=== PATIENT | female | born 1945 | race Caucasian/White ===

== ENCOUNTER 2017-03-16 09:16 | Inpatient (IN) | payer MEDICARE, BC ==
[2017-03-10 14:48] VITALS: BMI 31.1
[~2017-03-16 09:16] MED LIST: DEXAMETHASONE SOD PHOSPHATE 10 MG/ML 1 ML VIAL IV ONE; HEPARIN SODIUM,PORCINE 5,000 UNIT/ML 1 ML VIAL SQ ONE; MIDAZOLAM 2 MG/2 ML VIAL IV PRN; ONDANSETRON 4 MG/2 ML VIAL IVP ONE; ceFAZolin 2 GM in SODIUM CHLORIDE 0.9% 100 ML IVPB ONE; metroNIDAZOLE-NS PMX 500 MG in SALINE 1 100ML.BAG IVPB ONE
--- NOTE | 2017-03-16 11:05 | HP ---
CHIEF COMPLAINT: Right colon cancer. HISTORY OF PRESENT ILLNESS: This patient is a 71 year old female who underwent a colonoscopy by Dr. Tafoya on 02/08 which revealed a large ulcerated mass in the cecum. Biopsy from this mass revealed adenocarcinoma. The patient had a CAT scan performed, showing an abnormality within the liver. This led to an MRI and a PET scan which revealed what appeared to represent a hemangioma. No other metastatic disease was identified. The patient did have a 2 cm polyp in the descending colon which revealed tubulovillous adenoma. The patient has a significant vascular disease history. At the time of her recent cardiac catheterization they were unable to obtain access, apparently. PAST MEDICAL HISTORY: Hypertension, peripheral vascular disease, coronary artery disease, hyperlipidemia, anemia. PAST SURGICAL HISTORY: Colonoscopy, cardiac bypass, bladder. MEDICATIONS: See list. ALLERGIES: None. PHYSICAL EXAM: HEENT: Normocephalic, sclerae non icteric. CHEST: No deformities. ABDOMEN: Soft, nontender, nondistended. No palpable masses. EXTREMITIES: Without edema. IMPRESSION: 1. 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 PLAN: Will proceed with laparoscopic, possible open right colectomy today. The risks of the procedure are noted to include but not limited to bleeding, infection, hernia, abscess, anastomotic dehiscence, duodenal or ureteral injury , conversion to an open procedure, exacerbation of cardiac or peripheral vascular disease and . The patient understands and wishes to proceed. VIVEK
[2017-03-16] MEDS: LACTATED RINGERS 1,000 ML IV SCH (13:22)
[2017-03-16] MEDS: ALVIMOPAN 12 MG CAPSULE PO ONE ×2 (13:22→13:55)
[2017-03-16 13:24] LABS: Glucose,Whole Blood 138 mg/dL (75-99)
[2017-03-16] MEDS ORDERED: PROPOFOL 10 MG/ML 20 ML VIAL IV ONE (14:03)
[2017-03-16] MEDS ORDERED: NALOXONE 0.4 MG/ML 1 ML VIAL ONE (14:03)
[2017-03-16] MEDS ORDERED: fentaNYL (PF) 50 MCG/ML 2 ML AMP ONE (14:03)
[2017-03-16] MEDS ORDERED: SUCCINYLCHOLINE CHLORIDE 100 MG/5 ML SYR IV ONE (14:03)
[2017-03-16] MEDS ORDERED: VECURONIUM 10 MG VIAL IV ONE (14:03)
[2017-03-16] MEDS ORDERED: LIDOCAINE 1% INJ 10MG/ML (20 ML MDV) ONE (14:03)
[2017-03-16] MEDS ORDERED: NEOSTIGMINE 1 MG/ML 10 ML VIAL ONE (14:03)
[2017-03-16] MEDS ORDERED: ACETAMINOPHEN IV (For NPO) 1,000 MG/100 ML VIAL ONE (14:03)
[2017-03-16] MEDS ORDERED: GLYCOPYRROLATE 0.2 MG/ML 2 ML VIAL ONE (14:03)
[2017-03-16] MEDS ORDERED: BUPIVACAINE (PF) 0.25% 30 ML VIAL SQ ONE (14:57)
[2017-03-16] MEDS ORDERED: LACTATED RINGERS 1,000 ML IV ONE ×2 (15:44→16:33)
[2017-03-16] MEDS ORDERED: METOCLOPRAMIDE 5 MG/ML 2 ML VIAL IVP PRN (17:02)
[2017-03-16] MEDS ORDERED: ONDANSETRON 4 MG/2 ML VIAL IVP PRN (17:02)
--- NOTE | 2017-03-16 17:02 | P.OP ---
Date of Procedure: 03/16/17 Preoperative Diagnosis: Postoperative Diagnosis: Procedure(s) Performed: PREOPERATIVE DIAGNOSIS: Right colon adenocarcinoma POSTOPERATIVE DIAGNOSIS: Same PROCEDURE: Laparoscopic right colectomy SURGEON: Roberto EBL: 50ML ANESTHESIA: General COMPLICATIONS: None OPERATIVE PROCEDURE: The patient was placed in the operating table in the supine position. She was placed under general anesthesia that time. A Stanley catheter was placed. The patient was placed on the huggy vac. The arms were tucked. The abdomen was prepped and draped in the usual sterile fashion. A vertical supraumbilical incision was made using the scalpel. The fascia was retracted anteriorly with Mountain forceps. The Veress needle was advanced into the peritoneal cavity and pneumoperitoneum was achieved up to 15 monitor mercury. A 12 mm trocar was then placed. 3 additional 5 mm trochars were placed under direct visualization one on the right upper quadrant, one in the suprapubic location, and one in the left lower quadrant. The greater omentum was retracted cephalad. The cecum and ascending colon were inspected. The cecum examination revealed a mass that measured approximately 3-4 cm in size. There was no evidence of any peritoneal implants. The liver appeared normal. The adjacent colon was retracted anteriorly. In this manner the right colic vasculature was tented nicely. Superficial cautery was used on the mesentery. The right colic vasculature was then bluntly dissected. I then divided the right colic artery using a 45 mm white Endo JUDAH. Further blunt dissection took place in the retrocolic space. The right ureter was identified. The lateral attachments to the colon and the distal small bowel were lysed using a combination of blunt dissection cautery and the LigaSure device. The hepatic flexure was mobilized in a similar fashion. The gastrocolic ligament was divided using the ligature. Further dissection of the mesentery was divided using the LigaSure device. At this time I felt that we had good mobilization of the entire right colon and terminal ileum. Care was taken to avoid the use of electrocautery near the duodenum. The supra umbilical incision was then lengthened. The incision made lengthened inferiorly to include a small defect at the umbilicus. I did make this incision slightly larger than normal for our laparoscopic approach and the medium sized Victor Hugo wound protector was utilized. The bowel that had been fully mobilized was brought out through this incision site. The mid transverse colon was divided using a linear 75 stapler. The terminal ileum was then divided in a similar fashion. The specimen was sent to pathology for close examination. A [id number] anastomosis then took place. The antimesenteric portion of the staple line was excised. Through this defect the 75 linear stapler was placed and a cevg-ar-[id number] anastomosis took place along the tenia on the transverse colon and the antimesenteric border of the small intestine. A 3-0 GI silk crotch stitch was placed. The anastomosis was completed by firing a TA stapler. The TA staple line was imbricated using 3-0 GI silk sutures as well. No bleeding was seen. The bowel was reduced back into the peritoneal cavity. The fascia was then closed using a running double- stranded #1 PDS suture. The sub-cutaneous tissues reapproximated using interrupted 3-0 Vicryl sutures and the skin using a running 4-0 Monocryl stitch. Steri-Strips and sterile dressings then applied. At the end of the procedure the sponge needle and instrument counts were correct. DISPOSITION: Stable to recovery room Implants: Indications for Procedure: Operative Findings: Description of Procedure:
[2017-03-16] MEDS: HYDROmorphone 1 MG/ML 1 ML SYRINGE IVP PRN ×4 (17:30→22:35)
[2017-03-16] MEDS ORDERED: FAMOTIDINE 20 MG TAB PO PRN (18:19)
[2017-03-16] MEDS ORDERED: LEVALBUTEROL NEB 1.25 MG/3 ML AMP INHALATION ONE (18:30)
[2017-03-16] MEDS ORDERED: LABETALOL 5 MG/ML VIAL MDV IVP ONE ×3 (18:35→19:45)
[2017-03-16 18:54] LABS: Anisocytosis Slight; Basophils % (A) 0 %; CH 27.6; Eosinophils # (A) 0.1 k/uL (0-0.7); Eosinophils % (A) 1 %; HCT 32.8 % (34.0-46.0); HGB 10.7 gm/dL (11.4-16.0); Hypochromasia Marked; Luc # (Auto) 0.05; Luc % (Auto) 1; Lymphocytes # (A) 0.3 k/uL (1.0-4.8); Lymphocytes % (A) 4 %; MCH 30.1 pg (25.0-35.0); MCHC 32.6 g/dL (31.0-37.0); MCV 92.3 fL (80.0-100.0); Mean Platelet Volume 8.5; Monocytes # (A) 0.1 k/uL (0-1.0); Monocytes % (A) 1 %; Neutrophils # (A) 7.1 k/uL (1.3-7.7); Neutrophils % (A) 92 %; Poikilocytosis Slight; RBC 3.55 m/uL (3.80-5.40); RDW 17.7 % (11.5-15.5); WBC 7.7 k/uL (3.8-10.6); WBC (Perox) 7.77
[2017-03-16] MEDS ORDERED: ALBUTEROL NEBULIZED 2.5 MG/3 ML INHALATION ONE (19:15)
[2017-03-16] MEDS ORDERED: IPRATROPIUM 0.5 MG/2.5 ML NEBU INHALATION ONE (19:15)
[2017-03-16 19:20] LABS: Anion Gap 12 mmol/L; Blood Urea Nitrogen 12 mg/dL (7-17); Calcium 8.5 mg/dL (8.4-10.2); Carbon Dioxide 21 mmol/L (22-30); Chloride 107 mmol/L (98-107); Glucose 188 mg/dL (74-99); Non-African American GFR(MDRD) 54 (>60 ml/min/1.73 sqM); Potassium 4.3 mmol/L (3.5-5.1); Sodium 140 mmol/L (137-145)
[2017-03-16] MEDS: BUDESONIDE 0.5 MG/2 ML NEBU INHALATION SCH (19:39)
[2017-03-16] MEDS ORDERED: IPRATROPIUM-ALBUTEROL 3 ML NEB INHALATION PRN (19:59)
[2017-03-16 21:00] LABS: Glucose,Whole Blood 222 mg/dL (75-99)
[2017-03-16] MEDS ORDERED: ZOLPIDEM 10 MG TAB PO SCH (21:00)
[2017-03-16] MEDS: D5-0.45% NACL WITH KCL 20MEQ/L 1,000 ML IV SCH (22:26)
[2017-03-16] MEDS: FAMOTIDINE 20 MG/2 ML VIAL IV SCH (22:27)
[2017-03-16] MEDS: INSULIN LISPRO (humaLOG) 300 UNIT/3 ML VIAL SQ SCH (22:27)
[2017-03-16] MEDS: METOPROLOL SUCCINATE (ER) 50 MG TAB.ER.24H PO SCH (22:27)
[2017-03-17] MEDS ORDERED: IPRATROPIUM-ALBUTEROL 3 ML NEB INHALATION SCH
[2017-03-17] MEDS: HYDROmorphone 1 MG/ML 1 ML SYRINGE IVP PRN ×4 (03:36→17:38)
[2017-03-17 04:32] LABS: Anisocytosis Slight; Basophils % (A) 0 %; CHCM 30.7; Eosinophils % (A) 0 %; HCT 32.2 % (34.0-46.0); HDW 3.53; HGB 9.9 gm/dL (11.4-16.0); Hypochromasia Marked; Luc # (Auto) 0.07; Luc % (Auto) 1; Lymphocytes # (A) 0.3 k/uL (1.0-4.8); Lymphocytes % (A) 3 %; MCH 28.1 pg (25.0-35.0); MCHC 30.6 g/dL (31.0-37.0); MCV 91.7 fL (80.0-100.0); Mean Platelet Volume 8.1; Monocytes # (A) 0.3 k/uL (0-1.0); Monocytes % (A) 3 %; Neutrophils # (A) 9.2 k/uL (1.3-7.7); Neutrophils % (A) 94 %; Poikilocytosis Slight; RBC 3.51 m/uL (3.80-5.40); RDW 17.9 % (11.5-15.5); WBC 9.9 k/uL (3.8-10.6); WBC (Perox) 10.03
[2017-03-17 04:44] LABS: ALT 27 U/L (9-52); AST 19 U/L (14-36); Alkaline Phosphatase 60 U/L (38-126); Anion Gap 10 mmol/L; Blood Urea Nitrogen 12 mg/dL (7-17); Calcium 8.8 mg/dL (8.4-10.2); Carbon Dioxide 24 mmol/L (22-30); Chloride 107 mmol/L (98-107); Glucose 172 mg/dL (74-99); Magnesium 1.8 mg/dL (1.6-2.3); Non-African American GFR(MDRD) 54 (>60 ml/min/1.73 sqM); Potassium 4.9 mmol/L (3.5-5.1); Sodium 141 mmol/L (137-145); Total Bilirubin 0.3 mg/dL (0.2-1.3); Total Protein 5.7 g/dL (6.3-8.2)
[2017-03-17 06:22] LABS: Glucose,Whole Blood 161 mg/dL (75-99)
[2017-03-17] MEDS: HEPARIN SODIUM,PORCINE 5,000 UNIT/ML 1 ML VIAL SQ SCH ×4 (06:57→23:04)
[2017-03-17] MEDS: LACTATED RINGERS 1,000 ML IV SCH (06:57)
[2017-03-17] MEDS: D5-0.45% NACL WITH KCL 20MEQ/L 1,000 ML IV SCH ×3 (07:15→17:38)
[2017-03-17] MEDS: INSULIN LISPRO (humaLOG) 300 UNIT/3 ML VIAL SQ SCH ×4 (07:16→21:33)
[2017-03-17] MEDS: IPRATROPIUM-ALBUTEROL 3 ML NEB INHALATION SCH ×4 (08:19→21:28)
[2017-03-17] MEDS: BUDESONIDE 0.5 MG/2 ML NEBU INHALATION SCH ×2 (08:19→21:28)
[2017-03-17] MEDS: amLODIPine 2.5 MG TAB PO SCH (08:42)
[2017-03-17] MEDS: ALVIMOPAN 12 MG CAPSULE PO SCH ×2 (08:42→21:26)
[2017-03-17] MEDS: ISOSORBIDE MONONITRATE ER 30 MG TAB.ER.24H PO SCH (08:42)
[2017-03-17] MEDS: LOSARTAN 50 MG TAB PO SCH (08:42)
[2017-03-17] MEDS: METOPROLOL SUCCINATE (ER) 50 MG TAB.ER.24H PO SCH ×2 (08:42→21:26)
[2017-03-17] MEDS: FAMOTIDINE 20 MG/2 ML VIAL IV SCH ×2 (08:42→21:27)
[2017-03-17] MEDS: ATORVASTATIN 20 MG TAB PO SCH (08:42)
--- NOTE | 2017-03-17 09:23 | P.PN ---
Subjective Principal diagnosis: Cecal cancer Patient seems to be doing fairly well today. Complaining of mild discomfort rated a 5 out of 10. No flatus. No nausea. Would like to be more active. White blood cell count and hemoglobin of 9.9. Objective - Vital Signs Vital signs: Vital Signs Temp 98.9 F 03/17/17 04:00 Pulse 80 03/17/17 08:37 Resp 18 03/17/17 04:00 BP 153/66 03/17/17 04:00 Pulse Ox 92 L 03/17/17 04:00 Intake & Output 03/16/17 03/17/17 03/17/17 18:59 06:59 18:59 Intake Total 2400 600 Output Total 90 2700 Balance 2310 -2100 Weight 73 kg Intake: IV 2400 600 Output: Urine 65 2700 Estimated Blood Loss 25 Other: Voiding Method Indwelling Catheter # Voids 3 - Exam Abdomen: Soft, mild distention, incisions with clean and dry dressings, mild tenderness - Labs CBC & Chem 7: 03/17/17 04:13 03/17/17 04:13 Labs: Abnormal Lab Results - Last 24 Hours (Table) 03/16/17 03/16/17 03/16/17 Range/Units 13:15 18:27 18:27 RBC 3.55 L (3.80-5.40) m/uL Hgb 10.7 L (11.4-16.0) gm/dL Hct 32.8 L (34.0-46.0) % MCHC (31.0-37.0) g/dL RDW 17.7 H (11.5-15.5) % Neutrophils # (1.3-7.7) k/uL Lymphocytes # 0.3 L (1.0-4.8) k/uL Carbon Dioxide 21 L (22-30) mmol/L Glucose 188 H (74-99) mg/dL POC Glucose (mg/dL) 138 H (75-99) mg/dL Total Protein (6.3-8.2) g/dL Albumin (3.5-5.0) g/dL 03/16/17 03/17/17 03/17/17 Range/Units 20:52 04:13 04:13 RBC 3.51 L (3.80-5.40) m/uL Hgb 9.9 L (11.4-16.0) gm/dL Hct 32.2 L (34.0-46.0) % MCHC 30.6 L (31.0-37.0) g/dL RDW 17.9 H (11.5-15.5) % Neutrophils # 9.2 H (1.3-7.7) k/uL Lymphocytes # 0.3 L (1.0-4.8) k/uL Carbon Dioxide (22-30) mmol/L Glucose 172 H (74-99) mg/dL POC Glucose (mg/dL) 222 H (75-99) mg/dL Total Protein 5.7 L (6.3-8.2) g/dL Albumin 3.4 L (3.5-5.0) g/dL 03/17/17 Range/Units 06:20 RBC (3.80-5.40) m/uL Hgb (11.4-16.0) gm/dL Hct (34.0-46.0) % MCHC (31.0-37.0) g/dL RDW (11.5-15.5) % Neutrophils # (1.3-7.7) k/uL Lymphocytes # (1.0-4.8) k/uL Carbon Dioxide (22-30) mmol/L Glucose (74-99) mg/dL POC Glucose (mg/dL) 161 H (75-99) mg/dL Total Protein (6.3-8.2) g/dL Albumin (3.5-5.0) g/dL Assessment and Plan (1) Adenocarcinoma of cecum Narrative/Plan: Continue gradually advancing diet. Remove Stanley catheter. He had Toradol for pain control. Increase activity levels. Status: Acute
[2017-03-17 11:42] LABS: Glucose,Whole Blood 145 mg/dL (75-99)
[2017-03-17] MEDS: KETOROLAC 30 MG/ML 1 ML VIAL IVP SCH ×3 (12:33→23:04)
--- NOTE | 2017-03-17 13:48 | P.CONS ---
History of Present Illness - Reason for Consult Consult date: 03/16/17 Medical management Requesting physician: Darvin Mejia - Chief Complaint Post Lap-Assisted Right Hemicolectomy. - History of Present Illness This is a 71-year-old female one of Dr. Sammy Hardin with a previous medical history significant for coronary artery disease status post coronary artery bypass graft for three-vessel back in 2005 with severe peripheral arterial occlusive disease with aortoiliac the disease, hypertension and hypertensive cardio vascular disease with left ventricular hypertrophy, remote tobacco use and dependence with COPD, diabetes mellitus type 2 with diabetic polyneuropathy, anxiety disorder, GERD, insomnia, history of bladder cancer, patient was found to have a colon cancer in the cecal area on a screening colonoscopy, after she had the change in bowel habit so her primary care physician sent her to Dr. seymour she ended up is scheduled to go for laparoscopic assisted right hemicolectomy for adenocarcinoma of the right cecum. I was called to come to the recovery room to evaluate the patient because of hypotension and patient not able to wake up very well, she is requiring back-to- back nebulized treatment she was given DuoNeb as well as Pulmicort and she was given 10 mg of labetalol IV patient done well however because of her situation she was admitted to the selective care overnight as to be transferred to surgical floor after 24 hours from the evaluation. Review of Systems Constitutional: Denies chronic headaches, Denies lethargy, Denies malaise, Denies weakness, Denies weight gain, Denies weight loss Eyes: bilateral blurred vision (Due to macular degeneration.), denies bulging eye, denies decreased vision, denies diplopia Ears: deny: decreased hearing Ears, nose, mouth and throat: Reports sore throat, Denies dysphagia, Denies neck lump, Denies vertigo Cardiovascular: Reports decreased exercise tolerance, Reports dyspnea on exertion, Reports high blood pressure, Reports shortness of breath, Denies chest pain, Denies phlebitis, Denies rapid heart beat, Denies syncope Respiratory: Reports cough, Reports cough with sputum, Reports dyspnea, Denies congestion, Denies sleep apnea, Denies snoring, Denies wheezing Gastrointestinal: Reports abdominal pain, Reports nausea, Denies BRBPR, Denies change in bowel habits, Denies coffee ground emesis, Denies dyspepsia, Denies hematemesis, Denies hematochezia, Denies melena, Denies vomiting Genitourinary: Denies dysuria, Denies hematuria Menstruation: Reports postmenopausal Musculoskeletal: Denies myalgias Musculoskeletal: absent: ankle pain, ankle stiffness, ankle swelling, elbow pain , elbow stiffness, elbow swelling, foot pain, foot stiffness, foot swelling, hand pain, hand stiffness, hand swelling, hip pain, hip stiffness, hip swelling , knee pain, knee stiffness, knee swelling, shoulder pain, shoulder stiffness, shoulder swelling, wrist pain, wrist stiffness, wrist swelling Integumentary: Denies pruritus, Denies rash Neurological: Denies numbness, Denies weakness Psychiatric: Reports anxiety, Reports sleep disturbances, Denies depression Endocrine: Denies fatigue, Denies weight change Past Medical History Past Medical History: Cancer, Chest Pain / Angina, COPD, Diabetes Mellitus, GERD /Reflux, Hyperlipidemia, Hypertension, Osteoarthritis (OA), Skin Disorder, Vascular Disorder Additional Past Medical History / Comment(s): colon cancer, hx migraine, irregular heartbeat, varicose veins, hx blood clot in rt arm after CABG surgery , psoriasis, diet control diabetic, anemia, hx bladder cancer x 3, PAD and disease of the ileo-aortic system, carotid artery stenosis right more than the left, hypertension and hypertensive cardio vascular disease, CAD post CABG, hyperlipidemia, anxiety, diabetes been step 2, GERD. History of Any Multi-Drug Resistant Organisms: None Reported Past Surgical History: Bladder Surgery, Coronary Bypass/CABG, Heart Catheterization Additional Past Surgical History / Comment(s): double CAGB 2006, bladder surgery x 3, aileen cataracts, Past Anesthesia/Blood Transfusion Reactions: Previous Problems w/ Anesthesia Additional Past Anesthesia/Blood Transfusion Reaction / Comm: had blood transfusion 1 [facility] ago at [facility]- no problem with, "screaming and yelling from anesthesia after CAGB surgery" Smoking Status: Former smoker (Patient used to smoke about pack every day she smoked for for many years should she was 13-year-old and she quit in 2005.) - Past Family History Mother Family Medical History: Cancer, Coronary Artery Disease (CAD) (Mother at age of 74 from diabetes and CAD) Father Family Medical History: Unable to Obtain (Patient do much about her father.) Brother(s) Family Medical History: Cancer (Patient had 2 brothers one of them from AML.) Sister(s) Family Medical History: No Reported History (Patient had one sister.) Son(s) Family Medical History: Cancer (Patient had 2 sons one of them from AML.) Medications and Allergies Home Medications Medication Instructions Recorded Confirmed Type ALPRAZolam [Xanax] 1 mg PO TID PRN 03/10/17 03/16/17 History Aspirin [Adult Low Dose Aspirin EC] 81 mg PO DAILY 03/10/17 03/16/17 History Cholecalciferol [Vitamin D3] 1,000 unit PO DAILY 03/10/17 03/16/17 History Isosorbide Mononitrate [Isosorbide 30 mg PO DAILY 03/10/17 03/16/17 History Mononitrate ER] Losartan Potassium [Cozaar] 100 mg PO DAILY 03/10/17 03/16/17 History Metoprolol Succinate [Toprol XL] 50 mg PO Q12HR 03/10/17 03/16/17 History Ranitidine HCl [Zantac] 75 mg PO DAILY PRN 03/10/17 03/16/17 History Simvastatin [Zocor] 40 mg PO DAILY 03/10/17 03/16/17 History Zolpidem Tartrate [Ambien] 10 mg PO HS 03/10/17 03/16/17 History amLODIPine BESYLATE [Norvasc] 2.5 mg PO DAILY 03/10/17 03/16/17 History quiNIDine SULFATE 300 mg PO HS 03/10/17 03/16/17 History Allergies Allergy/AdvReac Type Severity Reaction Status Date / Time No Known Allergies Allergy Verified 03/16/17 17:32 Physical Exam Vitals: Vital Signs Temp Pulse Resp BP Pulse Ox 03/16/17 17:30 83 22 155/70 97 03/16/17 17:14 98.0 F 86 16 168/72 97 03/16/17 13:03 98.0 F 66 16 135/76 96 Intake and Output 03/16/17 03/16/17 03/16/17 06:59 14:59 22:59 Intake Total 1200 1200 Output Total 90 Balance 1200 1110 Intake: IV 1200 1200 Output: Urine 65 Estimated Blood Loss 25 - Constitutional General appearance: average body habitus, mild distress - EENT Eyes: anicteric sclerae, EOMI, PERRLA, no ptosis, no scleral icterus, normal appearance ENT: hearing grossly normal, NA/AT, normal oropharynx, no thrush Ears: bilateral: normal - Neck Neck: no lymphadenopathy, normal ROM, no rigidity, no stridor, no thyromegaly Carotids: bilateral: upstroke delayed Thyroid: bilateral: normal size - Respiratory Respiratory: bilateral: diminished, wheezing, prolonged expiration, negative: dullness, rales, rhonchi - Cardiovascular Rhythm: regular Heart sounds: normal: S1, S2 Abnormal Heart Sounds: systolic murmur, no S3 Gallop, no S4 Gallop, no click - Gastrointestinal General gastrointestinal: decreased bowel sounds, normal bowel sounds, soft, tenderness (Decision appear to be covered minimal drainage, no bruising around the incision.) - Integumentary Integumentary: normal, normal turgor - Neurologic Neurologic: CNII-XII intact - Musculoskeletal Musculoskeletal: generalized weakness, strength equal bilaterally - Psychiatric Psychiatric: A&O x's 3, appropriate affect, intact judgment & insight Results CBC & Chem 7: 03/17/17 04:13 03/17/17 04:13 Labs: Abnormal Lab Results - Last 24 Hours (Table) 03/16/17 Range/Units 13:15 POC Glucose (mg/dL) 138 H (75-99) mg/dL Assessment and Plan Plan: Assessment and plan: 1. Post operative day #0 status post laparoscopic assisted right hemicolectomy secondary to adenocarcinoma of the cecum. Continue incentive spirometer, continue patient on IV fluid resuscitation for the next 24 hours, continue current pain management as outlined by general surgery, continue deep venous thrombosis prophylaxis with heparin as well as SCD and bilateral knee-high CANELO hose. 2. CAD post CABG. Continue patient on Imdur 30 mg orally once every day, Toprol-XL 50 mg orally twice every day, simvastatin 40 mg orally at bedtime. 3. Hypertension and hypertensive cardiovascular disease. Continue losartan 100 mg orally once every day, Toprol-XL 50 mg orally twice every day, Norvasc 2.5 mg orally once every day. 4. Diabetes mellitus type 2. Continue patient on consistent carb diet, sliding scale insulin. 5. Hyperlipidemia. Continue patient on simvastatin 40 mg at bedtime. 6. Moderate COPD. Continue DuoNeb 3 mL nebulization 4 times every day, continue Pulmicort 0.5 mg nebulization twice every day, continue oxygen support. 7. History of tobacco use and dependence. Patient quit in 2005. 8. GERD. Continue patient on PPI. 9. Severe PAD. Continue patient on simvastatin for second or prevention. 10. History of carotid artery disease. Follow-up with cardiology as an outpatient. 11. Anxiety disorder. Hold Xanax for 24 hours then restart her dose at 0.5 mg orally every 8 hours as needed. 12. Insomnia. Continue patient on Ambien 10 mg at bedtime. 13. Patient is full code. 14. Thank you Dr. Mejia for allowing me to participate in the care of your patient we will follow the patient along with you.
--- NOTE | 2017-03-17 14:04 | P.PN ---
Subjective This is a 71-year-old female one of Dr. Sammy Hardin with a previous medical history significant for coronary artery disease status post coronary artery bypass graft for three-vessel back in 2005 with severe peripheral arterial occlusive disease with aortoiliac the disease, hypertension and hypertensive cardio vascular disease with left ventricular hypertrophy, remote tobacco use and dependence with COPD, diabetes mellitus type 2 with diabetic polyneuropathy, anxiety disorder, GERD, insomnia, history of bladder cancer, patient was found to have a colon cancer in the cecal area on a screening colonoscopy, after she had the change in bowel habit so her primary care physician sent her to Dr. seymour she ended up is scheduled to go for laparoscopic assisted right hemicolectomy for adenocarcinoma of the right cecum. I was called to come to the recovery room to evaluate the patient because of hypotension and patient not able to wake up very well, she is requiring back-to- back nebulized treatment she was given DuoNeb as well as Pulmicort and she was given 10 mg of labetalol IV patient done well however because of her situation she was admitted to the selective care overnight as to be transferred to surgical floor after 24 hours from the evaluation. 03/17: Dr. Mejia has started the patient on a clear liquid diet with advancement as a full. Patient has been hemodynamically stable and blood pressure is improved. Patient will be transferred to the [facility] floor today. Patient is feeling generally better from yesterday. She has been afebrile. Pulse ox is 94 % on room air. Hemoglobin is 9.9. Blood blood glucose running 145-222. She is on insulin scale. Objective - Vital Signs Vital signs: Vital Signs Temp 97.5 F L 03/17/17 08:00 Pulse 80 03/17/17 08:37 Resp 20 03/17/17 08:00 BP 129/61 03/17/17 08:00 Pulse Ox 96 03/17/17 08:00 Intake & Output 03/16/17 03/17/17 03/17/17 18:59 06:59 18:59 Intake Total 2400 600 240 Output Total 90 2700 950 Balance 2309 2099 -285 Weight 73 kg Intake: IV 2400 600 Oral 240 Output: Urine 65 2700 950 Estimated Blood Loss 25 Other: Voiding Method Indwelling Catheter Indwelling Catheter # Voids 3 - Exam General appearance: average body habitus, mild distress - EENT Eyes: anicteric sclerae, EOMI, PERRLA, no ptosis, no scleral icterus, normal appearance ENT: hearing grossly normal, NA/AT, normal oropharynx, no thrush Ears: bilateral: normal - Neck Neck: no lymphadenopathy, normal ROM, no rigidity, no stridor, no thyromegaly Carotids: bilateral: upstroke delayed Thyroid: bilateral: normal size - Respiratory Respiratory: bilateral: diminished, wheezing, prolonged expiration, negative: dullness, rales, rhonchi - Cardiovascular Rhythm: regular Heart sounds: normal: S1, S2 Abnormal Heart Sounds: systolic murmur, no S3 Gallop, no S4 Gallop, no click - Gastrointestinal General gastrointestinal: decreased bowel sounds, normal bowel sounds, soft, tenderness (incision appear to be covered minimal drainage, no bruising around the incision.) - Integumentary Integumentary: normal, normal turgor - Neurologic Neurologic: CNII-XII intact - Musculoskeletal Musculoskeletal: generalized weakness, strength equal bilaterally - Psychiatric Psychiatric: A&O x's 3, appropriate affect, intact judgment & insight - Labs CBC & Chem 7: 03/17/17 04:13 03/17/17 04:13 Labs: Abnormal Lab Results - Last 24 Hours (Table) 03/16/17 03/16/17 03/16/17 Range/Units 13:15 18:27 18:27 RBC 3.55 L (3.80-5.40) m/uL Hgb 10.7 L (11.4-16.0) gm/dL Hct 32.8 L (34.0-46.0) % MCHC (31.0-37.0) g/dL RDW 17.7 H (11.5-15.5) % Neutrophils # (1.3-7.7) k/uL Lymphocytes # 0.3 L (1.0-4.8) k/uL Carbon Dioxide 21 L (22-30) mmol/L Glucose 188 H (74-99) mg/dL POC Glucose (mg/dL) 138 H (75-99) mg/dL Total Protein (6.3-8.2) g/dL Albumin (3.5-5.0) g/dL 03/16/17 03/17/17 03/17/17 Range/Units 20:52 04:13 04:13 RBC 3.51 L (3.80-5.40) m/uL Hgb 9.9 L (11.4-16.0) gm/dL Hct 32.2 L (34.0-46.0) % MCHC 30.6 L (31.0-37.0) g/dL RDW 17.9 H (11.5-15.5) % Neutrophils # 9.2 H (1.3-7.7) k/uL Lymphocytes # 0.3 L (1.0-4.8) k/uL Carbon Dioxide (22-30) mmol/L Glucose 172 H (74-99) mg/dL POC Glucose (mg/dL) 222 H (75-99) mg/dL Total Protein 5.7 L (6.3-8.2) g/dL Albumin 3.4 L (3.5-5.0) g/dL 03/17/17 Range/Units 06:20 RBC (3.80-5.40) m/uL Hgb (11.4-16.0) gm/dL Hct (34.0-46.0) % MCHC (31.0-37.0) g/dL RDW (11.5-15.5) % Neutrophils # (1.3-7.7) k/uL Lymphocytes # (1.0-4.8) k/uL Carbon Dioxide (22-30) mmol/L Glucose (74-99) mg/dL POC Glucose (mg/dL) 161 H (75-99) mg/dL Total Protein (6.3-8.2) g/dL Albumin (3.5-5.0) g/dL Assessment and Plan Plan: 1. Post operative day #0 status post laparoscopic assisted right hemicolectomy secondary to adenocarcinoma of the cecum. Continue incentive spirometer, continue patient on IV fluid resuscitation for the next 24 hours, continue current pain management as outlined by general surgery, continue deep venous thrombosis prophylaxis with heparin as well as SCD and bilateral knee-high CANELO hose. 2. CAD post CABG. Continue patient on Imdur 30 mg orally once every day, Toprol-XL 50 mg orally twice every day, simvastatin 40 mg orally at bedtime. 3. Hypertension and hypertensive cardiovascular disease. Continue losartan 100 mg orally once every day, Toprol-XL 50 mg orally twice every day, Norvasc 2.5 mg orally once every day. 4. Diabetes mellitus type 2. Continue patient on consistent carb diet, sliding scale insulin. 5. Hyperlipidemia. Continue patient on simvastatin 40 mg at bedtime. 6. Moderate COPD. Continue DuoNeb 3 mL nebulization 4 times every day, continue Pulmicort 0.5 mg nebulization twice every day, continue oxygen support. 7. History of tobacco use and dependence. Patient quit in 2005. 8. GERD. Continue patient on PPI. 9. Severe PAD. Continue patient on simvastatin for second or prevention. 10. History of carotid artery disease. Follow-up with cardiology as an outpatient. 11. Anxiety disorder. Hold Xanax for 24 hours then restart her dose at 0.5 mg orally every 8 hours as needed. 12. Insomnia. Continue patient on Ambien 10 mg at bedtime. 13. Pulmonary prophylaxis. Continue incentive spirometry hourly while awake. 14. DVT prophylaxis. Continue heparin subcu. 15. Gastric intestinal prophylaxis. Continue Pepcid. Discharge plan: Return home Impression and plan of care have been directed as dictated by the signing physician. Krsytal Morelos nurse practitioner acting as scribe for signing physician.
[2017-03-17 17:07] LABS: Glucose,Whole Blood 109 mg/dL (75-99)
[2017-03-17 20:51] LABS: Glucose,Whole Blood 110 mg/dL (75-99)
[2017-03-18] MEDS: D5-0.45% NACL WITH KCL 20MEQ/L 1,000 ML IV SCH ×4 (01:14→23:09)
[2017-03-18] MEDS: LACTATED RINGERS 1,000 ML IV SCH ×2 (04:42→23:09)
[2017-03-18] MEDS: BUDESONIDE 0.5 MG/2 ML NEBU INHALATION SCH ×2 (07:12→18:56)
[2017-03-18] MEDS: IPRATROPIUM-ALBUTEROL 3 ML NEB INHALATION SCH ×4 (07:12→18:56)
[2017-03-18 07:31] LABS: Anisocytosis Slight; Basophils % (A) 0 %; CH 27.4; CHCM 29.4; Eosinophils % (A) 0 %; HCT 30.3 % (34.0-46.0); HDW 3.56; HGB 9.5 gm/dL (11.4-16.0); Hypochromasia Marked; Luc # (Auto) 0.19; Luc % (Auto) 2; Lymphocytes # (A) 0.8 k/uL (1.0-4.8); Lymphocytes % (A) 10 %; MCH 29.4 pg (25.0-35.0); MCHC 31.3 g/dL (31.0-37.0); MCV 93.7 fL (80.0-100.0); Mean Platelet Volume 7.8; Monocytes # (A) 0.4 k/uL (0-1.0); Monocytes % (A) 4 %; Neutrophils # (A) 6.9 k/uL (1.3-7.7); Neutrophils % (A) 83 %; Poikilocytosis Slight; RBC 3.23 m/uL (3.80-5.40); RDW 17.9 % (11.5-15.5); WBC 8.3 k/uL (3.8-10.6); WBC (Perox) 8.36
[2017-03-18 07:58] LABS: Anion Gap 9 mmol/L; Blood Urea Nitrogen 14 mg/dL (7-17); Calcium 8.8 mg/dL (8.4-10.2); Carbon Dioxide 24 mmol/L (22-30); Chloride 108 mmol/L (98-107); Glucose 99 mg/dL (74-99); Non-African American GFR(MDRD) 50 (>60 ml/min/1.73 sqM); Potassium 4.4 mmol/L (3.5-5.1); Sodium 141 mmol/L (137-145)
[2017-03-18 08:01] LABS: Glucose,Whole Blood 104 mg/dL (75-99)
[2017-03-18] MEDS: INSULIN LISPRO (humaLOG) 300 UNIT/3 ML VIAL SQ SCH ×4 (08:24→20:38)
[2017-03-18] MEDS: ALVIMOPAN 12 MG CAPSULE PO SCH ×2 (08:25→20:40)
[2017-03-18] MEDS: HEPARIN SODIUM,PORCINE 5,000 UNIT/ML 1 ML VIAL SQ SCH ×3 (08:25→23:09)
[2017-03-18] MEDS: FAMOTIDINE 20 MG/2 ML VIAL IV SCH (08:26)
[2017-03-18] MEDS: ISOSORBIDE MONONITRATE ER 30 MG TAB.ER.24H PO SCH (08:26)
[2017-03-18] MEDS: ATORVASTATIN 20 MG TAB PO SCH (08:26)
[2017-03-18] MEDS: METOPROLOL SUCCINATE (ER) 50 MG TAB.ER.24H PO SCH ×2 (08:26→20:40)
[2017-03-18] MEDS: amLODIPine 2.5 MG TAB PO SCH (08:26)
[2017-03-18] MEDS: KETOROLAC 30 MG/ML 1 ML VIAL IVP SCH ×5 (08:26→23:09)
[2017-03-18] MEDS: LOSARTAN 50 MG TAB PO SCH (08:26)
[2017-03-18 11:34] LABS: Glucose,Whole Blood 115 mg/dL (75-99)
[2017-03-18] MEDS ORDERED: NON-FORMULARY DRUG (Alprazolam [Xanax] 1 MG) PO PRN (12:51)
[2017-03-18] MEDS ORDERED: ALPRAZolam 0.5 MG TAB PO PRN (12:53)
[2017-03-18] MEDS ORDERED: ZOLPIDEM 10 MG TAB PO PRN (13:36)
--- NOTE | 2017-03-18 13:51 | XR ---
EXAMINATION TYPE: XR chest 2V DATE OF EXAM: 03/18/2017 COMPARISON: None HISTORY: 71-year-old female ACF placement TECHNIQUE: Frontal and lateral views FINDINGS: Low lung volumes with crowded vascular markings and strandy bibasilar densities. Heart is mildly enla rged. Median sternotomy wires and post-CABG clips. Mild diffuse interstitial prominence likely chroni c. No consolidation or pleural effusion. IMPRESSION: Hypoventilatory changes and strandy areas of atelectasis or scarring in the lower lungs. Interstitial prominence likely chronic. Correlate to exclude mild CHF.
--- NOTE | 2017-03-18 15:45 | P.PN ---
Subjective This is a 71-year-old female one of Dr. Sammy Hardin with a previous medical history significant for coronary artery disease status post coronary artery bypass graft for three-vessel back in 2005 with severe peripheral arterial occlusive disease with aortoiliac the disease, hypertension and hypertensive cardio vascular disease with left ventricular hypertrophy, remote tobacco use and dependence with COPD, diabetes mellitus type 2 with diabetic polyneuropathy, anxiety disorder, GERD, insomnia, history of bladder cancer, patient was found to have a colon cancer in the cecal area on a screening colonoscopy, after she had the change in bowel habit so her primary care physician sent her to Dr. seymour she ended up is scheduled to go for laparoscopic assisted right hemicolectomy for adenocarcinoma of the right cecum. I was called to come to the recovery room to evaluate the patient because of hypotension and patient not able to wake up very well, she is requiring back-to- back nebulized treatment she was given DuoNeb as well as Pulmicort and she was given 10 mg of labetalol IV patient done well however because of her situation she was admitted to the selective care overnight as to be transferred to surgical floor after 24 hours from the evaluation. 03/17: Dr. Mejia has started the patient on a clear liquid diet with advancement as a full. Patient has been hemodynamically stable and blood pressure is improved. Patient will be transferred to the [facility] floor today. Patient is feeling generally better from yesterday. She has been afebrile. Pulse ox is 94 % on room air. Hemoglobin is 9.9. Blood blood glucose running 145-222. She is on insulin scale. 03/18: Blood pressure readings remain improved. Pulse ox is 97% on room air. Hemoglobin is 9.5. Complete blood glucose running between 104 and 145. Patient states that her abdomen is a little bit sore. Patient is requesting Xanax and Ambien for sleep tonight. Objective - Vital Signs Vital signs: Vital Signs Temp 97.8 F 03/18/17 07:00 Pulse 70 03/18/17 08:00 Resp 16 03/18/17 08:00 BP 129/58 03/18/17 07:00 Pulse Ox 97 03/18/17 07:00 Intake & Output 03/17/17 03/18/17 03/18/17 18:59 06:59 18:59 Intake Total 1190 1425 Output Total 950 950 Balance 240 1425 -950 Weight 73 kg 73 kg Intake: Intake, IV Titration 750 1100 Amount D5-0.45% NaCl with KCl 750 1100 20Meq/l 1,000 ml @ 125 mls/hr IV .Q8H [facility] Rx#: [id number] Oral 440 325 Output: Urine 950 950 Other: Voiding Method Toilet Toilet Toilet # Voids 3 1 1 - Exam General appearance: average body habitus, mild distress - EENT Eyes: anicteric sclerae, EOMI, PERRLA, no ptosis, no scleral icterus, normal appearance ENT: hearing grossly normal, NA/AT, normal oropharynx, no thrush Ears: bilateral: normal - Neck Neck: no lymphadenopathy, normal ROM, no rigidity, no stridor, no thyromegaly Carotids: bilateral: upstroke delayed Thyroid: bilateral: normal size - Respiratory Respiratory: bilateral: diminished, wheezing, prolonged expiration, negative: dullness, rales, rhonchi - Cardiovascular Rhythm: regular Heart sounds: normal: S1, S2 Abnormal Heart Sounds: systolic murmur, no S3 Gallop, no S4 Gallop, no click - Gastrointestinal General gastrointestinal: normal bowel sounds, soft, tenderness (incision appear to be covered minimal drainage, no bruising around the incision.) - Integumentary Integumentary: normal, normal turgor - Neurologic Neurologic: CNII-XII intact - Musculoskeletal Musculoskeletal: generalized weakness, strength equal bilaterally - Psychiatric Psychiatric: A&O x's 3, appropriate affect, intact judgment & insight - Labs CBC & Chem 7: 03/18/17 06:54 03/18/17 06:54 Labs: Abnormal Lab Results - Last 24 Hours (Table) 03/17/17 03/17/17 03/17/17 Range/Units 11:39 17:05 20:21 RBC (3.80-5.40) m/uL Hgb (11.4-16.0) gm/dL Hct (34.0-46.0) % RDW (11.5-15.5) % Lymphocytes # (1.0-4.8) k/uL Chloride (98-107) mmol/L Creatinine (0.52-1.04) mg/dL POC Glucose (mg/dL) 145 H 109 H 110 H (75-99) mg/dL 03/18/17 03/18/17 03/18/17 Range/Units 06:54 06:54 07:59 RBC 3.23 L (3.80-5.40) m/uL Hgb 9.5 L (11.4-16.0) gm/dL Hct 30.3 L (34.0-46.0) % RDW 17.9 H (11.5-15.5) % Lymphocytes # 0.8 L (1.0-4.8) k/uL Chloride 108 H (98-107) mmol/L Creatinine 1.08 H (0.52-1.04) mg/dL POC Glucose (mg/dL) 104 H (75-99) mg/dL Assessment and Plan Plan: 1. Post operative day #0 status post laparoscopic assisted right hemicolectomy secondary to adenocarcinoma of the cecum. Continue incentive spirometer, continue current pain management as outlined by general surgery, continue deep venous thrombosis prophylaxis with heparin as well as SCD and bilateral knee- high CANELO hose. 2. CAD post CABG. Continue patient on Imdur 30 mg orally once every day, Toprol-XL 50 mg orally twice every day, simvastatin 40 mg orally at bedtime. 3. Hypertension and hypertensive cardiovascular disease. Continue losartan 100 mg orally once every day, Toprol-XL 50 mg orally twice every day, Norvasc 2.5 mg orally once every day. 4. Diabetes mellitus type 2. Continue patient on consistent carb diet, sliding scale insulin. 5. Hyperlipidemia. Continue patient on simvastatin 40 mg at bedtime. 6. Moderate COPD. Continue DuoNeb 3 mL nebulization 4 times every day, continue Pulmicort 0.5 mg nebulization twice every day, continue oxygen support. 7. History of tobacco use and dependence. Patient quit in 2005. 8. GERD. Continue patient on PPI. 9. Severe PAD. Continue patient on simvastatin for second or prevention. 10. History of carotid artery disease. Follow-up with cardiology as an outpatient. 11. Anxiety disorder. Hold Xanax for 24 hours then restart her dose at 0.5 mg orally every 8 hours as needed. 12. Insomnia. Continue patient on Ambien 10 mg at bedtime. 13. Pulmonary prophylaxis. Continue incentive spirometry hourly while awake. 14. DVT prophylaxis. Continue heparin subcu. 15. Gastric intestinal prophylaxis. Continue Pepcid. Discharge plan: Return home Impression and plan of care have been directed as dictated by the signing physician. Krystal Morelos nurse practitioner acting as scribe for signing physician.
[2017-03-18 16:12] LABS: Glucose,Whole Blood 96 mg/dL (75-99)
[2017-03-18] MEDS: HYDROcodone/APAP 5-325MG 1 EACH TAB PO PRN (16:33)
[2017-03-18] MEDS: FAMOTIDINE 20 MG TAB PO SCH (17:05)
[2017-03-18 20:09] LABS: Glucose,Whole Blood 113 mg/dL (75-99)
--- NOTE | 2017-03-18 20:26 | P.PN ---
Subjective Principal diagnosis: Cecal cancer Patient says her pain is improved. Pain seems to be fairly well controlled with oral meds. She did have a loose bowel movement earlier today. She is tolerating a full liquid diet. She is afebrile. Objective - Vital Signs Vital signs: Vital Signs Temp 98.2 F 03/18/17 15:00 Pulse 78 03/18/17 19:09 Resp 16 03/18/17 15:53 BP 165/74 03/18/17 15:00 Pulse Ox 93 L 03/18/17 15:00 Intake & Output 03/18/17 03/18/17 03/19/17 06:59 18:59 06:59 Intake Total 1425 Output Total 1900 Balance 1425 -1900 Weight 73 kg Intake: Intake, IV Titration 1100 Amount D5-0.45% NaCl with KCl 1100 20Meq/l 1,000 ml @ 125 mls/hr IV .Q8H [facility] Rx#: [id number] Oral 325 Output: Urine 1900 Other: Voiding Method Toilet Toilet # Voids 1 4 - Exam Abdomen: Soft, nondistended, mild tenderness, dressings clean - Labs CBC & Chem 7: 03/18/17 06:54 03/18/17 06:54 Labs: Abnormal Lab Results - Last 24 Hours (Table) 03/17/17 03/18/17 03/18/17 Range/Units 20:21 06:54 06:54 RBC 3.23 L (3.80-5.40) m/uL Hgb 9.5 L (11.4-16.0) gm/dL Hct 30.3 L (34.0-46.0) % RDW 17.9 H (11.5-15.5) % Lymphocytes # 0.8 L (1.0-4.8) k/uL Chloride 108 H (98-107) mmol/L Creatinine 1.08 H (0.52-1.04) mg/dL POC Glucose (mg/dL) 110 H (75-99) mg/dL 03/18/17 03/18/17 03/18/17 Range/Units 07:59 11:32 20:07 RBC (3.80-5.40) m/uL Hgb (11.4-16.0) gm/dL Hct (34.0-46.0) % RDW (11.5-15.5) % Lymphocytes # (1.0-4.8) k/uL Chloride (98-107) mmol/L Creatinine (0.52-1.04) mg/dL POC Glucose (mg/dL) 104 H 115 H 113 H (75-99) mg/dL Assessment and Plan (1) Adenocarcinoma of cecum Narrative/Plan: Will advance diet to soft. Increase ambulation. Repeat labs tomorrow. Status: Acute
[2017-03-18] MEDS ORDERED: FAMOTIDINE 20 MG TAB PO SCH (21:00)
[2017-03-18] MEDS: QUINIDINE SULFATE 300 MG PO SCH ×2 (21:17→21:22)
[2017-03-19] MEDS: KETOROLAC 30 MG/ML 1 ML VIAL IVP SCH (05:57)
[2017-03-19] MEDS: BUDESONIDE 0.5 MG/2 ML NEBU INHALATION SCH (07:23)
[2017-03-19] MEDS: IPRATROPIUM-ALBUTEROL 3 ML NEB INHALATION SCH ×3 (07:23→15:02)
[2017-03-19 07:25] VITALS: RESP 14
[2017-03-19 07:57] LABS: Anisocytosis Slight; Basophils % (A) 1 %; CH 28.4; CHCM 30.7; Eosinophils # (A) 0.2 k/uL (0-0.7); Eosinophils % (A) 3 %; HCT 32.9 % (34.0-46.0); HDW 3.59; HGB 10.3 gm/dL (11.4-16.0); Hypochromasia Marked; Luc # (Auto) 0.14; Luc % (Auto) 2; Lymphocytes # (A) 0.9 k/uL (1.0-4.8); Lymphocytes % (A) 15 %; MCH 29.2 pg (25.0-35.0); MCHC 31.4 g/dL (31.0-37.0); MCV 92.9 fL (80.0-100.0); Mean Platelet Volume 8.3; Monocytes # (A) 0.3 k/uL (0-1.0); Monocytes % (A) 5 %; Neutrophils # (A) 4.3 k/uL (1.3-7.7); Neutrophils % (A) 74 %; Poikilocytosis Slight; RBC 3.54 m/uL (3.80-5.40); RDW 17.7 % (11.5-15.5); WBC 5.8 k/uL (3.8-10.6); WBC (Perox) 6.02
[2017-03-19 08:05] LABS: Glucose,Whole Blood 86 mg/dL (75-99)
[2017-03-19 08:08] LABS: Calcium 9.3 mg/dL (8.4-10.2); Potassium 4.5 mmol/L (3.5-5.1)
[2017-03-19 08:21] VITALS: BP 157/70; TEMP 98.2
[2017-03-19] MEDS: HYDROcodone/APAP 5-325MG 1 EACH TAB PO PRN (08:33)
[2017-03-19] MEDS: INSULIN LISPRO (humaLOG) 300 UNIT/3 ML VIAL SQ SCH ×2 (08:35→12:29)
[2017-03-19] MEDS: ATORVASTATIN 20 MG TAB PO SCH (08:36)
[2017-03-19] MEDS: amLODIPine 2.5 MG TAB PO SCH (08:36)
[2017-03-19] MEDS: HEPARIN SODIUM,PORCINE 5,000 UNIT/ML 1 ML VIAL SQ SCH (08:36)
[2017-03-19] MEDS: ALVIMOPAN 12 MG CAPSULE PO SCH (08:36)
[2017-03-19] MEDS: FAMOTIDINE 20 MG TAB PO SCH (08:36)
[2017-03-19] MEDS: ISOSORBIDE MONONITRATE ER 30 MG TAB.ER.24H PO SCH (08:37)
[2017-03-19] MEDS: LOSARTAN 50 MG TAB PO SCH (08:37)
[2017-03-19] MEDS: METOPROLOL SUCCINATE (ER) 50 MG TAB.ER.24H PO SCH (08:37)
--- NOTE | 2017-03-19 11:13 | P.PN ---
Subjective This is a 71-year-old female one of Dr. Sammy Hardin with a previous medical history significant for coronary artery disease status post coronary artery bypass graft for three-vessel back in 2005 with severe peripheral arterial occlusive disease with aortoiliac the disease, hypertension and hypertensive cardio vascular disease with left ventricular hypertrophy, remote tobacco use and dependence with COPD, diabetes mellitus type 2 with diabetic polyneuropathy, anxiety disorder, GERD, insomnia, history of bladder cancer, patient was found to have a colon cancer in the cecal area on a screening colonoscopy, after she had the change in bowel habit so her primary care physician sent her to Dr. seymour she ended up is scheduled to go for laparoscopic assisted right hemicolectomy for adenocarcinoma of the right cecum. I was called to come to the recovery room to evaluate the patient because of hypotension and patient not able to wake up very well, she is requiring back-to- back nebulized treatment she was given DuoNeb as well as Pulmicort and she was given 10 mg of labetalol IV patient done well however because of her situation she was admitted to the selective care overnight as to be transferred to surgical floor after 24 hours from the evaluation. 03/17: Dr. Mejia has started the patient on a clear liquid diet with advancement as a full. Patient has been hemodynamically stable and blood pressure is improved. [facility] Patient is feeling generally better from yesterday. She has been afebrile. Pulse ox is 94 % on room air. Hemoglobin is 9.9. Blood blood glucose running 145-222. She is on insulin scale. 03/18: Blood pressure readings remain improved. Pulse ox is 97% on room air. Hemoglobin is 9.5. Complete blood glucose running between 104 and 145. Patient states that her abdomen is a little bit sore. Patient is requesting Xanax and Ambien for sleep tonight. 03/19: Patient's diet has been advanced to soft. Patient is tolerating with no nausea or vomiting. Abdominal pain is controlled with oral medication and improved. She has had a BM She is anxious to go home. anticipate discharge home today in stable condition. Objective - Vital Signs Vital signs: Vital Signs Temp 98.2 F 03/19/17 07:00 Pulse 86 03/19/17 07:37 Resp 14 03/19/17 07:37 BP 157/70 03/19/17 07:00 Pulse Ox 98 03/19/17 07:23 Intake & Output 03/18/17 03/19/17 03/19/17 18:59 06:59 18:59 Intake Total 1420 Output Total 1900 Balance -1900 1420 Weight 73 kg Intake: Oral 1420 Output: Urine 1900 Other: Voiding Method Toilet Toilet # Voids 4 2 - Exam General appearance: average body habitus, mild distress - EENT Eyes: anicteric sclerae, EOMI, PERRLA, no ptosis, no scleral icterus, normal appearance ENT: hearing grossly normal, NA/AT, normal oropharynx, no thrush Ears: bilateral: normal - Neck Neck: no lymphadenopathy, normal ROM, no rigidity, no stridor, no thyromegaly Carotids: bilateral: upstroke delayed Thyroid: bilateral: normal size - Respiratory Respiratory: bilateral: diminished, wheezing, prolonged expiration, negative: dullness, rales, rhonchi - Cardiovascular Rhythm: regular Heart sounds: normal: S1, S2 Abnormal Heart Sounds: systolic murmur, no S3 Gallop, no S4 Gallop, no click - Gastrointestinal General gastrointestinal: normal bowel sounds, soft, tenderness (incision appear to be covered minimal drainage, no bruising around the incision.) - Integumentary Integumentary: normal, normal turgor - Neurologic Neurologic: CNII-XII intact - Musculoskeletal Musculoskeletal: generalized weakness, strength equal bilaterally - Psychiatric Psychiatric: A&O x's 3, appropriate affect, intact judgment & insight - Labs CBC & Chem 7: 03/19/17 07:15 03/19/17 07:15 Labs: Abnormal Lab Results - Last 24 Hours (Table) 03/18/17 03/18/17 03/19/17 Range/Units 11:32 20:07 07:15 RBC 3.54 L (3.80-5.40) m/uL Hgb 10.3 L (11.4-16.0) gm/dL Hct 32.9 L (34.0-46.0) % RDW 17.7 H (11.5-15.5) % Lymphocytes # 0.9 L (1.0-4.8) k/uL Creatinine (0.52-1.04) mg/dL POC Glucose (mg/dL) 115 H 113 H (75-99) mg/dL 03/19/17 Range/Units 07:15 RBC (3.80-5.40) m/uL Hgb (11.4-16.0) gm/dL Hct (34.0-46.0) % RDW (11.5-15.5) % Lymphocytes # (1.0-4.8) k/uL Creatinine 1.12 H (0.52-1.04) mg/dL POC Glucose (mg/dL) (75-99) mg/dL Assessment and Plan Plan: 1. Status post laparoscopic assisted right hemicolectomy secondary to adenocarcinoma of the cecum. Continue incentive spirometer, continue current pain management as outlined by general surgery, continue deep venous thrombosis prophylaxis with heparin as well as SCD and bilateral knee-high CANELO hose. 2. CAD post CABG. Continue patient on Imdur 30 mg orally once every day, Toprol-XL 50 mg orally twice every day, simvastatin 40 mg orally at bedtime. 3. Hypertension and hypertensive cardiovascular disease. Continue losartan 100 mg orally once every day, Toprol-XL 50 mg orally twice every day, Norvasc 2.5 mg orally once every day. 4. Diabetes mellitus type 2. Continue patient on consistent carb diet, sliding scale insulin. 5. Hyperlipidemia. Continue patient on simvastatin 40 mg at bedtime. 6. Moderate COPD. Continue DuoNeb 3 mL nebulization 4 times every day, continue Pulmicort 0.5 mg nebulization twice every day, continue oxygen support. 7. History of tobacco use and dependence. Patient quit in 2005. 8. GERD. Continue patient on PPI. 9. Severe PAD. Continue patient on simvastatin for second or prevention. 10. History of carotid artery disease. Follow-up with cardiology as an outpatient. 11. Anxiety disorder. Resume Xanax as needed. 12. Insomnia. Continue patient on Ambien 10 mg at bedtime. 13. Pulmonary prophylaxis. Continue incentive spirometry hourly while awake. 14. DVT prophylaxis. Continue heparin subcu. 15. Gastric intestinal prophylaxis. Continue Pepcid. Discharge plan: Return home Impression and plan of care have been directed as dictated by the signing physician. Krystal Morelos nurse practitioner acting as scribe for signing physician.
[2017-03-19 11:45] VITALS: PULSE 68
[2017-03-19 12:00] LABS: Glucose,Whole Blood 99 mg/dL (75-99)
[2017-03-19] MEDS: D5-0.45% NACL WITH KCL 20MEQ/L 1,000 ML IV SCH (12:09)
--- NOTE | 2017-03-19 16:04 | P.DS ---
Providers Date of admission: 03/16/17 12:24 Expected date of discharge: 03/19/17 Attending physician: Darvin Mejia Consults: 03/16/17 17:02 Consult Physician Routine Consulting Provider: Emmanuel Dukes Consult Reason/Comments: Medical management Do you want consulting provider notified?: Yes Primary care physician: Wilfred Christianson - Discharge Diagnosis(es) (1) Adenocarcinoma of cecum Patient admitted and underwent elective laparoscopic right colectomy. Patient is doing well at this time. She is recovering quite nicely from her recent surgery. She is tolerating a diet. She is having daily bowel movements. She is anxious to go home. Her incision is healing up properly. She will be discharged on a low fiber diet. Patient follow-up with me in the office in 1-2 weeks. Current Visit: Yes Status: Acute Plan - Discharge Summary New Discharge Prescriptions: No Action Ranitidine HCl [Zantac] 75 mg PO DAILY PRN PRN Reason: Heartburn Cholecalciferol [Vitamin D3] 1,000 unit PO DAILY quiNIDine SULFATE 300 mg PO HS Zolpidem Tartrate [Ambien] 10 mg PO HS ALPRAZolam [Xanax] 1 mg PO TID PRN PRN Reason: Anxiety amLODIPine BESYLATE [Norvasc] 2.5 mg PO DAILY Isosorbide Mononitrate [Isosorbide Mononitrate ER] 30 mg PO DAILY Simvastatin [Zocor] 40 mg PO DAILY Losartan Potassium [Cozaar] 100 mg PO DAILY Aspirin [Adult Low Dose Aspirin EC] 81 mg PO DAILY Metoprolol Succinate [Toprol XL] 50 mg PO Q12HR Discharge Medication List ALPRAZolam [Xanax] 1 mg PO TID PRN 03/10/17 [History] Aspirin [Adult Low Dose Aspirin EC] 81 mg PO DAILY 03/10/17 [History] Cholecalciferol [Vitamin D3] 1,000 unit PO DAILY 03/10/17 [History] Isosorbide Mononitrate [Isosorbide Mononitrate ER] 30 mg PO DAILY 03/10/17 [ History] Losartan Potassium [Cozaar] 100 mg PO DAILY 03/10/17 [History] Metoprolol Succinate [Toprol XL] 50 mg PO Q12HR 03/10/17 [History] Ranitidine HCl [Zantac] 75 mg PO DAILY PRN 03/10/17 [History] Simvastatin [Zocor] 40 mg PO DAILY 03/10/17 [History] Zolpidem Tartrate [Ambien] 10 mg PO HS 03/10/17 [History] amLODIPine BESYLATE [Norvasc] 2.5 mg PO DAILY 03/10/17 [History] quiNIDine SULFATE 300 mg PO HS 03/10/17 [History]
== END 2017-03-19 16:45 | disposition home or self-care (01) | DRG 331 ==
LOC: 2ORWHC 12:24 → 3SUR 16:33 → 6SEL 19:45 → 5MS5E 03-17 13:00
PROVIDERS: ADMIT Surgery; ATTEND Surgery
PROC: 0DTF4ZZ Resection of Right Large Intestine, Percutaneous Endoscopic Approach (ICD-10-PCS; principal; 2017-03-16 14:00)
DX: C18.0 Malignant neoplasm of cecum (principal); E11.42 Type 2 diabetes mellitus with diabetic polyneuropathy; I95.9 Hypotension, unspecified; E11.51 Type 2 diabetes mellitus with diabetic peripheral angiopathy without gangrene; I65.23 Occlusion and stenosis of bilateral carotid arteries; I11.9 Hypertensive heart disease without heart failure; J44.9 Chronic obstructive pulmonary disease, unspecified; D64.9 Anemia, unspecified; D12.4 Benign neoplasm of descending colon; D18.03 Hemangioma of intra-abdominal structures; E78.5 Hyperlipidemia, unspecified; F41.9 Anxiety disorder, unspecified; G47.00 Insomnia, unspecified; I25.10 Atherosclerotic heart disease of native coronary artery without angina pectoris; K21.9 Gastro-esophageal reflux disease without esophagitis; G43.909 Migraine, unspecified, not intractable, without status migrainosus; I83.90 Asymptomatic varicose veins of unspecified lower extremity; L40.9 Psoriasis, unspecified; M19.90 Unspecified osteoarthritis, unspecified site; Z79.82 Long term (current) use of aspirin; Z79.899 Other long term (current) drug therapy; Z87.891 Personal history of nicotine dependence; Z95.1 Presence of aortocoronary bypass graft; Z85.51 Personal history of malignant neoplasm of bladder; Z82.49 Family history of ischemic heart disease and other diseases of the circulatory system; Z80.6 Family history of leukemia
CPT/HCPCS: 71020; 80048; 80053; 83036; 83735; 84132; 85025; 86850; 86900; 86901; 88309; 94002; 94640; 94760

== ENCOUNTER 2017-05-05 10:22 | Day surgery (SDC) | payer MEDICARE, BC ==
[2017-05-03 13:32] VITALS: BMI 28.3
[~2017-05-05 10:22] MED LIST changes: -DEXAMETHASONE SOD PHOSPHATE 10 MG/ML 1 ML VIAL IV ONE; -HEPARIN SODIUM,PORCINE 5,000 UNIT/ML 1 ML VIAL SQ ONE; +LACTATED RINGERS 1,000 ML IV SCH; +LIDOCAINE 1% 20 ML VIAL (10MG/ML) FOR IV START INTRADERMA PRN; -MIDAZOLAM 2 MG/2 ML VIAL IV PRN; +Pre Op ABX Message 1 EACH MISC MISCELLANE ONE; -ceFAZolin 2 GM in SODIUM CHLORIDE 0.9% 100 ML IVPB ONE; -metroNIDAZOLE-NS PMX 500 MG in SALINE 1 100ML.BAG IVPB ONE
[2017-05-05 10:51] VITALS: RESP 16; TEMP 97.5
[2017-05-05 11:05] LABS: Glucose,Whole Blood 94 mg/dL (75-99)
--- NOTE | 2017-05-05 11:36 | P.GSHP ---
History of Present Illness H&P Date: 05/05/17 Chief Complaint: Right colon cancer Patient well-known to our service from recent right colectomy. The patient had lymph node positive disease. She is recovering well after her recent colectomy. She is here today for Port-A-Cath placement. She's not had one previously. Past Medical History Past Medical History: Coronary Artery Disease (CAD), Cancer, Chest Pain / Angina , COPD, Diabetes Mellitus, GERD/Reflux, Hyperlipidemia, Hypertension, Osteoarthritis (OA), Skin Disorder, Vascular Disorder Additional Past Medical History / Comment(s): colon cancer, hx migraine, irregular heartbeat, varicose veins, hx blood clot in rt arm after CABG surgery , psoriasis, diet control diabetic, anemia, hx bladder cancer x 3, PAD and disease of the ileo-aortic system, carotid artery stenosis History of Any Multi-Drug Resistant Organisms: None Reported Past Surgical History: Bladder Surgery, Bowel Resection, Coronary Bypass/CABG, Heart Catheterization Additional Past Surgical History / Comment(s): rt colectomy ,double CAGB 2005, bladder surgery x 3, aileen cataracts Past Anesthesia/Blood Transfusion Reactions: Previous Problems w/ Anesthesia Additional Past Anesthesia/Blood Transfusion Reaction / Comment(s): had blood transfusion at [facility]- no problem with, "screaming and yelling from anesthesia after CAGB surgery" Smoking Status: Former smoker - Past Family History Mother Family Medical History: Cancer, Coronary Artery Disease (CAD) Additional Family Medical History / Comment(s): cervical CA Father History Unknown: Yes Family Medical History: Unable to Obtain (Patient do much about her father.) Brother(s) Family Medical History: Cancer Additional Family Medical History / Comment(s): leukemia Sister(s) Family Medical History: No Reported History Son(s) Family Medical History: Cancer Additional Family Medical History / Comment(s): leukemia Medications and Allergies Home Medications Medication Instructions Recorded Confirmed Type ALPRAZolam [Xanax] 1 mg PO TID PRN 03/10/17 05/05/17 History Aspirin [Adult Low Dose Aspirin EC] 81 mg PO DAILY 03/10/17 05/03/17 History Cholecalciferol [Vitamin D3] 1,000 unit PO DAILY 03/10/17 05/05/17 History Isosorbide Mononitrate [Isosorbide 30 mg PO 1800 03/10/17 05/05/17 History Mononitrate ER] Losartan Potassium [Cozaar] 100 mg PO 1800 03/10/17 05/05/17 History Metoprolol Succinate [Toprol XL] 50 mg PO Q12HR 03/10/17 05/03/17 History Ranitidine HCl [Zantac] 75 mg PO DAILY PRN 03/10/17 05/05/17 History Simvastatin [Zocor] 40 mg PO HS 03/10/17 05/05/17 History Zolpidem Tartrate [Ambien] 10 mg PO HS 03/10/17 05/05/17 History amLODIPine BESYLATE [Norvasc] 2.5 mg PO 1800 03/10/17 05/05/17 History quiNIDine SULFATE 300 mg PO HS 03/10/17 05/05/17 History Allergies Allergy/AdvReac Type Severity Reaction Status Date / Time No Known Allergies Allergy Verified 05/03/17 13:02 Surgical - Exam Vital Signs Temp Pulse Resp BP Pulse Ox 97.5 F L 58 L 16 146/77 97 05/05/17 10:50 05/05/17 10:50 05/05/17 10:50 05/05/17 10:50 05/05/17 10:50 Physical exam: General: Well-developed, well-nourished HEENT: Normocephalic, sclerae nonicteric Abdomen: Nontender, nondistended Extremities: No edema Neuro: Alert and oriented Assessment and Plan (1) Adenocarcinoma of cecum Narrative/Plan: Will proceed with Port-A-Cath placement at this time. Risks of bleeding, infection, pneumothorax, catheter malfunction were discussed. She understands and wishes to proceed. Status: Acute
[2017-05-05] MEDS ORDERED: PROPOFOL 10 MG/ML 20 ML VIAL IV ONE (11:56)
[2017-05-05] MEDS ORDERED: LIDOCAINE 1% INJ 10MG/ML (20 ML MDV) ONE (11:56)
[2017-05-05] MEDS ORDERED: fentaNYL (PF) 50 MCG/ML 2 ML AMP ONE (11:56)
[2017-05-05] MEDS ORDERED: LIDOCAINE 1% INJ 10MG/ML (20 ML MDV) SQ ONE ×2 (11:56)
[2017-05-05] MEDS ORDERED: MIDAZOLAM 2 MG/2 ML VIAL ONE (11:56)
[2017-05-05] MEDS ORDERED: KETAMINE 10 MG/ML 20 ML VIAL ONE (11:56)
[2017-05-05] MEDS ORDERED: SODIUM CHLORIDE 0.9% 50 ML with ceFAZolin 2,000 MG IV ONE ×2 (12:08)
[2017-05-05] MEDS ORDERED: NALOXONE 0.4 MG/ML 1 ML VIAL IV PRN (12:33)
[2017-05-05] MEDS ORDERED: HYDROcodone/APAP 5-325MG 1 EACH TAB PO PRN (12:33)
--- NOTE | 2017-05-05 12:34 | P.PCN ---
Date of Procedure: 05/05/17 Preoperative Diagnosis: Postoperative Diagnosis: Procedure(s) Performed: PREOPERATIVE DIAGNOSIS: Colon cancer POSTOPERATIVE DIAGNOSIS: Same PROCEDURE: Port-A-Cath placement SURGEON: Roberto EBL: Minimal ANESTHESIA: Sedation COMPLICATIONS: None OPERATIVE PROCEDURE: Patient was brought and placed on the operative table in the supine position. The patient was sedated per anesthesia that time. The chest and neck were prepped and draped in usual sterile fashion. The ultrasound probe was used to identify the location of the right internal jugular vein. The skin was localized with lidocaine. The Seldinger needle was advanced into the IJ under ultrasound guidance. The wire was advanced through the needle under fluoroscopic guidance into the superior vena cava. A port pocket was created in the right infraclavicular location. The catheter was tunneled from the wire entrance site to the port pocket. The port was then connected to the catheter. The dilator introducer was threaded over the guidewire. The guidewire and dilator were then removed. The catheter was advanced through the introducer and introducer was then removed. The tip was seen to be in the right atrial junction. Port was flushed with both saline and a Hep-Lock solution. There was good flow both in and out of the port. The port was sutured in underlying tissues using 3-0 silk sutures. The subcutaneous tissues were reapproximated using 3-0 Vicryl sutures and the skin at both locations using 4-0 Monocryl sutures. Steri-Strips and sterile dressings then applied. DISPOSITION: Stable to recovery room Implants: Indications for Procedure: Operative Findings: Description of Procedure:
--- NOTE | 2017-05-05 12:46 | FL ---
Fluoroscopy History: Line placement 10 seconds of fluoroscopic time utilized. One paper image submitted.
--- NOTE | 2017-05-05 13:00 | XR ---
EXAMINATION TYPE: XR chest 1V confirm line [facility] DATE OF EXAM: 05/05/2017 HISTORY: Shortness of breath. COMPARISON: None. TECHNIQUE: Single view of the chest is submitted. FINDINGS: Demonstrated are scattered senescent parenchymal change. MediPort catheter is noted to be in place w ith its distal tip overlying the SVC. No evidence for pneumothorax. There is no evidence for focal infiltrate. The heart is stable. Hilar and mediastinal structures are within normal limits. Degenerative changes are seen of the dorsal spine. IMPRESSION: 1. Chronic changes without evidence for acute pulmonary disease.
[2017-05-05 13:57] VITALS: BP 156/72; PULSE 58
== END 2017-05-05 14:42 | disposition home or self-care (01) ==
LOC: OR 10:22
PROVIDERS: ATTEND Surgery
DX: C18.0 Malignant neoplasm of cecum (principal); Z90.49 Acquired absence of other specified parts of digestive tract; I25.10 Atherosclerotic heart disease of native coronary artery without angina pectoris; I10 Essential (primary) hypertension; Z87.891 Personal history of nicotine dependence; J44.9 Chronic obstructive pulmonary disease, unspecified; E11.9 Type 2 diabetes mellitus without complications; I73.9 Peripheral vascular disease, unspecified; Z95.1 Presence of aortocoronary bypass graft; I65.29 Occlusion and stenosis of unspecified carotid artery; E78.5 Hyperlipidemia, unspecified; Z79.82 Long term (current) use of aspirin; Z79.899 Other long term (current) drug therapy
CPT/HCPCS: 36561; 76937; 77001; C1788; J2250; J2001; J3010; J1642; J0690; J2704

== ENCOUNTER 2017-05-13 09:13 | Inpatient (IN) | payer MEDICARE, BC ==
[2017-05-13] MEDS ORDERED: methylPREDNISolone SOD SUCCI 125 MG/2 ML VIAL IV STA (09:29)
[2017-05-13] MEDS ORDERED: ALBUTEROL NEBULIZED 2.5 MG/3 ML INHALATION STA (09:29)
[2017-05-13] MEDS ORDERED: IPRATROPIUM 0.5 MG/2.5 ML NEBU INHALATION STA (09:29)
[2017-05-13] MEDS ORDERED: FAMOTIDINE 20 MG/2 ML VIAL IV STA (09:30)
[2017-05-13] MEDS ORDERED: diphenhydrAMINE 50 MG/ML 1 ML VIAL IVP STA (09:31)
[2017-05-13 10:05] LABS: Anisocytosis Slight; Basophils % (A) 0 %; CH 27.9; CHCM 30.9; Eosinophils # (A) 0.1 k/uL (0-0.7); Eosinophils % (A) 1 %; HCT 36.3 % (34.0-46.0); HDW 3.15; HGB 11.4 gm/dL (11.4-16.0); Hypochromasia Moderate; Luc # (Auto) 0.08; Luc % (Auto) 1; Lymphocytes # (A) 0.3 k/uL (1.0-4.8); Lymphocytes % (A) 4 %; MCH 28.4 pg (25.0-35.0); MCHC 31.3 g/dL (31.0-37.0); MCV 90.5 fL (80.0-100.0); Mean Platelet Volume 8.2; Monocytes # (A) 0.2 k/uL (0-1.0); Monocytes % (A) 2 %; Neutrophils # (A) 7.8 k/uL (1.3-7.7); Neutrophils % (A) 92 %; RBC 4.01 m/uL (3.80-5.40); RDW 18.3 % (11.5-15.5); WBC 8.4 k/uL (3.8-10.6)
[2017-05-13 10:18] LABS: Calcium 9.3 mg/dL (8.4-10.2); Potassium 4.7 mmol/L (3.5-5.1); Total Bilirubin 0.4 mg/dL (0.2-1.3); Total Protein 5.8 g/dL (6.3-8.2)
[2017-05-13 10:33] LABS: INR 1.1 (<1.2); Prothrombin Time 10.9 sec (9.0-12.0)
[2017-05-13 10:39] LABS: Partial Thromboplastin Time 18.8 sec (22.0-30.0)
--- NOTE | 2017-05-13 10:52 | XR ---
EXAMINATION TYPE: XR chest 2V DATE OF EXAM: 05/13/2017 COMPARISON: 05/05/2017 HISTORY: Colon cancer and shortness of breath. TECHNIQUE: Frontal and lateral views of the chest are obtained. FINDINGS: New right lower lobe patchy opacity with air bronchograms is demonstrated. The remainder t he lungs are clear. No pleural effusion or pneumothorax. Right-sided Mediport is unchanged with a sin gle Heubner needle in place. Midline sternotomy wires and mediastinal clips are again seen. Heart siz e is stable. Degenerative changes of the thoracic spine are again noted. IMPRESSION: New right lower lobe pneumonia.
[2017-05-13] MEDS ORDERED: SODIUM CHLORIDE 0.9% 500 ML IV ONE (10:56)
[2017-05-13] MEDS ORDERED: RX INFO: IV CONTRAST WAS GIVEN 1 EACH MISC MISCELLANE PRN (10:56)
[2017-05-13] MEDS ORDERED: ACETAMINOPHEN TAB 325 MG TAB PO STA (11:06)
[2017-05-13] MEDS ORDERED: IV VANCOMYCIN PER PHARMACY 1 EACH MISC MISCELLANE PRN (11:19)
[2017-05-13] MEDS ORDERED: CEFEPIME 2 GM in SODIUM CHLORIDE 0.9% 50 ML IVPB STA (11:20)
[2017-05-13] MEDS ORDERED: VANCOMYCIN 1,500 MG in SODIUM CHLORIDE 0.9% 250 ML IVPB ONE (12:00)
--- NOTE | 2017-05-13 13:47 | ED ---
General Adult HPI - General Chief complaint: Shortness of Breath Stated complaint: Diff Breathing Time Seen by Provider: 05/13/17 09:17 Source: patient, family, EMS, RN notes reviewed, old records reviewed Mode of arrival: EMS Limitations: no limitations - History of Present Illness Initial comments: 71-year-old female presents with chief complaint of worsening shortness of breath over the past 24 hours patient has department diagnosis of colon cancer and started chemotherapy yesterday. She also reports nausea and 3 episodes of vomiting. Patient was noted to have a fever of 102.5. Denies any chest pain. States she does have a cough which is nonproductive. No history of asthma or COPD. Past medical history diabetes, hypertension, and CAD. Patient receives 1 chemotherapeutic agents at the infusion center yesterday that is on a continuous infusion at this time. - Related Data Home Medications Medication Instructions Recorded Confirmed ALPRAZolam [Xanax] 1 mg PO TID PRN 03/10/17 05/13/17 Cholecalciferol [Vitamin D3] 1,000 unit PO DAILY 03/10/17 05/13/17 Isosorbide Mononitrate [Isosorbide 30 mg PO HS 03/10/17 05/13/17 Mononitrate ER] Losartan Potassium [Cozaar] 100 mg PO HS 03/10/17 05/13/17 Metoprolol Succinate [Toprol XL] 50 mg PO Q12HR 03/10/17 05/13/17 Ranitidine HCl [Zantac] 75 mg PO DAILY PRN 03/10/17 05/13/17 Simvastatin [Zocor] 40 mg PO HS 03/10/17 05/13/17 Zolpidem Tartrate [Ambien] 10 mg PO HS 03/10/17 05/13/17 amLODIPine BESYLATE [Norvasc] 2.5 mg PO HS 03/10/17 05/13/17 quiNIDine SULFATE 300 mg PO HS 03/10/17 05/13/17 Albuterol Inhaler [Ventolin Hfa 1 - 2 puff INHALATION RT-QID PRN 05/13/17 Inhaler] Chlorpheniramine/Dextromethorp 1 tab PO DAILY PRN 05/13/17 05/13/17 [Coricidin Hbp Cough & Cold Tab] Metoprolol Tartrate [Lopressor] 50 mg PO DAILY 05/13/17 05/13/17 Niacin 1,000 mg PO DAILY 05/13/17 05/13/17 Psyllium Husk [Metamucil] 0.4 gm PO DAILY PRN 05/13/17 05/13/17 Turmeric Root Extract [Turmeric] 1,000 mg PO DAILY 05/13/17 05/13/17 Allergies Allergy/AdvReac Type Severity Reaction Status Date / Time No Known Allergies Allergy Verified 05/13/17 10:40 Review of Systems ROS Statement: Those systems with pertinent positive or pertinent negative responses have been documented in the HPI. ROS Other: All systems not noted in ROS Statement are negative. Past Medical History Past Medical History: Coronary Artery Disease (CAD), Cancer, Chest Pain / Angina , COPD, Diabetes Mellitus, GERD/Reflux, Hyperlipidemia, Hypertension, Osteoarthritis (OA), Skin Disorder, Vascular Disorder Additional Past Medical History / Comment(s): colon cancer, hx migraine, irregular heartbeat, varicose veins, hx blood clot in rt arm after CABG surgery , psoriasis, diet control diabetic, anemia, hx bladder cancer x 3, PAD and disease of the ileo-aortic system, carotid artery stenosis History of Any Multi-Drug Resistant Organisms: None Reported Past Surgical History: Bladder Surgery, Bowel Resection, Coronary Bypass/CABG, Heart Catheterization Additional Past Surgical History / Comment(s): rt colectomy ,double CAGB 2005, bladder surgery x 3, aileen cataracts Past Anesthesia/Blood Transfusion Reactions: Previous Problems w/ Anesthesia Additional Past Anesthesia/Blood Transfusion Reaction / Comment(s): had blood transfusion at [facility]- no problem with, "screaming and yelling from anesthesia after CAGB surgery" Past Psychological History: Anxiety Smoking Status: Former smoker - Past Family History Mother Family Medical History: Cancer, Coronary Artery Disease (CAD) Additional Family Medical History / Comment(s): cervical CA Father History Unknown: Yes Family Medical History: Unable to Obtain (Patient do much about her father.) Brother(s) Family Medical History: Cancer Additional Family Medical History / Comment(s): leukemia Sister(s) Family Medical History: No Reported History Son(s) Family Medical History: Cancer Additional Family Medical History / Comment(s): leukemia General Exam Limitations: no limitations General appearance: alert, in distress Head exam: Present: atraumatic, normocephalic Eye exam: Present: normal appearance, PERRL, EOMI ENT exam: Present: normal exam Neck exam: Present: normal inspection. Absent: tenderness, meningismus Respiratory exam: Present: respiratory distress, wheezes Cardiovascular Exam: Present: regular rate, normal rhythm GI/Abdominal exam: Present: soft. Absent: distended, tenderness Rectal exam: Present: normal inspection, heme (-) stool Extremities exam: Present: normal inspection, normal capillary refill. Absent: pedal edema, calf tenderness Back exam: Present: normal inspection, full ROM Neurological exam: Present: alert, oriented X3, CN II-XII intact. Absent: motor sensory deficit Psychiatric exam: Present: normal affect, normal mood Skin exam: Present: warm, dry. Absent: cyanosis, diaphoretic Course Vital Signs 05/13/17 05/13/17 05/13/17 09:17 09:49 10:10 Temperature 100.9 F H Pulse Rate 83 79 87 Respiratory 28 H 24 Rate Blood Pressure 139/63 149/63 O2 Sat by Pulse 89 L 97 Oximetry 05/13/17 05/13/17 05/13/17 10:13 11:00 14:00 Temperature Pulse Rate 80 84 76 Respiratory 17 18 Rate Blood Pressure 135/62 113/69 O2 Sat by Pulse 96 97 Oximetry - Reevaluation(s) Reevaluation #1: 05/13/17 14:11 Patient is still somewhat dyspneic although significantly improved from presentation. She is updated on laboratory and x-ray findings EKG Findings - EKG Comments: EKG Findings:: EKG shows normal sinus rhythm, ventricular rate 80, FL interval 172, QRS duration 74, QTC 426, no signs of ischemia or infarction Medical Decision Making - Medical Decision Making 71-year-old female presenting with dyspnea, and fever after the results and we started on chemotherapy. Patient did have nausea, has wheezing on bilateral lung longoria, was felt initially to be related to ALLERGIC reaction. Case was discussed with the patient's oncologist who states this reaction would likely be to the agent she received yesterday afternoon and not the 5-FU which is currently running through her infusion pump. She is given Pepcid, Benadryl, and steroids in the emergency department as well as albuterol. On reevaluation she is feeling somewhat better. X-ray of the chest does reveal right lower lobe pneumonia, and given her history of fever and cough she will be treated with antibiotics to cover hospital acquired pneumonia. D-dimer is elevated at 7.07, in the setting of a mildly elevated creatinine 1.44, patient does receive a VQ scan will emergency department which is negative for mismatch suggestive of embolism. She'll be continued on IV antibiotics. Admitted for treatment of right lower lobe pneumonia. Diagnosis: Right lower lobe pneumonia, cancer on chemotherapy, acute kidney injury, ALLERGIC reaction. - Lab Data Result diagrams: 05/13/17 09:54 05/13/17 09:54 Lab Results 05/13/17 05/13/17 05/13/17 Range/Units 09:54 09:54 09:54 WBC 8.4 (3.8-10.6) k/uL RBC 4.01 (3.80-5.40) m/uL Hgb 11.4 (11.4-16.0) gm/dL Hct 36.3 (34.0-46.0) % MCV 90.5 (80.0-100.0) fL MCH 28.4 (25.0-35.0) pg MCHC 31.3 (31.0-37.0) g/dL RDW 18.3 H (11.5-15.5) % Plt Count 189 (150-450) k/uL Neutrophils % 92 % Lymphocytes % 4 % Monocytes % 2 % Eosinophils % 1 % Basophils % 0 % Neutrophils # 7.8 H (1.3-7.7) k/uL Lymphocytes # 0.3 L (1.0-4.8) k/uL Monocytes # 0.2 (0-1.0) k/uL Eosinophils # 0.1 (0-0.7) k/uL Basophils # 0.0 (0-0.2) k/uL Hypochromasia Moderate Anisocytosis Slight PT 10.9 (9.0-12.0) sec INR 1.1 (<1.2) APTT 18.8 L (22.0-30.0) sec D-Dimer 7.07 H (<0.60) mg/L FEU Sodium 142 (137-145) mmol/L Potassium 4.7 (3.5-5.1) mmol/L Chloride 107 (98-107) mmol/L Carbon Dioxide 24 (22-30) mmol/L Anion Gap 11 mmol/L BUN 18 H (7-17) mg/dL Creatinine 1.44 H (0.52-1.04) mg/dL Est GFR (MDRD) Af Amer 43 (>60 ml/min/1.73 sqM) Est GFR (MDRD) Non-Af 36 (>60 ml/min/1.73 sqM) Glucose 144 H (74-99) mg/dL Calcium 9.3 (8.4-10.2) mg/dL Total Bilirubin 0.4 (0.2-1.3) mg/dL AST 16 (14-36) U/L ALT 27 (9-52) U/L Alkaline Phosphatase 62 (38-126) U/L Troponin I (0.000-0.034) ng/mL NT-Pro-B Natriuret Pep pg/mL Total Protein 5.8 L (6.3-8.2) g/dL Albumin 3.4 L (3.5-5.0) g/dL Stool Occult Blood (Negative) 05/13/17 05/13/17 05/13/17 Range/Units 09:54 09:54 12:18 WBC (3.8-10.6) k/uL RBC (3.80-5.40) m/uL Hgb (11.4-16.0) gm/dL Hct (34.0-46.0) % MCV (80.0-100.0) fL MCH (25.0-35.0) pg MCHC (31.0-37.0) g/dL RDW (11.5-15.5) % Plt Count (150-450) k/uL Neutrophils % % Lymphocytes % % Monocytes % % Eosinophils % % Basophils % % Neutrophils # (1.3-7.7) k/uL Lymphocytes # (1.0-4.8) k/uL Monocytes # (0-1.0) k/uL Eosinophils # (0-0.7) k/uL Basophils # (0-0.2) k/uL Hypochromasia Anisocytosis PT (9.0-12.0) sec INR (<1.2) APTT (22.0-30.0) sec D-Dimer (<0.60) mg/L FEU Sodium (137-145) mmol/L Potassium (3.5-5.1) mmol/L Chloride (98-107) mmol/L Carbon Dioxide (22-30) mmol/L Anion Gap mmol/L BUN (7-17) mg/dL Creatinine (0.52-1.04) mg/dL Est GFR (MDRD) Af Amer (>60 ml/min/1.73 sqM) Est GFR (MDRD) Non-Af (>60 ml/min/1.73 sqM) Glucose (74-99) mg/dL Calcium (8.4-10.2) mg/dL Total Bilirubin (0.2-1.3) mg/dL AST (14-36) U/L ALT (9-52) U/L Alkaline Phosphatase (38-126) U/L Troponin I <0.012 (0.000-0.034) ng/mL NT-Pro-B Natriuret Pep 1790 pg/mL Total Protein (6.3-8.2) g/dL Albumin (3.5-5.0) g/dL Stool Occult Blood Negative (Negative) Disposition Clinical Impression: Healthcare-associated pneumonia Disposition: ADMITTED IP TO THIS [facility] Condition: Stable Referrals: Wilfred Christianson MD [Primary Care Provider] - 1-2 days Decision to Admit Reason: Admit from EC Decision Date: 05/13/17 Decision Time: 12:15
--- NOTE | 2017-05-13 13:58 | NM ---
EXAMINATION TYPE: NM pul vent and perfuse DATE OF EXAM: 05/13/2017 COMPARISON: Chest radiograph of 05/13/2017 HISTORY: Shortness of breath TECHNIQUE: Utilizing inhalation of 68.6 mCi Tc 99m DTPA aerosol and intravenous injection of 4.72 mC i of Tc 99m MAA, ventilation and perfusion images are acquired post injection in multiple projections . FINDINGS: There is no evidence of mismatched defects. Corresponding to the new airspace disease there is a foca l triple matched perfusion ventilation defect within the right middle lobe and a large segment and sm all segment within the right lower lobe. Left lung remains unaffected. Bronchial clumping of radiotra cer can be seen and inflammatory airway disease such as bronchitis, but could relate to inflammatory change from the radiographic pneumonia. IMPRESSION: 1. No mismatched defects to suggest pulmonary embolus. 2. Triple matched defect involving the right middle and right lower lobes corresponding to the radiog raphic pneumonia. Additional bronchial plugging of radiotracer can be seen in inflammatory airway dis ease.
[2017-05-13] MEDS ORDERED: ACETAMINOPHEN TAB 325 MG TAB PO PRN (14:05)
[2017-05-13] MEDS ORDERED: ONDANSETRON 4 MG/2 ML VIAL IVP PRN (14:05)
[2017-05-13] MEDS ORDERED: NALOXONE 0.4 MG/ML 1 ML VIAL IV PRN (14:05)
[2017-05-13] MEDS ORDERED: MORPHINE SULFATE 4 MG/ML SYRINGE IV PRN (14:05)
--- NOTE | 2017-05-13 14:42 | P.CONS ---
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 She has also had a Port-A- Cath placed by Dr. Mejia and started chemotherapy yesterday area and following that the patient developed shortness of breath with nausea and vomiting and a fever of 102.5 at home. Cough was nonproductive. Patient's states he tried to call oncology office but only reached a recording and then called 911 and EMS came to their home and picked up the patient brought her into [facility] emergency center for evaluation. Her temperature max 100.9 here with tachypnea at 28 and pulse ox was down to 89%. There was concern that patient was having an ALLERGIC reaction to the chemotherapy started yesterday afternoon which is currently on infusion pump. Patient received Pepcid, Benadryl and steroids and was feeling somewhat better. Chest x-ray showed a right lower lobe pneumonia and she was started on antibiotics in the form of cefepime and vancomycin. Her d-dimer was elevated at 7 and VQ scan was negative for pulmonary embolism. Review of Systems All systems: negative Constitutional: Reports chills, Reports fatigue, Reports fever Eyes: denies blurred vision, denies pain Ears, nose, mouth and throat: Denies headache, Denies sore throat Cardiovascular: Reports shortness of breath, Denies chest pain Respiratory: Reports dyspnea, Reports wheezing, Denies cough Gastrointestinal: Reports nausea, Reports vomiting, Denies abdominal pain, Denies diarrhea Genitourinary: Denies dysuria, Denies hematuria Musculoskeletal: Denies myalgias Integumentary: Denies pruritus, Denies rash Neurological: Denies numbness, Denies weakness Psychiatric: Denies anxiety, Denies depression Endocrine: Denies fatigue, Denies weight change Past Medical History Past Medical History: Coronary Artery Disease (CAD), Cancer, Chest Pain / Angina , COPD, Diabetes Mellitus, GERD/Reflux, Hyperlipidemia, Hypertension, Osteoarthritis (OA), Skin Disorder, Vascular Disorder Additional Past Medical History / Comment(s): colon cancer, hx migraine, irregular heartbeat, varicose veins, hx blood clot in rt arm after CABG surgery , psoriasis, diet control diabetic, anemia, hx bladder cancer x 3, PAD and disease of the ileo-aortic system, carotid artery stenosis History of Any Multi-Drug Resistant Organisms: None Reported Past Surgical History: Bladder Surgery, Bowel Resection, Coronary Bypass/CABG, Heart Catheterization Additional Past Surgical History / Comment(s): rt colectomy -2016,double CAGB 2005, bladder surgery x 3, aileen cataracts Past Anesthesia/Blood Transfusion Reactions: Previous Problems w/ Anesthesia Additional Past Anesthesia/Blood Transfusion Reaction / Comm: had blood transfusion at [facility]- no problem with, "screaming and yelling from anesthesia after CAGB surgery" Past Psychological History: Anxiety Smoking Status: Former smoker - Past Family History Mother Family Medical History: Cancer, Coronary Artery Disease (CAD) Additional Family Medical History / Comment(s): cervical CA Father History Unknown: Yes Family Medical History: Unable to Obtain (Patient do much about her father.) Brother(s) Family Medical History: Cancer Additional Family Medical History / Comment(s): leukemia Sister(s) Family Medical History: No Reported History Son(s) Family Medical History: Cancer Additional Family Medical History / Comment(s): leukemia Medications and Allergies Home Medications Medication Instructions Recorded Confirmed Type ALPRAZolam [Xanax] 1 mg PO TID PRN 03/10/17 05/13/17 History Cholecalciferol [Vitamin D3] 1,000 unit PO DAILY 03/10/17 05/13/17 History Isosorbide Mononitrate [Isosorbide 30 mg PO HS 03/10/17 05/13/17 History Mononitrate ER] Losartan Potassium [Cozaar] 100 mg PO HS 03/10/17 05/13/17 History Metoprolol Succinate [Toprol XL] 50 mg PO Q12HR 03/10/17 05/13/17 History Ranitidine HCl [Zantac] 75 mg PO DAILY PRN 03/10/17 05/13/17 History Simvastatin [Zocor] 40 mg PO HS 03/10/17 05/13/17 History Zolpidem Tartrate [Ambien] 10 mg PO HS 03/10/17 05/13/17 History amLODIPine BESYLATE [Norvasc] 2.5 mg PO HS 03/10/17 05/13/17 History quiNIDine SULFATE 300 mg PO HS 03/10/17 05/13/17 History Albuterol Inhaler [Ventolin Hfa 1 - 2 puff INHALATION RT-QID PRN 05/13/17 History Inhaler] Chlorpheniramine/Dextromethorp 1 tab PO DAILY PRN 05/13/17 05/13/17 History [Coricidin Hbp Cough & Cold Tab] Metoprolol Tartrate [Lopressor] 50 mg PO DAILY 05/13/17 05/13/17 History Niacin 1,000 mg PO DAILY 05/13/17 05/13/17 History Psyllium Husk [Metamucil] 0.4 gm PO DAILY PRN 05/13/17 05/13/17 History Turmeric Root Extract [Turmeric] 1,000 mg PO DAILY 05/13/17 05/13/17 History Allergies Allergy/AdvReac Type Severity Reaction Status Date / Time No Known Allergies Allergy Verified 05/13/17 10:40 Physical Exam Vitals: Vital Signs Temp Pulse Resp BP Pulse Ox 05/13/17 14:00 76 18 113/69 97 05/13/17 11:00 84 17 135/62 96 05/13/17 10:13 80 05/13/17 10:10 87 24 149/63 97 05/13/17 09:49 79 05/13/17 09:17 100.9 F H 83 28 H 139/63 89 L Intake and Output 05/12/17 05/13/17 05/13/17 22:59 06:59 14:59 Other: Weight 73.482 kg Patient Weight 05/14/17 06:59 Weight 73.[address] Keene Results Results: Laboratory Results WBC 8.4 k/uL (3.8-10.6) 05/13/17 09:54 RBC 4.01 m/uL (3.80-5.40) 05/13/17 09:54 Hgb 11.4 gm/dL (11.4-16.0) 05/13/17 09:54 Hct 36.3 % (34.0-46.0) 05/13/17 09:54 MCV 90.5 fL (80.0-100.0) 05/13/17 09:54 MCH 28.4 pg (25.0-35.0) 05/13/17 09:54 MCHC 31.3 g/dL (31.0-37.0) 05/13/17 09:54 RDW 18.3 % (11.5-15.5) H 05/13/17 09:54 Plt Count 189 k/uL (150-450) 05/13/17 09:54 Neutrophils % 92 % 05/13/17 09:54 Lymphocytes % 4 % 05/13/17 09:54 Monocytes % 2 % 05/13/17 09:54 Eosinophils % 1 % 05/13/17 09:54 Basophils % 0 % 05/13/17 09:54 Neutrophils # 7.8 k/uL (1.3-7.7) H 05/13/17 09:54 Lymphocytes # 0.3 k/uL (1.0-4.8) L 05/13/17 09:54 Monocytes # 0.2 k/uL (0-1.0) 05/13/17 09:54 Eosinophils # 0.1 k/uL (0-0.7) 05/13/17 09:54 Basophils # 0.0 k/uL (0-0.2) 05/13/17 09:54 Hypochromasia Moderate 05/13/17 09:54 Anisocytosis Slight 05/13/17 09:54 PT 10.9 sec (9.0-12.0) 05/13/17 09:54 INR 1.1 (<1.2) 05/13/17 09:54 APTT 18.8 sec (22.0-30.0) L 05/13/17 09:54 D-Dimer 7.07 mg/L FEU (<0.60) H 05/13/17 09:54 Sodium 142 mmol/L (137-145) 05/13/17 09:54 Potassium 4.7 mmol/L (3.5-5.1) 05/13/17 09:54 Chloride 107 mmol/L (98-107) 05/13/17 09:54 Carbon Dioxide 24 mmol/L (22-30) 05/13/17 09:54 Anion Gap 11 mmol/L 05/13/17 09:54 BUN 18 mg/dL (7-17) H 05/13/17 09:54 Creatinine 1.44 mg/dL (0.52-1.04) H 05/13/17 09:54 Est GFR (MDRD) Af Amer 43 (>60 ml/min/1.73 sqM) 05/13/17 09:54 Est GFR (MDRD) Non-Af 36 (>60 ml/min/1.73 sqM) 05/13/17 09:54 Glucose 144 mg/dL (74-99) H 05/13/17 09:54 Calcium 9.3 mg/dL (8.4-10.2) 05/13/17 09:54 Total Bilirubin 0.4 mg/dL (0.2-1.3) 05/13/17 09:54 AST 16 U/L (14-36) 05/13/17 09:54 ALT 27 U/L (9-52) 05/13/17 09:54 Alkaline Phosphatase 62 U/L (38-126) 05/13/17 09:54 Troponin I <0.012 ng/mL (0.000-0.034) 05/13/17 09:54 NT-Pro-B Natriuret Pep 1790 pg/mL 05/13/17 09:54 Total Protein 5.8 g/dL (6.3-8.2) L 05/13/17 09:54 Albumin 3.4 g/dL (3.5-5.0) L 05/13/17 09:54 Stool Occult Blood Negative (Negative) 05/13/17 12:18 CBC & Chem 7: 05/14/17 06:26 05/14/17 06:26 Labs: Abnormal Lab Results - Last 24 Hours (Table) 05/13/17 05/13/17 05/13/17 Range/Units 09:54 09:54 09:54 RDW 18.3 H (11.5-15.5) % Neutrophils # 7.8 H (1.3-7.7) k/uL Lymphocytes # 0.3 L (1.0-4.8) k/uL APTT 18.8 L (22.0-30.0) sec D-Dimer 7.07 H (<0.60) mg/L FEU BUN 18 H (7-17) mg/dL Creatinine 1.44 H (0.52-1.04) mg/dL Glucose 144 H (74-99) mg/dL Total Protein 5.8 L (6.3-8.2) g/dL Albumin 3.4 L (3.5-5.0) g/dL Assessment and Plan Plan: This is a 71-year-old female who presented to the hospital with symptoms of shortness of breath, fever, nausea and vomiting with noted infiltrate right lower lobe with concern that symptoms are due to ALLERGIC reaction to her chemotherapy started yesterday. Patient has been started on IV antibiotics in form of cefepime and vancomycin and Levaquin and Zosyn for gram- negative pneumonia coverage. No concern for infection of the port.. Blood cultures status received. Continue supportive care. Further recommendations as patient progresses. The above dictated assessment and findings were discussed with Dr. Keene. The impression and plan of care have been directed as dictated. Krystal Morelos nurse practitioner acting as scribe for Dr. Keene.
[2017-05-13] MEDS: CEFEPIME 2 GM in SODIUM CHLORIDE 0.9% 50 ML IVPB SCH ×2 (18:35→23:18)
--- NOTE | 2017-05-13 18:43 | P.HPIM ---
History of Present Illness H&P Date: 05/13/17 Chief Complaint: Severe dyspnea and shortness of breath, fever and chills, new diagnosis col 71-year-old female [address] Wilfred Christianson's patient who was in the hospital in March 09 4 assisted right sided hemicolectomy done through laparoscopy for adenocarcinoma patient was referred to oncology had a port placed with Dr. Martinez and was started chemotherapy yesterday was giving the first dose in the office and have pump infusion continuously. Patient woke up this morning with significant shortness of breath and fever become severely dyspneic and lightheaded and symptomatic with worsening shortness of breath cough wheezes and tightness her called 911 and brought to the emergency department at [facility] by EMS where was seen and evaluated her d- dimer was elevated with elevated BUN/creatinine patient ended up going for VQ scan came back negative for PE surprisingly her chest x-ray showed right-sided pneumonia no elevation on white blood cell. Oncology were called and the claim beside her pneumonia and current symptom she might have a reaction to the first dose of chemotherapy which according to them is not very uncommon. Patient was started on cefepime and vancomycin and admitted to the hospital oncology consult was requested and infectious disease consult was requested as well. Review of Systems Constitutional: Reports anorexia, Reports chills, Reports chronic pain, Reports daytime sleepiness, Reports fatigue, Reports lethargy, Reports night sweats, Reports poor appetite, Reports weakness, Reports weight loss, Denies as per HPI , Denies chronic headaches, Denies fever, Denies malaise, Denies sweats, Denies weight gain Eyes: bilateral as per HPI Ears: bilateral: decreased hearing Ears, nose, mouth and throat: Reports ant. neck pain, Reports nasal congestion, Reports nasal discharge, Reports sinus pain, Reports sinus pressure, Denies as per HPI, Denies bleeding gums, Denies dental pain, Denies dysphagia, Denies epistaxis, Denies headache, Denies hoarseness, Denies mouth pain, Denies neck fullness/pressure, Denies neck lump, Denies nose pain, Denies odynophagia, Denies post-nasal drip, Denies swelling in mouth, Denies swelling in throat, Denies sore throat, Denies vertigo, Denies voice changes Breasts: bilateral: as per HPI Cardiovascular: Reports chest pain, Reports dyspnea on exertion, Reports high blood pressure, Reports irregular heart beat, Reports leg edema, Reports lightheadedness, Reports orthopnea, Reports palpitations, Reports paroxysmal nocturnal dyspnea, Reports rapid heart beat, Reports shortness of breath, Denies as per HPI, Denies claudication, Denies decreased exercise tolerance, Denies edema, Denies phlebitis, Denies syncope Respiratory: Reports congestion, Reports cough with sputum, Reports respiratory infections, Denies as per HPI, Denies cough, Denies dyspnea, Denies excessive sputum, Denies hemoptysis, Denies home oxygen, Denies pain, Denies pain on inspiration, Denies pleurisy, Denies sleep apnea, Denies snoring, Denies wheezing Gastrointestinal: Reports abdominal pain, Reports bloating, Reports BRBPR, Reports constipation, Reports diarrhea, Reports dyspepsia, Reports early satiety , Reports indigestion, Reports lactose intolerance, Reports loss of appetite, Reports melena, Reports nausea, Denies as per HPI, Denies belching, Denies change in bowel habits, Denies coffee ground emesis, Denies excessive gas, Denies heartburn, Denies hematemesis, Denies hematochezia, Denies jaundice, Denies vomiting Genitourinary: Reports dysuria, Reports hematuria, Reports urgency, Reports urinary frequency, Denies as per HPI, Denies abnormal vaginal bleeding, Denies decreased libido, Denies difficulty conceiving, Denies difficulty voiding, Denies dysmenorrhea, Denies dyspareunia, Denies flank pain, Denies genital sores , Denies hot flashes, Denies incomplete emptying, Denies kidney stones, Denies menorrhagia, Denies mixed incontinence, Denies nocturia, Denies pelvic pain, Denies post void dribbling, Denies , Denies prolapse symptoms, Denies stress incontinence, Denies urge incontinence, Denies vaginal discharge, Denies vaginal dryness, Denies vaginal itching, Denies vaginal odor Musculoskeletal: Reports gait dysfunction, Reports loss of height, Reports low back pain, Reports myalgias, Reports neck pain, Denies as per HPI, Denies arm numbness/tingling, Denies atrophy, Denies fractures, Denies frequent falls, Denies hot joints, Denies leg numbness/tingling, Denies limitation of motion, Denies morning stiffness, Denies muscle cramps, Denies muscle weakness, Denies neck stiffness, Denies prior amputations, Denies redness of joints, Denies shooting arm pain, Denies shooting leg pain Integumentary: Denies as per HPI, Denies acne, Denies boils, Denies brittle nails, Denies change in hair/nails, Denies color changes, Denies darkening of skin, Denies depigmentation, Denies dryness, Denies foot/leg ulcers, Denies growths, Denies hirsutism, Denies lesions, Denies onychomycosis, Denies pruritus , Denies rash, Denies sores, Denies striae, Denies unusual bruising, Denies wounds Neurological: Reports numbness, Reports paresthesias, Reports tingling, Denies as per HPI, Denies aphasia, Denies ataxia, Denies balance difficulties, Denies burning pain, Denies change in mentation, Denies change in smell/taste, Denies change in speech, Denies confusion, Denies convulsions, Denies double vision, Denies gait dysfunction, Denies head injury, Denies headaches, Denies hearing difficulties, Denies lack of coordination, Denies loss of vision, Denies memory loss, Denies migraines, Denies motor disturbance, Denies paralysis, Denies seizures, Denies sensory deficit, Denies spasticity, Denies syncope, Denies tic , Denies transient paralysis, Denies tremors, Denies vertigo, Denies weakness, Denies visual changes Psychiatric: Reports anhedonia, Reports anxiety, Reports sadness/tearfulness, Denies as per HPI, Denies anxiety attacks, Denies change in appetite, Denies change in libido, Denies change in sleep habits, Denies confusion, Denies depression, Denies difficulty concentrating, Denies disorientation, Denies hallucinations, Denies hopelessness, Denies hypersomnia, Denies insomnia, Denies irritability, Denies memory loss, Denies mood swings, Denies paranoia, Denies sleep disturbances, Denies suicidal ideation Endocrine: Reports cold intolerance, Reports excessive thirst, Reports fatigue, Denies as per HPI, Denies deepening of the voice, Denies excessive sweating, Denies flushing, Denies heat intolerance, Denies high blood sugars, Denies increase in ring/shoe/hat size, Denies low blood sugars, Denies nocturia, Denies palpitations, Denies polydipsia, Denies polyphagia, Denies polyuria, Denies proptosis, Denies recent glucocorticoid use, Denies thyroid mass, Denies weight change Hematologic/Lymphatic: Reports easy bruising Allergic/Immunologic: Reports allergic rhinitis Past Medical History Past Medical History: Coronary Artery Disease (CAD), Cancer, Chest Pain / Angina , COPD, Diabetes Mellitus, Deep Vein Thrombosis (DVT), GERD/Reflux, Hyperlipidemia, Hypertension, Osteoarthritis (OA), Skin Disorder, Vascular Disorder Additional Past Medical History / Comment(s): Colon cancer with surgery and started chemo yesterday/infusion pump, migraine one time, irregular heartbeat, DVT in rt arm after CABG surgery, psoriasis, diet control diabetic, anemia, hx bladder cancer x 3m with surgery and chemo instilled with last surgery, PAD, aorta-iliac disease, bilateral feet numbness, carotid artery stenosis History of Any Multi-Drug Resistant Organisms: None Reported Past Surgical History: Bladder Surgery, Bowel Resection, Coronary Bypass/CABG, Heart Catheterization Additional Past Surgical History / Comment(s): Power port, colonoscopy, rt colectomy , CAGB 2005 2 vessel, bladder surgery x 3 with chemo instilled last surgery, aileen cataracts Past Anesthesia/Blood Transfusion Reactions: Previous Problems w/ Anesthesia Additional Past Anesthesia/Blood Transfusion Reaction / Comment(s): had blood transfusion at [facility]- no problem with, "screaming and yelling from anesthesia after CAGB surgery" Past Psychological History: No Psychological Hx Reported Additional Psychological History / Comment(s): Pt states she has a friend who stays with her much of the time. She is independent. Smoking Status: Former smoker Past Alcohol Use History: Occasional Additional Past Alcohol Use History / Comment(s): quit smoking 2005, smoked for 30 yrs, 1 PPD Past Drug Use History: None Reported - Past Family History Mother Family Medical History: Cancer, Coronary Artery Disease (CAD) Additional Family Medical History / Comment(s): cervical CA Father History Unknown: Yes Family Medical History: Unable to Obtain Brother(s) Family Medical History: Cancer Additional Family Medical History / Comment(s): leukemia Sister(s) Family Medical History: No Reported History Son(s) Family Medical History: Cancer Additional Family Medical History / Comment(s): leukemia Medications and Allergies Home Medications Medication Instructions Recorded Confirmed Type ALPRAZolam [Xanax] 1 mg PO TID PRN 03/10/17 05/13/17 History Cholecalciferol [Vitamin D3] 1,000 unit PO DAILY 03/10/17 05/13/17 History Isosorbide Mononitrate [Isosorbide 30 mg PO HS 03/10/17 05/13/17 History Mononitrate ER] Losartan Potassium [Cozaar] 100 mg PO HS 03/10/17 05/13/17 History Metoprolol Succinate [Toprol XL] 50 mg PO Q12HR 03/10/17 05/13/17 History Ranitidine HCl [Zantac] 75 mg PO DAILY PRN 03/10/17 05/13/17 History Simvastatin [Zocor] 40 mg PO HS 03/10/17 05/13/17 History Zolpidem Tartrate [Ambien] 10 mg PO HS 03/10/17 05/13/17 History amLODIPine BESYLATE [Norvasc] 2.5 mg PO HS 03/10/17 05/13/17 History quiNIDine SULFATE 300 mg PO HS 03/10/17 05/13/17 History Albuterol Inhaler [Ventolin Hfa 1 - 2 puff INHALATION RT-QID PRN 05/13/17 History Inhaler] Chlorpheniramine/Dextromethorp 1 tab PO DAILY PRN 05/13/17 05/13/17 History [Coricidin Hbp Cough & Cold Tab] Metoprolol Tartrate [Lopressor] 50 mg PO DAILY 05/13/17 05/13/17 History Niacin 1,000 mg PO DAILY 05/13/17 05/13/17 History Psyllium Husk [Metamucil] 0.4 gm PO DAILY PRN 05/13/17 05/13/17 History Turmeric Root Extract [Turmeric] 1,000 mg PO DAILY 05/13/17 05/13/17 History Allergies Allergy/AdvReac Type Severity Reaction Status Date / Time No Known Allergies Allergy Verified 05/13/17 10:40 Physical Exam Vitals: Vital Signs Temp Pulse Pulse Resp BP BP Pulse Ox 05/13/17 18:07 20 93 L 05/13/17 15:30 97.0 F L 73 20 141/69 97 05/13/17 15:09 98.8 F 71 20 126/60 98 05/13/17 14:00 76 18 113/69 97 05/13/17 11:00 84 17 135/62 96 05/13/17 10:13 80 05/13/17 10:10 87 24 149/63 97 05/13/17 09:49 79 05/13/17 09:17 100.9 F H 83 28 H 139/63 89 L Intake and Output 05/13/17 05/13/17 05/13/17 06:59 14:59 22:59 Other: Voiding Method Toilet # Voids 1 # Bowel Movements 1 Weight 73.482 kg Patient Weight 05/14/17 06:59 Weight 73.482 kg - Constitutional General appearance: no average body habitus, cooperative, no disheveled, mild distress, no morbidly obese, no obese, no severe distress, no thin - EENT Eyes: no abnormal pupil, no anicteric sclerae, no disc margins sharp, no edentulous, no EOMI, no PERRLA, no fundus normal, no photophobia, no dentition normal, no poor dentition, no ptosis, no scleral icterus, normal appearance ENT: no hard of hearing, no hearing grossly normal, no NA/AT, normal oropharynx , no other, no pharyngeal erythema, no thrush, no tonsillar exudates, no tonsillar swelling Ears: bilateral: normal - Neck Neck: normal ROM Carotids: bilateral: upstroke normal Thyroid: bilateral: normal size - Respiratory Respiratory: right: rales, rhonchi, wheezing, prolonged expiration, bilateral: diminished, dullness - Cardiovascular Rhythm: regular Heart sounds: normal: S1, S2 Abnormal Heart Sounds: systolic murmur, S3 Gallop - Gastrointestinal General gastrointestinal: no absent bowel sounds, decreased bowel sounds, no distended, no hepatomegaly, no hyperactive bowel sounds, normal bowel sounds, no organomegaly, no rigid, no scaphoid, soft, no splenomegaly, no tenderness, no umbilical hernia, no ventral hernia - Integumentary Integumentary: no calor, no cellulitis, no cyanotic, no decreased turgor, no flushed, no jaundiced, normal, no normal turgor, pale, rash, no ulcer - Neurologic Neurologic: CNII-XII intact - Musculoskeletal Musculoskeletal: gait normal, generalized weakness, strength equal bilaterally, no right sided weakness, no left sided weakness - Psychiatric Psychiatric: A&O x's 3, appropriate affect Results CBC & Chem 7: 05/13/17 09:54 05/13/17 09:54 Labs: Abnormal Lab Results - Last 24 Hours (Table) 05/13/17 05/13/17 05/13/17 Range/Units 09:54 09:54 09:54 RDW 18.3 H (11.5-15.5) % Neutrophils # 7.8 H (1.3-7.7) k/uL Lymphocytes # 0.3 L (1.0-4.8) k/uL APTT 18.8 L (22.0-30.0) sec D-Dimer 7.07 H (<0.60) mg/L FEU BUN 18 H (7-17) mg/dL Creatinine 1.44 H (0.52-1.04) mg/dL Glucose 144 H (74-99) mg/dL Total Protein 5.8 L (6.3-8.2) g/dL Albumin 3.4 L (3.5-5.0) g/dL Thrombosis Risk Factor Assmnt - DVT/VTE Prophylaxis DVT/VTE Prophylaxis: Pharmacologic Prophylaxis ordered, Mechanical Prophylaxis ordered - Choose All That Apply Any of the Below Risk Factors Present?: Yes Each Factor Represents 1 point: Obesity (BMI >25), Serious lung disease incl. pneumonia (< 1month) Other Risk Factors: Yes Each Risk Factor Represents 2 Points: Age 61-74 years, Malignancy Other congenital or acquired thrombophilia - If yes, enter type in comment: No Thrombosis Risk Factor Assessment Total Risk Factor Score: 6 Thrombosis Risk Factor Assessment Level: High Risk Assessment and Plan Plan: 1 acute respiratory failure with severe dyspnea and shortness of breath: Combination of reaction to chemotherapy and right sided pneumonia along with reactive airway. PE was excluded at this point. 2 right sided pneumonia: Patient was on cefepime and vancomycin culture was done sputum for Gram stain and culture be done as well continue current treatment and management for now. 3 possible reaction to chemotherapy: Patient is on Solu-Medrol and Benadryl will be seen oncology. 4 reactive airway: Especially with the current pneumonia patient be on Solu- Medrol continue patient on DuoNeb. 5: Cancer: Post right sided hemicolectomy was started on chemotherapy continue treatment management. 6 CAD: Has been on isosorbide losartan and metoprolol continue medication. 7 hypertension: Continue Cozaar 100 mg daily along with metoprolol XL 50 mg a day. 8 hyperlipidemia: Has been on Zocor 40 mg a day. 9 type 2 diabetes: Not on any medication currently continue Accu-Chek with sliding scales coverage. 10 GI prophylaxis: Patient be on Pepcid or Zantac. 11 acute kidney injury: With significantly elevated BUN/creatinine compared to her last one especially with the dehydration and possible reaction to medication continue hydration repeat lab in the next 24 hours. 12 mild elevated d-dimer: No sign of blood clot (can be combination of the cancer early surgery and chemotherapy. 13 DVT prophylaxis: Patient will be on heparin 5000 units subcutaneous in his twice a day. CODE STATUS: Full code. Next Expectation from's admission: Patient be the hospital for more than 2 nights.
--- NOTE | 2017-05-13 20:41 | P.CON ---
Consult Note - . Consult date: 05/13/17 Assessment/Plan:: This is a 71-year-old female with significant history for colon cancer found on screening colonoscopy status post laparoscopic-assisted right hemicolectomy for adenocarcinoma the right cecum. She has also had a Port-A- Cath placed by Dr. Mejia and started chemotherapy yesterday area and following that the patient developed shortness of breath with nausea and vomiting and a fever of 102.5 at home. Cough was nonproductive. Patient's states he tried to call oncology office but only reached a recording and then called 911 and EMS came to their home and picked up the patient brought her into [facility] emergency center for evaluation. Her temperature max 100.9 here with tachypnea at 28 and pulse ox was down to 89%. There was concern that patient was having an ALLERGIC reaction to the chemotherapy started yesterday afternoon which is currently on infusion pump. Patient received Pepcid, Benadryl and steroids and was feeling somewhat better. Chest x-ray showed a right lower lobe pneumonia and she was started on antibiotics in the form of cefepime and vancomycin. Her d-dimer was elevated at 7 and VQ scan was negative for pulmonary embolism. Please see the consult note is dictated by nurse practitioner Mrs. Krystal Morelos. This pleasant 71-year-old woman does have some difficulties with some mild confusion that seems to clear once she is more engaged in the conversation. As noted she has had an infusion pump with 5-fluorouracil for her colon cancer. She relates that she is worried she has a friend that had lung cancer who of pneumonia within the last year. She is reassured that since she does not have lung cancer that her pneumonia should be much more treatable, and that she really is starting to show some improvement from the time she presented to the emergency center. The patient is at risk for gram-negative pneumonia and constantly antimicrobial therapy is altered to piperacillin tazobactam and Levaquin until we have further culture data. Her port site is not infected and does not need further vancomycin therapy. It is noted the VQ scan was negative for pulmonary embolism but x-ray does show evidence of the new right lower lobe infiltrate. She does have a history of underlying heart disease and COPD, with current treatments as ordered showing some improvement. I agree with evaluation , assessment and plan as dictated by nurse practitioner Mrs. Krystal Morelos.
[2017-05-13] MEDS ORDERED: PSYLLIUM HUSK 100% 6 GM PACKET PO PRN (22:15)
[2017-05-13] MEDS ORDERED: [UNRECOGNIZED DRUG - OTHER] PO PRN (22:15)
[2017-05-13] MEDS ORDERED: ALBUTEROL NEBULIZED 2.5 MG/3 ML INHALATION PRN (22:15)
[2017-05-13] MEDS ORDERED: QUINIDINE SULFATE 300 MG PO SCH (22:15)
[2017-05-13] MEDS: ZOLPIDEM 10 MG TAB PO SCH (23:17)
[2017-05-13] MEDS: LOSARTAN 50 MG TAB PO SCH (23:17)
[2017-05-13] MEDS: ATORVASTATIN 20 MG TAB PO SCH (23:17)
[2017-05-13] MEDS: METOPROLOL TARTRATE 50 MG TAB PO SCH (23:17)
[2017-05-13] MEDS: amLODIPine 2.5 MG TAB PO SCH (23:17)
[2017-05-13] MEDS: ISOSORBIDE MONONITRATE ER 30 MG TAB.ER.24H PO SCH (23:17)
[2017-05-14 07:24] LABS: Calcium 8.4 mg/dL (8.4-10.2); Potassium 4.8 mmol/L (3.5-5.1); Total Bilirubin 0.3 mg/dL (0.2-1.3); Total Protein 5.1 g/dL (6.3-8.2)
[2017-05-14 07:31] LABS: Anisocytosis Slight; Basophils % (A) 0 %; CH 27.6; CHCM 29.5; Eosinophils % (A) 0 %; HCT 32.9 % (34.0-46.0); HDW 2.86; Hypochromasia Marked; Luc # (Auto) 0.06; Luc % (Auto) 1; Lymphocytes # (A) 0.3 k/uL (1.0-4.8); Lymphocytes % (A) 4 %; MCH 28.4 pg (25.0-35.0); MCHC 30.3 g/dL (31.0-37.0); MCV 93.9 fL (80.0-100.0); Macrocytosis Slight; Monocytes # (A) 0.1 k/uL (0-1.0); Monocytes % (A) 2 %; Neutrophils % (A) 93 %; RBC 3.51 m/uL (3.80-5.40); RDW 17.9 % (11.5-15.5); WBC 8.5 k/uL (3.8-10.6); WBC (Perox) 9.06
[2017-05-14] MEDS: CEFEPIME 2 GM in SODIUM CHLORIDE 0.9% 50 ML IVPB SCH (08:06)
[2017-05-14] MEDS: METOPROLOL TARTRATE 50 MG TAB PO SCH ×2 (08:07→21:02)
[2017-05-14] MEDS: CHOLECALCIFEROL 1,000 UNIT TAB PO SCH (08:08)
[2017-05-14] MEDS: SODIUM CHLORIDE 0.9% 1,000 ML IV SCH ×2 (08:10→15:48)
[2017-05-14] MEDS ORDERED: LEVOFLOXACIN 750 MG TAB PO SCH (09:00)
[2017-05-14] MEDS: PIPERACILLIN-TAZOBACTAM 3.375 GM in DEXTROSE/WATER 1 50ML.BAG IVPB SCH ×2 (09:36→15:48)
--- NOTE | 2017-05-14 13:44 | P.PN ---
Subjective 71-year-old female [address] Wilfred Christinason's patient who was in the hospital in March 09 4 assisted right sided hemicolectomy done through laparoscopy for adenocarcinoma patient was referred to oncology had a port placed with Dr. Mejia and was started chemotherapy yesterday was giving the first dose in the office and have pump infusion continuously. Patient woke up this morning with significant shortness of breath and fever become severely dyspneic and lightheaded and symptomatic with worsening shortness of breath cough wheezes and tightness her called 911 and brought to the emergency department at [facility] by EMS where was seen and evaluated her d- dimer was elevated with elevated BUN/creatinine patient ended up going for VQ scan came back negative for PE surprisingly her chest x-ray showed right-sided pneumonia no elevation on white blood cell. Oncology were called and the claim beside her pneumonia and current symptom she might have a reaction to the first dose of chemotherapy which according to them is not very uncommon. Patient was started on cefepime and vancomycin and admitted to the hospital oncology consult was requested and infectious disease consult was requested as well. 05/14: Dr. Keene has evaluated the patient and changed antibiotics to Zosyn and Levaquin for gram-negative pneumonia coverage. Patient has been afebrile. White count remains normal. BUN 30 and creatinine 1.36. He is currently having chemotherapy infused through [id number]. Oncology consult is pending. Patient denies having any shakes or chills and no productive cough. Objective - Vital Signs Vital signs: Vital Signs Temp 97.4 F L 05/14/17 06:41 Pulse 92 05/14/17 06:41 Resp 18 05/14/17 06:41 BP 137/76 05/14/17 06:41 Pulse Ox 92 L 05/14/17 06:41 Intake & Output 05/13/17 05/14/17 05/14/17 18:59 06:59 18:59 Intake Total 360 160 180 Balance 360 160 180 Weight 73.482 kg Intake: IV 160 Sodium Chloride 0.9% 1, 160 000 ml @ 20 mls/hr IV . Q24H [facility] Rx#:[id number] Oral 360 180 Other: Voiding Method Toilet Toilet # Voids 1 1 1 # Bowel Movements 1 - Exam General appearance: no average body habitus, cooperative, no disheveled, mild distress, no morbidly obese, no obese, no severe distress, no thin - EENT Eyes: no abnormal pupil, no anicteric sclerae, no disc margins sharp, no edentulous, no EOMI, no PERRLA, no fundus normal, no photophobia, no dentition normal, no poor dentition, no ptosis, no scleral icterus, normal appearance ENT: no hard of hearing, no hearing grossly normal, no NA/AT, normal oropharynx , no other, no pharyngeal erythema, no thrush, no tonsillar exudates, no tonsillar swelling Ears: bilateral: normal - Neck Neck: normal ROM Carotids: bilateral: upstroke normal Thyroid: bilateral: normal size - Respiratory Respiratory: right: rales, rhonchi, wheezing, prolonged expiration, bilateral: diminished, dullness - Cardiovascular Rhythm: regular Heart sounds: normal: S1, S2 Abnormal Heart Sounds: systolic murmur, S3 Gallop - Gastrointestinal General gastrointestinal: no absent bowel sounds, decreased bowel sounds, no distended, no hepatomegaly, no hyperactive bowel sounds, normal bowel sounds, no organomegaly, no rigid, no scaphoid, soft, no splenomegaly, no tenderness, no umbilical hernia, no ventral hernia - Integumentary Integumentary: no calor, no cellulitis, no cyanotic, no decreased turgor, no flushed, no jaundiced, normal, no normal turgor, pale, rash, no ulcer - Neurologic Neurologic: CNII-XII intact - Musculoskeletal Musculoskeletal: gait normal, generalized weakness, strength equal bilaterally, no right sided weakness, no left sided weakness - Psychiatric Psychiatric: A&O x's 3, appropriate affect - Labs CBC & Chem 7: 05/14/17 06:26 05/14/17 06:26 Labs: Abnormal Lab Results - Last 24 Hours (Table) 05/13/17 05/13/17 05/13/17 Range/Units 09:54 09:54 09:54 RBC (3.80-5.40) m/uL Hgb (11.4-16.0) gm/dL Hct (34.0-46.0) % MCHC (31.0-37.0) g/dL RDW 18.3 H (11.5-15.5) % Plt Count (150-450) k/uL Neutrophils # 7.8 H (1.3-7.7) k/uL Lymphocytes # 0.3 L (1.0-4.8) k/uL APTT 18.8 L (22.0-30.0) sec D-Dimer 7.07 H (<0.60) mg/L FEU Chloride (98-107) mmol/L BUN 18 H (7-17) mg/dL Creatinine 1.44 H (0.52-1.04) mg/dL Glucose 144 H (74-99) mg/dL Total Protein 5.8 L (6.3-8.2) g/dL Albumin 3.4 L (3.5-5.0) g/dL 05/14/17 05/14/17 Range/Units 06:26 06:26 RBC 3.51 L (3.80-5.40) m/uL Hgb 10.0 L (11.4-16.0) gm/dL Hct 32.9 L (34.0-46.0) % MCHC 30.3 L (31.0-37.0) g/dL RDW 17.9 H (11.5-15.5) % Plt Count 143 L (150-450) k/uL Neutrophils # 8.0 H (1.3-7.7) k/uL Lymphocytes # 0.3 L (1.0-4.8) k/uL APTT (22.0-30.0) sec D-Dimer (<0.60) mg/L FEU Chloride 108 H (98-107) mmol/L BUN 30 H (7-17) mg/dL Creatinine 1.36 H (0.52-1.04) mg/dL Glucose 124 H (74-99) mg/dL Total Protein 5.1 L (6.3-8.2) g/dL Albumin 2.8 L (3.5-5.0) g/dL Assessment and Plan Plan: 1 acute hypoxic respiratory failure with severe dyspnea and shortness of breath : Combination of reaction to chemotherapy and right sided pneumonia along with reactive airway. PE was excluded at this point. 2 right sided pneumonia, gram-negative pneumonia. Consult with Dr. Keene appreciated. Antibiotics have been altered to Zosyn and Levaquin. 3 possible reaction to chemotherapy: Patient is on Solu-Medrol and Benadryl will be seen oncology. 4 reactive airway: Especially with the current pneumonia patient be on Solu- Medrol continue patient on DuoNeb. 5: Adenocarcinoma of the cecum: Post right sided hemicolectomy was started on chemotherapy continue treatment management. Oncology consult 6 CAD: Has been on isosorbide losartan and metoprolol continue medication. 7 hypertension: Continue Cozaar 100 mg daily along with metoprolol XL 50 mg a day. 8 hyperlipidemia: Has been on Zocor 40 mg a day. 9 type 2 diabetes: Not on any medication currently continue Accu-Chek with sliding scales coverage. 10 GI prophylaxis: Patient be on Pepcid or Zantac. 11 acute kidney injury: With significantly elevated BUN/creatinine compared to her last one especially with the dehydration and possible reaction to medication continue hydration repeat lab in the next 24 hours. 12 mild elevated d-dimer: No sign of blood clot (can be combination of the cancer early surgery and chemotherapy. 13 DVT prophylaxis: Patient will be on heparin 5000 units subcutaneous in his twice a day. CODE STATUS: Full code. Discharge plan: Return home Impression and plan of care have been directed as dictated by the signing physician. Krystal Morelos nurse practitioner acting as scribe for signing physician.
--- NOTE | 2017-05-14 17:51 | P.PN ---
Subjective Principal diagnosis: sepsis This is a 71-year-old female with significant history for colon cancer found on screening colonoscopy status post laparoscopic-assisted right hemicolectomy for adenocarcinoma the right cecum. She has also had a Port-A- Cath placed by Dr. Mejia and started chemotherapy yesterday area and following that the patient developed shortness of breath with nausea and vomiting and a fever of 102.5 at home. Cough was nonproductive. Patient's states he tried to call oncology office but only reached a recording and then called 911 and EMS came to their home and picked up the patient brought her into [facility] emergency [place] for evaluation. Her temperature max 100.9 here with tachypnea at 28 and pulse ox was down to 89%. There was concern that patient was having an ALLERGIC reaction to the chemotherapy started yesterday afternoon which is currently on infusion pump. Patient received Pepcid, Benadryl and steroids and was feeling somewhat better. Chest x-ray showed a right lower lobe pneumonia and she was started on antibiotics in the form of cefepime and vancomycin. Her d-dimer was elevated at 7 and VQ scan was negative for pulmonary embolism. Feeling better today. Fever has improved. Less short of breath. Objective - Vital Signs Vital signs: Vital Signs Temp 98.1 F 05/14/17 15:47 Pulse 67 05/14/17 15:47 Resp 17 05/14/17 15:47 BP 149/76 05/14/17 15:47 Pulse Ox 93 L 05/14/17 15:47 Intake & Output 05/13/17 05/14/17 05/14/17 18:59 06:59 18:59 Intake Total 360 160 700 Balance 360 160 700 Weight 73.482 kg Intake: IV 160 Sodium Chloride 0.9% 1, 160 000 ml @ 20 mls/hr IV . Q24H [facility] Rx#:[id number] Oral 360 700 Other: Voiding Method Toilet Toilet Toilet # Voids 1 1 3 # Bowel Movements 1 - Exam Mild pallor HEENT: Anicteric conjunctiva are pink and moist nasal mucosa grossly intact without significant lesions, there is no thrush. Does have lipstick on today Neck: The neck is supple without significant lymphadenopathy or thyromegaly. Lungs: Good bilateral air entry the right base continues to have evidence of some crackles and egophony without dullness Heart: Regular rate and rhythm with an audible S1-S2, no S3 no S4. There is no significant murmur click or rub, PMI was nondisplaced. Abdomen: Positive bowel sounds soft and nontender without palpable masses or organomegaly. There was no guarding or rebound. Extremities: The upper extremities have excellent pulses they are symmetric, no significant petechiae or telangiectasia. No splinter hemorrhages were noted. The lower extremities are free from significant edema. The peripheral pulses were 2+ and symmetric. Neuro: Awake alert oriented to person place and time. There are no acute new gross focal sensory motor deficits. Does have a significant vagueness to her affect however - Labs CBC & Chem 7: 05/14/17 06:26 05/14/17 06:26 Labs: Abnormal Lab Results - Last 24 Hours (Table) 05/14/17 05/14/17 Range/Units 06:26 06:26 RBC 3.51 L (3.80-5.40) m/uL Hgb 10.0 L (11.4-16.0) gm/dL Hct 32.9 L (34.0-46.0) % MCHC 30.3 L (31.0-37.0) g/dL RDW 17.9 H (11.5-15.5) % Plt Count 143 L (150-450) k/uL Neutrophils # 8.0 H (1.3-7.7) k/uL Lymphocytes # 0.3 L (1.0-4.8) k/uL Chloride 108 H (98-107) mmol/L BUN 30 H (7-17) mg/dL Creatinine 1.36 H (0.52-1.04) mg/dL Glucose 124 H (74-99) mg/dL Total Protein 5.1 L (6.3-8.2) g/dL Albumin 2.8 L (3.5-5.0) g/dL Microbiology - Last 24 Hours (Table) 05/13/17 09:54 Blood Culture - Preliminary Blood No Growth after 24 hours Laboratory Results WBC 8.5 k/uL (3.8-10.6) 05/14/17 06:26 RBC 3.51 m/uL (3.80-5.40) L 05/14/17 06:26 Hgb 10.0 gm/dL (11.4-16.0) L 05/14/17 06:26 Hct 32.9 % (34.0-46.0) L 05/14/17 06:26 MCV 93.9 fL (80.0-100.0) 05/14/17 06:26 MCH 28.4 pg (25.0-35.0) 05/14/17 06: MCHC 30.3 g/dL (31.0-37.0) L 05/14/17 06:26 RDW 17.9 % (11.5-15.5) H 05/14/17 06:26 Plt Count 143 k/uL (150-450) L 05/14/17 06:26 Neutrophils % 93 % 05/14/17 06:26 Lymphocytes % 4 % 05/14/17 06:26 Monocytes % 2 % 05/14/17 06:26 Eosinophils % 0 % 05/14/17 06:26 Basophils % 0 % 05/14/17 06:26 Neutrophils # 8.0 k/uL (1.3-7.7) H 05/14/17 06:26 Lymphocytes # 0.3 k/uL (1.0-4.8) L 05/14/17 06:26 Monocytes # 0.1 k/uL (0-1.0) 05/14/17 06:26 Eosinophils # 0.0 k/uL (0-0.7) 05/14/17 06:26 Basophils # 0.0 k/uL (0-0.2) 05/14/17 06:26 Hypochromasia Marked 05/14/17 06:26 Anisocytosis Slight 05/14/17 06:26 Macrocytosis Slight 05/14/17 06:26 PT 10.9 sec (9.0-12.0) 05/13/17 09:54 INR 1.1 (<1.2) 05/13/17 09:54 APTT 18.8 sec (22.0-30.0) L 05/13/17 09:54 D-Dimer 7.07 mg/L FEU (<0.60) H 05/13/17 09:54 Sodium 142 mmol/L (137-145) 05/14/17 06:26 Potassium 4.8 mmol/L (3.5-5.1) 05/14/17 06:26 Chloride 108 mmol/L (98-107) H 05/14/17 06:26 Carbon Dioxide 26 mmol/L (22-30) 05/14/17 06:26 Anion Gap 8 mmol/L 05/14/17 06:26 BUN 30 mg/dL (7-17) H 05/14/17 06:26 Creatinine 1.36 mg/dL (0.52-1.04) H 05/14/17 06:26 Est GFR (MDRD) Af Amer 46 (>60 ml/min/1.73 sqM) 05/14/17 06:26 Est GFR (MDRD) Non-Af 38 (>60 ml/min/1.73 sqM) 05/14/17 06:26 Glucose 124 mg/dL (74-99) H 05/14/17 06:26 Calcium 8.4 mg/dL (8.4-10.2) 05/14/17 06:26 Total Bilirubin 0.3 mg/dL (0.2-1.3) 05/14/17 06:26 AST 15 U/L (14-36) 05/14/17 06:26 ALT 24 U/L (9-52) 05/14/17 06:26 Alkaline Phosphatase 44 U/L (38-126) 05/14/17 06:26 Troponin I <0.012 ng/mL (0.000-0.034) 05/13/17 09:54 NT-Pro-B Natriuret Pep 1790 pg/mL 05/13/17 09:54 Total Protein 5.1 g/dL (6.3-8.2) L 05/14/17 06:26 Albumin 2.8 g/dL (3.5-5.0) L 05/14/17 06:26 Stool Occult Blood Negative (Negative) 05/13/17 12:18 Microbiology 05/13/17 09:54 Blood Blood Culture - Preliminary No Growth after 24 hours Assessment and Plan (1) Pneumonia, aspiration Narrative/Plan: This pleasant 71-year-old woman does have some difficulties with some mild confusion that seems to clear once she is more engaged in the conversation. As noted she has had an infusion pump with 5-fluorouracil for her colon cancer. She relates that she is worried she has a friend that had lung cancer who of pneumonia within the last year. She is reassured that since she does not have lung cancer that her pneumonia should be much more treatable, and that she really is starting to show some improvement from the time she presented to the emergency center. The patient is at risk for gram-negative pneumonia and constantly antimicrobial therapy is altered to piperacillin tazobactam and Levaquin until we have further culture data. Her port site is not infected and does not need further vancomycin therapy. It is noted the VQ scan was negative for pulmonary embolism but x-ray does show evidence of the new right lower lobe infiltrate. Condition did have an episode of nausea and emesis before coming to Hospital shortly after arrival. Also concerned to an aspiration event. Antibiotic therapy is currently with Zosyn and Levaquin and this will continue the renal failure is improving. Her chemotherapy is completed. Is being followed closely by oncology. Her fever is improving. As she continues to improve may be a candidate for conversion to Augmentin to complete her course of antibiotic therapy. Status: Acute
--- NOTE | 2017-05-14 18:46 | P.CONS ---
History of Present Illness - Reason for Consult Consult date: 05/14/17 Right lung pneumonitis, SIRS, colon cancer chemo - History of Present Illness The patient is a 71-year-old lady, known to our service. She has been seen by Dr. Rodriguez in the office. She had initially presented in 02/03 due to progressive shortness of breath, with labs showing iron deficiency anemia. He had a colonoscopy by Dr. Tafoya, revealing a tumor in the cecum, with biopsy positive for adenocarcinoma. Initial CT scans raise the possibility of a lesion in the liver. The patient was seen by at this time, and had a PET scan done, which was negative for metastasis. She was therefore cleared for surgery, and proceeded to a right hemicolectomy in late 03/06. She was found to have a T3 N1 colon cancer. Based on the stage, adjuvant chemotherapy was recommended. The patient's recovery of performance status after her surgery was somewhat slow, and she was initially reluctant for chemotherapy. After intensive discussion with Dr. Rodriguez, she did agree to the same, and started treatment with her first cycle of FOLFOX on 05/12/2017. The patient states that she developed acute onset of shortness of breath in the early a.m. of 05/13/17. She noted some chest tightness but not significant cough . She also became quite anxious, and subsequently became nauseous, and had a few episodes of overt vomiting. EMS were called, and the patient was brought into the emergency room. She had a VQ scan, that was negative for pulmonary embolus. Chest x-ray showed right lower lobe infiltrate, that was suggestive of pneumonia. The patient was therefore admitted, started on antibiotics, breathing treatments and steroids. Consult was placed as there was some concern that the pneumonitis was chemotherapy related, as well as due to her ongoing chemo. Review of Systems Constitutional: Reports weakness Eyes: denies blurred vision, denies pain Ears: deny: decreased hearing, ear discharge, earache, tinnitus Ears, nose, mouth and throat: Denies headache, Denies sore throat Cardiovascular: Reports dyspnea on exertion, Reports palpitations, Reports shortness of breath Respiratory: Reports as per HPI, Reports dyspnea Gastrointestinal: Reports as per HPI Genitourinary: Denies dysuria, Denies hematuria Menstruation: Reports postmenopausal Musculoskeletal: Reports muscle weakness Integumentary: Denies pruritus, Denies rash Neurological: Reports weakness, Denies numbness Psychiatric: Reports anxiety Endocrine: Denies fatigue, Denies weight change Hematologic/Lymphatic: Reports as per HPI Past Medical History Past Medical History: Coronary Artery Disease (CAD), Cancer, Chest Pain / Angina , COPD, Diabetes Mellitus, GERD/Reflux, Hyperlipidemia, Hypertension, Osteoarthritis (OA), Skin Disorder, Vascular Disorder Additional Past Medical History / Comment(s): colon cancer, hx migraine, irregular heartbeat, varicose veins, hx blood clot in rt arm after CABG surgery , psoriasis, diet control diabetic, anemia, hx bladder cancer x 3, PAD and disease of the ileo-aortic system, carotid artery stenosis History of Any Multi-Drug Resistant Organisms: None Reported Past Surgical History: Bladder Surgery, Bowel Resection, Coronary Bypass/CABG, Heart Catheterization Additional Past Surgical History / Comment(s): rt colectomy ,double CAGB 2005, bladder surgery x 3, aileen cataracts Past Anesthesia/Blood Transfusion Reactions: Previous Problems w/ Anesthesia Additional Past Anesthesia/Blood Transfusion Reaction / Comm: had blood transfusion at [facility]- no problem with, "screaming and yelling from anesthesia after CAGB surgery" Past Psychological History: Anxiety Smoking Status: Former smoker - Past Family History Mother Family Medical History: Cancer, Coronary Artery Disease (CAD) Additional Family Medical History / Comment(s): cervical CA Father History Unknown: Yes Family Medical History: Unable to Obtain (Patient do much about her father.) Brother(s) Family Medical History: Cancer Additional Family Medical History / Comment(s): leukemia Sister(s) Family Medical History: No Reported History Son(s) Family Medical History: Cancer Additional Family Medical History / Comment(s): leukemia Medications and Allergies Home Medications Medication Instructions Recorded Confirmed Type ALPRAZolam [Xanax] 1 mg PO TID PRN 03/10/17 05/13/17 History Cholecalciferol [Vitamin D3] 1,000 unit PO DAILY 03/10/17 05/13/17 History Isosorbide Mononitrate [Isosorbide 30 mg PO HS 03/10/17 05/13/17 History Mononitrate ER] Losartan Potassium [Cozaar] 100 mg PO HS 03/10/17 05/13/17 History Metoprolol Succinate [Toprol XL] 50 mg PO Q12HR 03/10/17 05/13/17 History Ranitidine HCl [Zantac] 75 mg PO DAILY PRN 03/10/17 05/13/17 History Simvastatin [Zocor] 40 mg PO HS 03/10/17 05/13/17 History Zolpidem Tartrate [Ambien] 10 mg PO HS 03/10/17 05/13/17 History amLODIPine BESYLATE [Norvasc] 2.5 mg PO HS 03/10/17 05/13/17 History quiNIDine SULFATE 300 mg PO HS 03/10/17 05/13/17 History Albuterol Inhaler [Ventolin Hfa 1 - 2 puff INHALATION RT-QID PRN 05/13/17 History Inhaler] Chlorpheniramine/Dextromethorp 1 tab PO DAILY PRN 05/13/17 05/13/17 History [Coricidin Hbp Cough & Cold Tab] Metoprolol Tartrate [Lopressor] 50 mg PO DAILY 05/13/17 05/13/17 History Niacin 1,000 mg PO DAILY 05/13/17 05/13/17 History Psyllium Husk [Metamucil] 0.4 gm PO DAILY PRN 05/13/17 05/13/17 History Turmeric Root Extract [Turmeric] 1,000 mg PO DAILY 05/13/17 05/13/17 History Allergies Allergy/AdvReac Type Severity Reaction Status Date / Time No Known Allergies Allergy Verified 05/13/17 10:40 Physical Exam Vitals: Vital Signs Temp Pulse Pulse Resp BP Pulse Ox 05/14/17 15:47 98.1 F 67 17 149/76 93 L 05/14/17 06:41 97.4 F L 92 18 137/76 92 L 05/14/17 00:00 72 18 05/13/17 22:45 97.4 F L 72 18 139/78 92 L Intake and Output 05/14/17 05/14/17 05/14/17 06:59 14:59 22:59 Intake Total 180 520 Balance 180 520 Intake: Oral 180 520 Other: Voiding Method Toilet Toilet Toilet # Voids 1 1 3 - Constitutional General appearance: no acute distress - EENT Eyes: EOMI, PERRLA ENT: hearing grossly normal, normal oropharynx - Neck Neck: no lymphadenopathy Thyroid: bilateral: normal size - Respiratory Respiratory: right: rales - Cardiovascular Rhythm: regular Heart sounds: normal: S1, S2 - Gastrointestinal General gastrointestinal: normal bowel sounds, soft - Integumentary Integumentary: normal - Neurologic Neurologic: CNII-XII intact - Musculoskeletal Musculoskeletal: strength equal bilaterally - Psychiatric Psychiatric: A&O x's 3, appropriate affect Results CBC & Chem 7: 05/14/17 06:26 05/14/17 06:26 Labs: Abnormal Lab Results - Last 24 Hours (Table) 05/14/17 05/14/17 Range/Units 06:26 06:26 RBC 3.51 L (3.80-5.40) m/uL Hgb 10.0 L (11.4-16.0) gm/dL Hct 32.9 L (34.0-46.0) % MCHC 30.3 L (31.0-37.0) g/dL RDW 17.9 H (11.5-15.5) % Plt Count 143 L (150-450) k/uL Neutrophils # 8.0 H (1.3-7.7) k/uL Lymphocytes # 0.3 L (1.0-4.8) k/uL Chloride 108 H (98-107) mmol/L BUN 30 H (7-17) mg/dL Creatinine 1.36 H (0.52-1.04) mg/dL Glucose 124 H (74-99) mg/dL Total Protein 5.1 L (6.3-8.2) g/dL Albumin 2.8 L (3.5-5.0) g/dL Microbiology - Last 24 Hours (Table) 05/13/17 09:54 Blood Culture - Preliminary Blood No Growth after 24 hours Comments: Report of VQ scan reviewed Chest x-ray: report reviewed Assessment and Plan (1) Pneumonia Narrative/Plan: The patient was admitted for new onset acute respiratory failure, that was found to be related to a new right lower lobe infiltrate. She is improved with ongoing treatment. The concern in this case, is for pneumonitis due to chemotherapy, versus infection. The patient is currently receiving FOLFOX, which is generally not associated with any direct lung toxicity. Therefore an infectious cause is much more likely. The patient is currently on antibiotics, as well as bronchodilator. She definitely feels improved. On careful questioning of the patient, it appears that her shortness of breath started first, with nausea and vomiting occurring later. Therefore aspiration pneumonia appears to be much less likely. Continue current treatment. Patient can be discharged on oral antibiotics, whenever felt to be appropriate for the same by the admitting service Status: Acute (2) Adenocarcinoma of cecum Narrative/Plan: The patient is currently on her first cycle of adjuvant chemotherapy. Pump was disconnected today. As noted above, chemotherapy induced pneumonitis appears to be less likely. Therefore at this time, the plan would be to continue her on the treatment as scheduled. Follow counts while in hospital, to check for any significant chemotherapy-related drops. Status: Acute
[2017-05-14 20:37] LABS: Glucose,Whole Blood 117 mg/dL (75-99)
[2017-05-14] MEDS: ATORVASTATIN 20 MG TAB PO SCH (21:02)
[2017-05-14] MEDS: ISOSORBIDE MONONITRATE ER 30 MG TAB.ER.24H PO SCH (21:02)
[2017-05-14] MEDS: ZOLPIDEM 10 MG TAB PO SCH (21:02)
[2017-05-14] MEDS: LOSARTAN 50 MG TAB PO SCH (21:02)
[2017-05-14] MEDS: HEPARIN SODIUM,PORCINE 5,000 UNIT/ML 1 ML VIAL SQ SCH (21:02)
[2017-05-14] MEDS: amLODIPine 2.5 MG TAB PO SCH (21:02)
[2017-05-14] MEDS: FAMOTIDINE 20 MG TAB PO PRN (21:27)
[2017-05-15] MEDS: PIPERACILLIN-TAZOBACTAM 3.375 GM in DEXTROSE/WATER 1 50ML.BAG IVPB SCH ×4 (00:05→23:28)
[2017-05-15 07:12] LABS: Calcium 8.8 mg/dL (8.4-10.2); Potassium 4.6 mmol/L (3.5-5.1)
[2017-05-15 07:23] LABS: Glucose,Whole Blood 105 mg/dL (75-99)
[2017-05-15] MEDS: HEPARIN SODIUM,PORCINE 5,000 UNIT/ML 1 ML VIAL SQ SCH ×2 (08:37→21:10)
[2017-05-15] MEDS: METOPROLOL TARTRATE 50 MG TAB PO SCH ×2 (08:37→21:10)
[2017-05-15] MEDS: CHOLECALCIFEROL 1,000 UNIT TAB PO SCH (08:38)
[2017-05-15] MEDS ORDERED: VANCOMYCIN 1,250 MG in SODIUM CHLORIDE 0.9% 250 ML IVPB SCH (12:00)
[2017-05-15 12:06] LABS: Glucose,Whole Blood 118 mg/dL (75-99)
--- NOTE | 2017-05-15 12:49 | P.PN ---
Subjective Principal diagnosis: Acute hypoxic respiratory failure, right-sided pneumonia, reactive airway, reaction to chemotherapy, adenocarcinoma of the cecum, CAD, and acute kidney failure. 71-year-old female [address] Wilfred Christianson's patient who was in the hospital in March 09 4 assisted right sided hemicolectomy done through laparoscopy for adenocarcinoma patient was referred to oncology had a port placed with Dr. Mejia and was started chemotherapy yesterday was giving the first dose in the office and have pump infusion continuously. Patient woke up this morning with significant shortness of breath and fever become severely dyspneic and lightheaded and symptomatic with worsening shortness of breath cough wheezes and tightness her called 911 and brought to the emergency department at [facility] by EMS where was seen and evaluated her d- dimer was elevated with elevated BUN/creatinine patient ended up going for VQ scan came back negative for PE surprisingly her chest x-ray showed right-sided pneumonia no elevation on white blood cell. Oncology were called and the claim beside her pneumonia and current symptom she might have a reaction to the first dose of chemotherapy which according to them is not very uncommon. Patient was started on cefepime and vancomycin and admitted to the hospital oncology consult was requested and infectious disease consult was requested as well. 05/14: Dr. Keene has evaluated the patient and changed antibiotics to Zosyn and Levaquin for gram-negative pneumonia coverage. Patient has been afebrile. White count remains normal. BUN 30 and creatinine 1.36. He is currently having chemotherapy infused through [id number]. Oncology consult is pending. Patient denies having any shakes or chills and no productive cough. 05/15/2017: Patient was seen Dr. Banks yesterday who with a current management her lap and responded to treatment has been much better. Patient is not hypoxic does not require any oxygen anymore. Her culture failed to show any abnormality currently. We'll continue patient on both IV and oral antibiotic at least until tomorrow if she is doing well might switch her to oral Levaquin only prepare for home when she is ready. Objective - Vital Signs Vital signs: Vital Signs Temp 98.4 F 05/15/17 07:00 Pulse 70 05/15/17 07:00 Resp 18 05/15/17 07:00 BP 130/60 05/15/17 07:00 Pulse Ox 90 L 05/15/17 07:00 Intake & Output 05/14/17 05/15/17 05/15/17 18:59 06:59 18:59 Intake Total 700 720 Balance 700 720 Intake: IV 80 Sodium Chloride 0.9% 1, 80 000 ml @ 20 mls/hr IV . Q24H [facility] Rx#:[id number] Intake, IV Titration 50 Amount Piperacillin-Tazobactam 3 50 .375 gm In Dextrose/Water 1 50ml.bag @ 12.5 mls/hr IVPB Q8HR [facility] Rx#: [id number] Oral 700 590 Other: Voiding Method Toilet Toilet # Voids 3 1 - Constitutional General appearance: Present: cooperative, no acute distress. Absent: average body habitus, disheveled, mild distress, morbidly obese, obese, severe distress , thin - EENT Eyes: Present: normal appearance. Absent: abnormal pupil, anicteric sclerae, disc margins sharp, edentulous, EOMI, PERRLA, fundus normal, photophobia, dentition normal, poor dentition, ptosis, scleral icterus ENT: Present: hard of hearing, normal oropharynx. Absent: hearing grossly normal, NA/AT, other, pharyngeal erythema, thrush, tonsillar exudates, tonsillar swelling Ears: bilateral: normal - Neck Neck: Present: normal ROM. Absent: lymphadenopathy, other, rigidity, stridor, thyromegaly Carotids: bilateral: upstroke normal Thyroid: bilateral: normal size, enlarged - Respiratory Respiratory: right: rales, rhonchi, bilateral: diminished, dullness - Cardiovascular Rhythm: regular Heart sounds: normal: S1, S2 Abnormal Heart Sounds: Present: systolic murmur - Gastrointestinal General gastrointestinal: Present: decreased bowel sounds, normal bowel sounds, soft. Absent: absent bowel sounds, distended, hepatomegaly, hyperactive bowel sounds, organomegaly, rigid, scaphoid, splenomegaly, tenderness, umbilical hernia, ventral hernia - Integumentary Integumentary: Present: normal, pale, rash. Absent: calor, cellulitis, cyanotic , decreased turgor, flushed, jaundiced, normal turgor, ulcer - Neurologic Neurologic: Present: CNII-XII intact - Musculoskeletal Musculoskeletal: Present: gait normal, generalized weakness, strength equal bilaterally. Absent: right sided weakness, left sided weakness - Psychiatric Psychiatric: Present: A&O x's 3, appropriate affect - Labs CBC & Chem 7: 05/14/17 06:26 05/15/17 06:20 Labs: Abnormal Lab Results - Last 24 Hours (Table) 05/14/17 05/15/17 05/15/17 Range/Units 20:35 06:20 07:21 Chloride 108 H (98-107) mmol/L BUN 37 H (7-17) mg/dL Creatinine 1.40 H (0.52-1.04) mg/dL Glucose 106 H (74-99) mg/dL POC Glucose (mg/dL) 117 H 105 H (75-99) mg/dL 05/15/17 Range/Units 12:03 Chloride (98-107) mmol/L BUN (7-17) mg/dL Creatinine (0.52-1.04) mg/dL Glucose (74-99) mg/dL POC Glucose (mg/dL) 118 H (75-99) mg/dL Microbiology - Last 24 Hours (Table) 05/13/17 09:54 Blood Culture - Preliminary Blood No Growth after 24 hours Assessment and Plan Plan: 1 acute respiratory failure with severe dyspnea and shortness of breath: Combination of reaction to chemotherapy and right sided pneumonia along with reactive airway. Patient is responding very well to current treatment management. 2 right sided pneumonia: Patient was switched to Zosyn and Levaquin doing very well with it, culture was done sputum for Gram stain and culture still negative currently. 3 possible reaction to chemotherapy: Patient is on Solu-Medrol and Benadryl will be seen oncology. With switch to oral prednisone. 4 reactive airway: Especially with the current pneumonia we'll continue prednisone and updraft treatment. 5: Cancer: Post right sided hemicolectomy was started on chemotherapy continue treatment management. 6 CAD: Has been on isosorbide losartan and metoprolol continue medication. 7 hypertension: Continue Cozaar 100 mg daily along with metoprolol XL 50 mg a day. 8 hyperlipidemia: Has been on Zocor 40 mg a day. 9 type 2 diabetes: Not on any medication currently continue Accu-Chek with sliding scales coverage. 10 GI prophylaxis: Patient be on Pepcid or Zantac. 11 acute kidney injury: BUN/creatinine are much better continue hydration and continue to watch her level daily. Discharge expectation: Possibly discharge in 48 hours.
[2017-05-15] MEDS: SODIUM CHLORIDE 0.9% 1,000 ML IV SCH (15:11)
[2017-05-15 17:42] LABS: Glucose,Whole Blood 113 mg/dL (75-99)
[2017-05-15 20:22] LABS: Glucose,Whole Blood 130 mg/dL (75-99)
[2017-05-15] MEDS: ATORVASTATIN 20 MG TAB PO SCH (21:10)
[2017-05-15] MEDS: amLODIPine 2.5 MG TAB PO SCH (21:10)
[2017-05-15] MEDS: LOSARTAN 50 MG TAB PO SCH (21:10)
[2017-05-15] MEDS: ISOSORBIDE MONONITRATE ER 30 MG TAB.ER.24H PO SCH (21:10)
[2017-05-15] MEDS: ZOLPIDEM 10 MG TAB PO SCH (21:20)
[2017-05-16] MEDS: ALPRAZolam 0.5 MG TAB PO PRN ×2 (01:29→18:42)
--- NOTE | 2017-05-16 07:19 | XR ---
EXAMINATION TYPE: XR chest 2V DATE OF EXAM: 05/16/2017 COMPARISON: 05/13/2017 TECHNIQUE: PA and lateral views submitted. HISTORY: Shortness of breath FINDINGS: Improving right lower lobe infiltrate. Underlying COPD, postoperative change in mental stable. No pne umothorax. Interstitial improved. Tiny bilateral effusions suspected. Biapical pleural thickening. Ar thropathy shoulders. Atherosclerotic change aorta. IMPRESSION: Improving basilar infiltrate.
[2017-05-16 07:24] LABS: Glucose,Whole Blood 118 mg/dL (75-99)
[2017-05-16 07:33] LABS: Anisocytosis Slight; Basophils % (A) 0 %; CH 28.5; CHCM 30.5; Eosinophils # (A) 0.2 k/uL (0-0.7); Eosinophils % (A) 2 %; HCT 38.7 % (34.0-46.0); HDW 2.84; HGB 11.5 gm/dL (11.4-16.0); Hypochromasia Moderate; Luc # (Auto) 0.02; Luc % (Auto) 0; Lymphocytes % (A) 12 %; MCHC 29.8 g/dL (31.0-37.0); MCV 93.8 fL (80.0-100.0); Macrocytosis Slight; Mean Platelet Volume 8.8; Monocytes # (A) 0.1 k/uL (0-1.0); Monocytes % (A) 1 %; Neutrophils # (A) 7.2 k/uL (1.3-7.7); Neutrophils % (A) 85 %; RBC 4.12 m/uL (3.80-5.40); RDW 18.7 % (11.5-15.5); WBC 8.4 k/uL (3.8-10.6); WBC (Perox) 9.16
[2017-05-16 07:49] LABS: Total Bilirubin 0.8 mg/dL (0.2-1.3); Total Protein 6.1 g/dL (6.3-8.2)
[2017-05-16] MEDS: METOPROLOL TARTRATE 50 MG TAB PO SCH ×2 (08:10→21:22)
[2017-05-16] MEDS: CHOLECALCIFEROL 1,000 UNIT TAB PO SCH (08:10)
[2017-05-16] MEDS: HEPARIN SODIUM,PORCINE 5,000 UNIT/ML 1 ML VIAL SQ SCH ×2 (08:11→21:22)
[2017-05-16] MEDS: PIPERACILLIN-TAZOBACTAM 3.375 GM in DEXTROSE/WATER 1 50ML.BAG IVPB SCH ×2 (08:11→15:43)
[2017-05-16] MEDS ORDERED: LEVOFLOXACIN 750 MG TAB PO SCH (09:00)
[2017-05-16] MEDS ORDERED: cloNIDine HCL 0.1 MG TAB PO PRN (09:46)
--- NOTE | 2017-05-16 09:55 | P.PN ---
Subjective Principal diagnosis: Acute hypoxic respiratory failure, right-sided pneumonia, reactive airway, reaction to chemotherapy, adenocarcinoma of the cecum, CAD, and acute kidney failure. 71-year-old female [address] Wilfred Christianson's patient who was in the hospital in March 09 4 assisted right sided hemicolectomy done through laparoscopy for adenocarcinoma patient was referred to oncology had a port placed with Dr. Mejia and was started chemotherapy yesterday was giving the first dose in the office and have pump infusion continuously. Patient woke up this morning with significant shortness of breath and fever become severely dyspneic and lightheaded and symptomatic with worsening shortness of breath cough wheezes and tightness her called 911 and brought to the emergency department at [facility] by EMS where was seen and evaluated her d- dimer was elevated with elevated BUN/creatinine patient ended up going for VQ scan came back negative for PE surprisingly her chest x-ray showed right-sided pneumonia no elevation on white blood cell. Oncology were called and the claim beside her pneumonia and current symptom she might have a reaction to the first dose of chemotherapy which according to them is not very uncommon. Patient was started on cefepime and vancomycin and admitted to the hospital oncology consult was requested and infectious disease consult was requested as well. 05/14: Dr. Keene has evaluated the patient and changed antibiotics to Zosyn and Levaquin for gram-negative pneumonia coverage. Patient has been afebrile. White count remains normal. BUN 30 and creatinine 1.36. He is currently having chemotherapy infused through [id number]. Oncology consult is pending. Patient denies having any shakes or chills and no productive cough. 05/15/2017: Patient was seen Dr. Banks yesterday who with a current management her lap and responded to treatment has been much better. Patient is not hypoxic does not require any oxygen anymore. Her culture failed to show any abnormality currently. We'll continue patient on both IV and oral antibiotic at least until tomorrow if she is doing well might switch her to oral Levaquin only prepare for home when she is ready. 05/16/2017: Patient is feeling much better repeat chest x-ray showed improvement in the basilar area for long, her hypoxia fever or chills and lab next much better. Blood pressure is mildly elevated. Patient is stable hopefully by tomorrow with switch her meds to oral will be able to go home tomorrow with oral medication. Objective - Vital Signs Vital signs: Vital Signs Temp 97.8 F 05/16/17 07:00 Pulse 77 05/16/17 07:00 Resp 18 05/16/17 07:00 BP 145/67 05/16/17 07:00 Pulse Ox 91 L 05/16/17 07:00 Intake & Output 05/15/17 05/16/17 05/16/17 18:59 06:59 18:59 Intake Total 210 750 Balance 210 750 Intake: IV 160 60 Sodium Chloride 0.9% 1, 160 60 000 ml @ 20 mls/hr IV . Q24H [facility] Rx#:[id number] Intake, IV Titration 50 100 Amount Piperacillin-Tazobactam 3 50 100 .375 gm In Dextrose/Water 1 50ml.bag @ 12.5 mls/hr IVPB Q8HR [facility] Rx#: [id number] Oral 590 Other: Voiding Method Toilet Toilet # Voids 1 2 - Constitutional General appearance: Present: cooperative, disheveled, no acute distress. Absent : average body habitus, mild distress, morbidly obese, obese, severe distress, thin - EENT Eyes: Present: normal appearance. Absent: abnormal pupil, anicteric sclerae, disc margins sharp, edentulous, EOMI, PERRLA, fundus normal, photophobia, dentition normal, poor dentition, ptosis, scleral icterus ENT: Present: normal oropharynx. Absent: hard of hearing, hearing grossly normal, NA/AT, other, pharyngeal erythema, thrush, tonsillar exudates, tonsillar swelling - Neck Neck: Present: normal ROM. Absent: lymphadenopathy, other, rigidity, stridor, thyromegaly Carotids: bilateral: upstroke normal Thyroid: bilateral: normal size - Respiratory Respiratory: bilateral: diminished, dullness, rales, rhonchi, wheezing - Cardiovascular Rhythm: regular Heart sounds: normal: S1, S2 Abnormal Heart Sounds: Present: S3 Gallop - Gastrointestinal General gastrointestinal: Present: decreased bowel sounds, soft. Absent: absent bowel sounds, distended, hepatomegaly, hyperactive bowel sounds, normal bowel sounds, organomegaly, rigid, scaphoid, splenomegaly, tenderness, umbilical hernia, ventral hernia - Integumentary Integumentary: Present: normal. Absent: calor, cellulitis, cyanotic, decreased turgor, flushed, jaundiced, normal turgor, pale, rash, ulcer - Neurologic Neurologic: Present: CNII-XII intact - Musculoskeletal Musculoskeletal: Present: gait normal, generalized weakness, strength equal bilaterally. Absent: right sided weakness, left sided weakness - Psychiatric Psychiatric: Present: A&O x's 3, appropriate affect - Labs CBC & Chem 7: 05/16/17 06:27 05/16/17 06:27 Labs: Abnormal Lab Results - Last 24 Hours (Table) 05/15/17 05/15/17 05/15/17 Range/Units 12:03 17:33 20:20 MCHC (31.0-37.0) g/dL RDW (11.5-15.5) % Carbon Dioxide (22-30) mmol/L BUN (7-17) mg/dL Creatinine (0.52-1.04) mg/dL Glucose (74-99) mg/dL POC Glucose (mg/dL) 118 H 113 H 130 H (75-99) mg/dL Total Protein (6.3-8.2) g/dL 05/16/17 05/16/17 05/16/17 Range/Units 06:27 06:27 07:23 MCHC 29.8 L (31.0-37.0) g/dL RDW 18.7 H (11.5-15.5) % Carbon Dioxide 21 L (22-30) mmol/L BUN 26 H (7-17) mg/dL Creatinine 1.35 H (0.52-1.04) mg/dL Glucose 103 H (74-99) mg/dL POC Glucose (mg/dL) 118 H (75-99) mg/dL Total Protein 6.1 L (6.3-8.2) g/dL Microbiology - Last 24 Hours (Table) 05/13/17 09:54 Blood Culture - Preliminary Blood No Growth after 48 hours Assessment and Plan Plan: 1 acute respiratory failure with severe dyspnea and shortness of breath: Much better so far patient hemodynamically stable oxygen level has improved. 2 right sided pneumonia: Patient is still on Zosyn and Levaquin will be switched to Levaquin orally only to go home on it for 7 more days. 3 possible reaction to chemotherapy: Solu-Medrol doing much better so far. 4 reactive airway: Continue updraft treatment patient is doing well. 5: Cancer: Post resection has been on chemotherapy will continue chemotherapy still seen Dr. Banks. 6 CAD: Has been on isosorbide losartan and metoprolol continue medication. 7 hypertension: Continue Cozaar 100 mg daily along with metoprolol XL 50 mg a day. 8 hyperlipidemia: Has been on Zocor 40 mg a day. 9 type 2 diabetes: Not on any medication currently continue Accu-Chek with sliding scales coverage. 10 GI prophylaxis: Patient be on Pepcid or Zantac. 11 acute kidney injury: BUN/creatinine are much better continue hydration and continue to watch her level daily. Discharge expectation: Possible discharge home tomorrow..
[2017-05-16 11:26] LABS: Glucose,Whole Blood 108 mg/dL (75-99)
[2017-05-16] MEDS: SODIUM CHLORIDE 0.9% 1,000 ML IV SCH (14:11)
[2017-05-16] MEDS ORDERED: CALCIUM CARBONATE 500 MG CHEWABLE PO PRN (14:23)
[2017-05-16] MEDS: amLODIPine 5 MG TAB PO SCH (15:43)
[2017-05-16 17:00] LABS: Glucose,Whole Blood 101 mg/dL (75-99)
[2017-05-16 20:34] LABS: Glucose,Whole Blood 132 mg/dL (75-99)
[2017-05-16] MEDS: ZOLPIDEM 10 MG TAB PO SCH (21:22)
[2017-05-16] MEDS: ATORVASTATIN 20 MG TAB PO SCH (21:22)
[2017-05-16] MEDS: LOSARTAN 50 MG TAB PO SCH (21:22)
[2017-05-16] MEDS: amLODIPine 2.5 MG TAB PO SCH (21:23)
[2017-05-16] MEDS: ISOSORBIDE MONONITRATE ER 30 MG TAB.ER.24H PO SCH (21:23)
[2017-05-16 22:47] VITALS: RESP 16
[2017-05-17] MEDS: FAMOTIDINE 20 MG TAB PO PRN (00:07)
[2017-05-17] MEDS: PIPERACILLIN-TAZOBACTAM 3.375 GM in DEXTROSE/WATER 1 50ML.BAG IVPB SCH ×2 (00:07→08:37)
[2017-05-17 07:20] LABS: Glucose,Whole Blood 103 mg/dL (75-99)
[2017-05-17 08:01] VITALS: BP 135/78; PULSE 70; TEMP 98
[2017-05-17 08:24] LABS: Anisocytosis Slight; Basophils % (A) 0 %; CH 28.5; CHCM 30.5; Eosinophils # (A) 0.2 k/uL (0-0.7); Eosinophils % (A) 5 %; HCT 33.8 % (34.0-46.0); HDW 2.83; Hypochromasia Moderate; Luc # (Auto) 0.02; Luc % (Auto) 1; Lymphocytes # (A) 0.4 k/uL (1.0-4.8); Lymphocytes % (A) 14 %; MCH 27.6 pg (25.0-35.0); MCHC 29.5 g/dL (31.0-37.0); MCV 93.8 fL (80.0-100.0); Macrocytosis Slight; Mean Platelet Volume 9.4; Monocytes % (A) 1 %; Neutrophils # (A) 2.3 k/uL (1.3-7.7); Neutrophils % (A) 79 %; RDW 18.4 % (11.5-15.5); WBC (Perox) 3.07
[2017-05-17 08:37] LABS: HGB 9.9 gm/dL (11.4-16.0)
[2017-05-17] MEDS: ALPRAZolam 0.5 MG TAB PO PRN (08:38)
[2017-05-17] MEDS: amLODIPine 5 MG TAB PO SCH (08:40)
[2017-05-17] MEDS: METOPROLOL TARTRATE 50 MG TAB PO SCH (08:40)
[2017-05-17] MEDS: CHOLECALCIFEROL 1,000 UNIT TAB PO SCH (08:40)
[2017-05-17] MEDS: HEPARIN SODIUM,PORCINE 5,000 UNIT/ML 1 ML VIAL SQ SCH (08:40)
[2017-05-17 09:37] LABS: Calcium 8.4 mg/dL (8.4-10.2); Potassium 4.1 mmol/L (3.5-5.1); Total Bilirubin 0.7 mg/dL (0.2-1.3); Total Protein 5.1 g/dL (6.3-8.2)
[2017-05-17 11:07] LABS: Glucose,Whole Blood 119 mg/dL (75-99)
--- NOTE | 2017-05-18 13:31 | P.DS ---
Providers Date of admission: 05/13/17 14:05 Expected date of discharge: 05/17/17 Attending physician: Aroldo Duncan Consults: 05/13/17 14:06 Consult Physician Urgent Consulting Provider: Thong Rodriguez Consult Reason/Comments: Patient on chemotherapy Do you want consulting provider notified?: Yes 05/14/17 08:09 Consult Physician Routine Consulting Provider: Aroldo Keene Consult Reason/Comments: sepsis Do you want consulting provider notified?: Yes Primary care physician: Wilfred Christianson [facility] Course: 71-year-old female [address] Wilfred Christianson's patient who was in the hospital in March 09 4 assisted right sided hemicolectomy done through laparoscopy for adenocarcinoma patient was referred to oncology had a port placed with Dr. Mejia and was started chemotherapy yesterday was giving the first dose in the office and have pump infusion continuously. Patient woke up this morning with significant shortness of breath and fever become severely dyspneic and lightheaded and symptomatic with worsening shortness of breath cough wheezes and tightness her called 911 and brought to the emergency department at [facility] by EMS where was seen and evaluated her d- dimer was elevated with elevated BUN/creatinine patient ended up going for VQ scan came back negative for PE surprisingly her chest x-ray showed right-sided pneumonia no elevation on white blood cell. Oncology were called and the claim beside her pneumonia and current symptom she might have a reaction to the first dose of chemotherapy which according to them is not very uncommon. Patient was started on cefepime and vancomycin and admitted to the hospital oncology consult was requested and infectious disease consult was requested as well. 05/14: Dr. Keene has evaluated the patient and changed antibiotics to Zosyn and Levaquin for gram-negative pneumonia coverage. Patient has been afebrile. White count remains normal. BUN 30 and creatinine 1.36. He is currently having chemotherapy infused through [id number]. Oncology consult is pending. Patient denies having any shakes or chills and no productive cough. 05/15/2017: Patient was seen Dr. Banks yesterday who with a current management her lap and responded to treatment has been much better. Patient is not hypoxic does not require any oxygen anymore. Her culture failed to show any abnormality currently. We'll continue patient on both IV and oral antibiotic at least until tomorrow if she is doing well might switch her to oral Levaquin only prepare for home when she is ready. 05/16/2017: Patient is feeling much better repeat chest x-ray showed improvement in the basilar area for long, her hypoxia fever or chills and lab next much better. Blood pressure is mildly elevated. Patient is stable hopefully by tomorrow with switch her meds to oral will be able to go home tomorrow with oral medication. 05/17: Patient has been afebrile. White count is at 3, BUN 21 and creatinine 1.2. Patient's breathing status is stable and she will be discharged home today in stable condition. Discharge diagnoses: 1 acute hypoxic respiratory failure 2 right sided pneumonia, gram-negative pneumonia 3 possible reaction to chemotherapy 4 reactive airway 5 adenocarcinoma of the cecum status post hemicolectomy and started on chemotherapy 6 CAD 7 hypertension 8 hyperlipidemia 9 type 2 diabetes 10 acute kidney injury Discharge plan: Home Impression and plan of care have been directed as dictated by the signing physician. Krystal Morelos nurse practitioner acting as scribe for signing physician. Cc: Dr. Wilfred Christianson Patient Condition at Discharge: Good Plan - Discharge Summary New Discharge Prescriptions: New amLODIPine [Norvasc] 5 mg PO DAILY #30 tab Levofloxacin [Levaquin] 750 mg PO Q48H #6 tab Continue Ranitidine HCl [Zantac] 75 mg PO DAILY PRN PRN Reason: Heartburn Cholecalciferol [Vitamin D3] 1,000 unit PO DAILY quiNIDine SULFATE 300 mg PO HS Zolpidem Tartrate [Ambien] 10 mg PO HS ALPRAZolam [Xanax] 1 mg PO TID PRN PRN Reason: Anxiety amLODIPine BESYLATE [Norvasc] 2.5 mg PO HS Isosorbide Mononitrate [Isosorbide Mononitrate ER] 30 mg PO HS Simvastatin [Zocor] 40 mg PO HS Losartan Potassium [Cozaar] 100 mg PO HS Metoprolol Succinate [Toprol XL] 50 mg PO Q12HR Albuterol Inhaler [Ventolin Hfa Inhaler] 1 - 2 puff INHALATION RT-QID PRN PRN Reason: Shortness Of Breath Turmeric Root Extract [Turmeric] 1,000 mg PO DAILY Niacin 1,000 mg PO DAILY Psyllium Husk [Metamucil] 0.4 gm PO DAILY PRN PRN Reason: Constipation Chlorpheniramine/Dextromethorp [Coricidin Hbp Cough & Cold Tab] 1 tab PO DAILY PRN PRN Reason: COUGH AND COLD Discontinued Metoprolol Tartrate [Lopressor] 50 mg PO DAILY Discharge Medication List ALPRAZolam [Xanax] 1 mg PO TID PRN 03/10/17 [History] Cholecalciferol [Vitamin D3] 1,000 unit PO DAILY 03/10/17 [History] Isosorbide Mononitrate [Isosorbide Mononitrate ER] 30 mg PO HS 03/10/17 [History ] Losartan Potassium [Cozaar] 100 mg PO HS 03/10/17 [History] Metoprolol Succinate [Toprol XL] 50 mg PO Q12HR 03/10/17 [History] Ranitidine HCl [Zantac] 75 mg PO DAILY PRN 03/10/17 [History] Simvastatin [Zocor] 40 mg PO HS 03/10/17 [History] Zolpidem Tartrate [Ambien] 10 mg PO HS 03/10/17 [History] amLODIPine BESYLATE [Norvasc] 2.5 mg PO HS 03/10/17 [History] quiNIDine SULFATE 300 mg PO HS 03/10/17 [History] Albuterol Inhaler [Ventolin Hfa Inhaler] 1 - 2 puff INHALATION RT-QID PRN [History] Chlorpheniramine/Dextromethorp [Coricidin Hbp Cough & Cold Tab] 1 tab PO DAILY PRN 05/13/17 [History] Niacin 1,000 mg PO DAILY 05/13/17 [History] Psyllium Husk [Metamucil] 0.4 gm PO DAILY PRN 05/13/17 [History] Turmeric Root Extract [Turmeric] 1,000 mg PO DAILY 05/13/17 [History] Levofloxacin [Levaquin] 750 mg PO Q48H #6 tab 05/17/17 [Rx] amLODIPine [Norvasc] 5 mg PO DAILY #30 tab 05/17/17 [Rx] Follow up Appointment(s)/Referral(s): Thong Rodriguez MD [STAFF PHYSICIAN] - 05/19/17 2:15 pm Wilfred Christianson MD [Primary Care Provider] - 05/27/17 11:00 am Patient Instructions/Handouts: Amlodipine (By mouth), Levofloxacin (By mouth), Pneumonia (DC) Discharge Disposition: HOME SELF-CARE
== END 2017-05-17 14:30 | disposition home or self-care (01) | DRG 190 ==
LOC: EC 09:13 → 6SEL 14:05 → 5ONC 05-14 18:32
PROVIDERS: ADMIT Internal Medicine Geriatric Medicine; ATTEND Internal Medicine Geriatric Medicine
DX: J44.0 Chronic obstructive pulmonary disease with (acute) lower respiratory infection (principal); J96.01 Acute respiratory failure with hypoxia; J15.6 Pneumonia due to other Gram-negative bacteria; N17.9 Acute kidney failure, unspecified; C18.0 Malignant neoplasm of cecum; E86.0 Dehydration; E11.9 Type 2 diabetes mellitus without complications; I65.29 Occlusion and stenosis of unspecified carotid artery; I10 Essential (primary) hypertension; T45.1X5A Adverse effect of antineoplastic and immunosuppressive drugs, initial encounter; E78.5 Hyperlipidemia, unspecified; I25.10 Atherosclerotic heart disease of native coronary artery without angina pectoris; D50.9 Iron deficiency anemia, unspecified; K21.9 Gastro-esophageal reflux disease without esophagitis; F41.9 Anxiety disorder, unspecified; I83.90 Asymptomatic varicose veins of unspecified lower extremity; L40.9 Psoriasis, unspecified; M19.91 Primary osteoarthritis, unspecified site; G43.909 Migraine, unspecified, not intractable, without status migrainosus; Z79.899 Other long term (current) drug therapy; Z95.1 Presence of aortocoronary bypass graft; Z90.49 Acquired absence of other specified parts of digestive tract; Z87.891 Personal history of nicotine dependence; Z86.718 Personal history of other venous thrombosis and embolism; Z85.51 Personal history of malignant neoplasm of bladder; Z98.42 Cataract extraction status, left eye; Z98.41 Cataract extraction status, right eye
CPT/HCPCS: 36415; 71020; 78582; 80048; 80053; 82272; 83880; 84484; 85025; 85379; 85610; 85730; 87040; 93005; 94640; 96365; 96367; 96375; 99285

== ENCOUNTER 2019-06-21 07:16 | Inpatient (IN) | payer MEDICARE, BC ==
[~2019-06-21 07:16] MED LIST changes: +ALPRAZolam 0.25 MG TAB PO PRN; +ALPRAZolam 0.5 MG TAB PO PRN; +ASPIRIN 325 MG TAB PO STA; +ATORVASTATIN 80 MG TAB PO STA; -LACTATED RINGERS 1,000 ML IV SCH; -LIDOCAINE 1% 20 ML VIAL (10MG/ML) FOR IV START INTRADERMA PRN; +NITROGLYCERIN SL TABS 0.4 MG TAB SUBLINGUAL PRN; -ONDANSETRON 4 MG/2 ML VIAL IVP ONE; -Pre Op ABX Message 1 EACH MISC MISCELLANE ONE
[2019-06-21] MEDS ORDERED: SODIUM CHLORIDE 0.9% 1,000 ML IV ONE (08:08)
[2019-06-21] MEDS ORDERED: VERAPAMIL 2.5 MG/ML 2 ML AMP ONE (11:22)
[2019-06-21] MEDS ORDERED: HEPARIN SODIUM 1,000 UN/ML (10ML VL) ONE (11:22)
[2019-06-21] MEDS ORDERED: LIDOCAINE 1% INJ 10MG/ML (20 ML MDV) ONE (11:22)
[2019-06-21] MEDS ORDERED: MIDAZOLAM PF (FBP) 2 MG/2 ML VIAL IVP ONE (11:51)
[2019-06-21] MEDS ORDERED: LIDOCAINE 1% INJ 10MG/ML (20 ML MDV) SQ ONE (11:54)
[2019-06-21] MEDS ORDERED: VERAPAMIL SYRINGE (5 MG/10 ML) INTRAARTER ONE (11:56)
[2019-06-21] MEDS ORDERED: HEPARIN SODIUM 1,000 UN/ML (10ML VL) IV ONE (12:00)
[2019-06-21] MEDS ORDERED: NITROGLYCERIN SL TABS 0.4 MG TAB SUBLINGUAL ONE ×5 (12:06→13:14)
[2019-06-21] MEDS ORDERED: BIVALIRUDIN 250 MG in SODIUM CHLORIDE 0.9% 50 ML IV ONE ×2 (12:20→13:17)
[2019-06-21] MEDS ORDERED: BIVALIRUDIN BOLUS 250 MG/50 ML IV ONE (12:20)
[2019-06-21] MEDS ORDERED: IOPAMIDOL-370 100ML BTL INJ ONE ×4 (12:22→14:09)
[2019-06-21] MEDS ORDERED: HYDROmorphone 1 MG/ML 1 ML SYRINGE ONE (12:26)
[2019-06-21] MEDS ORDERED: HYDROmorphone 1 MG/ML 1 ML SYRINGE IVP ONE (12:28)
[2019-06-21] MEDS ORDERED: TICAGRELOR 90 MG TAB ONE (13:05)
[2019-06-21] MEDS ORDERED: TICAGRELOR 90 MG TAB PO ONE (13:07)
[2019-06-21] MEDS: NITROGLYCERIN 1000MCG/10ML SYRINGE INTRACORON ONE ×3 (13:26→14:05)
[2019-06-21] MEDS ORDERED: FUROSEMIDE 10 MG/ML 4 ML VIAL ONE (13:38)
[2019-06-21] MEDS: FUROSEMIDE 10 MG/ML 4 ML VIAL IV ONE ×2 (13:40→13:54)
[2019-06-21] MEDS ORDERED: MORPHINE SULFATE 4 MG/ML SYRINGE ONE (13:41)
[2019-06-21] MEDS ORDERED: MORPHINE SULFATE 4 MG/ML SYRINGE IV ONE (13:45)
[2019-06-21] MEDS ORDERED: amLODIPine 5 MG TAB ONE (14:11)
[2019-06-21] MEDS ORDERED: amLODIPine 5 MG TAB PO ONE (14:12)
[2019-06-21] MEDS ORDERED: hydrALAZINE HCL 20 MG/ML 1 ML VIAL ONE (14:13)
[2019-06-21] MEDS ORDERED: hydrALAZINE HCL 20 MG/ML 1 ML VIAL IV ONE (14:13)
[2019-06-21] MEDS ORDERED: NITROGLYCERIN SL TABS 0.4 MG TAB SUBLINGUAL PRN (14:24)
[2019-06-21] MEDS ORDERED: MAG HYDROX/AL HYDROX/SIMETH 30 ML CUP PO PRN (14:24)
[2019-06-21] MEDS ORDERED: ATROPINE SULFATE 0.1 MG/ML 10ML SYRINGE IV PRN (14:24)
[2019-06-21] MEDS ORDERED: ZOLPIDEM 5 MG TAB PO PRN (14:24)
[2019-06-21] MEDS ORDERED: RX INFO: IV CONTRAST WAS GIVEN 1 EACH MISC MISCELLANE PRN (14:24)
[2019-06-21 14:58] LABS: Glucose,Whole Blood 184 mg/dL (75-99)
[2019-06-21] MEDS ORDERED: ONDANSETRON 4 MG/2 ML VIAL IVP PRN (16:37)
[2019-06-21 16:41] LABS: Glucose,Whole Blood 184 mg/dL (75-99)
[2019-06-21] MEDS ORDERED: NALOXONE 0.4 MG/ML 1 ML VIAL IV PRN (17:33)
--- NOTE | 2019-06-21 17:35 | P.HPIM ---
History of Present Illness H&P Date: 06/21/19 Chief Complaint: Medical management 73-year-old female with PMH of CAD post CABG in 2005 2 vessel, COPD, diabetes mellitus controlled with diet, DVT in the right arm, history of colon cancer with hemicolectomy post chemotherapy presented for elective cardiac catheterization and possible percutaneous coronary angioplasty. Patient had underwent left heart catheterization with percutaneous coronary angioplasty under Dr. Perez on 06/21/2019. There was some complications with the procedure including coronary dissection which was stented. [facility] physicians has been consulted for medical management of this patient. Patient was seen and examined in the ICU around 5 PM. Patient reports a frontal headache that started after her procedure during which she was given nitroglycerin. Patient reports chronic lower extremity edema that is gravity dependent and usually gets better with lower extremity elevation. Patient did report an episode of vomiting right after the catheterization. She has attempted to you to the sandwich since and felt nauseous but did not vomit. She did report some chest pain during the procedure but none currently. She denies any fever or chills, shortness of breath or palpitations. No changes in urination or bowel habits. No changes in appetite or weight. Patient denies any dizziness, numbness/weakness/tingling of the extremities. Her current vital signs are relatively stable except for O2 saturation in the low 90s on 2 L nasal cannula. Review of Systems Pertinent positives and negatives as discussed in HPI, a complete review of systems was performed and all other systems are negative. Past Medical History Past Medical History: Coronary Artery Disease (CAD), Cancer, Chest Pain / Angina, COPD, Diabetes Mellitus, Deep Vein Thrombosis (DVT), GERD/Reflux, Hyperlipidemia, Hypertension, Osteoarthritis (OA), Skin Disorder, Vascular Disorder Additional Past Medical History / Comment(s): colon cancer, hx migraine, irregular heartbeat, varicose veins, hx blood clot in rt arm after CABG surgery, psoriasis, diet control diabetic, anemia, hx bladder cancer x 3, PAD and disease of the ileo-aortic system, carotid artery stenosis History of Any Multi-Drug Resistant Organisms: None Reported Past Surgical History: Bladder Surgery, Bowel Resection, Coronary Bypass/CABG, Heart Catheterization Additional Past Surgical History / Comment(s): rt colectomy -2016,double CAGB 2005, bladder surgery x 3, aileen cataracts ,COLONOSCOPY Past Anesthesia/Blood Transfusion Reactions: Previous Problems w/ Anesthesia Additional Past Anesthesia/Blood Transfusion Reaction / Comment(s): had blood transfusion at [facility]- no problem with, "screaming and yelling from anesthesia after CAGB surgery" Past Psychological History: Anxiety Additional Psychological History / Comment(s): Pt states she has a friend who stays with her much of the time. She is independent. Smoking Status: Former smoker Past Alcohol Use History: Occasional Additional Past Alcohol Use History / Comment(s): quit smoking 2005, smoked for 30 yrs, 1 PPD Past Drug Use History: None Reported - Past Family History Mother Family Medical History: Cancer, Coronary Artery Disease (CAD) Additional Family Medical History / Comment(s): cervical CA Father History Unknown: Yes Family Medical History: Unable to Obtain Brother(s) Family Medical History: Cancer Additional Family Medical History / Comment(s): leukemia Sister(s) Family Medical History: No Reported History Son(s) Family Medical History: Cancer Additional Family Medical History / Comment(s): leukemia Medications and Allergies Home Medications Medication Instructions Recorded Confirmed Type ALPRAZolam [Xanax] 1 mg PO BID 03/10/17 06/21/19 History Isosorbide Mononitrate [Isosorbide 30 mg PO HS 03/10/17 06/21/19 History Mononitrate ER] Metoprolol Succinate [Toprol XL] 50 mg PO HS 03/10/17 06/21/19 History Simvastatin [Zocor] 40 mg PO HS 03/10/17 06/21/19 History Zolpidem Tartrate [Ambien] 10 mg PO HS 03/10/17 06/21/19 History quiNIDine SULFATE 300 mg PO HS 03/10/17 06/21/19 History amLODIPine [Norvasc] 5 mg PO DAILY #30 tab 05/17/17 06/21/19 Rx Aspirin [Adult Low Dose Aspirin EC] 81 mg PO DAILY 06/19/19 06/21/19 History Lisinopril [Zestril] 20 mg PO DAILY 06/19/19 06/21/19 History Metoprolol Succinate [Toprol XL] 25 mg PO QAM 06/19/19 06/21/19 History Allergies Allergy/AdvReac Type Severity Reaction Status Date / Time No Known Allergies Allergy Verified 06/21/19 07:34 Physical Exam Vitals: Vital Signs Temp Pulse Pulse Resp BP BP BP 06/21/19 16:30 65 10 L 107/54 06/21/19 16:15 65 21 110/67 06/21/19 16:00 97.5 F L 66 16 06/21/19 15:45 67 16 06/21/19 15:30 68 14 06/21/19 15:15 70 14 06/21/19 15:00 72 16 110/67 06/21/19 14:54 97.8 F 75 16 06/21/19 08:06 97.8 F 64 16 156/81 147/75 Pulse Ox 06/21/19 16:30 94 L 06/21/19 16:15 94 L 06/21/19 16:00 92 L 06/21/19 15:45 93 L 06/21/19 15:30 94 L 06/21/19 15:15 92 L 06/21/19 15:00 89 L 06/21/19 14:54 06/21/19 08:06 93 L Intake and Output 06/21/19 06/21/19 06/21/19 06:59 14:59 22:59 Intake Total 1035 Output Total 400 Balance 635 Intake: IV 1035 Output: Urine 400 Other: Weight 78.6 kg General: [non toxic], [no distress], [appears at stated age] Derm: [warm], [dry] Head: [atraumatic], [normocephalic], [symmetric] Eyes: [EOMI], [no lid lag], [anicteric sclera] Mouth: [no lip lesion], [mucus membranes moist] Cardiovascular: [S1S2 reg], [no murmur], [positive DP pulse bilateral], [sternal surgical scar] Lungs: [Decreased breath sounds bilateral], [no rhonchi, no rales] , [no accessory muscle use] Abdominal: [soft], [ nontender to palpation], [no guarding], [no appreciable organomegaly] Ext: [no gross muscle atrophy], [minimal bilateral lower extremity edema], [no contractures] Neuro: [ CN II-XI grossly intact], [no focal neuro deficits] Psych: [Alert], [oriented], [appropriate affect] Results Labs: Abnormal Lab Results - Last 24 Hours (Table) 06/21/19 06/21/19 Range/Units 14:56 16:39 POC Glucose (mg/dL) 184 H 184 H (75-99) mg/dL Assessment and Plan Assessment: Assessment and Plan Diabetes mellitus with hyperglycemia Hypertension History of colon and bladder cancer post hemicolectomy and chemotherapy CAD with history of two-vessel CABG post cardiac catheterization and stent placement complicated with coronary dissection [id number] glucose 184. Diet controlled at home. Plans: Insulin sliding scale. Regular Accu-Cheks. Hypoglycemic precautions. BP 107/54. Plans: Continue amlodipine 5 mg by mouth. Continue Imdur 30 mg by mouth at bedtime and lisinopril 20 mg by mouth daily. Continue metoprolol as below. Monitor vitals, adjust medications as necessary. Plans: Patient needs adequate follow-up with her oncologist Dr. Rodriguez. Plans: Management as per cardiology. Continue aspirin 81 mg by mouth daily, Lipitor 80 mg by mouth at bedtime and Ticagrelor 90 mg by mouth twice a day. Nitro sublingual as needed for chest pain. Resume metoprolol 50 mg by mouth daily. Telemetry monitoring. Follow echocardiogram. DVT prophylaxis: [SCD boots] Discussed with: [Patient and son] Anticipated discharge: [2 days] Anticipated discharge place: [Home] A total of [45] minutes was spent on the care of this complex patient more than 50% of the time was spent in counseling and care coordination. Patient elects to be full code at this time. Patient names her son Ricki decision-maker in the case that she can't make decisions for herself. Thank you for this consult. Please call [facility] with additional questions or concerns.
[2019-06-21] MEDS: SODIUM CHLORIDE 0.9% 1,000 ML IV SCH ×3 (19:02→21:37)
[2019-06-21] MEDS: amLODIPine 5 MG TAB PO SCH (19:02)
[2019-06-21] MEDS: SODIUM CHLORIDE 0.9% 1,000 ML in EMPTY BAG 1 BAG IV ONE ×2 (19:03→19:11)
[2019-06-21 20:47] LABS: Glucose,Whole Blood 130 mg/dL (75-99)
[2019-06-21] MEDS ORDERED: TICAGRELOR 90 MG TAB PO SCH (21:00)
[2019-06-21] MEDS: INSULIN ASPART (NovoLOG) 100 UNIT/ML VIAL SQ SCH (21:37)
[2019-06-21] MEDS: ATORVASTATIN 80 MG TAB PO SCH (21:37)
[2019-06-21] MEDS: ISOSORBIDE MONONITRATE ER 30 MG TAB.ER.24H PO SCH (21:37)
[2019-06-21] MEDS: ZOLPIDEM 10 MG TAB PO SCH (21:37)
[2019-06-21] MEDS: ALPRAZolam 1 MG TAB PO SCH (21:37)
[2019-06-22 05:25] LABS: Basophils % (A) 0 %; Eosinophils # (A) 0.1 k/uL (0-0.7); Eosinophils % (A) 1 %; HCT 40.8 % (34.0-46.0); HGB 13.6 gm/dL (11.4-16.0); Lymphocytes # (A) 0.9 k/uL (1.0-4.8); Lymphocytes % (A) 10 %; MCH 32.2 pg (25.0-35.0); MCHC 33.5 g/dL (31.0-37.0); MCV 96.1 fL (80.0-100.0); Mean Platelet Volume 6.8; Monocytes # (A) 0.5 k/uL (0-1.0); Monocytes % (A) 5 %; Neutrophils % (A) 82 %; Platelet Count 164 k/uL (150-450); RBC 4.24 m/uL (3.80-5.40); RDW 15.1 % (11.5-15.5); WBC 9.8 k/uL (3.8-10.6)
[2019-06-22 05:47] LABS: Calcium 8.9 mg/dL (8.4-10.2)
[2019-06-22 06:38] LABS: Glucose,Whole Blood 120 mg/dL (75-99)
[2019-06-22] MEDS: INSULIN ASPART (NovoLOG) 100 UNIT/ML VIAL SQ SCH ×4 (06:55→21:38)
[2019-06-22] MEDS: SODIUM CHLORIDE 0.9% 1,000 ML IV SCH (06:56)
[2019-06-22] MEDS ORDERED: METOPROLOL SUCCINATE (ER) 50 MG TAB.ER.24H PO SCH (09:00)
--- NOTE | 2019-06-22 09:05 | PN ---
PROGRESS NOTE Mrs Keene is a lady who underwent PTCA yesterday of right coronary artery, complicated but a spiral dissection requiring multiple stents from the PLV all the way to the ostium of the RCA. She is doing well this morning, resting comfortably. EKG is good. Her labs are good. She has no chest pain, shortness of breath, or palpitations. Left radial cath site is clean and dry. Vitals are stable, S1-S2 heard normally, short systolic murmur noted. Lungs reveal bilateral decent air entry. Abdomen and lower extremity exam otherwise is unchanged. Plan is to continue current medications, move her to telemetry. Will discontinue Stanley. I will changed her from metoprolol succinate to metoprolol tartrate 50 mg in the morning, 25 mg in the evening. MMODL / IJN: [id number] /
[2019-06-22] MEDS: ASPIRIN 81 MG PO SCH (09:19)
[2019-06-22] MEDS: amLODIPine 5 MG TAB PO SCH (09:19)
[2019-06-22] MEDS: LISINOPRIL 20 MG TAB PO SCH (09:19)
[2019-06-22] MEDS: ALPRAZolam 1 MG TAB PO SCH ×2 (09:20→21:42)
[2019-06-22] MEDS: METOPROLOL TARTRATE 50 MG TAB PO SCH (09:20)
[2019-06-22] MEDS: TICAGRELOR 90 MG TAB PO SCH ×2 (09:21→21:42)
[2019-06-22 10:16] VITALS: BMI 30.5
[2019-06-22 12:04] LABS: Glucose,Whole Blood 119 mg/dL (75-99)
--- NOTE | 2019-06-22 13:42 | P.PN ---
Subjective Progress Note Date: 06/22/19 Principal diagnosis: Medical management Patient was seen and examined. No acute events overnight. Patient with no complaints today. She denies any chest pain, shortness breath or palpitations. No nausea or vomiting. No fever or chills. Objective - Vital Signs Vital signs: Vital Signs Temp 98.7 F 06/22/19 13:00 Pulse 69 06/22/19 13:00 Resp 20 06/22/19 09:00 BP 123/57 06/22/19 13:00 Pulse Ox 93 L 06/22/19 13:00 Intake & Output 06/21/19 06/22/19 06/22/19 18:59 06:59 18:59 Intake Total 1555 1500 550 Output Total 2285 990 145 Balance -730 510 405 Weight 78.6 kg 78.3 kg 78.3 kg Intake: IV 1335 900 150 Sodium Chloride 0.9% 1, 300 900 150 000 ml @ 75 mls/hr IV . [id number] [facility] Rx#:[id number] Oral 220 600 400 Output: Urine 2285 990 145 Other: Voiding Method Indwelling Catheter Indwelling Catheter # Voids 3 - Exam General: [non toxic], [no distress], [appears at stated age] Derm: [warm], [dry] Head: [atraumatic], [normocephalic], [symmetric] Eyes: [EOMI], [no lid lag], [anicteric sclera] Mouth: [no lip lesion], [mucus membranes moist] Cardiovascular: [S1S2 reg], [no murmur], [positive DP pulse bilateral], [sternal surgical scar] Lungs: [Decreased breath sounds bilateral], [no rhonchi, no rales] , [no accessory muscle use] Abdominal: [soft], [ nontender to palpation], [no guarding], [no appreciable organomegaly] Ext: [no gross muscle atrophy], [minimal bilateral lower extremity edema], [no contractures] Neuro: [ [no focal neuro deficits] Psych: [Alert], [oriented], [appropriate affect] - Labs CBC & Chem 7: 06/22/19 04:54 06/22/19 04:54 Labs: Abnormal Lab Results - Last 24 Hours (Table) 06/21/19 06/21/19 06/21/19 Range/Units 14:56 16:39 20:45 Neutrophils # (1.3-7.7) k/uL Lymphocytes # (1.0-4.8) k/uL BUN (7-17) mg/dL Creatinine (0.52-1.04) mg/dL Glucose (74-99) mg/dL POC Glucose (mg/dL) 184 H 184 H 130 H (75-99) mg/dL 06/22/19 06/22/19 06/22/19 Range/Units 04:54 04:54 06:37 Neutrophils # 8.0 H (1.3-7.7) k/uL Lymphocytes # 0.9 L (1.0-4.8) k/uL BUN 18 H (7-17) mg/dL Creatinine 1.22 H (0.52-1.04) mg/dL Glucose 130 H (74-99) mg/dL POC Glucose (mg/dL) 120 H (75-99) mg/dL 06/22/19 Range/Units 12:02 Neutrophils # (1.3-7.7) k/uL Lymphocytes # (1.0-4.8) k/uL BUN (7-17) mg/dL Creatinine (0.52-1.04) mg/dL Glucose (74-99) mg/dL POC Glucose (mg/dL) 119 H (75-99) mg/dL Assessment and Plan Assessment: Assessment and Plan Hypoxia Diabetes mellitus with hyperglycemia Hypertension History of colon and bladder cancer post hemicolectomy and chemotherapy CAD with history of two-vessel CABG post cardiac catheterization and stent placement complicated with coronary dissection Saturating low 90s on 2 L nasal cannula. Plans: Incentive spirometry. Encourage ambulation. Attempt to wean oxygen. Follow chest x-ray. [id number] glucose 119. Diet controlled at home. Plans: Insulin sliding scale. Regular Accu-Cheks. Hypoglycemic precautions. BP 123/57. Plans: Continue amlodipine 5 mg by mouth. Continue Imdur 30 mg by mouth at bedtime and lisinopril 20 mg by mouth daily. Continue metoprolol as below. Monitor vitals, adjust medications as necessary. Plans: Patient needs adequate follow-up with her oncologist Dr. Rodriguez. Plans: Management as per cardiology. Continue aspirin 81 mg by mouth daily, Lipitor 80 mg by mouth at bedtime and Ticagrelor 90 mg by mouth twice a day. Nitro sublingual as needed for chest pain. Resume metoprolol 50 mg by mouth aleksander ly. Telemetry monitoring. Follow echocardiogram. Patient elects to be full code at this time. Patient names her son Ricki decision-maker in the case that she can't make decisions for herself. Thank you for this consult. Please call [facility] with additional questions or concerns.
[2019-06-22 17:23] LABS: Glucose,Whole Blood 124 mg/dL (75-99)
--- NOTE | 2019-06-22 19:40 | CC ---
CARDIAC CATHETERIZATION REPORT DATE OF SERVICE: 06/21/2019. PROCEDURE PERFORMED: 1. Coronary angiography and selective injection of the PERRY graft. 2. PTCA and stenting of a heavily calcified dominant right coronary artery with several drug-eluting stents. A complex and prolonged procedure with complications. ANESTHESIA: Moderate conscious sedation time was 146 minutes. Patient was administered Versed Dilaudid, and oxygen saturation, hemodynamics and EKG were monitored closely. CLINICAL INFORMATION: Mrs. Charo Keene is a 73-year-old lady with a significant past medical history that includes CAD with previous bypass surgery in 2005. At that time, she had a PERRY to LAD and vein graft to the diagonal. The RCA did not have critical disease and circumflex was not grafted. She also has severe peripheral arterial disease and has had previous vascular surgery as well. The only available conduit was left radial for me to perform coronary angiography. I discussed with the patient, that, in view of her significant symptoms of angina, I am recommending coronary angiography. The patient and and son understood all details and wished to proceed with the procedure. Her creatinine was slightly elevated. She was orally and intravenously hydrated as well. She has significant comorbid conditions. PROCEDURE NOTE: Under local anesthesia and strict aseptic precautions, a 6-Slovak introducer was placed in the left radial artery. Using a Chauncey catheter, I performed selective angiography of the PERRY graft. I used the same catheter to perform selective coronary angiography of the right coronary artery. I then tried to cannulate the vein graft to the diagonal, but I could not find the vein graft and I presume it was closed. I then switched over to an AR2 catheter. Even with this, I could not find the vein graft to the diagonal. I then took a JL3.5 catheter and performed selective coronary angiography of the left system. Following this, I noted that the RCA had a significant lesion and performed PCI in the same setting. LV pressures were not checked and LV-gram was not performed. CORONARY ANGIOGRAPHY FINDINGS: RIGHT CORONARY ARTERY: This vessel is heavily calcified from the ostium to the distal portion including the branches. Very proximally, there is an eccentric 90% stenosis, but in the midportion there is also an eccentric 50-60 percent narrowing. The caliber improves and it bifurcates into PDA and PLV, both of which are diffusely diseased. LEFT MAIN CORONARY ARTERY: This is a short, patent, calcified vessel that bifurcates into LAD and circumflex. There is about a 30% narrowing in the left main noted. LEFT ANTERIOR DESCENDING CORONARY ARTERY: This vessel is totally occluded in the midportion after septal and diagonal branch and heavily calcified. No significant antegrade flow is noted. LEFT POSTERIOR CIRCUMFLEX CORONARY ARTERY: This vessel gives off a high first obtuse marginal that has a 40% narrowing, small caliber, runs laterally and then the second obtuse marginal which apparently has a subtotal lesion and this could not be grafted when patient had surgery. There are some ipsilateral collaterals coming from the first obtuse marginal to the second obtuse marginal. Then the circumflex runs in the AV groove, gives off a left atrial circumflex branch. There is diffuse disease. The circumflex therefore has a subtotal 2nd obtuse marginal that could not be grafted. LEFT INTERNAL MAMMARY ARTERY GRAFT TO LAD: This graft is widely patent and has no significant disease, runs all the way and opacifies the entire LAD and also the diagonal branch to some extent. No significant disease in the PERRY, but diffuse disease in the LAD, but no significant blockages. FINAL IMPRESSION: This patient has a heavily calcified RCA with a 90% proximal lesion. PERRY to LAD is patent with mild diffuse disease in the LAD, but PERRY is widely patent with good flow. The diagonal graft was not visualized, presumably closed. Diagonal is opacified by the PERRY injection. The circ of the LAD is totally occluded in the midportion. Left main has a 30% narrowing. Circumflex, has a second obtuse marginal that is subtotally occluded, could not be grafted in 2005. There is mild to moderate diffuse disease in circumflex system. RECOMMENDATION: I recommended PCI of RCA and proceeded to perform this in the same setting. PCI PROCEDURE NOTE: I used a standard right Haley catheter to cannulate the right coronary artery. As soon as I cannulated and made the first injection, there was a dissection that started from the ostium of the RCA all the way into the distal RCA up to the bifurcation. I advanced the wire very quickly and I was able to get into the true lumen. I kept the wire distally and as I advanced the wire into the PLV branch, I noted that there was an extension of the dissection into the PLV branch with sluggish flow. Patient had chest pain, but did not develop any hypotension. I hydrated the patient very quickly and I went with a 2.5 caliber 23 mm Xience stent and deployed this in the proximal portion of the RCA at the site of the original lesion. I did not stent the ostium because I wanted to a make sure the distal areas were stented. The ostial dissection would be addressed later. I then went ahead after some deliberation and deployed a 2.0 caliber 12 mm [place] stent in the PLV branch across the PDA jailing the PDA. Proximal to it, I placed a 2.75 caliber, 8 mm long Xience stent. Then I had 3 Jimy stents. The most distal was 22 mm long. The mid stent was 8 mm long. The proximal stent was 18 mm long and all of these were 2.0 caliber. After deployment of these stents there was entire full metal jacket. I then addressed the ostium with a 3.0 caliber, 12 mm long Xience stent. Once I stented the ostium, there was excellent flow throughout. The patient was asymptomatic, chest pain-free and EKG normalized. However, it appears that this was a technically very difficult and challenging procedure with an eventual good result and the patient was hemodynamically stable, free of chest pain, EKG normalized and she was sent to the ICU in a stable condition. The details of the procedure, the complications in terms of the dissection of the ostium to the distal RCA which was a spiral nasty dissection and how we address the dissection by way of deploying the stents were explained in detail to the patient, and also the son. The patient was again re-evaluated by me after she went to the ICU. She remained hemodynamically stable. I expect she will be discharged in 48 hours. MMODL / IJN: [id number] /
[2019-06-22] MEDS ORDERED: METOPROLOL TARTRATE 25 MG TAB PO SCH (21:00)
[2019-06-22 21:12] LABS: Glucose,Whole Blood 115 mg/dL (75-99)
[2019-06-22] MEDS: ISOSORBIDE MONONITRATE ER 30 MG TAB.ER.24H PO SCH (21:43)
[2019-06-22] MEDS: ATORVASTATIN 80 MG TAB PO SCH (21:43)
[2019-06-22] MEDS ORDERED: ZOLPIDEM 5 MG TAB PO SCH (21:47)
[2019-06-22] MEDS: ZOLPIDEM 10 MG TAB PO SCH (22:02)
--- NOTE | 2019-06-23 04:42 | XR ---
EXAMINATION TYPE: XR chest 1V DATE OF EXAM: 06/22/2019 COMPARISON: 05/16/2017 HISTORY: 73-year-old female with hypoxia TECHNIQUE: Single frontal view of the chest is obtained. FINDINGS: Median sternotomy wires. Heart borderline enlarged. Hazy peripheral and basilar densities. This appea rs to been part related to overlying soft tissue and large patient body habitus. Unable to exclude tr joey effusions. IMPRESSION: Borderline heart size. Limited assessment due to large patient body habitus. Unable to exclude trace effusions. The densities may relate to underpenetration from large body habitus.
[2019-06-23 05:51] LABS: Basophils % (A) 1 %; Eosinophils # (A) 0.1 k/uL (0-0.7); Eosinophils % (A) 1 %; HCT 40.5 % (34.0-46.0); Hypochromasia Slight; Lymphocytes # (A) 1.1 k/uL (1.0-4.8); Lymphocytes % (A) 13 %; MCH 32.3 pg (25.0-35.0); MCHC 32.2 g/dL (31.0-37.0); MCV 100.4 fL (80.0-100.0); Macrocytosis Slight; Monocytes # (A) 0.3 k/uL (0-1.0); Monocytes % (A) 3 %; Neutrophils # (A) 6.5 k/uL (1.3-7.7); Neutrophils % (A) 80 %; Platelet Count 152 k/uL (150-450); RBC 4.04 m/uL (3.80-5.40); RDW 15.1 % (11.5-15.5); WBC 8.2 k/uL (3.8-10.6)
[2019-06-23 06:10] LABS: Calcium 9.1 mg/dL (8.4-10.2); Potassium 4.4 mmol/L (3.5-5.1)
[2019-06-23 06:56] LABS: Glucose,Whole Blood 120 mg/dL (75-99)
[2019-06-23] MEDS: INSULIN ASPART (NovoLOG) 100 UNIT/ML VIAL SQ SCH (06:58)
--- NOTE | 2019-06-23 08:23 | PN ---
PROGRESS NOTE Mrs. Keene is in sinus rhythm, resting comfortably. Left radial cath site is clean and dry. She is asymptomatic. Room air oxygen saturation is acceptable. We will increase activity and discharge her today on Brilinta, aspirin, atorvastatin and beta blockers. Vitals are stable. S1, S2 heard normally, short systolic murmur noted. Lungs are clear. Abdomen and lower extremity exam is unchanged. MMODL / IJN: [id number] /
[2019-06-23] MEDS: TICAGRELOR 90 MG TAB PO SCH (08:30)
[2019-06-23] MEDS: ALPRAZolam 1 MG TAB PO SCH (08:30)
[2019-06-23] MEDS: ASPIRIN 81 MG PO SCH (08:30)
[2019-06-23] MEDS: METOPROLOL TARTRATE 50 MG TAB PO SCH (08:30)
[2019-06-23] MEDS: LISINOPRIL 20 MG TAB PO SCH (08:30)
[2019-06-23] MEDS: amLODIPine 5 MG TAB PO SCH (08:31)
[2019-06-23 08:50] VITALS: BP 119/59; RESP 16; TEMP 98.3
[2019-06-23] MEDS ORDERED: ACETAMINOPHEN TAB 500 MG TAB PO STA (10:49)
--- NOTE | 2019-06-23 11:41 | P.PN ---
Subjective Progress Note Date: 06/23/19 Principal diagnosis: Medical management Patient was seen and examined. No acute events overnight. Patient with no complaints today. She denies any chest pain, shortness breath or palpitations. No nausea or vomiting. No fever or chills. Currently off nasal cannula maintaining saturation greater than 90%. Objective - Vital Signs Vital signs: Vital Signs Temp 98.3 F 06/23/19 08:00 Pulse 71 06/23/19 08:00 Resp 16 06/23/19 08:00 BP 119/59 06/23/19 08:00 Pulse Ox 97 06/23/19 08:00 Intake & Output 06/22/19 06/23/19 06/23/19 18:59 06:59 18:59 Intake Total 550 Output Total 145 Balance 405 Weight 78.3 kg 79.2 kg Intake: IV 150 Sodium Chloride 0.9% 1, 150 000 ml @ 75 mls/hr IV . [id number] [facility] Rx#:[id number] Oral 400 Output: Urine 145 Other: Voiding Method Indwelling Catheter # Voids 1 0 0 # Bowel Movements 2 - Exam General: [non toxic], [no distress], [appears at stated age] Derm: [warm], [dry] Head: [atraumatic], [normocephalic], [symmetric] Eyes: [EOMI], [no lid lag], [anicteric sclera] Mouth: [no lip lesion], [mucus membranes moist] Cardiovascular: [S1S2 reg], [no murmur], [positive DP pulse bilateral], [sternal surgical scar] Lungs: [Clear to auscultation bilateral], [no rhonchi, no rales] , [no accessory muscle use] Abdominal: [soft], [ nontender to palpation], [no guarding], [no appreciable organomegaly] Ext: [no gross muscle atrophy], [minimal bilateral lower extremity edema], [no contractures] Neuro: [ [no focal neuro deficits] Psych: [Alert], [oriented], [appropriate affect] - Labs CBC & Chem 7: 06/23/19 05:08 06/23/19 05:08 Labs: Abnormal Lab Results - Last 24 Hours (Table) 06/22/19 06/22/19 06/22/19 Range/Units 12:02 17:21 21:10 MCV (80.0-100.0) fL BUN (7-17) mg/dL Creatinine (0.52-1.04) mg/dL Glucose (74-99) mg/dL POC Glucose (mg/dL) 119 H 124 H 115 H (75-99) mg/dL 06/23/19 06/23/19 06/23/19 Range/Units 05:08 05:08 06:54 MCV 100.4 H (80.0-100.0) fL BUN 23 H (7-17) mg/dL Creatinine 1.28 H (0.52-1.04) mg/dL Glucose 107 H (74-99) mg/dL POC Glucose (mg/dL) 120 H (75-99) mg/dL Assessment and Plan Assessment: Assessment and Plan Diabetes mellitus with hyperglycemia Hypertension History of colon and bladder cancer post hemicolectomy and chemotherapy CAD with history of two-vessel CABG post cardiac catheterization and stent placement complicated with coronary dissection Result: Hypoxia [id number] glucose 120. Diet controlled at home. Plans: Insulin sliding scale. Regular Accu-Cheks. Hypoglycemic precautions. BP 119/59. Plans: Continue amlodipine 5 mg by mouth. Continue Imdur 30 mg by mouth at bedtime and lisinopril 20 mg by mouth daily. Continue metoprolol as below. Monitor vitals, adjust medications as necessary. Plans: Patient needs adequate follow-up with her oncologist Dr. Rodriguez. Plans: Management as per cardiology. Continue aspirin 81 mg by mouth daily, Lipitor 80 mg by mouth at bedtime and Ticagrelor 90 mg by mouth twice a day. Nitro sublingual as needed for chest pain. Resume metoprolol 50 mg by mouth daily. Telemetry monitoring. [Patient cleared by cardiology for discharge today. Scripts written by Dr. Perez in chart.]
[2019-06-23 13:57] VITALS: PULSE 64
--- NOTE | 2019-06-24 17:00 | ECHOF ---
Referral Reason:POSSIBLE EFFUSION MEASUREMENTS -------- HEIGHT: 0.0 cm WEIGHT: 0.0 kg BP: FINDINGS -------- There is a trivial pericardial effusion present. AQUATICS COORDINATOR: Taylor Carrasco RDCS
== END 2019-06-23 16:00 | disposition home health service (06) | DRG 246 ==
LOC: CATHCVL 07:16 → 2SICU 14:22
PROVIDERS: ADMIT Internal Medicine Interventional Cardiology; ATTEND Internal Medicine Interventional Cardiology
PROC: 027037Z Dilation of Coronary Artery, One Artery with Four or More Drug-eluting Intraluminal Devices, Percutaneous Approach (ICD-10-PCS; principal; 2019-06-22)
PROC: 4A023N7 Measurement of Cardiac Sampling and Pressure, Left Heart, Percutaneous Approach (ICD-10-PCS; 2019-06-22)
PROC: B2111ZZ Fluoroscopy of Multiple Coronary Arteries using Low Osmolar Contrast (ICD-10-PCS; 2019-06-22)
PROC: B2181ZZ Fluoroscopy of Left Internal Mammary Bypass Graft using Low Osmolar Contrast (ICD-10-PCS; 2019-06-22)
DX: I25.10 Atherosclerotic heart disease of native coronary artery without angina pectoris (principal); I25.42 Coronary artery dissection; I25.82 Chronic total occlusion of coronary artery; I25.84 Coronary atherosclerosis due to calcified coronary lesion; J44.9 Chronic obstructive pulmonary disease, unspecified; K21.9 Gastro-esophageal reflux disease without esophagitis; E11.65 Type 2 diabetes mellitus with hyperglycemia; E78.5 Hyperlipidemia, unspecified; F41.9 Anxiety disorder, unspecified; I10 Essential (primary) hypertension; Z79.02 Long term (current) use of antithrombotics/antiplatelets; R09.02 Hypoxemia; Z79.82 Long term (current) use of aspirin; Z79.899 Other long term (current) drug therapy; Z80.49 Family history of malignant neoplasm of other genital organs; Z80.6 Family history of leukemia; Z82.49 Family history of ischemic heart disease and other diseases of the circulatory system; Z85.038 Personal history of other malignant neoplasm of large intestine; Z85.51 Personal history of malignant neoplasm of bladder; Z86.718 Personal history of other venous thrombosis and embolism; Z87.891 Personal history of nicotine dependence; Z92.21 Personal history of antineoplastic chemotherapy; Z90.49 Acquired absence of other specified parts of digestive tract; G43.909 Migraine, unspecified, not intractable, without status migrainosus
CPT/HCPCS: 71045; 80048; 85025; 93308; 93455; C1874

== ENCOUNTER 2019-11-18 06:05 | Inpatient (IN) | payer MEDICARE, BC ==
--- NOTE | 2019-11-18 06:27 | ED ---
Chest Pain HPI - General Chief Complaint: Chest Pain Stated Complaint: NSTEMI Time Seen by Provider: 11/18/19 06:11 Source: patient, RN/MD, EMS Mode of arrival: EMS Limitations: no limitations - History of Present Illness Initial Comments: 73-year-old female DM (diet controlled), HTN, HLD, with significant history of coronary artery disease including previous bypass and total of 9 stents with known LAD disease presenting to the emergency department today as a transfer to our facility from [facility] accepted by Dr. Early for NSTEMI. Patient states around 9:30-10PM on 11/17/2019 patient began to develop chest pressure as if an elephant was sitting on her chest. Patient states this characteristic was similar to when she's had myocardial infarctions in the past. Patient states she we naproxen half an hour for her son to come to her home and he decided to present to the ER for further evaluation. Patient states after "multiple" does of nitroglycerin and other medications provided she has relief of the chest pressure. Patient denies ever experiencing back pain, ripping tearing pain, pain with inspiration, hemoptysis, leg swelling, orthopnea, arm or jaw pain, Patient states that pressure was over the center of the chest without radiation. Patient denies nausea, vomiting, fevers, abdominal pain. Patient has troponins that were trending up and Q waves on EKG at outside facility thus was sent to our facility for higher level of cardiology care at 6:00AM. Patient was given 6,000U of heparin and maintenance at 18u/mg/hr that was initiated at 3:44AM 11/18/19. Patient asymptomatic on arrival. Patient did have elevated D- dimer at outside facility. Patient is to go to blood and plasma laboratory assistant per Dr. Dorado this morning. - Related Data Home Medications Medication Instructions Recorded Confirmed ALPRAZolam [Xanax] 1 mg PO BID 03/10/17 06/21/19 Isosorbide Mononitrate [Isosorbide 30 mg PO HS 03/10/17 06/21/19 Mononitrate ER] Metoprolol Succinate [Toprol XL] 50 mg PO HS 03/10/17 06/21/19 Simvastatin [Zocor] 40 mg PO HS 03/10/17 06/21/19 Zolpidem Tartrate [Ambien] 10 mg PO HS 03/10/17 06/21/19 quiNIDine SULFATE 300 mg PO HS 03/10/17 06/21/19 Aspirin [Adult Low Dose Aspirin EC] 81 mg PO DAILY 06/19/19 06/21/19 Lisinopril [Zestril] 20 mg PO DAILY 06/19/19 06/21/19 Metoprolol Succinate [Toprol XL] 25 mg PO QAM 06/19/19 06/21/19 Previous Rx's Medication Instructions Recorded amLODIPine [Norvasc] 5 mg PO DAILY #30 tab 05/17/17 Allergies Allergy/AdvReac Type Severity Reaction Status Date / Time No Known Allergies Allergy Verified 06/21/19 07:34 Review of Systems ROS Statement: Those systems with pertinent positive or pertinent negative responses have been documented in the HPI. ROS Other: All systems not noted in ROS Statement are negative. EKG Findings - EKG Comments: EKG Findings:: Ventricular rate 66 bpm, IL interval 182 ms, QR station 80 ms, QT/QTC 418/438 ms. This is normal sinus, NO ST elevation or depression. Q waves noted. Past Medical History Past Medical History: Coronary Artery Disease (CAD), Cancer, Chest Pain / Angina, COPD, Diabetes Mellitus, Deep Vein Thrombosis (DVT), GERD/Reflux, Hyperlipidemia, Hypertension, Osteoarthritis (OA), Skin Disorder, Vascular Disorder Additional Past Medical History / Comment(s): colon cancer, hx migraine, irregular heartbeat, varicose veins, hx blood clot in rt arm after CABG surgery, psoriasis, diet control diabetic, anemia, hx bladder cancer x 3, PAD and disease of the ileo-aortic system, carotid artery stenosis History of Any Multi-Drug Resistant Organisms: None Reported Past Surgical History: Bladder Surgery, Bowel Resection, Coronary Bypass/CABG, Heart Catheterization Additional Past Surgical History / Comment(s): rt colectomy -2016,double CAGB 2005, bladder surgery x 3, aileen cataracts ,COLONOSCOPY Past Anesthesia/Blood Transfusion Reactions: Previous Problems w/ Anesthesia Additional Past Anesthesia/Blood Transfusion Reaction / Comment(s): had blood transfusion at [facility]- no problem with, "screaming and yelling from anesthesia after CAGB surgery" Past Psychological History: Anxiety Smoking Status: Former smoker Past Alcohol Use History: Occasional Past Drug Use History: None Reported - Past Family History Mother Family Medical History: Cancer, Coronary Artery Disease (CAD) Additional Family Medical History / Comment(s): cervical CA Father History Unknown: Yes Family Medical History: Unable to Obtain Brother(s) Family Medical History: Cancer Additional Family Medical History / Comment(s): leukemia Sister(s) Family Medical History: No Reported History Son(s) Family Medical History: Cancer Additional Family Medical History / Comment(s): leukemia General Exam - General Exam Comments Initial Comments: General: The patient is awake and alert, in no distress, (-) Levign sign, no diaphoresis Eye: +3 mm pupils are equal, round and reactive to light, extra-ocular movements are intact. No nystagmus. There is normal conjunctiva bilaterally. No signs of icterus. Ears, nose, mouth and throat: There are moist mucous membranes and no oral lesions. Neck: The neck is supple, there is no tenderness or JVD. Cardiovascular: There is a regular rate and rhythm. No murmur, rub or gallop is appreciated. Respiratory: Lungs are clear to auscultation, respirations are non-labored, breath sounds are equal. No wheezes, stridor, rales, or rhonchi. Gastrointestinal: Soft, non-distended, non-tender abdomen without masses or organomegaly noted. There is no rebound or guarding present. Musculoskeletal: Normal ROM, no tenderness. Strength 5/5. Sensation intact. Radial pulses equal bilaterally 2+. Neurological: A&O x 3. CN II-XII intact grossly, There are no obvious motor or sensory deficits. Coordination appears grossly intact. Speech is normal. Skin: Skin is warm and dry and no rashes or lesions are noted. No LE edema. Psychiatric: Cooperative, appropriate mood & affect, normal judgment. Limitations: no limitations Course Vital Signs 11/18/19 06:07 Temperature 97.7 F Pulse Rate 69 Respiratory 18 Rate Blood Pressure 142/75 O2 Sat by Pulse 95 Oximetry - Reevaluation(s) Reevaluation #1: When patient arrived VQ scan ordered due to outpatient labs revealing elevated Dimer, with a GFR < 40, at 33. Reevaluation #2: Patient taken for VQ at 7AM, patient was hesitant about getting the scan, was brought back to the ER for her cardiac cath as I feel ACS is most likely diagnosis and do no want to delay treatment. If patient symptoms persistent/no new findings on cath, recommend CTA as repeat GFR at our facility was >40. 11/18/19 Chest Pain MDM - MDM 73 female with significant CAD history presenting as NSTEMI transfer from [facility] (presented at 11PM), transfer was accepted by Dr. Early after speaking with provider at [facility]. Patient arrived just prior to 6AM. Heparin was initiated as [facility] consulted Dr. Dorado who was aware of patient and scheduled for cardiac catheterization for around 8AM. Dr. Early recommended VQ given patient GFR at [facility]. VQ scan was delayed as patient was hesitant--and subsequently cancelled in order to allow for cardiac catheterization. Heparin was continued while patient was in the ED until cardiac catheterization. Patient transferred to blood and plasma laboratory assistant asymptomatic appearing well. Disposition Clinical Impression: NSTEMI (non-ST elevated myocardial infarction), Chest pressure Disposition: ADMITTED IP TO THIS HOSP Condition: Serious Is patient prescribed a controlled substance at d/c from ED?: No Time of Disposition: 08:02 Decision to Admit Reason: Admit from EC Decision Date: 11/18/19 Decision Time: 08:03
[2019-11-18] MEDS ORDERED: HEPARIN SODIUM,PORCINE 5,000 UNIT/ML 1 ML VIAL IV PRN (06:28)
[2019-11-18] MEDS ORDERED: HEPARIN SOD,PORK IN 0.45% NACL 25,000 UNIT in 0.45% NACL 1 250ML.BAG IV SCH (06:30)
[2019-11-18 06:39] LABS: Basophils % (A) 1 %; Eosinophils # (A) 0.2 k/uL (0-0.7); Eosinophils % (A) 2 %; HCT 44.1 % (34.0-46.0); Lymphocytes % (A) 13 %; MCH 30.5 pg (25.0-35.0); MCHC 31.7 g/dL (31.0-37.0); MCV 96.2 fL (80.0-100.0); Mean Platelet Volume 8.6; Monocytes # (A) 0.3 k/uL (0-1.0); Monocytes % (A) 4 %; Neutrophils # (A) 6.3 k/uL (1.3-7.7); Neutrophils % (A) 79 %; Platelet Count 163 k/uL (150-450); RBC 4.58 m/uL (3.80-5.40); RDW 15.6 % (11.5-15.5)
[2019-11-18 06:52] LABS: Prothrombin Time 10.1 sec (9.0-12.0)
[2019-11-18 06:57] LABS: Calcium 9.2 mg/dL (8.4-10.2); Magnesium 1.8 mg/dL (1.6-2.3); Potassium 4.6 mmol/L (3.5-5.1); Total Bilirubin 0.6 mg/dL (0.2-1.3); Total Protein 7.2 g/dL (6.3-8.2)
[2019-11-18 07:06] LABS: D-Dimer 1.37 mg/L FEU (<0.60)
[2019-11-18 07:08] LABS: Partial Thromboplastin Time 190.4 sec (22.0-30.0)
[2019-11-18] MEDS ORDERED: fentaNYL (PF) 50 MCG/ML 2 ML AMP ONE (08:13)
[2019-11-18] MEDS: fentaNYL (PF) 50 MCG/ML 2 ML AMP IV ONE ×2 (08:20→08:54)
[2019-11-18] MEDS ORDERED: IV FLUID CONTINUATION 500 ML IV ONE (08:20)
[2019-11-18] MEDS: MIDAZOLAM 2 MG/2 ML VIAL IV ONE ×2 (08:20→08:50)
[2019-11-18] MEDS ORDERED: LIDOCAINE 1% INJ 10MG/ML (20 ML MDV) SQ ONE ×2 (08:49→08:50)
[2019-11-18] MEDS: VERAPAMIL SYRINGE (5 MG/10 ML) INTRAARTER ONE ×2 (08:52→09:15)
[2019-11-18] MEDS ORDERED: BIVALIRUDIN 250 MG in SODIUM CHLORIDE 0.9% 39 ML IV ONE (09:00)
[2019-11-18] MEDS ORDERED: BIVALIRUDIN BOLUS 250 MG/50 ML IV ONE (09:00)
[2019-11-18] MEDS ORDERED: niCARdipine 25 MG/10 ML VIAL ONE (09:08)
[2019-11-18] MEDS ORDERED: niCARdipine Syringe (1,000 mcg/10 mL) INTRACORON ONE (09:10)
[2019-11-18] MEDS ORDERED: TICAGRELOR 90 MG TAB ONE ×2 (09:12→09:24)
[2019-11-18] MEDS ORDERED: TICAGRELOR 90 MG TAB PO ONE (09:17)
[2019-11-18] MEDS ORDERED: IOPAMIDOL-370 125ML BTL INJ ONE (09:17)
--- NOTE | 2019-11-18 09:43 | P.CRDCN ---
History of Present Illness Consult date: 11/18/19 Chief complaint: Chest pain History of present illness: This is a very pleasant 73-year-old female patient who follows with Dr. Perez in the office on regular basis with a past medical history significant for coronary artery disease and prior coronary artery bypass grafting as well as stenting, hypertension, and dyslipidemia, was transferred from [facility] to [facility] for further cardiac evaluation. The patient does have extensive cardiac history. The last heart catheterization was performed in June 2019 when she was found to have severe triple-vessel coronary artery disease with patent PERRY to LAD and occlusion of all vein grafts. At that point the patient underwent successful stenting of the RCA. She was discharged on dual antiplatelet therapy and she stated that she has been compliant was dual antiplatelet therapy. Reviewing her home medication did not indicate that the patient was on dual antiplatelet therapy. She presented to the emergency room complaining of chest discomfort. She described the discomfort as elephant sitting on her chest. It was associated with shortness of breath as well as diaphoresis. The EKG revealed sinus rhythm with nonspecific ST changes in the inferior leads. The troponin came in to be severely elevated and because of that the patient was transferred to [facility]. I did perform a heart catheterization on her and that revealed critical in-stent restenosis involving the mid RCA and distal RCA. The whole RCA is a stented from the proximal to distal portion with a metal jacket. Because she underwent multiple stents in the past of the RCA I did balloon angioplasty only and I was able to have significant luminal gain and reduced the stenosis from 99% to 0% without putting a stent. By the end of the procedure she was chest pain-free. The procedure was performed from right radial approach. The patient tolerated the procedure very well. Past Medical History Past Medical History: Coronary Artery Disease (CAD), Cancer, Chest Pain / Angina, COPD, Diabetes Mellitus, Deep Vein Thrombosis (DVT), GERD/Reflux, Hyperlipidemia, Hypertension, Osteoarthritis (OA), Skin Disorder, Vascular Disorder Additional Past Medical History / Comment(s): colon cancer, hx migraine, irregular heartbeat, varicose veins, hx blood clot in rt arm after CABG surgery, psoriasis, diet control diabetic, anemia, hx bladder cancer x 3, PAD and disease of the ileo-aortic system, carotid artery stenosis History of Any Multi-Drug Resistant Organisms: None Reported Past Surgical History: Bladder Surgery, Bowel Resection, Coronary Bypass/CABG, Heart Catheterization Additional Past Surgical History / Comment(s): rt colectomy -2016,double CAGB 2005, bladder surgery x 3, aileen cataracts ,COLONOSCOPY Past Anesthesia/Blood Transfusion Reactions: Previous Problems w/ Anesthesia Additional Past Anesthesia/Blood Transfusion Reaction / Comment(s): had blood transfusion at [facility]- no problem with, "screaming and yelling from anesthesia after CAGB surgery" Past Psychological History: Anxiety Smoking Status: Former smoker Past Alcohol Use History: Occasional Past Drug Use History: None Reported - Past Family History Mother Family Medical History: Cancer, Coronary Artery Disease (CAD) Additional Family Medical History / Comment(s): cervical CA Father History Unknown: Yes Family Medical History: Unable to Obtain Brother(s) Family Medical History: Cancer Additional Family Medical History / Comment(s): leukemia Sister(s) Family Medical History: No Reported History Son(s) Family Medical History: Cancer Additional Family Medical History / Comment(s): leukemia Medications and Allergies Home Medications Medication Instructions Recorded Confirmed Type ALPRAZolam [Xanax] 1 mg PO BID 03/10/17 06/21/19 History Isosorbide Mononitrate [Isosorbide 30 mg PO HS 03/10/17 06/21/19 History Mononitrate ER] Metoprolol Succinate [Toprol XL] 50 mg PO HS 03/10/17 06/21/19 History Simvastatin [Zocor] 40 mg PO HS 03/10/17 06/21/19 History Zolpidem Tartrate [Ambien] 10 mg PO HS 03/10/17 06/21/19 History quiNIDine SULFATE 300 mg PO HS 03/10/17 06/21/19 History amLODIPine [Norvasc] 5 mg PO DAILY #30 tab 05/17/17 06/21/19 Rx Aspirin [Adult Low Dose Aspirin EC] 81 mg PO DAILY 06/19/19 06/21/19 History Lisinopril [Zestril] 20 mg PO DAILY 06/19/19 06/21/19 History Metoprolol Succinate [Toprol XL] 25 mg PO QAM 06/19/19 06/21/19 History Allergies Allergy/AdvReac Type Severity Reaction Status Date / Time No Known Allergies Allergy Verified 06/21/19 07:34 Physical Exam Vitals: Vital Signs Temp Pulse Resp BP Pulse Ox 11/18/19 06:07 97.7 F 69 18 142/75 95 Intake and Output 11/17/19 11/18/19 11/18/19 22:59 06:59 14:59 Intake Total 365 Balance 365 Intake: IV 365 Other: Weight 74.843 kg - Constitutional General appearance: no acute distress - Respiratory Respiratory: bilateral: CTA - Cardiovascular Rhythm: regular Heart sounds: normal: S1, S2 Results 11/18/19 06:28 11/18/19 06:28 Cardiac Enzymes 11/18/19 11/18/19 Range/Units 06:28 06:28 AST 34 (14-36) U/L Troponin I 2.410 H* (0.000-0.034) ng/mL Coagulation 11/18/19 Range/Units 06:28 PT 10.1 (9.0-12.0) sec APTT 190.4 H* (22.0-30.0) sec CBC 11/18/19 Range/Units 06:28 WBC 8.0 (3.8-10.6) k/uL RBC 4.58 (3.80-5.40) m/uL Hgb 14.0 (11.4-16.0) gm/dL Hct 44.1 (34.0-46.0) % Plt Count 163 (150-450) k/uL Comprehensive Metabolic Panel 11/18/19 Range/Units 06:28 Sodium 140 (137-145) mmol/L Potassium 4.6 (3.5-5.1) mmol/L Chloride 107 (98-107) mmol/L Carbon Dioxide 23 (22-30) mmol/L BUN 27 H (7-17) mg/dL Creatinine 1.25 H (0.52-1.04) mg/dL Glucose 129 H (74-99) mg/dL Calcium 9.2 (8.4-10.2) mg/dL AST 34 (14-36) U/L ALT 17 (4-34) U/L Alkaline Phosphatase 67 (38-126) U/L Total Protein 7.2 (6.3-8.2) g/dL Albumin 4.0 (3.5-5.0) g/dL Current Medications Generic Name Dose Route Start Last Admin Trade Name Freq PRN Reason Stop Dose Admin Alprazolam 1 mg 11/18/19 09:25 Xanax PO BID PRN Anxiety Amlodipine Besylate 5 mg 11/19/19 09:00 Norvasc PO DAILY COUNT INCLUDES THE [facility] Aspirin 81 mg 11/19/19 09:00 Aspirin PO DAILY COUNT INCLUDES THE [facility] Atorvastatin Calcium 80 mg 11/18/19 21:00 Lipitor PO HS COUNT INCLUDES THE [facility] Heparin Sodium (Porcine) 0 unit 11/18/19 06:28 Heparin IV PER PROTOCOL PRN Low PTT Protocol Heparin Sodium/Sodium Chloride 250 mls @ 8.981 mls/hr 11/18/19 06:30 25,000 unit/ Sodium Chloride IV .Q24H COUNT INCLUDES THE [facility] Protocol 12 UNITS/KG/HR Isosorbide Mononitrate 30 mg 11/18/19 21:00 Imdur PO HS COUNT INCLUDES THE [facility] Lisinopril 20 mg 11/19/19 09:00 Zestril PO DAILY COUNT INCLUDES THE [facility] Metoprolol Succinate 25 mg 11/19/19 09:00 Toprol Xl PO QAM COUNT INCLUDES THE [facility] Metoprolol Succinate 50 mg 11/18/19 21:00 Toprol Xl PO HS COUNT INCLUDES THE [facility] Nitroglycerin 0.4 mg 11/18/19 06:25 Nitrostat SUBLINGUAL Q10M PRN Chest Pain Quinidine Sulfate 300 mg 11/18/19 21:00 PO HS COUNT INCLUDES THE [facility] Ticagrelor 90 mg 11/18/19 21:00 Brilinta PO BID COUNT INCLUDES THE [facility] Zolpidem Tartrate 10 mg 11/18/19 21:00 Ambien PO HS PRN Insomnia Intake and Output 11/17/19 11/18/19 11/18/19 22:59 06:59 14:59 Intake Total 365 Balance 365 Intake: IV 365 Other: Weight 74.843 kg 11/18/19 06:28 11/18/19 06:28 Assessment and Plan Assessment: Assessment #1 acute non-ST deviation myocardial infarction #2 critical in-stent restenosis of the RCA #3 extensive history of ischemic heart disease #4 multiple comorbid conditions Plan #1 dual antiplatelet therapy. The patient will be loaded with Brilinta #2 aggressive cholesterol control. #3 risk factors modification #4 an echocardiogram was Doppler #5 follow-up with the patient Thank you for allowing us participate in her care
--- NOTE | 2019-11-18 10:07 | CC ---
CARDIAC CATHETERIZATION REPORT CARDIAC CATHETERIZATION AND PERCUTANEOUS CORONARY INTERVENTION: DATE OF SERVICE: November 18, 2019 PERFORMING PHYSICIAN: Stephon Govea MD. PROCEDURE PERFORMED: 1. Selective left and right coronary angiogram. 2. Successful balloon angioplasty of the mid right coronary artery using 3.5 mm balloon with an excellent angiographic result and reduction of stenosis from 99% to 0%. INDICATION: This is a 73-year-old female patient who sees Dr. Perez in the office as an outpatient with history of coronary artery disease as well as peripheral arterial disease with the last heart catheterization was performed in June of 2019 when she was found to have severe triple-vessel CAD with patent PERRY to LAD and the occlusion of all vein grafts. At that point, the patient underwent successful stenting of the RCA. She presented to [facility] with chest discomfort and ruled in for acute [id number] myocardial infarction. APPROACH: Right radial artery. COMPLICATION: None. LEVEL OF SEDATION: Moderate with sedation length of 29 minutes. PROCEDURE DESCRIPTION: After obtaining an informed consent, the patient was brought to the cardiac labor gang supervisor. The right radial artery was cannulated using micropuncture technique, the micropuncture wire passed easily then I placed a 6-Algerian sheath at the right radial artery. I did perform selective right and left coronary angiogram with JR4 and JL4 catheters. Subsequently I did intervene on the right coronary artery. Please see a separate paragraph for that. SELECTIVE CORONARY ANGIOGRAM: 1. The left main appeared to be calcified with mild disease only. It bifurcates into LCX and LAD. 2. The left circumflex is a large caliber vessel. It is a nondominant vessel. The proximal circumflex appeared to be normal and gives rise into OM1 which has intermediate disease only. The mid left circumflex is normal and gives rise into an OM2, which has critical disease distally, but the artery becomes small caliber vessel. The left circumflex continues after that as a small-caliber vessel in the AV groove. 3. The LAD: The proximal LAD appeared to have mild disease only. The mid LAD appeared to be occluded. 4. The right coronary artery is a large caliber vessel and it is a dominant vessel. The RCA is stented from the proximal to the distal portion with critical in-stent restenosis. PCI OF THE RCA: Anticoagulation was initiated using Angiomax with bolus and drip. Subsequently, I did engage the RCA using JR4 guide. I did wire it using a run-through wire. After that I did PTCA ballooning of the RCA using 3.5 x 15 mm balloon where I did multiple PTCA ballooning of the mid to distal and mid RCA. Following angiogram showed good angiographic results and the procedure was completed without any complication. CONCLUSION: 1. Severe triple-vessel coronary artery disease. 2. PERRY to LAD angiogram was not performed because it was right radial approach. 3. Critical disease involving the mid right coronary artery. 4. Successful balloon angioplasty of the right coronary artery with excellent angiographic results and reduction of stenosis from 99% to 0%. MMODL / IJN: [id number] /
--- NOTE | 2019-11-18 10:33 | P.HPIM ---
History of Present Illness H&P Date: 11/18/19 Chief Complaint: NSTEMI. This is a 73-year-old female one of Dr. Sammy Hardin with a previous medical history significant for CAD post CABG 2 vessels back in 2006 with multiple stents placement with a PERRY to LAD and occluded all vein grafts with last heart catherization with multiple stents placed in the RCA, hypertension and hypertensive cardiovascular disease, hyperlipidemia, diabetes mellitus type 2, PAD, history of adenocarcinoma of the cecum that was diagnosed back in 2017 followed by a right hemicolectomy with adjuvant chemotherapy in the form of FOLFOX under the care of Dr. Magdaleno, patient presented to the emergency department at [facility] after she developed to have a significant chest pain and pressure was described as an elephant sitting on her chest that startec at around 9:30 10:00 in the evening ended up going to [facility] EKG did show Q waves in infero-septal area with extremely elevated troponin she was given nitroglycerin and she was transferred to [facility] emergency department where cardiology was consulted because of her troponin was elevated and the patient was taken to the labor economics professor for left heart catheterization which showed a metal jackets without injecting a dye and there were significant in-stent stenosis at shima mid part of her RCA so this was ballooned with stent placement due to sifgnificant stent burden from the proximal to the distal RCA and she had a very good angiographic results from 99% to 0 % and she was started on ASA 81 mg orally daily, Brilinta 90 mg orally bid along with Lipitor 80 mg orally daily, Imdur 30 mg orally daily along with Toprol XL and was admitted to cardiac floor . Review of Systems Constitutional: Denies chills, Denies chronic headaches, Denies malaise, Denies weakness, Denies weight gain, Denies weight loss Eyes: denies blurred vision, denies bulging eye, denies decreased vision, denies diplopia Ears, nose, mouth and throat: Denies dysphagia, Denies neck lump, Denies sore throat Cardiovascular: Reports chest pain, Reports dyspnea on exertion, Reports shortness of breath, Denies decreased exercise tolerance, Denies leg edema, Denies lightheadedness, Denies rapid heart beat, Denies syncope Respiratory: Reports dyspnea, Denies congestion, Denies cough, Denies cough with sputum, Denies home oxygen, Denies pain, Denies sleep apnea, Denies snoring, Denies wheezing Gastrointestinal: Denies abdominal pain, Denies bloating, Denies BRBPR, Denies excessive gas, Denies melena, Denies nausea, Denies vomiting Genitourinary: Denies dysuria, Denies nocturia Menstruation: Reports postmenopausal Musculoskeletal: absent: ankle pain, ankle stiffness, ankle swelling, elbow pain, elbow stiffness, elbow swelling, foot pain, foot stiffness, foot swelling, hand pain, hand stiffness, hand swelling, hip pain, hip stiffness, hip swelling, knee pain, knee stiffness, knee swelling, shoulder pain, shoulder stiffness, shoulder swelling, wrist pain, wrist stiffness, wrist swelling Integumentary: Denies pruritus, Denies rash Neurological: Denies numbness, Denies weakness Psychiatric: Denies anxiety, Denies depression Endocrine: Denies fatigue, Denies weight change Past Medical History Past Medical History: Coronary Artery Disease (CAD), Cancer, Chest Pain / Angina, COPD, Diabetes Mellitus, Deep Vein Thrombosis (DVT), GERD/Reflux, Hyperlipidemia, Hypertension, Osteoarthritis (OA), Skin Disorder, Vascular Disorder Additional Past Medical History / Comment(s): colon cancer, hx migraine, irregular heartbeat, varicose veins, hx blood clot in rt arm after CABG surgery, psoriasis, diet control diabetic, anemia, hx bladder cancer x 3, PAD and disease of the ileo-aortic system, carotid artery stenosis History of Any Multi-Drug Resistant Organisms: None Reported Past Surgical History: Bladder Surgery, Bowel Resection, Coronary Bypass/CABG, Heart Catheterization Additional Past Surgical History / Comment(s): rt colectomy ,double CAGB 2005, bladder surgery x 3, aileen cataracts ,COLONOSCOPY Past Anesthesia/Blood Transfusion Reactions: Previous Problems w/ Anesthesia Additional Past Anesthesia/Blood Transfusion Reaction / Comment(s): had blood transfusion at [facility]- no problem with, "screaming and yelling from anesthesia after CAGB surgery" Past Psychological History: Anxiety Smoking Status: Former smoker Past Alcohol Use History: Occasional Past Drug Use History: None Reported - Past Family History Mother Family Medical History: Cancer (Mother at the age of 74 from seizure and had Cervical cancer), Coronary Artery Disease (CAD) Additional Family Medical History / Comment(s): cervical CA Father History Unknown: Yes Family Medical History: Unable to Obtain (Patient does not know much about her father.) Brother(s) Family Medical History: Cancer (Patient had two brother one at the age of 5 year from ALL the other one is fine.) Additional Family Medical History / Comment(s): leukemia Sister(s) Family Medical History: No Reported History (Patient has one sister with no major medical issues.) Son(s) Family Medical History: Cancer (Patient had 2 sons one from AML at the age of 42) Additional Family Medical History / Comment(s): leukemia Medications and Allergies Home Medications Medication Instructions Recorded Confirmed Type ALPRAZolam [Xanax] 1 mg PO BID 03/10/17 06/21/19 History Isosorbide Mononitrate [Isosorbide 30 mg PO HS 03/10/17 06/21/19 History Mononitrate ER] Metoprolol Succinate [Toprol XL] 50 mg PO HS 03/10/17 06/21/19 History Simvastatin [Zocor] 40 mg PO HS 03/10/17 06/21/19 History Zolpidem Tartrate [Ambien] 10 mg PO HS 03/10/17 06/21/19 History quiNIDine SULFATE 300 mg PO HS 03/10/17 06/21/19 History amLODIPine [Norvasc] 5 mg PO DAILY #30 tab 05/17/17 06/21/19 Rx Aspirin [Adult Low Dose Aspirin EC] 81 mg PO DAILY 06/19/19 06/21/19 History Lisinopril [Zestril] 20 mg PO DAILY 06/19/19 06/21/19 History Metoprolol Succinate [Toprol XL] 25 mg PO QAM 06/19/19 06/21/19 History Allergies Allergy/AdvReac Type Severity Reaction Status Date / Time No Known Allergies Allergy Verified 06/21/19 07:34 Physical Exam Vitals: Vital Signs Temp Pulse Resp BP Pulse Ox 11/18/19 06:07 97.7 F 69 18 142/75 95 Intake and Output 11/17/19 11/18/19 11/18/19 22:59 06:59 14:59 Other: Weight 74.843 kg HEENT: Head is atraumatic, normal cephalic, pupils were equal round reactive to light and accommodation, extraocular muscle movement were intact, mucous membra wilfrido of the mouth are somewhat dry. Neck: Supple, no JVP. Chest: Decreased breath sounds at the bases, few rhonchi, no expiratory wheezes, no chest wall tenderness, no intercostal retractions. Heart: First heart sound is depressed, second heart sounds normal, there is systolic ejection murmur 2/6 located in the left sternal border. Abdomen: Soft, nontender, nondistended, positive bowel sounds. Extremities: No edema no calf tenderness, no status pedis + bilaterally. Neurologic examination: Awake alert and oriented 3, cranial nerves II-12 appear grossly intact. Muscle power 4 out of 5 in upper and lower extremity is bilaterally. Results CBC & Chem 7: 11/18/19 06:28 11/18/19 06:28 Labs: Abnormal Lab Results - Last 24 Hours (Table) 11/18/19 11/18/19 11/18/19 Range/Units 06:28 06:28 06:28 RDW 15.6 H (11.5-15.5) % APTT 190.4 H* (22.0-30.0) sec D-Dimer 1.37 H (<0.60) mg/L FEU BUN 27 H (7-17) mg/dL Creatinine 1.25 H (0.52-1.04) mg/dL Glucose 129 H (74-99) mg/dL Troponin I (0.000-0.034) ng/mL 11/18/19 Range/Units 06:28 RDW (11.5-15.5) % APTT (22.0-30.0) sec D-Dimer (<0.60) mg/L FEU BUN (7-17) mg/dL Creatinine (0.52-1.04) mg/dL Glucose (74-99) mg/dL Troponin I 2.410 H* (0.000-0.034) ng/mL Thrombosis Risk Factor Assmnt - DVT/VTE Prophylaxis DVT/VTE Prophylaxis: Pharmacologic Prophylaxis ordered, Mechanical Prophylaxis ordered Assessment and Plan Assessment: Assessment and plan: 1. Non-ST elevation SD in a patient with a prior history of CAD post CABG and multiple PCI's in the past and S/P Balloon angioplasty without stent placement. Continue patient on aspirin 81 mg orally once every day, Brilinta 90 mg orally bid, continue patient on Lipitor 80 mg orally once every day, Toprol XL 50 mg at bedtime and 25 mg in the morning. 2. History of CAD post CABG and PCI multiple times . Continue ASA 81 mg orally daily, Brilinta 90 mg orally bid, Imdur 30 mg orally daily, Lipitor 80 mg orally daily and Toprol XL 50 mg at bedtime and 25 mg in AM. 3. History of adenocarcinoma of the colon status post right hemicolectomy followed by adjuvant chemotherapy in the form of FOLFOX. Currently in remission. 4. Hypertension and hypertensive cardiovascular disease. Continue patient on lisinopril 20 mg once every day, Toprol 50 mg orally at bedtime and 25 mg in the morning and amlodipine 5 mg orally once every day . 5. Hyperlipidemia. Continue patient on Lipitor 80 mg orally daily. 6. Diabetes mellitus type 2. Diet-controlled. 7. PAD. Continue patient on ASA and Lipitor for secondary prevention. 8. DVT prophylaxis. Currently on heparin drip she will be switched over to hep sophia subcutaneously. 9. GI prophylaxis. Pepcid 20 mg orally once every day. 10. Admitted to inpatient. Estimate a length of stay 2 midnights. 11. Patient is full code.
[2019-11-18] MEDS ORDERED: SODIUM CHLORIDE 0.9% 1,000 ML IV SCH (12:30)
--- NOTE | 2019-11-18 13:06 | P.CNPUL ---
History of Present Illness Consult date: 11/18/19 Requesting physician: Emmanuel Dukes Reason for consult: dyspnea, chest pain Chief complaint: Chest pain, shortness of breath History of present illness: This is a pleasant 73-year-old female patient who follows with Dr. Yo Christianson as her primary care's addition with a known history of coronary artery disease and previous coronary artery bypass grafting 2 in 2005, multiple stent placements, chronic obstructive pulmonary disease with previous smoking, diabetes mellitus, DVT, hypertension, hyperlipidemia, carotid stenosis, peripheral vascular disease, previous right colectomy secondary to ad enocarcinoma with adjuvant chemotherapy, anxiety. She had presented to [facility] with complaints of significant chest discomfort, found to have a non-ST segment elevation myocardial infarction and subsequently transferred here. She had undergone cardiac catheterization this morning by Dr. Govea performed balloon angioplasty to a 99% RCA lesion down to 0%. Resume, she is resting comfortably in bed. Awake and alert in no acute distress. She denies any worsening shortness of breath, cough or congestion. Maintaining O2 saturations in the 90s on room air. She's afebrile. Hemodynamically stable. Review of Systems REVIEW OF SYSTEMS: CONSTITUTIONAL: Denies any recent significant weight loss or weight gain. EYES: Denies change in vision. EARS, NOSE, MOUTH, THROAT: Denies headaches, denies sore throat. CARDIOVASCULAR: Positive for chest pain, no palpitations or syncopal episodes. RESPIRATORY: Denies shortness of breath, cough, congestion or hemoptysis. GASTROINTESTINAL: Denies change in appetite, denies abdominal pain GENITOURINARY: Denies hematuria, denies infections. MUSKULOSKELETAL: Denies pain, denies swelling. INTEGUMENTARY: Denies rash, denies eczema. NEUROLOGICAL: Denies recent memory loss, no recent seizure activity. PSYCHIATRIC: Denies anxiety, denies depression. HEMATOLOGIC/LYMPHATIC: Denies anemia, denies enlarged lymph nodes. Past Medical History Past Medical History: Coronary Artery Disease (CAD), Cancer, Chest Pain / Angina, COPD, Diabetes Mellitus, Deep Vein Thrombosis (DVT), GERD/Reflux, Hyperlipidemia, Hypertension, Osteoarthritis (OA), Skin Disorder, Vascular Disorder Additional Past Medical History / Comment(s): colon cancer, hx migraine, irregular heartbeat, varicose veins, hx blood clot in rt arm after CABG surgery, psoriasis, diet control diabetic, anemia, hx bladder cancer x 3, PAD and disease of the ileo-aortic system, carotid artery stenosis History of Any Multi-Drug Resistant Organisms: None Reported Past Surgical History: Bladder Surgery, Bowel Resection, Coronary Bypass/CABG, Heart Catheterization Additional Past Surgical History / Comment(s): rt colectomy -2016,double CAGB 2005, bladder surgery x 3, aileen cataracts ,COLONOSCOPY Past Anesthesia/Blood Transfusion Reactions: Previous Problems w/ Anesthesia Additional Past Anesthesia/Blood Transfusion Reaction / Comment(s): had blood transfusion at [facility]- no problem with, "screaming and yelling from anesthesia after CAGB surgery" Past Psychological History: Anxiety Smoking Status: Former smoker Past Alcohol Use History: Occasional Past Drug Use History: None Reported - Past Family History Mother Family Medical History: Cancer (Mother at the age of 74 from seizure and had Cervical cancer), Coronary Artery Disease (CAD) Additional Family Medical History / Comment(s): cervical CA Father History Unknown: Yes Family Medical History: Unable to Obtain (Patient does not know much about her father.) Brother(s) Family Medical History: Cancer (Patient had two brother one at the age of 5 year from ALL the other one is fine.) Additional Family Medical History / Comment(s): leukemia Sister(s) Family Medical History: No Reported History (Patient has one sister with no major medical issues.) Son(s) Family Medical History: Cancer (Patient had 2 sons one from AML at the age of 42) Additional Family Medical History / Comment(s): leukemia Medications and Allergies Home Medications Medication Instructions Recorded Confirmed Type ALPRAZolam [Xanax] 1 mg PO BID 03/10/17 11/18/19 History Isosorbide Mononitrate [Isosorbide 30 mg PO DAILY 03/10/17 11/18/19 History Mononitrate ER] Zolpidem Tartrate [Ambien] 10 mg PO HS 03/10/17 11/18/19 History amLODIPine [Norvasc] 5 mg PO DAILY #30 tab 05/17/17 11/18/19 Rx Aspirin [Adult Low Dose Aspirin EC] 81 mg PO DAILY 06/19/19 11/18/19 History Lisinopril [Zestril] 20 mg PO DAILY 06/19/19 11/18/19 History Atorvastatin [Lipitor] 80 mg PO DAILY 11/18/19 11/18/19 History Metoprolol Tartrate 25 mg PO HS 11/18/19 11/18/19 History Metoprolol Tartrate [Lopressor] 50 mg PO QAM 11/18/19 11/18/19 History Nitroglycerin Sl Tabs [Nitrostat] 0.4 mg SUBLINGUAL Q5M PRN 11/18/19 11/18/19 History Ticagrelor [Brilinta] 90 mg PO BID 11/18/19 11/18/19 History quiNINE SULFATE 324 mg PO HS 11/18/19 11/18/19 History Allergies Allergy/AdvReac Type Severity Reaction Status Date / Time No Known Allergies Allergy Verified 06/21/19 07:34 Physical Exam Vitals: Vital Signs Temp Pulse Pulse Resp BP BP Pulse Ox 11/18/19 12:00 14 11/18/19 11:40 69 14 129/61 96 11/18/19 11:10 86 156/81 11/18/19 10:40 95 141/74 11/18/19 10:25 97 149/78 11/18/19 10:10 94 131/84 11/18/19 09:55 97.7 F 86 14 144/69 95 11/18/19 06:07 97.7 F 69 18 142/75 95 Intake and Output 11/17/19 11/18/19 11/18/19 22:59 06:59 14:59 Intake Total 695 Balance 695 Intake: IV 375 Invasive Line 2 10 Oral 320 Other: Weight 74.843 kg GENERAL EXAM: Alert, pleasant 73-year-old female patient, on room air, comfortable in no apparent distress. HEAD: Normocephalic. EYES: Normal reaction of pupils, equal size. NOSE: Clear with pink turbinates. THROAT: No erythema or exudates. NECK: No masses, no JVD. CHEST: No chest wall deformity. LUNGS: Equal air entry with no crackles, wheeze, rhonchi or dullness. CVS: S1 and S2 normal with no audible murmur, regular rhythm. ABDOMEN: No hepatosplenomegaly, normal bowel sounds, no guarding or rigidity. SPINE: No scoliosis or deformity SKIN: No rashes CENTRAL NERVOUS SYSTEM: No focal deficits, tone is normal in all 4 extremities. EXTREMITIES: Right radial arterial compression device in place. There is no peripheral edema. No clubbing, no cyanosis. Peripheral pulses are intact. Results - Laboratory Findings CBC and BMP: 11/18/19 06:28 11/18/19 06:28 PT/INR, D-dimer PT 10.1 sec (9.0-12.0) 11/18/19 06:28 INR 1.0 (<1.2) 11/18/19 06:28 D-Dimer 1.37 mg/L FEU (<0.60) H 11/18/19 06:28 Abnormal lab findings: Abnormal Labs 11/18/19 11/18/19 11/18/19 06:28 06:28 06:28 RDW 15.6 H APTT 190.4 H* D-Dimer 1.37 H BUN 27 H Creatinine 1.25 H Glucose 129 H Troponin I 11/18/19 06:28 RDW APTT D-Dimer BUN Creatinine Glucose Troponin I 2.410 H* Assessment and Plan Assessment: 1 Acute non-ST segment elevation myocardial infarction with subsequent PTBA to the RCA 2 History of coronary artery disease with previous coronary artery bypass grafting 2 in 2005 with subsequent multiple stent placements 3 History of previous chronic tobacco dependence 4 Chronic obstructive pulmonary disease, inactive in stable 5 Diabetes mellitus, type II 6 Hypertension 7 Hyperlipidemia. 8 Peripheral arterial disease 9 History of adenocarcinoma status post right hemicolectomy and adjuvant chemotherapy Plan: The patient was seen and evaluated by Dr. Roberts. We'll obtain a chest x-ray. Currently on Brilinta and aspirin. We'll continue to follow and make further recommendations based on her clinical status. I, the cosigning physician, performed a history & physical examination of the patient. Lungs sounds are clear. Maintaining good O2 saturations in the 90s on room air. I discussed the assessment and plan of care with my nurse practitioner, Nat Dahl. I attest to the above consultation as dictated by her. Time with Patient: Greater than 30
[2019-11-18] MEDS: NITROGLYCERIN SL TABS 0.4 MG TAB SUBLINGUAL PRN ×3 (15:25→15:36)
[2019-11-18] MEDS: NITROGLYCERIN OINT 1 INCH/GM PACKET TOPICAL SCH ×2 (16:22→23:52)
[2019-11-18 17:01] LABS: Calcium 8.9 mg/dL (8.4-10.2); Potassium 4.6 mmol/L (3.5-5.1)
[2019-11-18] MEDS: TICAGRELOR 90 MG TAB PO SCH (20:30)
[2019-11-18] MEDS: ATORVASTATIN 80 MG TAB PO SCH (20:30)
[2019-11-18] MEDS: METOPROLOL SUCCINATE (ER) 50 MG TAB.ER.24H PO SCH (20:30)
[2019-11-18] MEDS: ALPRAZolam 1 MG TAB PO PRN (20:35)
[2019-11-18] MEDS ORDERED: ATORVASTATIN 20 MG TAB PO SCH (21:00)
[2019-11-18] MEDS ORDERED: ISOSORBIDE MONONITRATE ER 30 MG TAB.ER.24H PO SCH (21:00)
[2019-11-18] MEDS: [UNRECOGNIZED DRUG - OTHER] PO SCH (21:53)
[2019-11-18] MEDS: ZOLPIDEM 10 MG TAB PO PRN (23:57)
[2019-11-19 06:43] LABS: Basophils % (A) 0 %; Eosinophils # (A) 0.1 k/uL (0-0.7); Eosinophils % (A) 2 %; HCT 38.1 % (34.0-46.0); HGB 12.2 gm/dL (11.4-16.0); Hypochromasia Slight; Lymphocytes # (A) 0.8 k/uL (1.0-4.8); Lymphocytes % (A) 14 %; MCH 31.1 pg (25.0-35.0); MCHC 32.1 g/dL (31.0-37.0); Mean Platelet Volume 8.4; Monocytes # (A) 0.3 k/uL (0-1.0); Monocytes % (A) 5 %; Neutrophils # (A) 4.7 k/uL (1.3-7.7); Neutrophils % (A) 77 %; Platelet Count 157 k/uL (150-450); RBC 3.93 m/uL (3.80-5.40); RDW 15.5 % (11.5-15.5); WBC 6.1 k/uL (3.8-10.6)
[2019-11-19 06:46] LABS: Albumin 3.1 g/dL (3.5-5.0); Calcium 8.9 mg/dL (8.4-10.2); Potassium 4.6 mmol/L (3.5-5.1); Total Bilirubin 0.8 mg/dL (0.2-1.3); Total Protein 5.7 g/dL (6.3-8.2)
[2019-11-19] MEDS: METOPROLOL SUCCINATE (ER) 25 MG TAB.ER.24H PO SCH (08:28)
[2019-11-19] MEDS: TICAGRELOR 90 MG TAB PO SCH ×2 (08:28→20:18)
[2019-11-19] MEDS: amLODIPine 5 MG TAB PO SCH (08:28)
[2019-11-19] MEDS: ASPIRIN 81 MG PO SCH (08:28)
[2019-11-19] MEDS: NITROGLYCERIN OINT 1 INCH/GM PACKET TOPICAL SCH (08:28)
[2019-11-19] MEDS: LISINOPRIL 20 MG TAB PO SCH (08:28)
--- NOTE | 2019-11-19 09:36 | P.PN ---
Subjective Progress Note Date: 11/19/19 This is a 73-year-old female one of Dr. Sammy Hardin with a previous medical history significant for CAD post CABG 2 vessels back in 2006 with multiple stents placement with a PERRY to LAD and occluded all vein grafts with last heart catherization with multiple stents placed in the RCA, hyper tension and hypertensive cardiovascular disease, hyperlipidemia, diabetes mellitus type 2, PAD, history of adenocarcinoma of the cecum that was diagnosed back in 2017 followed by a right hemicolectomy with adjuvant chemotherapy in the form of FOLFOX under the care of Dr. Magdaleno, patient presented to the emergency department at [facility] after she developed to have a significant chest pain and pressure was described as an elephant sitting on her chest that startec at around 9:30 10:00 in the evening ended up going to [facility] EKG did show Q waves in infero-septal area with extremely elevated troponin she was given nitroglycerin and she was transferred to [facility] emergency department where cardiology was consulted because of her troponin was elevated and the patient was taken to the mushroom laborer for left heart catheterization which showed a metal jackets without injecting a dye and there were significant in-stent stenosis at [facility] mid part of her RCA so this was ballooned with stent placement due to sifgnificant stent burden from the proximal to the distal RCA and she had a very good angiographic results from 99% to 0 % and she was started on ASA 81 mg orally daily, Brilinta 90 mg orally bid along with Lipitor 80 mg orally daily, Imdur 30 mg orally daily along with Toprol XL and was admitted to cardiac floor . 11/18: Patient is feeling better today she did require quite a bit of oxygen yesterday she was seen in consultation by bipolar medicine, she was started on nitroglycerin paste and her chest pain is a lot better today she continues to be a bit short of breath however she is requiring about 2 L nasal cannula this time, she has no pleurisy, she has no hemoptysis, she has no chest pain at this point in time, she has no abdominal pain, nausea, vomiting or diarrhea, she has no edema both lower extremity is. Review of Systems Constitutional: Denies chills, Denies chronic headaches, Denies malaise, Denies weakness, Denies weight gain, Denies weight loss Eyes: denies blurred vision, denies bulging eye, denies decreased vision, denies diplopia Ears, nose, mouth and throat: Denies dysphagia, Denies neck lump, Denies sore throat Cardiovascular: Reports chest pain, Reports dyspnea on exertion, Reports shortness of breath, Denies decreased exercise tolerance, Denies leg edema, Denies lightheadedness, Denies rapid heart beat, Denies syncope Respiratory: Reports dyspnea, Denies congestion, Denies cough, Denies cough with sputum, on 2 L cannula was at 6 L yesterday, Denies pain, Denies sleep apnea, Denies snoring, Denies wheezing Gastrointestinal: Denies abdominal pain, Denies bloating, Denies BRBPR, Denies excessive gas, Denies melena, Denies nausea, Denies vomiting Genitourinary: Denies dysuria, Denies nocturia Menstruation: Reports postmenopausal Musculoskeletal: absent: ankle pain, ankle stiffness, ankle swelling, elbow pain, elbow stiffness, elbow swelling, foot pain, foot stiffness, foot swelling, hand pain, hand stiffness, hand swelling, hip pain, hip stiffness, hip swelling, knee pain, knee stiffness, knee swelling, shoulder pain, shoulder stiffness, shoulder swelling, wrist pain, wrist stiffness, wrist swelling Integumentary: Denies pruritus, Denies rash Neurological: Denies numbness, Denies weakness Psychiatric: Denies anxiety, Denies depression Endocrine: Denies fatigue, Denies weight change Objective - Vital Signs Vital signs: Vital Signs Temp 98.7 F 11/19/19 07:45 Pulse 64 11/19/19 07:45 Resp 16 11/19/19 08:00 BP 152/85 11/19/19 07:45 Pulse Ox 94 L 11/19/19 07:45 Intake & Output 11/18/19 11/19/19 11/19/19 18:59 06:59 18:59 Intake Total 2305 150 240 Balance 2305 150 240 Weight 75.6 kg Intake: IV 985 30 40 Invasive Line 1 10 30 40 Invasive Line 2 10 Sodium Chloride 0.9% 1, 600 000 ml @ 75 mls/hr IV . [id number] [facility] Rx#:[id number] Oral 1320 120 200 Other: Voiding Method Toilet Toilet # Voids 2 1 # Bowel Movements 1 - Exam HEENT: Head is atraumatic, normal cephalic, pupils were equal round reactive to light and accommodation, extraocular muscle movement were intact, mucous membranes of the mouth are somewhat dry. Neck: Supple, no JVP. Chest: Decreased breath sounds at the bases, few rhonchi, no expiratory wheezes, no chest wall tenderness, no intercostal retractions. Heart: First heart sound is depressed, second heart sounds normal, there is systolic ejection murmur 2/6 located in the left sternal border. Abdomen: Soft, nontender, nondistended, positive bowel sounds. Extremities: No edema no calf tenderness, no status pedis + bilaterally. Neurologic examination: Awake alert and oriented 3, cranial nerves II-12 appear grossly intact. Muscle power 4 out of 5 in upper and lower extremity is bilaterally. - Labs CBC & Chem 7: 11/19/19 06:08 11/19/19 06:08 Labs: Abnormal Lab Results - Last 24 Hours (Table) 11/18/19 11/18/19 11/18/19 Range/Units 12:38 12:38 16:33 Lymphocytes # (1.0-4.8) k/uL APTT 31.3 H (22.0-30.0) sec Chloride (98-107) mmol/L BUN 23 H (7-17) mg/dL Creatinine 1.19 H (0.52-1.04) mg/dL Glucose 145 H (74-99) mg/dL AST (14-36) U/L Troponin I 4.400 H* (0.000-0.034) ng/mL Total Protein (6.3-8.2) g/dL Albumin (3.5-5.0) g/dL 11/18/19 11/19/19 11/19/19 Range/Units 18:34 06:08 06:08 Lymphocytes # 0.8 L (1.0-4.8) k/uL APTT (22.0-30.0) sec Chloride 109 H (98-107) mmol/L BUN 22 H (7-17) mg/dL Creatinine 1.19 H (0.52-1.04) mg/dL Glucose (74-99) mg/dL AST 40 H (14-36) U/L Troponin I 4.960 H* (0.000-0.034) ng/mL Total Protein 5.7 L (6.3-8.2) g/dL Albumin 3.1 L (3.5-5.0) g/dL Assessment and Plan Assessment: Assessment and plan: 1. Non-ST elevation [place] with unstable angina in a patient with a prior history of CAD post CABG and multiple PCI's in the past and S/P Balloon angioplasty without stent placement. Continue patient on aspirin 81 mg orally once every day, Brilinta 90 mg orally bid, continue patient on Lipitor 80 mg orally once every day, Toprol XL 50 mg at bedtime and 25 mg in the morning, added Nitro paste and iff Imdur. 2. Acute hypoxic respiratory failure due to recent [place] and possible systolic heart failure doubt PE. we will hold off CTA as her GFR 45 we will continue with O2 support and will check Echocardiogram. 3. History of CAD post CABG and PCI multiple times . Continue ASA 81 mg orally daily, Brilinta 90 mg orally bid, will continue with NTP, Lipitor 80 mg orally daily and Toprol XL 50 mg at bedtime and 25 mg in AM. 4. History of adenocarcinoma of the colon status post right hemicolectomy followed by adjuvant chemotherapy in the form of FOLFOX. Currently in remission. 5. Hypertension and hypertensive cardiovascular disease. Continue patient on lisinopril 20 mg once every day, Toprol 50 mg orally at bedtime and 25 mg in the morning and amlodipine 5 mg orally once every day . 6. Hyperlipidemia. Continue patient on Lipitor 80 mg orally daily. 7. Diabetes mellitus type 2. Diet-controlled. 8. PAD. Continue patient on ASA and Lipitor for secondary prevention. 9. DVT prophylaxis. Currently on heparin drip she will be switched over to heparin subcutaneously. 10. GI prophylaxis. Pepcid 20 mg orally once every day. 11. CKD stage 3. avoid anymore contrast unless clinically indicated. 12. Prognosis is guarded.
--- NOTE | 2019-11-19 11:01 | XR ---
EXAMINATION TYPE: XR chest 2V DATE OF EXAM: 11/19/2019 HISTORY: SOB. REFERENCE: Previous study dated 11/18/2019. FINDINGS: There has been a midline sternotomy. The heart is mildly enlarged. The lungs are clear. Ple ural space are clear. IMPRESSION: MILD CARDIOMEGALY.
--- NOTE | 2019-11-19 12:04 | P.PN ---
Subjective Progress Note Date: 11/19/19 The patient was interviewed and examined lying comfortably in bed. She states she is doing well. She denies any chest pain, chest pressure, palpitations, dyspnea, dizziness, or vertigo. She states she is eager to get up and ambulate. Postprocedure yesterday, she did develop some chest discomfort, which resolved with the use of the nitro patch. GENERAL: Well-appearing, well-nourished and in no acute distress. NECK: Supple without JVD or thyromegaly. LUNGS: Breath sounds clear to auscultation bilaterally. Respiration equal and unlabored. No wheezes, rales or rhonchi. HEART: Regular rate and rhythm without murmurs, rubs or gallops. S1 and S2 heard. EXTREMITIES: Normal range of motion, no edema. No clubbing or cyanosis. Peripheral pulses intact and strong. Right radial cath site is clean, dry, and intact. Vital signs: Blood pressure 152/85, respirations 16, heart rate 64, temp 98.7 Laboratory data: WBC 6.1, hemoglobin 12.2, hematocrit 30.1, platelet 157, sodium 141, potassium 4.6, BUN 22, creatinine 1.19, AST 40, ALT 15, BNP 7260, LDL 45, triglycerides 83, HDL 45 Impression: #1 NSTEMI, status post PTCA of mid RCA #2 critical re-instent stenosis of RCA #3 history of ischemic heart disease #4 hypertension Plan: Continue current medication regimen, including dual antiplatelet therapy. Echocardiogram to be done prior to discharge. Objective - Vital Signs Vital signs: Vital Signs Temp 98.7 F 11/19/19 07:45 Pulse 64 11/19/19 07:45 Resp 16 11/19/19 08:00 BP 152/85 11/19/19 07:45 Pulse Ox 94 L 11/19/19 07:45 Intake & Output 11/18/19 11/19/19 11/19/19 18:59 06:59 18:59 Intake Total 2305 150 840 Balance 2305 150 840 Weight 75.6 kg Intake: IV 985 30 40 Invasive Line 1 10 30 40 Invasive Line 2 10 Sodium Chloride 0.9% 1, 600 000 ml @ 75 mls/hr IV . [id number] [facility] Rx#:[id number] Oral 1320 120 800 Other: Voiding Method Toilet Toilet # Voids 2 1 # Bowel Movements 1 - Labs CBC & Chem 7: 11/19/19 06:08 11/19/19 06:08 Labs: Abnormal Lab Results - Last 24 Hours (Table) 11/18/19 11/18/19 11/18/19 Range/Units 12:38 12:38 16:33 Lymphocytes # (1.0-4.8) k/uL APTT 31.3 H (22.0-30.0) sec Chloride (98-107) mmol/L BUN 23 H (7-17) mg/dL Creatinine 1.19 H (0.52-1.04) mg/dL Glucose 145 H (74-99) mg/dL AST (14-36) U/L Troponin I 4.400 H* (0.000-0.034) ng/mL Total Protein (6.3-8.2) g/dL Albumin (3.5-5.0) g/dL 11/18/19 11/19/19 11/19/19 Range/Units 18:34 06:08 06:08 Lymphocytes # 0.8 L (1.0-4.8) k/uL APTT (22.0-30.0) sec Chloride 109 H (98-107) mmol/L BUN 22 H (7-17) mg/dL Creatinine 1.19 H (0.52-1.04) mg/dL Glucose (74-99) mg/dL AST 40 H (14-36) U/L Troponin I 4.960 H* (0.000-0.034) ng/mL Total Protein 5.7 L (6.3-8.2) g/dL Albumin 3.1 L (3.5-5.0) g/dL
[2019-11-19] MEDS ORDERED: ISOSORBIDE MONONITRATE ER 30 MG TAB.ER.24H PO STA (17:32)
[2019-11-19] MEDS: ALPRAZolam 1 MG TAB PO PRN (20:18)
[2019-11-19] MEDS: ZOLPIDEM 10 MG TAB PO PRN (20:18)
[2019-11-19] MEDS: METOPROLOL SUCCINATE (ER) 50 MG TAB.ER.24H PO SCH (20:18)
[2019-11-19] MEDS: ATORVASTATIN 80 MG TAB PO SCH (20:18)
[2019-11-19] MEDS: [UNRECOGNIZED DRUG - OTHER] PO SCH (21:00)
[2019-11-19] MEDS ORDERED: ISOSORBIDE MONONITRATE ER 30 MG TAB.ER.24H PO SCH (21:00)
[2019-11-20 06:29] LABS: Basophils % (A) 0 %; Eosinophils # (A) 0.2 k/uL (0-0.7); Eosinophils % (A) 3 %; HGB 12.2 gm/dL (11.4-16.0); Lymphocytes # (A) 0.9 k/uL (1.0-4.8); Lymphocytes % (A) 16 %; MCH 30.6 pg (25.0-35.0); MCHC 31.2 g/dL (31.0-37.0); MCV 98.1 fL (80.0-100.0); Mean Platelet Volume 8.4; Monocytes # (A) 0.3 k/uL (0-1.0); Monocytes % (A) 6 %; Neutrophils # (A) 4.2 k/uL (1.3-7.7); Neutrophils % (A) 73 %; Platelet Count 137 k/uL (150-450); RBC 3.98 m/uL (3.80-5.40); RDW 15.6 % (11.5-15.5); WBC 5.8 k/uL (3.8-10.6)
[2019-11-20] MEDS: LISINOPRIL 20 MG TAB PO SCH (08:49)
[2019-11-20] MEDS: TICAGRELOR 90 MG TAB PO SCH ×2 (08:49→19:56)
[2019-11-20] MEDS: ISOSORBIDE MONONITRATE ER 30 MG TAB.ER.24H PO SCH ×2 (08:49→19:56)
[2019-11-20] MEDS: amLODIPine 5 MG TAB PO SCH (08:49)
[2019-11-20] MEDS: ASPIRIN 81 MG PO SCH (08:49)
[2019-11-20] MEDS: METOPROLOL SUCCINATE (ER) 25 MG TAB.ER.24H PO SCH (08:49)
--- NOTE | 2019-11-20 12:50 | P.PN ---
Subjective Progress Note Date: 11/20/19 This is a very pleasant 73-year-old female patient who follows with Dr. Perez in the office on regular basis with a past medical history significant for coronary artery disease and prior coronary artery bypass grafting as well as stenting, hypertension, and dyslipidemia, was transferred from [facility] to [facility] for further cardiac evaluation. Patient ruled in for an acute non-ST elevation myocardial infarction, had critical in-stent restenosis of the RCA for which the patient underwent PCI. She was seen and examined this morning, she states that she did not sleep well last night, because there was some patients that were yelling in their room. She denies any chest discomfort, her breathing is overall stable. Blood pressure 116/60 with a heart rate in the 60s, 92% on 2 L of oxygen. White blood cell count 5.8, hemoglobin 12.2, platelet count 137. Objective - Vital Signs Vital signs: Vital Signs Temp 97.7 F 11/20/19 11:30 Pulse 62 11/20/19 11:30 Resp 16 11/20/19 11:32 BP 117/67 11/20/19 11:30 Pulse Ox 92 L 11/20/19 11:30 Intake & Output 11/19/19 11/20/19 11/20/19 18:59 06:59 18:59 Intake Total 1900 1140 Balance 1900 1140 Weight 74.6 kg Intake: IV 60 Invasive Line 1 60 Oral 1840 1140 Other: Voiding Method Toilet Toilet Toilet # Voids 1 - Exam PHYSICAL EXAMINATION: GENERAL: 73-year-old female in no acute distress at the time of my examination HEENT: Head is atraumatic, normocephalic. Pupils equal, round. Sclera anicteric. Conjunctiva are clear. Mucous membranes of the mouth are moist. Neck is supple. There is no elevated jugular venous pressure. No carotid bruit is heard. HEART EXAMINATION: Heart S1, S2 normal. No murmur or gallop heard. CHEST EXAMINATION: Lungs are clear to auscultation and precussion. No chest wall tenderness is noted on palpation or with deep breathing. ABDOMEN: Soft, nontender. Bowel sounds are heard. No organomegaly noted. EXTREMITIES: 2+ peripheral pulses with no evidence of peripheral edema and no calf tenderness noted. Right radial site clean and dry, good distal pulse. NEUROLOGIC patient is awake, alert and oriented 3 . . - Labs CBC & Chem 7: 11/20/19 05:50 11/19/19 06:08 Labs: Abnormal Lab Results - Last 24 Hours (Table) 11/20/19 Range/Units 05:50 RDW 15.6 H (11.5-15.5) % Plt Count 137 L (150-450) k/uL Lymphocytes # 0.9 L (1.0-4.8) k/uL Assessment and Plan Plan: Assessment and plan #1 non-ST elevation [place], status post PCI of in-stent restenosis in the RCA #2 known history of coronary artery disease with prior RCA stenting #3 hypertension #4 hyperlipidemia #5 history of DVT #6 COPD Plan From cardiology's perspective, the patient may be discharged home today. She stated that her primary was going to keep her for one more day in the hospital monitoring her O2 sats. When she is discharged home from the hospital we will make her a follow-up appointment in the office post discharge with Dr. Perez DNP note has been reviewed, I agree with a documented findings and plan of care. Patient was seen and examined.
--- NOTE | 2019-11-20 15:15 | P.PN ---
Subjective Progress Note Date: 11/20/19 This is a 73-year-old female one of Dr. Sammy Hardin with a previous medical history significant for CAD post CABG 2 vessels back in 2006 with multiple stents placement with a PERRY to LAD and occluded all vein grafts with last heart catherization with multiple stents placed in the RCA, hyper tension and hypertensive cardiovascular disease, hyperlipidemia, diabetes mellitus type 2, PAD, history of adenocarcinoma of the cecum that was diagnosed back in 2017 followed by a right hemicolectomy with adjuvant chemotherapy in the form of FOLFOX under the care of Dr. Magdaleno, patient presented to the emergency department at [facility] after she developed to have a significant chest pain and pressure was described as an elephant sitting on her chest that startec at around 9:30 10:00 in the evening ended up going to [facility] EKG did show Q waves in infero-septal area with extremely elevated troponin she was given nitroglycerin and she was transferred to [facility] emergency department where cardiology was consulted because of her troponin was elevated and the patient was taken to the cath lab technologist for left heart catheterization which showed a metal jackets without injecting a dye and there were significant in-stent stenosis at [facility] mid part of her RCA so this was ballooned with stent placement due to sifgnificant stent burden from the proximal to the distal RCA and she had a very good angiographic results from 99% to 0 % and she was started on ASA 81 mg orally daily, Brilinta 90 mg orally bid along with Lipitor 80 mg orally daily, Imdur 30 mg orally daily along with Toprol XL and was admitted to cardiac floor . 3/1: Patient is feeling better today she did require quite a bit of oxygen yesterday she was seen in consultation by bipolar medicine, she was started on nitroglycerin paste and her chest pain is a lot better today she continues to be a bit short of breath however she is requiring about 2 L nasal cannula this time, she has no pleurisy, she has no hemoptysis, she has no chest pain at this point in time, she has no abdominal pain, nausea, vomiting or diarrhea, she has no edema both lower extremity is. 3/2: Patient currently had 2 episodes of chest pain during the night in Imdur was increased by cardiology to 30 mg twice daily. Echocardiogram is currently pending. Patient was ambulated and pulse ox dropped down to 84% and home oxygen will be arranged. Patient did have a normal bowel movement this morning. Repeat CBC today is unremarkable. Patient has been afebrile, heart rate 62, blood pressure 117/67, pulse ox 92% on 2 L nasal cannula. Patient is cleared for discharge home from cardiology. Plan to monitor patient overnight and plan for discharge tomorrow. Objective - Vital Signs Vital signs: Vital Signs Temp 98.1 F 11/20/19 08:00 Pulse 59 L 11/20/19 08:00 Resp 16 11/20/19 08:30 BP 143/75 11/20/19 08:00 Pulse Ox 94 L 11/20/19 08:30 Intake & Output 11/19/19 11/20/19 11/20/19 18:59 06:59 18:59 Intake Total 1900 1140 Balance 1900 1140 Weight 74.6 kg Intake: IV 60 Invasive Line 1 60 Oral 1840 1140 Other: Voiding Method Toilet Toilet Toilet # Voids 1 - Exam Review of Systems Constitutional: Denies chills, Denies chronic headaches, Denies malaise, Denies weakness, Denies weight gain, Denies weight loss Eyes: denies blurred vision, denies bulging eye, denies decreased vision, denies diplopia Ears, nose, mouth and throat: Denies dysphagia, Denies neck lump, Denies sore throat Cardiovascular: Reports chest pain, Reports dyspnea on exertion, Reports shortness of breath, Denies decreased exercise tolerance, Denies leg edema, Denies lightheadedness, Denies rapid heart beat, Denies syncope Respiratory: Reports dyspnea, Denies congestion, Denies cough, Denies cough with sputum, on 2 L cannula was at 6 L yesterday, Denies pain, Denies sleep apnea, Denies snoring, Denies wheezing Gastrointestinal: Denies abdominal pain, Denies bloating, Denies BRBPR, Denies excessive gas, Denies melena, Denies nausea, Denies vomiting Genitourinary: Denies dysuria, Denies nocturia Menstruation: Reports postmenopausal Musculoskeletal: absent: ankle pain, ankle stiffness, ankle swelling, elbow pain, elbow stiffness, elbow swelling, foot pain, foot stiffness, foot swelling, hand pain, hand stiffness, hand swelling, hip pain, hip stiffness, hip swelling, knee pain, knee stiffness, knee swelling, shoulder pain, shoulder stiffness, shoulder swelling, wrist pain, wrist stiffness, wrist swelling Integumentary: Denies pruritus, Denies rash Neurological: Denies numbness, Denies weakness Psychiatric: Denies anxiety, Denies depression Endocrine: Denies fatigue, Denies weight change Physical examination HEENT: Head is atraumatic, normal cephalic, pupils were equal round reactive to light and accommodation, extraocular muscle movement were intact. Neck: Supple, no JVP. Chest: Decreased breath sounds at the bases, few rhonchi, no expiratory wheezes, no chest wall tenderness, no intercostal retractions. Heart: First heart sound is depressed, second heart sounds normal, there is systolic ejection murmur 2/6 located in the left sternal border. Abdomen: Soft, nontender, nondistended, positive bowel sounds. Extremities: No edema no calf tenderness, no status pedis + bilaterally. Neurologic examination: Awake alert and oriented 3, cranial nerves II-12 appear grossly intact. Muscle power 4 out of 5 in upper and lower extremity is bilaterally. - Labs CBC & Chem 7: 11/20/19 05:50 11/19/19 06:08 Labs: Abnormal Lab Results - Last 24 Hours (Table) 11/20/19 Range/Units 05:50 RDW 15.6 H (11.5-15.5) % Plt Count 137 L (150-450) k/uL Lymphocytes # 0.9 L (1.0-4.8) k/uL Assessment and Plan Plan: 1. Non-ST elevation [place] with unstable angina in a patient with a prior history of CAD post CABG and multiple PCI's in the past and S/P Balloon angioplasty without stent placement. Continue patient on aspirin 81 mg orally once every day, Brilinta 90 mg orally bid, continue patient on Lipitor 80 mg orally once every day, Toprol XL 50 mg at bedtime and 25 mg in the morning, and Imdur increased to 30 mg twice daily. 2. Acute hypoxic respiratory failure due to recent [place] and possible systolic heart failure doubt PE. we will hold off CTA as her GFR 45 we will continue with O2 support and will check Echocardiogram. 3. History of CAD post CABG and PCI multiple times . Continue ASA 81 mg orally daily, Brilinta 90 mg orally bid, will continue with NTP, Lipitor 80 mg orally daily and Toprol XL 50 mg at bedtime and 25 mg in AM. 4. History of adenocarcinoma of the colon status post right hemicolectomy followed by adjuvant chemotherapy in the form of FOLFOX. Currently in remission. 5. Hypertension and hypertensive cardiovascular disease. Continue lisinopril 20 mg once every day, Toprol 50 mg orally at bedtime and 25 mg in the morning and amlodipine 5 mg orally once every day . 6. Hyperlipidemia. Continue patient on Lipitor 80 mg orally daily. 7. Diabetes mellitus type 2. Diet-controlled. 8. PAD. Continue patient on ASA and Lipitor for secondary prevention. 9. DVT prophylaxis. Brilinta. 10. GI prophylaxis. Pepcid 20 mg orally once every day. 11. CKD stage 3. avoid anymore contrast unless clinically indicated. Discharge plan: Home tomorrow Impression and plan of care have been directed as dictated by the signing physician. Krystal Morelos nurse practitioner acting as scribe for signing physician.
[2019-11-20] MEDS: FAMOTIDINE 20 MG TAB PO SCH (16:42)
[2019-11-20] MEDS: METOPROLOL SUCCINATE (ER) 50 MG TAB.ER.24H PO SCH (19:56)
[2019-11-20] MEDS: ATORVASTATIN 80 MG TAB PO SCH (19:56)
[2019-11-20] MEDS: [UNRECOGNIZED DRUG - OTHER] PO SCH (20:02)
[2019-11-20] MEDS: ALPRAZolam 1 MG TAB PO PRN (22:30)
[2019-11-20] MEDS: ZOLPIDEM 10 MG TAB PO PRN (23:43)
[2019-11-21 05:50] VITALS: RESP 18
[2019-11-21 07:09] LABS: Basophils % (A) 1 %; Eosinophils # (A) 0.1 k/uL (0-0.7); Eosinophils % (A) 2 %; HCT 37.5 % (34.0-46.0); HGB 11.8 gm/dL (11.4-16.0); Hypochromasia Slight; Lymphocytes # (A) 0.9 k/uL (1.0-4.8); Lymphocytes % (A) 14 %; MCHC 31.5 g/dL (31.0-37.0); MCV 98.3 fL (80.0-100.0); Macrocytosis Slight; Mean Platelet Volume 9.2; Monocytes # (A) 0.4 k/uL (0-1.0); Monocytes % (A) 6 %; Neutrophils # (A) 4.5 k/uL (1.3-7.7); Neutrophils % (A) 74 %; Platelet Count 137 k/uL (150-450); RBC 3.82 m/uL (3.80-5.40); RDW 15.4 % (11.5-15.5); WBC 6.1 k/uL (3.8-10.6)
[2019-11-21 08:23] VITALS: TEMP 97.7
[2019-11-21] MEDS: amLODIPine 5 MG TAB PO SCH (08:24)
[2019-11-21] MEDS: LISINOPRIL 20 MG TAB PO SCH (08:24)
[2019-11-21] MEDS: FAMOTIDINE 20 MG TAB PO SCH (08:24)
[2019-11-21] MEDS: TICAGRELOR 90 MG TAB PO SCH (08:24)
[2019-11-21] MEDS: METOPROLOL SUCCINATE (ER) 25 MG TAB.ER.24H PO SCH (08:24)
[2019-11-21] MEDS: ISOSORBIDE MONONITRATE ER 30 MG TAB.ER.24H PO SCH (08:24)
[2019-11-21] MEDS: ASPIRIN 81 MG PO SCH (08:25)
[2019-11-21 12:19] VITALS: BP 119/58; PULSE 61
--- NOTE | 2019-11-21 12:55 | P.PN ---
Subjective Progress Note Date: 11/21/19 This is a very pleasant 73-year-old female patient who follows with Dr. Perez in the office on regular basis with a past medical history significant for coronary artery disease and prior coronary artery bypass grafting as well as stenting, hypertension, and dyslipidemia, was transferred from [facility] to [facility] for further cardiac evaluation. Patient ruled in for an acute non-ST elevation myocardial infarction, had critical in-stent restenosis of the RCA for which the patient underwent PCI. She was seen and examined this morning, she states that she did not sleep well last night, because there was some patients that were yelling in their room. She denies any chest discomfort, her breathing is overall stable. Blood pressure 116/60 with a heart rate in the 60s, 92% on 2 L of oxygen. White blood cell count 5.8, hemoglobin 12.2, platelet count 137. 11/21/2019 Patient seen and, denies any chest pressure heaviness, breathing overall is stable. Blood pressure 118/60 with a heart rate in the 60s, 94% on 2 L. White blood cell count 6.1, hemoglobin 11.8, platelet count 137. Objective - Vital Signs Vital signs: Vital Signs Temp 97.7 F 11/21/19 11:55 Pulse 61 11/21/19 12:00 Resp 18 11/21/19 12:00 BP 119/58 11/21/19 11:55 Pulse Ox 94 L 11/21/19 11:55 Intake & Output 11/20/19 11/21/19 11/21/19 18:59 06:59 18:59 Intake Total 1700 1080 Output Total 650 Balance 1700 430 Weight 71 kg Intake: Oral 1700 1080 Output: Urine 650 Other: Voiding Method Toilet Toilet Toilet # Voids 1 - Exam PHYSICAL EXAMINATION: GENERAL: 73-year-old female in no acute distress at the time of my examination HEENT: Head is atraumatic, normocephalic. Pupils equal, round. Sclera ani cteric. Conjunctiva are clear. Mucous membranes of the mouth are moist. Neck is supple. There is no elevated jugular venous pressure. No carotid bruit is heard. HEART EXAMINATION: Heart S1, S2 normal. No murmur or gallop heard. CHEST EXAMINATION: Lungs are clear to auscultation and precussion. No chest wall tenderness is noted on palpation or with deep breathing. ABDOMEN: Soft, nontender. Bowel sounds are heard. No organomegaly noted. EXTREMITIES: 2+ peripheral pulses with no evidence of peripheral edema and no calf tenderness noted. Right radial site clean and dry, good distal pulse. NEUROLOGIC patient is awake, alert and oriented 3 . . - Labs CBC & Chem 7: 11/21/19 06:24 11/19/19 06:08 Labs: Abnormal Lab Results - Last 24 Hours (Table) 11/21/19 Range/Units 06:24 Plt Count 137 L (150-450) k/uL Lymphocytes # 0.9 L (1.0-4.8) k/uL Assessment and Plan Plan: Assessment and plan #1 non-ST elevation VA, status post PCI of in-stent restenosis in the RCA #2 known history of coronary artery disease with prior RCA stenting #3 hypertension #4 hyperlipidemia #5 history of DVT #6 COPD Plan From cardiology's perspective, the patient may be discharged home today. Follow-up appointment in the office with Dr. Art Perez post discharge. DNP note has been reviewed, I agree with a documented findings and plan of care. Patient was seen and examined.
--- NOTE | 2019-11-21 18:58 | ECHOF ---
Referral Reason:lv fxn MEASUREMENTS -------- HEIGHT: 162.6 cm WEIGHT: 74.4 kg BP: 124/77 RVIDd: 3.0 cm (< 3.3) IVSd: 1.3 cm (0.6 - 1.1) LVIDd: 4.1 cm (3.9 - 5.3) LVPWd: 1.5 cm (0.6 - 1.1) IVSs: 1.7 cm LVIDs: 2.3 cm LVPWs: 1.8 cm LAESV Index (A-L): 44.39 ml/m Ao Diam: 3.3 cm (2.0 - 3.7) AV Cusp: 1.7 cm (1.5 - 2.6) MV EXCURSION: 11.027 mm (> 18.000) MV EF SLOPE: 32 mm/s (70 - 150) EPSS: 0.5 cm MV E Je: 1.07 m/s MV DecT: 292 ms MV A Je: 1.27 m/s MV E/A Ratio: 0.84 RAP: 5.00 mmHg RVSP: 21.41 mmHg FINDINGS -------- Sinus rhythm. This was a technically adequate study. The left ventricular size is normal. There is moderate concentric left ventricular hypertrophy. O verall left ventricular systolic function is low-normal with, an EF between 50 - 55 %. There is par adoxical/dysynergic septal motion consistent with post-operative status. Mitral Doppler inflow tino abilio suggests diastolic filling abnormality 28.65. The right ventricle is normal in size. LA is severely dilated >40 ml/m2 The right atrial size is normal. Interatrial and interventricular septum intact. The aortic valve is trileaflet and appears structurally normal. There is no evidence of aortic regu rgitation. There is no evidence of aortic stenosis. Mild mitral annular calcification present. Blqvvpnv-rq-shchyx mitral regurgitation is present. Mild tricuspid regurgitation present. There is no evidence of pulmonary hypertension. The right v entricular systolic pressure, as measured by Doppler, is 21.41mmHg. There is no pulmonic regurgitation present. The aortic root size is normal. Normal inferior vena cava with normal inspiratory collapse consistent with estimated right atrial pre ssure of 5 mmHg. Echo free space represents a pericardial fat pad. There is no pericardial effusion. CONCLUSIONS -------- 1. Sinus rhythm. 2. This was a technically adequate study. 3. The left ventricular size is normal. 4. There is moderate concentric left ventricular hypertrophy. 5. Overall left ventricular systolic function is low-normal with, an EF between 50 - 55 %. 6. There is paradoxical/dysynergic septal motion consistent with post-operative status. 7. Mitral Doppler inflow pattern suggest diastolic filling abnormality 28.65. 8. The right ventricle is normal in size. 9. LA is severely dilated >40 ml/m2 10. The right atrial size is normal. 11. Interatrial and interventricular septum intact. 12. The aortic valve is trileaflet and appears structurally normal. 13. There is no evidence of aortic regurgitation. 14. There is no evidence of aortic stenosis. 15. Mild mitral annular calcification present. 16. Tclzenes-xn-ujotay mitral regurgitation is present. 17. Mild tricuspid regurgitation present. 18. There is no evidence of pulmonary hypertension. 19. The right ventricular systolic pressure, as measured by Doppler, is 21.41mmHg. 20. There is no pulmonic regurgitation present. 21. The aortic root size is normal. 22. Normal inferior vena cava with normal inspiratory collapse consistent with estimated right atrial pressure of 5 mmHg. 23. Echo free space represents a pericardial fat pad. 24. There is no pericardial effusion. HOT CELL TECHNICIAN: Taylor Carrasco RDCS
--- NOTE | 2019-11-22 09:17 | P.DS ---
Providers Date of admission: 11/18/19 08:00 Expected date of discharge: 11/21/19 Attending physician: Emmanuel Dukes Consults: 11/18/19 08:00 Consult Physician Urgent Consulting Provider: Stephon Govea Consult Reason/Comments: NSTEMI Do you want consulting provider notified?: Already Contacted 11/18/19 08:53 Consult Physician Routine Consulting Provider: Nellie Roberts Reason/Comments: NSTEMI Do you want consulting provider notified?: Yes, Notify in am Primary care physician: Wilfred Christianson [facility] Course: This is a 73-year-old female one of Dr. 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 Magdaleno, patient presented to the emergency department at [facility] after she developed to have a significant chest pain and pressure was described as an elephant sitting on her chest that startec at around 9:30 10:00 in the evening ended up going to [facility] EKG did show Q waves in infero-septal area with extremely elevated troponin she was given nitroglycerin and she was transferred to [facility] emergency department where cardiology was consulted because of her troponin was elevated and the patient was taken to the record label intern for left heart catheterization which showed a metal jackets without injecting a dye and there were significant in-stent stenosis at [facility] mid part of her RCA so this was ballooned with stent placement due to sifgnificant stent burden from the proximal to the distal RCA and she had a very good angiographic results from 99% to 0 % and she was started on ASA 81 mg orally daily, Brilinta 90 mg orally bid along with Lipitor 80 mg orally daily, Imdur 30 mg orally daily along with Toprol XL and was admitted to cardiac floor . 11/18: Patient is feeling better today she did require quite a bit of oxygen yesterday she was seen in consultation by bipolar medicine, she was started on nitroglycerin paste and her chest pain is a lot better today she continues to be a bit short of breath however she is requiring about 2 L nasal cannula this time, she has no pleurisy, she has no hemoptysis, she has no chest pain at this point in time, she has no abdominal pain, nausea, vomiting or diarrhea, she has no edema both lower extremity is. 3/: Patient currently had 2 episodes of chest pain during the night in Imdur was increased by cardiology to 30 mg twice daily. Echocardiogram is currently pending. Patient was ambulated and pulse ox dropped down to 84% and home oxygen will be arranged. Patient did have a normal bowel movement this morning. Repeat CBC today is unremarkable. Patient has been afebrile, heart rate 62, blood pressure 117/67, pulse ox 92% on 2 L nasal cannula. Patient is cleared for discharge home from cardiology. Plan to monitor patient overnight and plan for discharge tomorrow. 3: Echocardiogram reveals EF of 50-55% with moderate concentric left ventricular hypertrophy, paradoxical/dysynergic septal motion consistent with postoperative status, LA severely dilated greater than 40 mL/M2, moderate to severe mitral regurgitation, mild tricuspid regurgitation, no pulmonary hyper tension, RVSP 21.41 mmHg. The patient has been seen by cardiology this morning cleared for discharge. Patient continues to require home oxygen which has been arranged and will be delivered today. Patient states that she is not eating a lot. She denies any chest pain or shortness of breath. No lightheadedness or dizziness. Patient will be discharged home today in stable condition. Discharge diagnoses: 1. Non-ST elevation IN with unstable angina in a patient with a prior history of CAD post CABG and multiple PCI's in the past and S/P Balloon angioplasty without stent placement. 2. Acute hypoxic respiratory failure due to recent IN and possible systolic heart failure doubt PE. 3. History of CAD post CABG and PCI multiple times. 4. History of adenocarcinoma of the colon status post right hemicolectomy followed by adjuvant chemotherapy in the form of FOLFOX. Currently in remission. 5. Hypertension and hypertensive cardiovascular disease. 6. Hyperlipidemia. 7. Diabetes mellitus type 2. Diet-controlled. 8. PAD. 9. CKD stage 3. Discharge plan: Home Impression and plan of care have been directed as dictated by the signing physician. Krystal Morelos nurse practitioner acting as scribe for signing physician. Patient Condition at Discharge: Good Plan - Discharge Summary New Discharge Prescriptions: New Isosorbide Mononitrate ER [Imdur] 30 mg PO BID #60 tab.er.24h Continue Zolpidem Tartrate [Ambien] 10 mg PO HS ALPRAZolam [Xanax] 1 mg PO BID amLODIPine [Norvasc] 5 mg PO DAILY #30 tab Lisinopril [Zestril] 20 mg PO DAILY Aspirin [Adult Low Dose Aspirin EC] 81 mg PO DAILY quiNINE SULFATE 324 mg PO HS Nitroglycerin Sl Tabs [Nitrostat] 0.4 mg SUBLINGUAL Q5M PRN PRN Reason: Chest Pain Metoprolol Tartrate [Lopressor] 50 mg PO QAM Atorvastatin [Lipitor] 80 mg PO DAILY Ticagrelor [Brilinta] 90 mg PO BID Metoprolol Tartrate 25 mg PO HS Discontinued Isosorbide Mononitrate [Isosorbide Mononitrate ER] 30 mg PO DAILY Discharge Medication List ALPRAZolam [Xanax] 1 mg PO BID 03/10/17 [History] Zolpidem Tartrate [Ambien] 10 mg PO HS 03/10/17 [History] amLODIPine [Norvasc] 5 mg PO DAILY #30 tab 05/17/17 [Rx] Aspirin [Adult Low Dose Aspirin EC] 81 mg PO DAILY 06/19/19 [History] Lisinopril [Zestril] 20 mg PO DAILY 06/19/19 [History] Atorvastatin [Lipitor] 80 mg PO DAILY 11/18/19 [History] Metoprolol Tartrate 25 mg PO HS 11/18/19 [History] Metoprolol Tartrate [Lopressor] 50 mg PO QAM 11/18/19 [History] Nitroglycerin Sl Tabs [Nitrostat] 0.4 mg SUBLINGUAL Q5M PRN 11/18/19 [History] Ticagrelor [Brilinta] 90 mg PO BID 11/18/19 [History] quiNINE SULFATE 324 mg PO HS 11/18/19 [History] Isosorbide Mononitrate ER [Imdur] 30 mg PO BID #60 tab.er.24h 11/21/19 [Rx] Follow up Appointment(s)/Referral(s): Pretty Perez MD [STAFF PHYSICIAN] - 1 Week (Spoke to airline lounge receptionist. Office will call you with appointment time) [facility] [NON-STAFF] - 1 Week (After discharge, you will follow- up with your hand endband cutter. Once you have obtained a prescription for cardiac rehab, please call [phone] to set up an evaluation.) [facility] [NON-STAFF] - 1 Week Wilfred Christianson MD [Primary Care Provider] - 11/28/19 1:45 pm (Wednesday) Patient Instructions/Handouts: *Surgery [facility] - After Heart Catheterization - Jailer Instructions, Heart Healthy Diet (DC), Cardiac Rehabilitation (DC) Discharge Disposition: HOME SELF-CARE
--- NOTE | 2019-11-23 15:29 | CDI ---
Documentation Clarification Form Date: 11/23/19 From: Leydi Zamora CCS Phone: If you have a question about this query, please contact Luisa Anaya, System Programmer at [phone] between 8am and 5pm. Admit Date: 11/18/19 Discharge Date: 11/21/19 Patient Name: Charo Keene Visit Number: [id number] ATTENTION: The Clinical Documentation Specialists (CDI) and [facility] Coding Staff appreciate your assistance in clarifying documentation. Please respond to the clarification below the line at the bottom and electronically sign. The CDI & [facility] Coding staff will review the response and follow-up if needed. Please note: Queries are made part of the Legal Health Record. If you have any questions, please contact the author of this message via ITS. Dear Dr. Dukes, Possible systolic CHF is documented in the PNs, DS. History/Risk Factors: CAD, HHD, CKD, TN, DM Clinical Indicators: Acute hypoxic respiratory failure BNP: 7260 Echocardiogram Results: EF of 50-55% with moderate concentric left ventricular hypertrophy, paradoxical/dysynergic septal motion consistent with postoperative status, LA severely dilated greater than 40 mL/M2, moderate to severe mitral regurgitation, mild tricuspid regurgitation, no pulmonary hypertension, RVSP 21.41 mmHg. Chest X Ray: MILD CARDIOMEGALY. Treatment: Lisinopril 20 mg PO daily, Metoprolol 25/50 mg PO In your professional opinion, can you please clarify the acuity and type of CHF if known? Systolic Heart Failure: Acute Chronic Acute on Chronic Unable to Determine Other, please specify Chronic diastolic heart failure. MTDD
== END 2019-11-21 19:03 | disposition home or self-care (01) | DRG 250 ==
LOC: EC 06:05 → 3SCARD 08:00
PROVIDERS: ADMIT Internal Medicine; ATTEND Internal Medicine
PROC: 02703ZZ Dilation of Coronary Artery, One Artery, Percutaneous Approach (ICD-10-PCS; principal; 2019-11-18 08:08)
PROC: 4A023N7 Measurement of Cardiac Sampling and Pressure, Left Heart, Percutaneous Approach (ICD-10-PCS; principal; 2019-11-18 08:08)
PROC: B2111ZZ Fluoroscopy of Multiple Coronary Arteries using Low Osmolar Contrast (ICD-10-PCS; principal; 2019-11-18 08:08)
DX: I97.190 Other postprocedural cardiac functional disturbances following cardiac surgery (principal); I21.4 Non-ST elevation (NSTEMI) myocardial infarction; J96.01 Acute respiratory failure with hypoxia; T82.855A Stenosis of coronary artery stent, initial encounter; I25.810 Atherosclerosis of coronary artery bypass graft(s) without angina pectoris; I13.0 Hypertensive heart and chronic kidney disease with heart failure and stage 1 through stage 4 chronic kidney disease, or unspecified chronic kidney disease; I50.32 Chronic diastolic (congestive) heart failure; N18.3 Chronic kidney disease, stage 3 (moderate); E11.51 Type 2 diabetes mellitus with diabetic peripheral angiopathy without gangrene; E11.22 Type 2 diabetes mellitus with diabetic chronic kidney disease; I25.10 Atherosclerotic heart disease of native coronary artery without angina pectoris; E78.5 Hyperlipidemia, unspecified; J44.9 Chronic obstructive pulmonary disease, unspecified; M19.90 Unspecified osteoarthritis, unspecified site; L40.9 Psoriasis, unspecified; K21.9 Gastro-esophageal reflux disease without esophagitis; I83.90 Asymptomatic varicose veins of unspecified lower extremity; G43.909 Migraine, unspecified, not intractable, without status migrainosus; I65.29 Occlusion and stenosis of unspecified carotid artery; F41.9 Anxiety disorder, unspecified; I08.1 Rheumatic disorders of both mitral and tricuspid valves; Y83.1 Surgical operation with implant of artificial internal device as the cause of abnormal reaction of the patient, or of later complication, without mention of misadventure at the time of the procedure; I25.2 Old myocardial infarction; Z79.82 Long term (current) use of aspirin; Z79.899 Other long term (current) drug therapy; Z86.718 Personal history of other venous thrombosis and embolism; Z85.038 Personal history of other malignant neoplasm of large intestine; Z85.51 Personal history of malignant neoplasm of bladder; Z95.1 Presence of aortocoronary bypass graft; Z95.5 Presence of coronary angioplasty implant and graft; Z90.49 Acquired absence of other specified parts of digestive tract; Z98.42 Cataract extraction status, left eye; Z98.41 Cataract extraction status, right eye; Z98.890 Other specified postprocedural states; Z87.891 Personal history of nicotine dependence; Z92.21 Personal history of antineoplastic chemotherapy; Z82.49 Family history of ischemic heart disease and other diseases of the circulatory system; Z80.49 Family history of malignant neoplasm of other genital organs; Z80.6 Family history of leukemia
CPT/HCPCS: 36415; 71046; 80048; 80053; 80061; 83735; 83880; 84484; 85025; 85379; 85610; 85730; 92920; 93005; 93306; 93454; 99285

== ENCOUNTER 2020-01-12 04:28 | Inpatient (IN) | payer MEDICARE, BC ==
[2020-01-12] MEDS ORDERED: HEPARIN SODIUM,PORCINE 5,000 UNIT/ML 1 ML VIAL IV PRN (04:43)
[2020-01-12] MEDS ORDERED: MORPHINE SULFATE 4 MG/ML SYRINGE IV STA (04:43)
[2020-01-12] MEDS ORDERED: HEPARIN SODIUM,PORCINE 5,000 UNIT/ML 1 ML VIAL IV ONE (04:43)
[2020-01-12] MEDS ORDERED: HEPARIN SOD,PORK IN 0.45% NACL 25,000 UNIT in 0.45% NACL 1 250ML.BAG IV SCH (04:45)
[2020-01-12 05:08] LABS: Basophils # (A) 0.1 k/uL (0-0.2); Basophils % (A) 1 %; Eosinophils # (A) 0.2 k/uL (0-0.7); Eosinophils % (A) 3 %; HCT 45.2 % (34.0-46.0); HGB 13.9 gm/dL (11.4-16.0); Hypochromasia Slight; Lymphocytes # (A) 0.6 k/uL (1.0-4.8); Lymphocytes % (A) 11 %; MCH 30.8 pg (25.0-35.0); MCHC 30.8 g/dL (31.0-37.0); MCV 99.8 fL (80.0-100.0); Macrocytosis Slight; Monocytes # (A) 0.3 k/uL (0-1.0); Monocytes % (A) 6 %; Neutrophils # (A) 4.3 k/uL (1.3-7.7); Neutrophils % (A) 77 %; Platelet Count 181 k/uL (150-450); RBC 4.53 m/uL (3.80-5.40); RDW 15.9 % (11.5-15.5); WBC 5.6 k/uL (3.8-10.6)
--- NOTE | 2020-01-12 05:17 | XR ---
EXAMINATION TYPE: XR chest 1V portable DATE OF EXAM: 01/12/2020 COMPARISON: 11/19/2019 HISTORY: Short of breath. Chest pain. TECHNIQUE: FINDINGS: There is poor inspiration. There is some infiltrate and atelectasis at the lung bases. Ther e is no obvious heart failure. Bony thorax is intact. IMPRESSION: There is some infiltrate and atelectasis at both lung bases significantly increased nieves red to last exam. No obvious heart failure. There is probably pulmonary fibrosis.
[2020-01-12 05:20] LABS: Albumin 3.9 g/dL (3.5-5.0); Calcium 9.1 mg/dL (8.4-10.2); Magnesium 1.6 mg/dL (1.6-2.3); Potassium 3.8 mmol/L (3.5-5.1); Total Bilirubin 0.4 mg/dL (0.2-1.3); Total Protein 6.7 g/dL (6.3-8.2)
[2020-01-12 05:22] LABS: INR 0.9 (<1.2); Prothrombin Time 9.6 sec (9.0-12.0)
[2020-01-12 05:43] LABS: D-Dimer 1.33 mg/L FEU (<0.60)
[2020-01-12 05:45] LABS: Partial Thromboplastin Time 19.4 sec (22.0-30.0)
--- NOTE | 2020-01-12 06:53 | CT ---
EXAMINATION TYPE: CT chest angio for PE DATE OF EXAM: 01/12/2020 COMPARISON: None HISTORY: SOB, chest pain, elevated d dimer CT DLP: 421 mGycm Automated exposure control for dose reduction was used. CONTRAST: Performed with IV Contrast, patient injected with 100 mL of Isovue 370. There are 3-D post processed images. Heart is enlarged. There is no pericardial effusion. There is patchy pulmonary interstitial infiltrat es in both lungs. There is subpleural coalescent infiltrate in the posterior lung longoria. There is no pleural effusion. There are no hilar masses. There is no mediastinal adenopathy. Thoracic aorta show s no aneurysm or dissection. There is atheromatous change in the thoracic aorta. There are large pulmonary arteries. I see no filling defects in the pulmonary arteries. There is some spurring in the thoracic spine. I see no bony destructive process. There are sternal wi res. IMPRESSION: No evidence of pulmonary embolism. Large pulmonary arteries could relate to some pulmonary hypertensi on. Coarse infiltrates in both lungs could relate to pulmonary fibrosis. No pleural fluid seen to sug gest heart failure.
[2020-01-12] MEDS ORDERED: NITROGLYCERIN SL TABS 0.4 MG TAB SUBLINGUAL PRN ×3 (06:58→15:32)
--- NOTE | 2020-01-12 07:05 | ED ---
Chest Pain HPI - General Chief Complaint: Chest Pain Stated Complaint: Chest pain Time Seen by Provider: 01/12/20 04:33 Source: patient, EMS Mode of arrival: EMS - History of Present Illness Initial Comments: This patient is a 74-year-old woman who presents to be evaluated for pain in the upper portion of the chest just left of the sternum. She states that it started around 3 while she was lying in bed resting. She states the pain is identical to the pain that she had her past UT. The patient when the pain did not resolve called EMS. Patient has had aspirin and 2 nitroglycerin and states that the pain is a little better but still there. She had some nausea associated. MD Complaint: chest pain Onset/Timin -: minutes(s) Onset: during rest Pain Location: substernal, left chest Pain Radiation: RUE, LUE Severity: moderate Quality: aching Consistency: constant Improves With: nothing Worsens With: nothing Anginal Symptoms: nausea Treatments Prior to Arrival: aspirin, nitroglycerin, oxygen - Related Data Home Medications Medication Instructions Recorded Confirmed ALPRAZolam [Xanax] 1 mg PO BID 03/10/17 11/18/19 Zolpidem Tartrate [Ambien] 10 mg PO HS 03/10/17 11/18/19 Aspirin [Adult Low Dose Aspirin EC] 81 mg PO DAILY 06/19/19 11/18/19 Lisinopril [Zestril] 20 mg PO DAILY 06/19/19 11/18/19 Atorvastatin [Lipitor] 80 mg PO DAILY 11/18/19 11/18/19 Metoprolol Tartrate 25 mg PO HS 11/18/19 11/18/19 Metoprolol Tartrate [Lopressor] 50 mg PO QAM 11/18/19 11/18/19 Nitroglycerin Sl Tabs [Nitrostat] 0.4 mg SUBLINGUAL Q5M PRN 11/18/19 11/18/19 Ticagrelor [Brilinta] 90 mg PO BID 11/18/19 11/18/19 quiNINE SULFATE 324 mg PO HS 11/18/19 11/18/19 Previous Rx's Medication Instructions Recorded amLODIPine [Norvasc] 5 mg PO DAILY #30 tab 05/17/17 Isosorbide Mononitrate ER [Imdur] 30 mg PO BID #60 tab.er.24h 11/21/19 Allergies Allergy/AdvReac Type Severity Reaction Status Date / Time No Known Allergies Allergy Verified 01/12/20 04:42 Review of Systems ROS Statement: Those systems with pertinent positive or pertinent negative responses have been documented in the HPI. ROS Other: All systems not noted in ROS Statement are negative. Constitutional: Denies: fever, chills Respiratory: Denies: cough, dyspnea Cardiovascular: Reports: as per HPI, chest pain. Denies: palpitations, orthopnea, edema, syncope Gastrointestinal: Reports: nausea. Denies: abdominal pain, vomiting, diarrhea Genitourinary: Denies: dysuria, hematuria Musculoskeletal: Denies: back pain Skin: Denies: rash Neurological: Denies: headache Hematological/Lymphatic: Denies: easy bleeding EKG Findings - EKG Results: EKG: interpreted by VICTORIA, sinus rhythm (Rate 97 bpm), normal axis - UT, Pacemaker, Normal: Myocardial infarction: inferior UT (old age indeterminate) Past Medical History Past Medical History: Coronary Artery Disease (CAD), Cancer, Chest Pain / Angina, COPD, Diabetes Mellitus, Deep Vein Thrombosis (DVT), GERD/Reflux, Hyperlipidemia, Hypertension, Osteoarthritis (OA), Skin Disorder, Vascular Disorder Additional Past Medical History / Comment(s): colon cancer, hx migraine, irregular heartbeat, varicose veins, hx blood clot in rt arm after CABG surgery, psoriasis, diet control diabetic, anemia, hx bladder cancer x 3, PAD and disease of the ileo-aortic system, carotid artery stenosis History of Any Multi-Drug Resistant Organisms: None Reported Past Surgical History: Bladder Surgery, Bowel Resection, Coronary Bypass/CABG, Heart Catheterization Additional Past Surgical History / Comment(s): rt colectomy -2016,double CAGB 2005, bladder surgery x 3, aileen cataracts ,COLONOSCOPY Past Anesthesia/Blood Transfusion Reactions: Previous Problems w/ Anesthesia Additional Past Anesthesia/Blood Transfusion Reaction / Comment(s): had blood transfusion at [facility]- no problem with, "screaming and yelling from anesthesia after CAGB surgery" Past Psychological History: Anxiety Smoking Status: Former smoker Past Alcohol Use History: Occasional Past Drug Use History: None Reported - Past Family History Mother Family Medical History: Cancer (Mother at the age of 74 from seizure and had Cervical cancer), Coronary Artery Disease (CAD) Additional Family Medical History / Comment(s): cervical CA Father History Unknown: Yes Family Medical History: Unable to Obtain (Patient does not know much about her father.) Brother(s) Family Medical History: Cancer (Patient had two brother one at the age of 5 year from ALL the other one is fine.) Additional Family Medical History / Comment(s): leukemia Sister(s) Family Medical History: No Reported History (Patient has one sister with no major medical issues.) Son(s) Family Medical History: Cancer (Patient had 2 sons one from AML at the age of 42) Additional Family Medical History / Comment(s): leukemia General Exam General appearance: alert, in no apparent distress Head exam: Present: atraumatic, normocephalic Eye exam: Present: normal appearance. Absent: scleral icterus, conjunctival injection ENT exam: Present: normal oropharynx Neck exam: Present: normal inspection, full ROM Respiratory exam: Present: normal lung sounds bilaterally. Absent: respiratory distress, wheezes, rales, rhonchi, stridor Cardiovascular Exam: Present: regular rate, normal rhythm, normal heart sounds. Absent: systolic murmur, diastolic murmur, rubs, gallop GI/Abdominal exam: Present: soft. Absent: distended, tenderness, guarding, rebound, rigid, mass Extremities exam: Present: normal inspection, normal capillary refill. Absent: pedal edema, calf tenderness Back exam: Present: normal inspection. Absent: CVA tenderness (R), CVA tenderness (L) Neurological exam: Present: alert Skin exam: Present: warm, dry, intact, normal color. Absent: rash Course Vital Signs 01/12/20 01/12/20 04:32 06:19 Temperature 98.4 F Pulse Rate 101 H 89 Respiratory 18 18 Rate Blood Pressure 122/56 119/67 O2 Sat by Pulse 92 L 96 Oximetry Chest Pain MDM - MDM This patient is a 74-year-old woman with acute onset of chest pain reminiscent of previous UT. The patient has had resolution of symptoms with medication here. Case is discussed with Dr. Duncan, and patient will be admitted for serial cardiac enzymes, telemetry monitoring, cardiology consultation. As remain symptom-free at time of admission. Disposition Clinical Impression: Chest pain Disposition: ADMITTED IP TO THIS [facility] Condition: Fair Instructions (If sedation given, give patient instructions): Chest Pain (ED) Referrals: Wilfred Christianson MD [Primary Care Provider] - 1-2 days
[2020-01-12] MEDS ORDERED: MAG HYDROX/AL HYDROX/SIMETH 30 ML, HYOSCYAMINE ELIXIR 10 ML, LIDOCAINE VISCOUS 2% 10 ML PO ONE ×3 (07:13)
[2020-01-12] MEDS: ASPIRIN 81 MG PO SCH (09:00)
[2020-01-12] MEDS ORDERED: ALPRAZolam 1 MG TAB PO PRN (09:00)
[2020-01-12] MEDS: ATORVASTATIN 80 MG TAB PO SCH (09:00)
[2020-01-12] MEDS ORDERED: SODIUM CHLORIDE 0.9% 1,000 ML in EMPTY BAG 1 BAG IV ONE (09:55)
[2020-01-12] MEDS ORDERED: ALPRAZolam 0.25 MG TAB PO PRN (09:55)
[2020-01-12] MEDS ORDERED: ATORVASTATIN 80 MG TAB PO STA (09:55)
[2020-01-12] MEDS ORDERED: ASPIRIN 325 MG TAB PO STA (09:55)
[2020-01-12] MEDS ORDERED: ALPRAZolam 0.5 MG TAB PO PRN (09:55)
--- NOTE | 2020-01-12 11:03 | CONS ---
CONSULTATION Mrs. Keene is a 74-year-old female who follows by Dr. Gavin Perez on a regular basis has a known history of coronary artery disease, status post coronary artery bypass grafting in 2005. In June of 2019 underwent cardiac catheterization, was found to have patent PERRY to LAD with occluded saphenous vein graft and critical stenosis in the RCA. Underwent successful stenting of the RCA in a long segment because of a dissection. She has done well until end of October of this year, when she presented with non STEMI and was found to have in-stent restenosis in the mid RCA, underwent angioplasty of that vessel. She has been doing well since that time without any symptoms or chest pain, increasing her level activity, but then yesterday while at rest, She had severe chest discomfort radiating bilateral to the armpit, reminding her of the symptoms she had at the time for non STEMI. Her breathing was stable. She had no dizziness or palpitations and no syncope. She has no history of PND, orthopnea, or peripheral edema. In November, she underwent an echocardiogram that revealed ejection fraction of 50% to 55% with moderate to severe mitral and mild tricuspid regurgitation. Her coronary risk factors remarkable for a remote history of smoking. She is nondiabetic. She is hypertensive and hyperlipidemic. Her medications include isosorbide mononitrate 60 mg daily, Lipitor 80 mg daily, aspirin once a day, Zestril 20 mg daily, metoprolol tartrate 25 in the evening and 50 in the morning, Brilinta 90 mg twice a day, amlodipine 5 mg daily. REVIEW OF SYSTEMS: RESPIRATORY SYSTEM: She has no recent wheezing. No cough. No history of documented obstructive lung disease. GI SYSTEM: No recent GI bleeding, no peptic ulcer disease. SYSTEM: No dysuria or hematuria. NERVOUS SYSTEM: No stroke or seizure. PHYSICAL EXAMINATION: A 74-year-old female, alert, oriented, in no apparent distress. Blood pressure 130/70 with a heart rate in the 70s. HEAD: Normocephalic. EYES: Sclerae nonicteric. NECK: Good upstroke, no bruit, no venous distention. LUNGS: Clear to auscultation. HEART: Regular rate and rhythm, S1, S2. No S3 with systolic murmur heard at the base, ejection type, no diastolic murmur. no rub. ABDOMEN: Soft, nontender, positive bowel sounds, no organomegaly. EXTREMITIES: No edema. LAB DATA: Chest CT angiogram revealed no evidence of pulmonary embolism. Chest x-ray raised the possibility of pulmonary fibrosis. EKG revealed a sinus mechanism, normal axis with evidence of inferoapical myocardial infarction compared with the EKG that was done in the past. She had T-wave inversion inferiorly that has resolved. Her troponin is 0.018. BUN and creatinine 19 and 1.15, potassium 3.8. She is nance virus PCR negative. Hemoglobin of 13.9. IMPRESSION: 1. Symptoms of chest discomfort, consistent with unstable angina. Patient with known history of coronary artery disease, status post stenting of the RCA in a long segment and recent angioplasty. 2. Status post coronary artery bypass grafting with occluded saphenous vein graft and patent PERRY to the LAD. 3. History of hypertension. 4. History of hyperlipidemia. RECOMMENDATION: From the cardiac standpoint, I will continue on the present therapy. I will discuss her case with Dr. Gavin Perez who is her primary behavioral therapy coordinator and I have recommended proceeding with coronary angiography to assess her status and guide her treatment. The rationale behind the procedure as well as risks and complication were discussed with the patient who is in full understanding and agreement. Thank you for this consult. Will follow with you. MMODL / IJN: [id number] /
--- NOTE | 2020-01-12 12:28 | P.HPIM ---
History of Present Illness H&P Date: 01/12/20 Chief Complaint: Chest pain This is a 73-year-old female one of Dr. Sammy Hardin with a previous medical history significant for CAD post CABG 2 vessels back in 2005 with multiple stents placement with a PERRY to LAD and occluded all vein grafts with last heart catherization with multiple stents placed in the RCA, most recent heart cath October this year with successful angioplasty. Also underlying history of hypertensive cardiovascular disease follows with Dr. 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 Magdaleno. Patient presented to the ED with chest pain midsternum radiating to bilateral axilla was a 9 out of 10 prior to EMS patient did take 4 aspirin and 2 nitro which did help relieve some pain. Also had some associated nausea. Patient will be admitted to cardiac floor with cardiology consult. Patient on heparin drip, will monitor trending troponins. Review of Systems Constitutional: Denies chills, Denies chronic headaches, Denies malaise, Denies weakness, Denies weight gain, Denies weight loss Eyes: denies blurred vision, denies bulging eye, denies decreased vision, denies diplopia Ears, nose, mouth and throat: Denies dysphagia, Denies neck lump, Denies sore throat Cardiovascular: Reports chest pain, Reports dyspnea on exertion, denies shortness of breath, Denies decreased exercise tolerance, Denies leg edema, Denies lightheadedness, Denies rapid heart beat, Denies syncope Respiratory: denies dyspnea, Denies congestion, Denies cough, Denies cough with sputum, Denies home oxygen, Denies pain, Denies sleep apnea, Denies snoring, Denies wheezing Gastrointestinal: Denies abdominal pain, Denies bloating, Denies excessive gas, Denies melena, Denies nausea, Denies vomiting Genitourinary: Denies dysuria, Denies nocturia Menstruation: Reports postmenopausal Musculoskeletal: absent: ankle pain, ankle stiffness, ankle swelling, elbow pain, elbow stiffness, elbow swelling, foot pain, foot stiffness, foot swelling, hand pain, hand stiffness, hand swelling, hip pain, hip stiffness, hip swelling, knee pain, knee stiffness, knee swelling, shoulder pain, shoulder stiffness, shoulder swelling, wrist pain, wrist stiffness, wrist swelling Integumentary: Denies pruritus, Denies rash Neurological: Denies numbness, Denies weakness Psychiatric: Denies anxiety, Denies depression Endocrine: Denies fatigue, Denies weight change Past Medical History Past Medical History: Coronary Artery Disease (CAD), Cancer, Chest Pain / Angina, COPD, Diabetes Mellitus, Deep Vein Thrombosis (DVT), GERD/Reflux, Hyperlipidemia, Hypertension, Osteoarthritis (OA), Skin Disorder, Vascular Disorder Additional Past Medical History / Comment(s): colon cancer, hx migraine, irregular heartbeat, varicose veins, hx blood clot in rt arm after CABG surgery, psoriasis, diet control diabetic, anemia, hx bladder cancer x 3, PAD and disease of the ileo-aortic system, carotid artery stenosis History of Any Multi-Drug Resistant Organisms: None Reported Past Surgical History: Bladder Surgery, Bowel Resection, Coronary Bypass/CABG, Heart Catheterization Additional Past Surgical History / Comment(s): rt colectomy ,double CAGB 2005, bladder surgery x 3, aileen cataracts ,COLONOSCOPY Past Anesthesia/Blood Transfusion Reactions: Previous Problems w/ Anesthesia Additional Past Anesthesia/Blood Transfusion Reaction / Comment(s): had blood transfusion at [facility]- no problem with, "screaming and yelling from anesthesia after CAGB surgery" Past Psychological History: Anxiety Additional Psychological History / Comment(s): Pt states she has a friend who stays with her much of the time. She is independent. Smoking Status: Former smoker Past Alcohol Use History: Occasional Additional Past Alcohol Use History / Comment(s): quit smoking 2005, smoked for 30 yrs, 1 PPD Past Drug Use History: None Reported Additional Drug Use History / Comment(s): smoked 1 pack for 30 years - Past Family History Mother Family Medical History: Cancer, Coronary Artery Disease (CAD) Additional Family Medical History / Comment(s): cervical CA Father History Unknown: Yes Family Medical History: Unable to Obtain Brother(s) Family Medical History: Cancer Additional Family Medical History / Comment(s): leukemia Sister(s) Family Medical History: No Reported History Son(s) Family Medical History: Cancer Additional Family Medical History / Comment(s): leukemia Medications and Allergies Home Medications Medication Instructions Recorded Confirmed Type ALPRAZolam [Xanax] 1 mg PO BID 03/10/17 01/12/20 History Zolpidem Tartrate [Ambien] 10 mg PO HS 03/10/17 01/12/20 History amLODIPine [Norvasc] 5 mg PO DAILY #30 tab 05/17/17 01/12/20 Rx Aspirin [Adult Low Dose Aspirin EC] 81 mg PO DAILY 06/19/19 01/12/20 History Lisinopril [Zestril] 20 mg PO DAILY 06/19/19 01/12/20 History Atorvastatin [Lipitor] 80 mg PO DAILY 11/18/19 01/12/20 History Metoprolol Tartrate 25 mg PO HS 11/18/19 01/12/20 History Metoprolol Tartrate [Lopressor] 50 mg PO DAILY 11/18/19 01/12/20 History Nitroglycerin Sl Tabs [Nitrostat] 0.4 mg SUBLINGUAL Q5M PRN 11/18/19 01/12/20 History Ticagrelor [Brilinta] 90 mg PO BID PRN 11/18/19 01/12/20 History quiNINE SULFATE 324 mg PO HS 11/18/19 01/12/20 History Isosorbide Mononitrate ER [Imdur] 30 mg PO BID #60 tab.er.24h 11/21/19 01/12/20 Rx Loratadine 10 mg PO DAILY 01/12/20 01/12/20 History diphenhydrAMINE HCL 25 mg PO DAILY PRN 01/12/20 01/12/20 History Allergies Allergy/AdvReac Type Severity Reaction Status Date / Time No Known Allergies Allergy Verified 01/12/20 08:12 Physical Exam Vitals: Vital Signs Temp Pulse Pulse Resp BP BP Pulse Ox 01/12/20 08:48 79 18 130/73 95 01/12/20 07:33 98.2 F 88 18 142/65 96 01/12/20 07:29 93 18 137/79 96 01/12/20 06:19 89 18 119/67 96 01/12/20 04:32 98.4 F 101 H 18 122/56 92 L Intake and Output 01/11/20 01/12/20 01/12/20 22:59 06:59 14:59 Other: Weight 74.843 kg 74.843 kg General Appearance: Alert, cooperative, no distress, appears stated age. Neck HEENT: Supple, no lymphadenopathy, no thyroid enlargement, no carotid bruits. Lungs: Clear to auscultation without crackles or wheezes no rhonchi, no deformity. Chest Wall: Chest wall normal expansion with deep inspiration no tenderness and no deformity was found on exam, no costochondral pain or discomfort. Heart: Regular rate and rhythm, S1, S2 normal,systolic ejection murmur 2/6 located in the left sternal border. Abdomen: Soft, nontender, nondistended, positive bowel sounds. Extremities: Extremities normal, atraumatic, no cyanosis or edema. Pulses: 2+ and symmetric. Skin: Skin color, texture, tugor normal, no rashes or lesions. Neurologic: Alert oriented x3 cranial nerves II through XII intact, no motor deficit, no abnormal balance or gait. Results CBC & Chem 7: 01/12/20 04:50 01/12/20 04:50 Labs: Abnormal Lab Results - Last 24 Hours (Table) 01/12/20 01/12/20 01/12/20 Range/Units 04:50 04:50 04:50 MCHC 30.8 L (31.0-37.0) g/dL RDW 15.9 H (11.5-15.5) % Lymphocytes # 0.6 L (1.0-4.8) k/uL APTT 19.4 L (22.0-30.0) sec D-Dimer 1.33 H (<0.60) mg/L FEU Carbon Dioxide 17 L (22-30) mmol/L BUN 19 H (7-17) mg/dL Creatinine 1.15 H (0.52-1.04) mg/dL Glucose 105 H (74-99) mg/dL 01/12/20 Range/Units 10:47 MCHC (31.0-37.0) g/dL RDW (11.5-15.5) % Lymphocytes # (1.0-4.8) k/uL APTT 50.4 H (22.0-30.0) sec D-Dimer (<0.60) mg/L FEU Carbon Dioxide (22-30) mmol/L BUN (7-17) mg/dL Creatinine (0.52-1.04) mg/dL Glucose (74-99) mg/dL Thrombosis Risk Factor Assmnt - DVT/VTE Prophylaxis DVT/VTE Prophylaxis: Pharmacologic Prophylaxis ordered (heparin ) - Choose All That Apply Each Factor Represents 1 point: Abnormal pulmonary function (COPD) Each Risk Factor Represents 3 Points: Age 75 years or older, History of DVT/PE Thrombosis Risk Factor Assessment Total Risk Factor Score: 7 Thrombosis Risk Factor Assessment Level: High Risk Assessment and Plan Plan: 1. Chest pain, possible non-ST elevated [place]. Consult with cardiology, continue IV heparin drip at this time. Will continue to monitor trending troponins. Plan for heart cath today. 2. History of CAD post CABG and PCI multiple times . Continue ASA, Brilinta 90 mg orally bid, Imdur 30 mg orally daily, Lipitor 80 mg orally daily and Toprol XL 50 mg at bedtime and 25 mg in AM. 3. History of adenocarcinoma of the colon status post right hemicolectomy followed by adjuvant chemotherapy in the form of FOLFOX. Currently in remission. 4. Hypertension and hypertensive cardiovascular disease. Continue patient on lisinopril 20 mg once every day, Toprol 50 mg orally at bedtime and 25 mg in the morning and amlodipine 5 mg orally once every day . 5. Hyperlipidemia. Continue patient on Lipitor 80 mg orally daily. 6. Diabetes mellitus type 2. Diet-controlled. 7. PAD. Continue patient on ASA and Lipitor for secondary prevention. 8. Generalized Anxiety disorder. Xanax when necessary 9. DVT prophylaxis. Currently on heparin drip 10. GI prophylaxis. Pepcid 20 mg daily 11. Admitted to inpatient. Estimate a length of stay 2 midnights. 12 Patient is full code. Impression and plan of care have been directed as dictated by the signing physician. Cari Hardin nurse practitioner acting as scribe for signing physician.
[2020-01-12] MEDS: TICAGRELOR 90 MG TAB PO SCH ×2 (12:39→23:12)
[2020-01-12] MEDS: LISINOPRIL 20 MG TAB PO SCH (12:39)
[2020-01-12] MEDS: METOPROLOL TARTRATE 50 MG TAB PO SCH (12:39)
[2020-01-12] MEDS: ISOSORBIDE MONONITRATE ER 30 MG TAB.ER.24H PO SCH ×2 (12:39→20:51)
[2020-01-12] MEDS: amLODIPine 5 MG TAB PO SCH (12:39)
[2020-01-12] MEDS ORDERED: IV FLUID CONTINUATION 500 ML IV ONE (13:30)
[2020-01-12] MEDS ORDERED: LIDOCAINE 1% INJ 10MG/ML (20 ML MDV) ONE (13:37)
[2020-01-12] MEDS ORDERED: HEPARIN SODIUM 1,000 UN/ML (10ML VL) ONE (13:37)
[2020-01-12] MEDS ORDERED: VERAPAMIL 2.5 MG/ML 2 ML AMP ONE (13:37)
[2020-01-12] MEDS ORDERED: MIDAZOLAM 2 MG/2 ML VIAL IV ONE (13:42)
[2020-01-12] MEDS ORDERED: LIDOCAINE 1% INJ 10MG/ML (20 ML MDV) SQ ONE (13:45)
[2020-01-12] MEDS: fentaNYL (PF) 50 MCG/ML 2 ML AMP IV ONE ×2 (13:46→13:52)
[2020-01-12] MEDS: VERAPAMIL SYRINGE (5 MG/10 ML) INTRAARTER ONE ×2 (13:47→15:15)
[2020-01-12] MEDS ORDERED: fentaNYL (PF) 50 MCG/ML 2 ML AMP ONE (13:47)
[2020-01-12] MEDS ORDERED: BIVALIRUDIN BOLUS 250 MG/50 ML IV ONE (14:05)
[2020-01-12] MEDS ORDERED: BIVALIRUDIN 250 MG in SODIUM CHLORIDE 0.9% 50 ML IV ONE (14:06)
[2020-01-12] MEDS ORDERED: IOPAMIDOL-370 100ML BTL INJ ONE ×2 (14:58→15:12)
[2020-01-12] MEDS ORDERED: TICAGRELOR 90 MG TAB ONE (15:11)
[2020-01-12] MEDS ORDERED: TICAGRELOR 90 MG TAB PO ONE (15:12)
[2020-01-12] MEDS ORDERED: NITROGLYCERIN 1000MCG/10ML SYRINGE INTRACORON ONE (15:12)
[2020-01-12] MEDS ORDERED: ATROPINE SULFATE 0.1 MG/ML 10ML SYRINGE IV PRN (15:32)
[2020-01-12] MEDS ORDERED: RX INFO: IV CONTRAST WAS GIVEN 1 EACH MISC MISCELLANE PRN (15:32)
[2020-01-12] MEDS ORDERED: ZOLPIDEM 5 MG TAB PO PRN (15:32)
[2020-01-12] MEDS ORDERED: SODIUM CHLORIDE 0.9% 1,000 ML IV SCH (15:45)
--- NOTE | 2020-01-12 16:48 | CC ---
CARDIAC CATHETERIZATION REPORT DATE OF SERVICE: 01/12/2020 PROCEDURE: 1. Left heart catheterization and coronary angiography. 2. PTCA and stenting of a restenotic lesion in mid RCA with 2 drug-eluting stents. PERFORMED BY: Dr. Gavin Perez. Moderate conscious sedation time was 93 minutes. The patient was administered Versed and fentanyl. Oxygen saturation, hemodynamics and EKG were monitored closely. CLINICAL INFORMATION: Mrs. Charo Keene is a 74-year-old lady with a history of significant peripheral vascular disease, CAD, and hypertension and hyperlipidemia. In 2005, she underwent aortocoronary bypass surgery, the PERRY to LAD and vein graft to the diagonal. Since then, she had peripheral vascular surgery performed at [facility]. Because of recurrent anginal symptoms, I performed cardiac catheterization in June of 2019, which revealed a significant lesion in the heavily calcified RCA. When I crossed the lesion with the wire, the entire RCA had a dissection and I have stented it from almost the ostium to the bifurcation with an Jimy stent and postdilated with a 2.5 caliber stent. She came back with a non-ST elevation TN in late October of this year and Dr. Govea performed a balloon angioplasty of in-stent restenotic lesion with a 3.5, 15 mm Trek balloon. She did well for a couple of months, but comes back in with chest pain, elevated troponin suggestive of non-ST elevation TN and was advised coronary angiography. She does not have much access from the lower extremities and patient had a patent PERRY and vein graft was occluded. I therefore recommended cardiac cath from the right radial approach and I did not plan on doing a PERRY injection. PROCEDURE NOTE: Under local anesthesia and strict aseptic precautions, a 6-Slovak introducer was placed in the right radial artery. I used a JL3.5 catheter to perform selective coronary angiography of the left system. I used a standard right Haley for the right coronary artery and I noted that there was a significant restenotic lesion within the stented segment. The restenoses occurred at the site of previous dilatation in October and also distal to it. She was advised intervention that was performed in the same setting. The right catheter was used to check LV pressure but LV gram was not performed. Following this, I went ahead and performed PCI of restenotic lesion which was a very long procedure. CARDIAC CATHETERIZATION FINDINGS: The left ventricular end-diastolic pressure was 14 mmHg. No gradient across the aortic valve. CORONARY ANGIOGRAPHY FINDINGS: LEFT MAIN CORONARY ARTERY: This is a highly diseased calcified vessel with about a 25% stenosis in the ostium and also diffuse disease in the left main. It bifurcates into LAD and circumflex. LEFT ANTERIOR DESCENDING CORONARY ARTERY: Calcified vessel, totally occluded in the midportion. It gives off septal and diagonal branches. LEFT POSTERIOR CIRCUMFLEX CORONARY ARTERY: A nondominant vessel, gives off a first obtuse marginal, has mild diffuse disease. Second obtuse marginal in the mid/distal portion is subtotally occluded, flow sluggishly. The caliber is about 1.5 to 2.0. There are other branches including a left atrial circumflex branch which have minor diffuse irregularities, no other significant disease. RIGHT CORONARY ARTERY: This was stented in June of 2019 and October of 2019. This is a very dominant vessel. It has a restenotic lesion in the mid RCA at the site of previous dilatation in October and distal to it. The lesions are about 85%-90%. Beyond the bifurcation, the PDA is jailed, but has diffuse disease. PLV is of fair caliber, no significant disease. Originally in June, I had a 2.5 caliber Xience stent proximally 3.0 caliber Xience stent in the ostium of the RCA. Over the bifurcation, I used a 2.0 caliber Jimy stent and jailed the PDA branch and then in between I had [place] 2.0 caliber stents, which were all postdilated with a 2.75 balloon. The ostium of the RCA had a 3.0 caliber 12 mm Xience stent. I noted that there was a restenoses within the mid portion of the RCA, but the distal branches had good flow. I recommended intervention and proceeded to perform this in the same setting. FINAL IMPRESSION: This patient has elevated filling pressures of 15 mmHg in the left ventricle and end diastole. There was no gradient across the aortic valve. Dominant RCA that was stented in June and October PTCA, now has 2 restenotic lesions of 80%-90%. Distal branches are free of significant disease. LAD is totally occluded in the midportion. Left main has diffuse disease. Circumflex has minor irregularities and second obtuse marginal is subtotally occluded, unchanged.. LV gram was not performed. RECOMMENDATIONS: I recommended PCI of RCA, I proceeded to perform this in the same setting. PCI PROCEDURE DETAILS: I used initially a standard right Haley guide catheter and advanced the run-through wire, kept the wire in the PLV branch. Using a 3.25 NC Trek balloon, I dilated the restenotic lesions. When I tried to advance the stent, I had a lot of difficulty with the stent because of a lot of resistance. I used 2 wires, with this I was able to advance a 3.0 caliber Xience stent into the distal lesion and deployed this at 14 atmospheres. However, I could not advance any additional stent because at the junction of the proximal and mid RCA, there was a heavy calcification and angle and I could not advance and there was a lot of resistance. I then switched over from the right Haley to a KRS catheter and prior to that, I tried a GuideLiner without much success. I used a KRS catheter and had a better seating. I used a run-through wire and a Whisper wire. Both wires were in place. I used a 3.5 NC Trek balloon and dilated the entire length of the artery. After this, I was able to advance a 15 mm long fresh new Xience stent and deployed this in the proximal portion. I deployed this stent at 12 atmospheres. Excellent angiographic result was achieved. I then used a 3.5 new fresh NC Trek balloon, with this I dilated the entire vessel from the bifurcation, all the vein to the ostium. The patient had chest pain and inferior ST elevation. She received Angiomax bolus and infusion. She was already on Brilinta and aspirin. I gave her additional Brilinta 90 mg. Excellent angiographic result was achieved without any evident complication. I noted following the procedure, the saturation of the fingers of the right hand was 83%, which was less than what was on the other hand, which was 94%. However, patient has significant vascular disease and this was the best available access point. There is some diffuse disease in the PDA branch, but the flow is excellent. Results were discussed with the patient in detail. Images were reviewed. I tried to talk to her son, but I could not reach him on cellphone [phone]. I have left him a message. The patient was then sent to the room in a stable condition. I expect she will be discharged in the next 24 to 48 hours if she remains stable. Excellent angiographic result without complication was achieved and hopefully she will have a better look at restenosis. I explained to her that restenosis remains high given the fact she has extensive areas of stenting and she has already demonstrated restenosis twice. MMODL / IJN: [id number] /
[2020-01-12] MEDS: FAMOTIDINE 20 MG TAB PO SCH (17:28)
[2020-01-12 20:38] LABS: Glucose,Whole Blood 124 mg/dL (75-99)
[2020-01-12] MEDS: MAG HYDROX/AL HYDROX/SIMETH 30 ML CUP PO PRN (20:52)
[2020-01-12] MEDS ORDERED: METOPROLOL TARTRATE 25 MG TAB PO SCH (21:00)
[2020-01-12] MEDS ORDERED: ZOLPIDEM 10 MG TAB PO PRN (21:00)
[2020-01-13 06:11] LABS: Glucose,Whole Blood 81 mg/dL (75-99)
[2020-01-13 06:35] LABS: Anisocytosis Slight; Basophils % (A) 0 %; Eosinophils # (A) 0.2 k/uL (0-0.7); Eosinophils % (A) 3 %; HCT 37.7 % (34.0-46.0); HGB 12.1 gm/dL (11.4-16.0); Hypochromasia Moderate; Lymphocytes # (A) 0.6 k/uL (1.0-4.8); Lymphocytes % (A) 10 %; MCH 32.5 pg (25.0-35.0); MCHC 32.1 g/dL (31.0-37.0); MCV 101.2 fL (80.0-100.0); Macrocytosis Slight; Mean Platelet Volume 7.8; Monocytes # (A) 0.3 k/uL (0-1.0); Monocytes % (A) 5 %; Neutrophils # (A) 5.1 k/uL (1.3-7.7); Neutrophils % (A) 79 %; Platelet Count 155 k/uL (150-450); RBC 3.73 m/uL (3.80-5.40); WBC 6.4 k/uL (3.8-10.6)
[2020-01-13 06:54] LABS: Calcium 8.7 mg/dL (8.4-10.2); Potassium 4.4 mmol/L (3.5-5.1)
[2020-01-13] MEDS: MAG HYDROX/AL HYDROX/SIMETH 30 ML CUP PO PRN (07:40)
[2020-01-13] MEDS ORDERED: ASPIRIN 325 MG TAB PO SCH (09:00)
[2020-01-13] MEDS: amLODIPine 5 MG TAB PO SCH (09:11)
[2020-01-13] MEDS: FAMOTIDINE 20 MG TAB PO SCH (09:11)
[2020-01-13] MEDS: ISOSORBIDE MONONITRATE ER 30 MG TAB.ER.24H PO SCH (09:11)
[2020-01-13] MEDS: TICAGRELOR 90 MG TAB PO SCH (09:11)
[2020-01-13] MEDS: METOPROLOL TARTRATE 50 MG TAB PO SCH (09:11)
[2020-01-13] MEDS: ASPIRIN 81 MG PO SCH (09:11)
[2020-01-13] MEDS: ATORVASTATIN 80 MG TAB PO SCH (09:11)
[2020-01-13] MEDS: LISINOPRIL 20 MG TAB PO SCH (09:11)
[2020-01-13 09:14] VITALS: BP 138/67; PULSE 75; RESP 18; TEMP 98
--- NOTE | 2020-01-13 09:56 | P.DS ---
Providers Date of admission: 01/12/20 12:44 Attending physician: Emmanuel Dukes Consults: 01/12/20 06:58 Consult Physician Routine Consulting Provider: Jose Daniel Jasso Consult Reason/Comments: Chest pain. Do you want consulting provider notified?: Yes 01/12/20 15:32 Consult Physician Routine Consulting Provider: [facility] Consult Reason/Comments: Post Interventional patient Do you want consulting provider notified?: Already Contacted Primary care physician: Wilfred Christianson [facility] Course: Chief Complaint: Chest pain This is a 73-year-old female one of Dr. Sammy Hardni with a previous medical history significant for CAD post CABG 2 vessels back in 2005 with multiple stents placement with a PERRY to LAD and occluded all vein grafts with last heart catherization with multiple stents placed in the RCA, most recent heart cath October this year with successful angioplasty. Also underlying history of hypertensive cardiovascular disease follows with Dr. DANILO Perez, hyperlipidemia, diabetes mellitus type 2, PAD, history of adenocarcinoma of the cecum that was diagnosed back in 2016 followed by a right hemicolectomy with adjuvant chemotherapy in the form of FOLFOX under the care of Dr. Magdaleno. Patient presented to the ED with chest pain midsternum radiating to bilateral axilla was a 9 out of 10 prior to EMS patient did take 4 aspirin and 2 nitro which did help relieve some pain. Also had some associated nausea. Patient will be admitted to cardiac floor with cardiology consult. Patient on heparin drip, will monitor trending troponins. 01/10: Patient was seen this morning doing well. Patient had heart cath with radial approach yesterday with Dr. Perez, stenting to the RCA was done. Patient denies any chest pain discomfort or shortness of breath today. Stable for discharge if okay with cardiology. Vital signs are stable patient remains afebrile pulse rate 75, blood pressure 138/67 pulse ox 91% on room air. Labs were reviewed BUN 17 creatinine was 1.09. Patient to follow-up with Dr. Wilfred Christianson in 1-2 days patient has appointment with Dr. DANILO Perez January 17 at 9 AM. Patient has sublingual nitro at home if needed. Review of Systems Constitutional: Denies chills, Denies chronic headaches, Denies malaise, Denies weakness, Denies weight gain, Denies weight loss Eyes: denies blurred vision, denies bulging eye, denies decreased vision, denies diplopia Ears, nose, mouth and throat: Denies dysphagia, Denies neck lump, Denies sore throat Cardiovascular: Denies chest pain, dyspnea on exertion, denies shortness of breath, Denies decreased exercise tolerance, Denies leg edema, Denies lightheadedness, Denies rapid heart beat, Denies syncope Respiratory: denies dyspnea, Denies congestion, Denies cough, Denies cough with sputum, Denies home oxygen, Denies pain, Denies sleep apnea, Denies snoring, Denies wheezing Gastrointestinal: Denies abdominal pain, Denies bloating, Denies excessive gas, Denies melena, Denies nausea, Denies vomiting Genitourinary: Denies dysuria, Denies nocturia Menstruation: Reports postmenopausal Musculoskeletal: absent: ankle pain, ankle stiffness, ankle swelling, elbow pain, elbow stiffness, elbow swelling, foot pain, foot stiffness, foot swelling, hand pain, hand stiffness, hand swelling, hip pain, hip stiffness, hip swelling, knee pain, knee stiffness, knee swelling, shoulder pain, shoulder stiffness, shoulder swelling, wrist pain, wrist stiffness, wrist swelling Integumentary: Denies pruritus, Denies rash Neurological: Denies numbness, Denies weakness Psychiatric: Denies anxiety, Denies depression Endocrine: Denies fatigue, Denies weight change Physical Exam Vitals: Vital Signs Temp Pulse Pulse Resp BP BP Pulse Ox 01/12/20 08:48 79 18 130/73 95 01/12/20 07:33 98.2 F 88 18 142/65 96 01/12/20 07:29 93 18 137/79 96 01/12/20 06:19 89 18 119/67 96 01/12/20 04:32 98.4 F 101 H 18 122/56 92 L Intake and Output 01/11/20 01/12/20 01/12/20 22:59 06:59 14:59 Other: Weight 74.843 kg 74.843 kg General Appearance: Alert, cooperative, no distress, appears stated age. Neck HEENT: Supple, no lymphadenopathy, no thyroid enlargement, no carotid bruits. Lungs: Clear to auscultation without crackles or wheezes no rhonchi, no deformity. Chest Wall: Chest wall normal expansion with deep inspiration no tenderness and no deformity was found on exam, no costochondral pain or discomfort. Heart: Regular rate and rhythm, S1, S2 normal,systolic ejection murmur 2/6 located in the left sternal border. Abdomen: Soft, nontender, nondistended, positive bowel sounds. Extremities: Extremities normal, atraumatic, no cyanosis or edema. Pulses: 2+ and symmetric. Skin: Skin color, texture, tugor normal, no rashes or lesions. Neurologic: Alert oriented x3 cranial nerves II through XII intact, no motor deficit, no abnormal balance or gait. Results CBC & Chem 7: 01/12/20 04:50 01/12/20 04:50 Labs: Abnormal Lab Results - Last 24 Hours (Table) 01/12/20 01/12/20 01/12/20 Range/Units 04:50 04:50 04:50 MCHC 30.8 L (31.0-37.0) g/dL RDW 15.9 H (11.5-15.5) % Lymphocytes # 0.6 L (1.0-4.8) k/uL APTT 19.4 L (22.0-30.0) sec D-Dimer 1.33 H (<0.60) mg/L FEU Carbon Dioxide 17 L (22-30) mmol/L BUN 19 H (7-17) mg/dL Creatinine 1.15 H (0.52-1.04) mg/dL Glucose 105 H (74-99) mg/dL 01/12/20 Range/Units 10:47 MCHC (31.0-37.0) g/dL RDW (11.5-15.5) % Lymphocytes # (1.0-4.8) k/uL APTT 50.4 H (22.0-30.0) sec D-Dimer (<0.60) mg/L FEU Carbon Dioxide (22-30) mmol/L BUN (7-17) mg/dL Creatinine (0.52-1.04) mg/dL Glucose (74-99) mg/dL Plan: 1. Chest pain, possible non-ST elevated MD. 2. History of CAD post CABG and PCI multiple times . 3. History of adenocarcinoma of the colon status post right hemicolectomy followed by adjuvant chemotherapy in the form of FOLFOX. 4. Hypertension and hypertensive cardiovascular disease. 5. Hyperlipidemia. 6. Diabetes mellitus type 2. 7. PAD. 8. Generalized Anxiety disorder. Plan to discharge home today with self-care Impression and plan of care have been directed as dictated by the signing physician. Cari Hardin nurse practitioner acting as scribe for signing physician. Patient Condition at Discharge: Fair Plan - Discharge Summary Discharge Rx Participant: Yes New Discharge Prescriptions: New Nitroglycerin Sl Tabs [Nitrostat] 0.4 mg SUBLINGUAL Q5M PRN tab PRN Reason: Chest Pain Famotidine [Pepcid] 20 mg PO DAILY tab Continue Zolpidem Tartrate [Ambien] 10 mg PO HS ALPRAZolam [Xanax] 1 mg PO BID amLODIPine [Norvasc] 5 mg PO DAILY #30 tab Lisinopril [Zestril] 20 mg PO DAILY Aspirin [Adult Low Dose Aspirin EC] 81 mg PO DAILY quiNINE SULFATE 324 mg PO HS Nitroglycerin Sl Tabs [Nitrostat] 0.4 mg SUBLINGUAL Q5M PRN PRN Reason: Chest Pain Metoprolol Tartrate [Lopressor] 50 mg PO DAILY Atorvastatin [Lipitor] 80 mg PO DAILY Ticagrelor [Brilinta] 90 mg PO BID PRN PRN Reason: Allergy Symptoms Metoprolol Tartrate 25 mg PO HS Isosorbide Mononitrate ER [Imdur] 30 mg PO BID #60 tab.er.24h Loratadine 10 mg PO DAILY diphenhydrAMINE HCL 25 mg PO DAILY PRN PRN Reason: Allergy Symptoms Discharge Medication List ALPRAZolam [Xanax] 1 mg PO BID 03/10/17 [History] Zolpidem Tartrate [Ambien] 10 mg PO HS 03/10/17 [History] amLODIPine [Norvasc] 5 mg PO DAILY #30 tab 05/17/17 [Rx] Aspirin [Adult Low Dose Aspirin EC] 81 mg PO DAILY 06/19/19 [History] Lisinopril [Zestril] 20 mg PO DAILY 06/19/19 [History] Atorvastatin [Lipitor] 80 mg PO DAILY 11/18/19 [History] Metoprolol Tartrate 25 mg PO HS 11/18/19 [History] Metoprolol Tartrate [Lopressor] 50 mg PO DAILY 11/18/19 [History] Nitroglycerin Sl Tabs [Nitrostat] 0.4 mg SUBLINGUAL Q5M PRN 11/18/19 [History] Ticagrelor [Brilinta] 90 mg PO BID PRN 11/18/19 [History] quiNINE SULFATE 324 mg PO HS 11/18/19 [History] Isosorbide Mononitrate ER [Imdur] 30 mg PO BID #60 tab.er.24h 11/21/19 [Rx] Loratadine 10 mg PO DAILY 01/12/20 [History] diphenhydrAMINE HCL 25 mg PO DAILY PRN 01/12/20 [History] Famotidine [Pepcid] 20 mg PO DAILY tab 01/13/20 [Rx] Nitroglycerin Sl Tabs [Nitrostat] 0.4 mg SUBLINGUAL Q5M PRN tab 01/13/20 [Rx] Follow up Appointment(s)/Referral(s): Pretty Perez MD [STAFF PHYSICIAN] - 01/18/20 9:00 am Wilfred Christianson MD [Primary Care Provider] - 1-2 days (Call during normal business hours to schedule follow-up appointment.) Patient Instructions/Handouts: Chest Pain (ED), Heart Healthy Diet (DC), Heart Catheterization (DC) Discharge Disposition: HOME SELF-CARE
[2020-01-13 10:07] VITALS: BMI 28.8
--- NOTE | 2020-01-13 18:30 | P.PN ---
Subjective Patient is resting comfortably in bed. No chest discomfort dizziness lightheadedness She is afebrile pulse, right radial however the circulation in the hand is completely normal with rapid capillary filling No dizziness lightheadedness nor orthopnea PND She was admitted with chest discomfort and abnormal cardiac enzymes and she underwent [place] catheterization by Dr. Perez. In-stent restenosis was found in the previous stents and she was stented in the RCA. On examination she is afebrile 90F pulse rate is in the 70s respirations are normal blood pressure 138/67 mmHg Breath sounds are clear Heart sounds S1-S2 normal no murmurs developed or rub heard F impression Non-Q-wave myocardial infarction In-stent restenosis status post repeat stenting LDL is 27 mg/dL on statins She is on guideline directed appropriate medical treatment and despite that she continues to have instent restenosis Suggest she will go home today on her current cardiac medications and follow with Dr. Perez in the next few days Objective - Vital Signs Vital signs: Vital Signs Temp 98 F 01/13/20 09:00 Pulse 75 01/13/20 09:00 Resp 18 01/13/20 09:00 BP 138/67 01/13/20 09:00 Pulse Ox 90 L 01/13/20 09:00 Intake & Output 01/12/20 01/13/20 01/13/20 18:59 06:59 18:59 Intake Total 295 900 Output Total 600 Balance 295 300 Weight 74.843 kg 76.2 kg 76.2 kg Intake: IV 295 Intake, IV Titration 900 Amount Sodium Chloride 0.9% 1, 900 000 ml @ 75 mls/hr IV . [id number] [place] Rx#:[id number] Output: Urine 600 Other: # Voids 2 # Bowel Movements 1 - Labs CBC & Chem 7: 01/13/20 06:20 01/13/20 06:20 Labs: Abnormal Lab Results - Last 24 Hours (Table) 01/12/20 01/13/20 01/13/20 Range/Units 20:36 06:20 06:20 RBC 3.73 L (3.80-5.40) m/uL MCV 101.2 H (80.0-100.0) fL RDW 16.0 H (11.5-15.5) % Lymphocytes # 0.6 L (1.0-4.8) k/uL Chloride 110 H (98-107) mmol/L Creatinine 1.09 H (0.52-1.04) mg/dL POC Glucose (mg/dL) 124 H (75-99) mg/dL
--- NOTE | 2020-01-15 13:39 | CDI ---
Documentation Clarification Form Date: 01/15/20 From: Hayley Mullen Phone: If you have a question about this query, please contact Luisa Anaya Dependency Director at [phone] between 8am and 5pm. Admit Date: 01/12/20 Discharge Date:01/13/20 Patient Name: Charo Keene Visit Number: [id number] ATTENTION: The Clinical Documentation Specialists (CDI) and [facility] Coding Staff appreciate your assistance in clarifying documentation. Please respond to the clarification below the line at the bottom and electronically sign. The CDI & [facility] Coding staff will review the response and follow-up if needed. Please note: Queries are made part of the Legal Health Record. If you have any questions, please contact the author of this message via ITS. Dear Dr. Hernandez Possible non-ST elevated UT is documented in the H&P and discharge summary. Documentation in the cath report states elevated troponin suggestive of non-ST elevation UT. Patient History/Risk Factors: UT, CAD, hypertension, hyperlipidemia, previous CABG and previous stent Clinical Indicators: Chest pain Troponin: 0.018, 0.856 EKG Results: Sinus mechanism, normal axis with evidence of inferoapical myocardial infarction compared with the EKG that was done in the past Cardiac Cath: In-stent restenosis was found in the previous stents Treatment: Stenting of the RCA In order to capture the severity of condition and necessary documentation specificity, please clarify the cause of the possible non-ST elevation UT: In-stent restenosis XXXXX Other (please specify): Unable to determine MTDD
== END 2020-01-13 11:38 | disposition home or self-care (01) | DRG 246 ==
LOC: EC 04:28 → 3SCARD 07:00 → OBSVTOIN 12:44
PROVIDERS: ADMIT Internal Medicine; ATTEND Internal Medicine
PROC: B2111ZZ Fluoroscopy of Multiple Coronary Arteries using Low Osmolar Contrast (ICD-10-PCS; principal; 2020-01-12 09:15)
PROC: 027035Z Dilation of Coronary Artery, One Artery with Two Drug-eluting Intraluminal Devices, Percutaneous Approach (ICD-10-PCS; principal; 2020-01-12 09:15)
PROC: 4A023N7 Measurement of Cardiac Sampling and Pressure, Left Heart, Percutaneous Approach (ICD-10-PCS; principal; 2020-01-12 09:15)
DX: T82.855A Stenosis of coronary artery stent, initial encounter (principal); I21.4 Non-ST elevation (NSTEMI) myocardial infarction; I25.810 Atherosclerosis of coronary artery bypass graft(s) without angina pectoris; I11.9 Hypertensive heart disease without heart failure; E11.51 Type 2 diabetes mellitus with diabetic peripheral angiopathy without gangrene; Z11.59 Encounter for screening for other viral diseases; I25.2 Old myocardial infarction; J44.9 Chronic obstructive pulmonary disease, unspecified; F41.1 Generalized anxiety disorder; E78.5 Hyperlipidemia, unspecified; G43.909 Migraine, unspecified, not intractable, without status migrainosus; I65.29 Occlusion and stenosis of unspecified carotid artery; I83.90 Asymptomatic varicose veins of unspecified lower extremity; K21.9 Gastro-esophageal reflux disease without esophagitis; L40.9 Psoriasis, unspecified; I08.1 Rheumatic disorders of both mitral and tricuspid valves; Z79.02 Long term (current) use of antithrombotics/antiplatelets; Z79.82 Long term (current) use of aspirin; Z79.899 Other long term (current) drug therapy; Z90.49 Acquired absence of other specified parts of digestive tract; Z87.891 Personal history of nicotine dependence; Z85.51 Personal history of malignant neoplasm of bladder; Z85.038 Personal history of other malignant neoplasm of large intestine; Z92.21 Personal history of antineoplastic chemotherapy; Z86.718 Personal history of other venous thrombosis and embolism; Z98.42 Cataract extraction status, left eye; Z98.41 Cataract extraction status, right eye; Z96.1 Presence of intraocular lens; Z95.1 Presence of aortocoronary bypass graft; Z95.5 Presence of coronary angioplasty implant and graft; Z80.49 Family history of malignant neoplasm of other genital organs; Z80.6 Family history of leukemia; Z82.49 Family history of ischemic heart disease and other diseases of the circulatory system; Z82.0 Family history of epilepsy and other diseases of the nervous system; Y84.0 Cardiac catheterization as the cause of abnormal reaction of the patient, or of later complication, without mention of misadventure at the time of the procedure
CPT/HCPCS: 36415; 71045; 71275; 80048; 80053; 80061; 82150; 83690; 83735; 84484; 85025; 85379; 85610; 85730; 87635; 93005; 93458; 96365; 96366; 96375; 96376; 99285

== ENCOUNTER 2022-04-17 18:33 | Inpatient (IN) | payer MEDICARE, BC ==
[2022-04-17] MEDS ORDERED: IPRATROPIUM-ALBUTEROL 3 ML NEB INHALATION STA (18:47)
--- NOTE | 2022-04-17 18:55 | ED ---
SOB HPI - General Chief Complaint: Shortness of Breath Stated Complaint: rocael Time Seen by Provider: 04/17/22 18:37 Source: patient, RN notes reviewed Mode of arrival: EMS Limitations: no limitations - History of Present Illness Initial Comments: This is a 76-year-old female who presents to the emergency department for shortness of breath. She has an extensive hx of CHF, CAD, and COPD. States that over the last week she has had an increase in lower extremity swelling, difficulty breathing, and a cough. Her family called EMS to her house, and she was found to have an oxygen saturation of 84%. She does not use oxygen at home. Denies any weight gain or chest pain. Denies any fevers, chills, sore throat, chest pain, palpitations, abdominal pain, nausea, vomiting, diarrhea, back pain, or headaches. MD Complaint: shortness of breath, cough Known History Of: COPD, congestive heart failure Associated Symptoms: cough, lower extremity pain - Related Data Home Medications Medication Instructions Recorded Confirmed ALPRAZolam [Xanax] 1 mg PO BID PRN 03/10/17 04/17/22 Zolpidem Tartrate [Ambien] 10 mg PO HS 03/10/17 04/17/22 Atorvastatin [Lipitor] 80 mg PO DAILY 11/18/19 04/17/22 Metoprolol Tartrate [Lopressor] 50 mg PO DAILY 11/18/19 04/17/22 Nitroglycerin Sl Tabs [Nitrostat] 0.4 mg SUBLINGUAL Q5M PRN 11/18/19 04/17/22 Clopidogrel [Plavix] 75 mg PO DAILY 04/17/22 04/17/22 Losartan Potassium 100 mg PO DAILY 04/17/22 04/17/22 Previous Rx's Medication Instructions Recorded Isosorbide Mononitrate ER [Imdur] 30 mg PO BID #60 tab.er.24h 11/21/19 Famotidine [Pepcid] 20 mg PO DAILY tab 01/13/20 Allergies Allergy/AdvReac Type Severity Reaction Status Date / Time No Known Allergies Allergy Verified 04/17/22 21:32 Review of Systems ROS Statement: Those systems with pertinent positive or pertinent negative responses have been documented in the HPI. ROS Other: All systems not noted in ROS Statement are negative. Past Medical History Past Medical History: Coronary Artery Disease (CAD), Cancer, Chest Pain / Angina , COPD, Diabetes Mellitus, Deep Vein Thrombosis (DVT), GERD/Reflux, Hyperlipidemia, Hypertension, Osteoarthritis (OA), Skin Disorder, Vascular Disorder Additional Past Medical History / Comment(s): colon cancer, hx migraine, irregular heartbeat, varicose veins, hx blood clot in rt arm after CABG surgery, psoriasis, diet control diabetic, anemia, hx bladder cancer x 3, PAD and disease of the ileo-aortic system, carotid artery stenosis History of Any Multi-Drug Resistant Organisms: None Reported Past Surgical History: Bladder Surgery, Bowel Resection, Coronary Bypass/CABG, Heart Catheterization Additional Past Surgical History / Comment(s): rt colectomy ,double CAGB 2005, bladder surgery x 3, aileen cataracts ,COLONOSCOPY Past Anesthesia/Blood Transfusion Reactions: Previous Problems w/ Anesthesia Additional Past Anesthesia/Blood Transfusion Reaction / Comment(s): had blood transfusion at [facility]- no problem with, "screaming and yelling from anesthesia after CAGB surgery" Past Psychological History: Anxiety Smoking Status: Current every day smoker Past Alcohol Use History: Occasional Past Drug Use History: None Reported - Past Family History Mother Family Medical History: Cancer, Coronary Artery Disease (CAD) Additional Family Medical History / Comment(s): cervical CA Father History Unknown: Yes Family Medical History: Unable to Obtain Brother(s) Family Medical History: Cancer Additional Family Medical History / Comment(s): leukemia Sister(s) Family Medical History: No Reported History Son(s) Family Medical History: Cancer Additional Family Medical History / Comment(s): leukemia General Exam Limitations: no limitations Course Vital Signs 04/17/22 04/17/22 04/17/22 18:38 19:59 20:07 Temperature 97.8 F Pulse Rate 80 72 76 Respiratory 20 Rate Blood Pressure 191/88 O2 Sat by Pulse 89 L Oximetry 04/17/22 04/17/22 20:10 21:15 Temperature Pulse Rate 75 80 Respiratory 20 Rate Blood Pressure 199/104 158/74 O2 Sat by Pulse 94 L Oximetry Medical Decision Making - Medical Decision Making This is a 76-year-old female who presents to the emergency department for hypoxemia and difficulty breathing. Lab work is consistent with an acute kidney injury and CHF exacerbation. Patient also continues to have dyspnea and is hypoxemic on room air. Currently requiring 3 L of O2 via nasal cannula. Patient's blood pressure continued to be markedly elevated. She was given 10 mg of hydralazine, which improved blood pressure significantly. Chest x-ray revealed atypical pneumonia versus CHF exacerbation. She tested negative for COVID and influenza. Duoneb treatment administered as well. Patient admitted to medicine. Pneumonia protocol ordered with ceftriaxone and azithromycin started. Consults placed for cardiology, pulmonology, and nephrology per admitting team's request. This case was discussed in detail with the attending ED physician. Presentation, findings, and treatment plan discussed in detail as well. - Lab Data Result diagrams: 04/17/22 18:52 04/17/22 18:52 Lab Results 04/17/22 04/17/22 04/17/22 Range/Units 18:52 18:52 18:52 WBC 8.0 (3.8-10.6) k/uL RBC 4.61 (3.80-5.40) m/uL Hgb 13.4 (11.4-16.0) gm/dL Hct 43.0 (34.0-46.0) % MCV 93.4 (80.0-100.0) fL MCH 29.1 (25.0-35.0) pg MCHC 31.2 (31.0-37.0) g/dL RDW 14.0 (11.5-15.5) % Plt Count 197 (150-450) k/uL MPV 8.6 Neutrophils % 77 % Lymphocytes % 10 % Monocytes % 7 % Eosinophils % 5 % Basophils % 1 % Neutrophils # 6.2 (1.3-7.7) k/uL Lymphocytes # 0.8 L (1.0-4.8) k/uL Monocytes # 0.6 (0-1.0) k/uL Eosinophils # 0.4 (0-0.7) k/uL Basophils # 0.1 (0-0.2) k/uL PT 10.2 (9.0-12.0) sec INR 0.9 (<1.2) APTT 23.1 (22.0-30.0) sec Sodium 137 (137-145) mmol/L Potassium 4.3 (3.5-5.1) mmol/L Chloride 109 H (98-107) mmol/L Carbon Dioxide 18 L (22-30) mmol/L Anion Gap 10 mmol/L BUN 33 H (7-17) mg/dL Creatinine 2.31 H (0.52-1.04) mg/dL Est GFR (CKD-EPI)AfAm 23 (>60 ml/min/1.73 sqM) Est GFR (CKD-EPI)NonAf 20 (>60 ml/min/1.73 sqM) Glucose 92 (74-99) mg/dL Plasma Lactic Acid Juan Francisco (0.7-2.0) mmol/L Calcium 9.0 (8.4-10.2) mg/dL Magnesium 2.0 (1.6-2.3) mg/dL Total Bilirubin 0.8 (0.2-1.3) mg/dL AST 43 H (14-36) U/L ALT 14 (4-34) U/L Alkaline Phosphatase 270 H (38-126) U/L Troponin I (0.000-0.034) ng/mL NT-Pro-B Natriuret Pep pg/mL Total Protein 6.4 (6.3-8.2) g/dL Albumin 3.5 (3.5-5.0) g/dL Urine Color Urine Appearance (Clear) Urine pH (5.0-8.0) Ur Specific [place] (1.001-1.035) Urine Protein (Negative) Urine Glucose (UA) (Negative) Urine Ketones (Negative) Urine Blood (Negative) Urine Nitrite (Negative) Urine Bilirubin (Negative) Urine Urobilinogen (<2.0) mg/dL Ur Leukocyte Esterase (Negative) Urine RBC (0-5) /hpf Urine WBC (0-5) /hpf Ur Squamous Epith Cells (0-4) /hpf Urine Mucus (None) /hpf Coronavirus (PCR) (Not Detectd) Influenza Type A RNA (Not Detectd) Influenza Type B (PCR) (Not Detectd) 04/17/22 04/17/22 04/17/22 Range/Units 18:52 18:52 18:52 WBC (3.8-10.6) k/uL RBC (3.80-5.40) m/uL Hgb (11.4-16.0) gm/dL Hct (34.0-46.0) % MCV (80.0-100.0) fL MCH (25.0-35.0) pg MCHC (31.0-37.0) g/dL RDW (11.5-15.5) % Plt Count (150-450) k/uL MPV Neutrophils % % Lymphocytes % % Monocytes % % Eosinophils % % Basophils % % Neutrophils # (1.3-7.7) k/uL Lymphocytes # (1.0-4.8) k/uL Monocytes # (0-1.0) k/uL Eosinophils # (0-0.7) k/uL Basophils # (0-0.2) k/uL PT (9.0-12.0) sec INR (<1.2) APTT (22.0-30.0) sec Sodium (137-145) mmol/L Potassium (3.5-5.1) mmol/L Chloride (98-107) mmol/L Carbon Dioxide (22-30) mmol/L Anion Gap mmol/L BUN (7-17) mg/dL Creatinine (0.52-1.04) mg/dL Est GFR (CKD-EPI)AfAm (>60 ml/min/1.73 sqM) Est GFR (CKD-EPI)NonAf (>60 ml/min/1.73 sqM) Glucose (74-99) mg/dL Plasma Lactic Acid Juan Francisco (0.7-2.0) mmol/L Calcium (8.4-10.2) mg/dL Magnesium (1.6-2.3) mg/dL Total Bilirubin (0.2-1.3) mg/dL AST (14-36) U/L ALT (4-34) U/L Alkaline Phosphatase (38-126) U/L Troponin I 0.015 (0.000-0.034) ng/mL NT-Pro-B Natriuret Pep 4010 pg/mL Total Protein (6.3-8.2) g/dL Albumin (3.5-5.0) g/dL Urine Color Yellow Urine Appearance Clear (Clear) Urine pH 5.5 (5.0-8.0) Ur Specific [place] 1.012 (1.001-1.035) Urine Protein Trace H (Negative) Urine Glucose (UA) Negative (Negative) Urine Ketones Negative (Negative) Urine Blood Negative (Negative) Urine Nitrite Negative (Negative) Urine Bilirubin Negative (Negative) Urine Urobilinogen <2.0 (<2.0) mg/dL Ur Leukocyte Esterase Moderate H (Negative) Urine RBC 1 (0-5) /hpf Urine WBC 5 (0-5) /hpf Ur Squamous Epith Cells 1 (0-4) /hpf Urine Mucus Rare H (None) /hpf Coronavirus (PCR) (Not Detectd) Influenza Type A RNA (Not Detectd) Influenza Type B (PCR) (Not Detectd) 04/17/22 04/17/22 04/17/22 Range/Units 18:52 18:52 19:15 WBC (3.8-10.6) k/uL RBC (3.80-5.40) m/uL Hgb (11.4-16.0) gm/dL Hct (34.0-46.0) % MCV (80.0-100.0) fL MCH (25.0-35.0) pg MCHC (31.0-37.0) g/dL RDW (11.5-15.5) % Plt Count (150-450) k/uL MPV Neutrophils % % Lymphocytes % % Monocytes % % Eosinophils % % Basophils % % Neutrophils # (1.3-7.7) k/uL Lymphocytes # (1.0-4.8) k/uL Monocytes # (0-1.0) k/uL Eosinophils # (0-0.7) k/uL Basophils # (0-0.2) k/uL PT (9.0-12.0) sec INR (<1.2) APTT (22.0-30.0) sec Sodium (137-145) mmol/L Potassium (3.5-5.1) mmol/L Chloride (98-107) mmol/L Carbon Dioxide (22-30) mmol/L Anion Gap mmol/L BUN (7-17) mg/dL Creatinine (0.52-1.04) mg/dL Est GFR (CKD-EPI)AfAm (>60 ml/min/1.73 sqM) Est GFR (CKD-EPI)NonAf (>60 ml/min/1.73 sqM) Glucose (74-99) mg/dL Plasma Lactic Acid Juan Francisco 1.6 (0.7-2.0) mmol/L Calcium (8.4-10.2) mg/dL Magnesium (1.6-2.3) mg/dL Total Bilirubin (0.2-1.3) mg/dL AST (14-36) U/L ALT (4-34) U/L Alkaline Phosphatase (38-126) U/L Troponin I (0.000-0.034) ng/mL NT-Pro-B Natriuret Pep pg/mL Total Protein (6.3-8.2) g/dL Albumin (3.5-5.0) g/dL Urine Color Urine Appearance (Clear) Urine pH (5.0-8.0) Ur Specific [place] (1.001-1.035) Urine Protein (Negative) Urine Glucose (UA) (Negative) Urine Ketones (Negative) Urine Blood (Negative) Urine Nitrite (Negative) Urine Bilirubin (Negative) Urine Urobilinogen (<2.0) mg/dL Ur Leukocyte Esterase (Negative) Urine RBC (0-5) /hpf Urine WBC (0-5) /hpf Ur Squamous Epith Cells (0-4) /hpf Urine Mucus (None) /hpf Coronavirus (PCR) Not Detected (Not Detectd) Influenza Type A RNA Not Detected (Not Detectd) Influenza Type B (PCR) Not Detected (Not Detectd) - EKG Data EKG Comments: Sinus rhythm with sinus arrhythmia. Ventricular rate 81 bpm, KS interval 186 ms, QRS duration 74 ms, QTC 411 ms. - Radiology Data Radiology results: report reviewed, image reviewed Disposition Clinical Impression: Hypoxia, JOSE M (acute kidney injury), CHF exacerbation Disposition: ADMITTED IP TO THIS HOSP
[2022-04-17 19:30] LABS: Albumin 3.5 g/dL (3.5-5.0); Potassium 4.3 mmol/L (3.5-5.1); Total Bilirubin 0.8 mg/dL (0.2-1.3); Total Protein 6.4 g/dL (6.3-8.2)
[2022-04-17 19:50] LABS: Basophils # (A) 0.1 k/uL (0-0.2); Basophils % (A) 1 %; Eosinophils # (A) 0.4 k/uL (0-0.7); Eosinophils % (A) 5 %; HGB 13.4 gm/dL (11.4-16.0); Lymphocytes # (A) 0.8 k/uL (1.0-4.8); Lymphocytes % (A) 10 %; MCH 29.1 pg (25.0-35.0); MCHC 31.2 g/dL (31.0-37.0); MCV 93.4 fL (80.0-100.0); Mean Platelet Volume 8.6; Monocytes # (A) 0.6 k/uL (0-1.0); Monocytes % (A) 7 %; Neutrophils # (A) 6.2 k/uL (1.3-7.7); Neutrophils % (A) 77 %; Platelet Count 197 k/uL (150-450); RBC 4.61 m/uL (3.80-5.40)
[2022-04-17 19:55] LABS: INR 0.9 (<1.2); Partial Thromboplastin Time 23.1 sec (22.0-30.0); Prothrombin Time 10.2 sec (9.0-12.0)
[2022-04-17] MEDS ORDERED: hydrALAZINE HCL 20 MG/ML 1 ML VIAL IVP STA (20:25)
--- NOTE | 2022-04-17 20:31 | XR ---
EXAMINATION TYPE: XR chest 2V DATE OF EXAM: 04/17/2022 7:23 PM COMPARISON: Chest radiographs from 01/12/2020. TECHNIQUE: XR chest 2V Frontal and lateral views of the chest. CLINICAL INDICATION:Female, 76 years old with history of difficulty breathing; FINDINGS: Lungs/Pleura: Scattered subtle reticular and hazy opacities. No evidence of pneumothorax, focal conso lidation or pleural effusion. Pulmonary vascularity: Mild pulmonary vascular congestion. Heart/mediastinum: Cardiomediastinal silhouette is unremarkable. Musculoskeletal: No acute osseous pathology. IMPRESSION: Subtle scattered opacities which may represent an atypical pneumonia. Correlate for covid 19. Conside r correlation with serum BNP for congestive heart failure.
[2022-04-17] MEDS ORDERED: PNEUMONIA PROTOCOL UTILIZED 1 EACH MISC PO PRN (21:34)
[2022-04-17] MEDS ORDERED: AZITHROMYCIN 500 MG in SODIUM CHLORIDE 0.9% 250 ML IVPB STA (21:34)
[2022-04-17 22:13] LABS: Appearance,Urine Clear (Clear); Bilirubin,Urine Negative (Negative); Blood,Urine Negative (Negative); Color,Urine Yellow; Glucose,Urine (UA) Negative (Negative); Ketones,Urine Negative (Negative); Leukocyte Esterase,Urine Moderate (Negative); Mucus,Urine Rare /hpf; Nitrite,Urine Negative (Negative); PH, Urine 5.5 (5.0-8.0); Protein,Urine Trace (Negative); RBC,Urine 1 /hpf (0-5); Specific Gravity,Urine 1.012 (1.001-1.035); Squamous Epithelial Cell,Urine 1 /hpf (0-4); Urobilinogen,Urine <2.0 mg/dL (<2.0); WBC,Urine 5 /hpf (0-5)
[2022-04-17] MEDS: ZOLPIDEM 5 MG TAB PO SCH (23:36)
[2022-04-17] MEDS: ISOSORBIDE MONONITRATE ER 30 MG TAB.ER.24H PO SCH (23:36)
--- NOTE | 2022-04-18 07:43 | XR ---
EXAMINATION TYPE: XR chest 2V DATE OF EXAM: 04/18/2022 COMPARISON: 04/17/2022 INDICATION: Pneumonia TECHNIQUE: Frontal and lateral views of the chest are obtained. FINDINGS: The heart size is normal. The pulmonary vasculature is normal. Patchy densities are through the lung longoria greater in the right upper lung field. Metastatic lesion should be considered. Infectious etiology could be considered. Atypical pneumonia is within the diff erential.. This being an interval change from CT of 01/12/2020. IMPRESSION: 1. Patchy infiltrates greater in the right upper lung field are nonspecific. Differential diagnosis c ould include infectious etiologies as well as solid lesion such as metastasis. Follow-up is recommend ed
[2022-04-18] MEDS ORDERED: LOSARTAN 50 MG TAB PO SCH (09:00)
[2022-04-18] MEDS: AZITHROMYCIN 500 MG TAB PO SCH (09:24)
[2022-04-18] MEDS: ISOSORBIDE MONONITRATE ER 30 MG TAB.ER.24H PO SCH ×2 (09:24→20:03)
[2022-04-18] MEDS: CLOPIDOGREL 75 MG TAB PO SCH (09:25)
[2022-04-18] MEDS: ATORVASTATIN 80 MG TAB PO SCH (09:25)
[2022-04-18] MEDS: FAMOTIDINE 20 MG TAB PO SCH (09:25)
[2022-04-18] MEDS: METOPROLOL TARTRATE 50 MG TAB PO SCH (09:25)
[2022-04-18] MEDS ORDERED: NITROGLYCERIN SL TABS 0.4 MG TAB SUBLINGUAL PRN (10:43)
[2022-04-18] MEDS ORDERED: ALPRAZolam 1 MG TAB PO PRN (10:43)
--- NOTE | 2022-04-18 11:25 | P.CRDCN ---
History of Present Illness History of present illness: HISTORY OF PRESENTING ILLNESS This is a very pleasant 73-year-old female patient who follows with Dr. Perez in the office on regular basis with a past medical history significant for coronary artery disease and prior coronary artery bypass grafting as well as stenting, hypertension, and dyslipidemia. She is unsure why she came into the hospital and appears somewhat confused. Initially stating she came in because Dr. Perez is her doctor. Per ER note she was noted to be hypoxic with pulse ox at 86 as well as very hypertensive with systolics in the 190s. She states she has been taking her medications. She is however confused and unable to give clear history. She does believe she fell approximately 2-3 weeks ago. Was noted to have acute kidney injury with creatinine up to 2.3 last baseline 1.0 from 2 years ago. She denies any chest pain or pressure similar to her prior bypass and stenting. Prior catheterization shown occlusion of all her bypass grafts. EKG shows EKG shows sinus rhythm, left axis deviation, Q waves inferiorly, poor R-wave progression, somewhat low voltage. Chest x-ray shows possible infiltrate versus developing heart failure. She denies any orthopnea and no lower extremity edema. She states she has been eating and drinking recently. ProBNP noted to be 4000 however prior 7000 and has acute kidney injury. REVIEW OF SYSTEMS At the time of my exam: CONSTITUTIONAL: Denies fever or chills. CARDIOVASCULAR: Denies chest pain, shortness of breath, orthopnea, PND or palpitations. RESPIRATORY: Denies cough. GASTROINTESTINAL: Denies abdominal pain, diarrhea, constipation, nausea or vomiting. MUSCULOSKELETAL: Denies myalgias. NEUROLOGIC: Denies numbness, tingling or weakness. ENDOCRINE: Denies fatigue, weight change, polydipsia or polyurina. GENITOURINARY: Denies burning, hematuria or urgency with micturation. HEMATOLOGIC: Denies history of anemia or bleeding. PHYSICAL EXAMINATION Vital signs reviewed. CONSTITUTIONAL: No apparent distress, confused, poor historian, chronically ill appearing HEENT: Head is normocephalic. Pupils are equal, round. Sclerae anicteric. Mucous membranes of the mouth are moist. No JVD. No carotid bruit. CHEST EXAMINATION: Lungs are clear to auscultation. No chest wall tenderness is noted on palpation or with deep breathing. HEART EXAMINATION: Regular rate and rhythm. S1, S2 heard. No murmurs, gallops or rub. ABDOMEN: Soft, nontender. Positive bowel sounds. EXTREMITIES: 2+ peripheral pulses, no lower extremity edema and no calf tenderness. NEUROLOGIC EXAMINATION: Patient is awake, alert and oriented x3. ASSESSMENT 1. Chronic diastolic heart failure, previous echo 2019 EF 50-55% 2. Coronary artery disease with history of prior bypass and stenting with vein grafts all occluded only patent PERRY to LAD 3. Hypertension, elevated on presentation 4. Hyperlipidemia 5. Acute kidney injury 6. Altered mental status 7. Questionable history of fall a few weeks ago 8. Abnormal x-ray with infiltrates right upper lung possible infection versus other 9. Elevated proBNP however lower than previous. Do not suspect acute heart failure. 10. Moderate to severe mitral regurgitation by prior echo PLAN Patient with unclear presentation however some hypoxia and chest x-ray concerning more for infiltrates. Do not suspect heart failure without any significant lower extremity edema, JVD. ProBNP less than prior admission and additionally has acute kidney injury. Trial gentle IV fluids and monitor response. Check repeat daily creatinine. Check 2-D echo. Given recent fall check CAT scan however further neurologic workup per primary team. Continue with supportive care. Further recommendations to follow. Past Medical History Past Medical History: Coronary Artery Disease (CAD), Cancer, Chest Pain / Angina, COPD, Diabetes Mellitus, Deep Vein Thrombosis (DVT), GERD/Reflux, Hyperlipidemia, Hypertension, Osteoarthritis (OA), Skin Disorder, Vascular Disorder Additional Past Medical History / Comment(s): colon cancer, hx migraine, irregular heartbeat, varicose veins, hx blood clot in rt arm after CABG surgery, psoriasis, diet control diabetic, anemia, hx bladder cancer x 3, PAD and disease of the ileo-aortic system, carotid artery stenosis History of Any Multi-Drug Resistant Organisms: None Reported Past Surgical History: Bladder Surgery, Bowel Resection, Coronary Bypass/CABG, Heart Catheterization Additional Past Surgical History / Comment(s): rt colectomy -2016,double CAGB 2005, bladder surgery x 3, aileen cataracts ,COLONOSCOPY Past Anesthesia/Blood Transfusion Reactions: Previous Problems w/ Anesthesia Additional Past Anesthesia/Blood Transfusion Reaction / Comment(s): had blood tr ansfusion at [facility]- no problem with, "screaming and yelling from anesthesia after CAGB surgery" Past Psychological History: Anxiety Smoking Status: Current every day smoker Past Alcohol Use History: Occasional Past Drug Use History: None Reported - Past Family History Mother Family Medical History: Cancer, Coronary Artery Disease (CAD) Additional Family Medical History / Comment(s): cervical CA Father History Unknown: Yes Family Medical History: Unable to Obtain Brother(s) Family Medical History: Cancer Additional Family Medical History / Comment(s): leukemia Sister(s) Family Medical History: No Reported History Son(s) Family Medical History: Cancer Additional Family Medical History / Comment(s): leukemia Medications and Allergies Home Medications Medication Instructions Recorded Confirmed Type ALPRAZolam [Xanax] 1 mg PO BID PRN 03/10/17 04/17/22 History Zolpidem Tartrate [Ambien] 10 mg PO HS 03/10/17 04/17/22 History Atorvastatin [Lipitor] 80 mg PO DAILY 11/18/19 04/17/22 History Metoprolol Tartrate [Lopressor] 50 mg PO DAILY 11/18/19 04/17/22 History Nitroglycerin Sl Tabs [Nitrostat] 0.4 mg SUBLINGUAL Q5M PRN 11/18/19 04/17/22 Hi story Isosorbide Mononitrate ER [Imdur] 30 mg PO BID #60 tab.er.24h 11/21/19 04/17/22 Rx Famotidine [Pepcid] 20 mg PO DAILY tab 01/13/20 04/17/22 Rx Clopidogrel [Plavix] 75 mg PO DAILY 04/17/22 04/17/22 History Losartan Potassium 100 mg PO DAILY 04/17/22 04/17/22 History Allergies Allergy/AdvReac Type Severity Reaction Status Date / Time No Known Allergies Allergy Verified 04/17/22 21:32 Physical Exam Vitals: Vital Signs Temp Pulse Pulse Resp BP BP Pulse Ox 04/18/22 07:58 98.0 F 78 16 145/80 97 04/18/22 01:15 22 04/18/22 00:54 97.9 F 92 15 158/77 95 04/17/22 21:15 80 158/74 04/17/22 20:10 75 20 199/104 94 L 04/17/22 20:07 76 04/17/22 19:59 72 04/17/22 18:38 97.8 F 80 20 191/88 89 L Intake and Output 04/17/22 04/18/22 04/18/22 22:59 06:59 14:59 Intake Total 350 Balance 350 Intake: Intake, IV Titration 350 Amount Azithromycin 500 mg In 250 Sodium Chloride 0.9% 250 ml @ 250 mls/hr IVPB ONCE STA Rx#:[id number] cefTRIAXone 2 gm In 100 Sodium Chloride 0.9% 50 ml @ 100 mls/hr IVPB ONCE STA Rx#:[id number] Other: Voiding Method Toilet Weight 70.307 kg 59.3 kg Results 04/17/22 18:52 04/17/22 18:52 Cardiac Enzymes 04/17/22 04/17/22 Range/Units 18:52 18:52 AST 43 H (14-36) U/L Troponin I 0.015 (0.000-0.034) ng/mL Coagulation 04/17/22 Range/Units 18:52 PT 10.2 (9.0-12.0) sec APTT 23.1 (22.0-30.0) sec CBC 04/17/22 Range/Units 18:52 WBC 8.0 (3.8-10.6) k/uL RBC 4.61 (3.80-5.40) m/uL Hgb 13.4 (11.4-16.0) gm/dL Hct 43.0 (34.0-46.0) % Plt Count 197 (150-450) k/uL Comprehensive Metabolic Panel 04/17/22 Range/Units 18:52 Sodium 137 (137-145) mmol/L Potassium 4.3 (3.5-5.1) mmol/L Chloride 109 H (98-107) mmol/L Carbon Dioxide 18 L (22-30) mmol/L BUN 33 H (7-17) mg/dL Creatinine 2.31 H (0.52-1.04) mg/dL Glucose 92 (74-99) mg/dL Calcium 9.0 (8.4-10.2) mg/dL AST 43 H (14-36) U/L ALT 14 (4-34) U/L Alkaline Phosphatase 270 H (38-126) U/L Total Protein 6.4 (6.3-8.2) g/dL Albumin 3.5 (3.5-5.0) g/dL Current Medications Generic Name Dose Route Start Last Admin Trade Name Freq PRN Reason Stop Dose Admin Alprazolam 1 mg 04/18/22 10:43 Alprazolam 1 Mg Tab PO BID PRN Anxiety Atorvastatin Calcium 80 mg 04/18/22 09:00 04/18/22 09:25 Atorvastatin 80 Mg Tab PO 80 mg DAILY LAKIA Administration Azithromycin 500 mg 04/18/22 11:00 04/18/22 09:24 Azithromycin 500 Mg Tab PO 04/19/22 09:01 500 mg DAILY LAKIA Administration Protocol Clopidogrel Bisulfate 75 mg 04/18/22 09:00 04/18/22 09:25 Clopidogrel 75 Mg Tab PO 75 mg DAILY LAKIA Administration Famotidine 20 mg 04/18/22 09:00 04/18/22 09:25 Famotidine 20 Mg Tab PO 20 mg DAILY LAKIA Administration Ceftriaxone Sodium 2 gm/ 50 mls @ 100 mls/hr 04/18/22 23:00 Sodium Chloride IVPB 04/21/22 23:29 Q24H [facility] Protocol Isosorbide Mononitrate 30 mg 04/17/22 22:30 04/18/22 09:24 Isosorbide Mononitrate Er 30 Mg Tab.Er.24h PO 30 mg BID LAKIA Administration Losartan Potassium 100 mg 04/18/22 09:00 04/18/22 09:24 Losartan 50 Mg Tab PO 100 mg DAILY LAKIA Administration Metoprolol Tartrate 50 mg 04/18/22 09:00 04/18/22 09:25 Metoprolol Tartrate 50 Mg Tab PO 50 mg DAILY LAKIA Administration Miscellaneous Information 1 each 04/17/22 21:34 Pneumonia Protocol Utilized 1 Each Misc PO ONCE PRN Per Protocol Nitroglycerin 0.4 mg 04/18/22 10:43 Nitroglycerin Sl Tabs 0.4 Mg Tab SUBLINGUAL Q5M PRN Chest Pain Zolpidem Tartrate 10 mg 04/17/22 22:30 04/17/22 23:36 Zolpidem 5 Mg Tab PO 10 mg HS LAKIA Administration Intake and Output 04/17/22 04/18/22 04/18/22 22:59 06:59 14:59 Intake Total 350 Balance 350 Intake: Intake, IV Titration 350 Amount Azithromycin 500 mg In 250 Sodium Chloride 0.9% 250 ml @ 250 mls/hr IVPB ONCE STA Rx#:[id number] cefTRIAXone 2 gm In 100 Sodium Chloride 0.9% 50 ml @ 100 mls/hr IVPB ONCE STA Rx#:[id number] Other: Voiding Method Toilet Weight 70.307 kg 59.3 kg 04/17/22 18:52 04/17/22 18:52
[2022-04-18 12:52] LABS: African American GFR (CKD) 24 (>60 ml/min/1.73 sqM); Anion Gap 8 mmol/L; Blood Urea Nitrogen 31 mg/dL (7-17); Calcium 9.3 mg/dL (8.4-10.2); Carbon Dioxide 18 mmol/L (22-30); Chloride 113 mmol/L (98-107); Glucose 133 mg/dL (74-99); Non-African American GFR(CKD) 21 (>60 ml/min/1.73 sqM); Potassium 4.5 mmol/L (3.5-5.1); Sodium 139 mmol/L (137-145)
--- NOTE | 2022-04-18 13:19 | P.CNPUL ---
History of Present Illness Consult date: 04/18/22 Requesting physician: Charu Wolf Reason for consult: dyspnea Chief complaint: Dyspnea, cough, falls History of present illness: 76-year-old female patient with past medical history of COPD, coronary artery disease with previous bypass, hypertension, hyperlipidemia, diabetes mellitus type 2, osteoarthritis, chronic history of smoking, anxiety, previous history of DVT, colon cancer with history of colectomy and chemotherapy 5 years ago in 2017, came in to the emergency department on 04/17/2022 complaining of shortness of breath, cough, and falls at home. She states over the past week she has had an increase in lower extremity swelling, difficulty breathing and a cough. Her family called EMS to the house and patient's pulse ox was 84% on room air. She usually does not use oxygen at home. Denies any chest discomfort, no fever or chills. Chest x-ray showing subtle scattered opacities. BNP was elevated at 4010, troponin was 0.015 times one, white blood cell count was 8.0, hemoglobin is 13.4, platelet count is 197, Lopressor, 0.8, coordination profile was within normal limits, there was evidence of acute kidney injury with BUN of 33 and creatinine of 2.31, CO2 was 18, AST was 43, ALT is 14, alk phos was 270, troponin was 0.015, urinalysis showed moderate leuks, and trace protein, but no definite sign of infection, COVID-19 influenza A and B were negative. Patient was started on azithromycin and Rocephin in the emergency department, nebulized bronchodilators. Of note patient has not had any recent follow-up with her medical oncology doctor. Patient continues to smoke. Follow-up chest x-ray today showing patchy nodular infiltrates greater on the right upper lung field with the differential diagnosis of infectious etiology as well as solid lesions such as metastatic malignancy. Review of Systems All systems: negative Constitutional: Denies chills, Denies fever Eyes: denies blurred vision, denies pain Ears, nose, mouth and throat: Denies headache, Denies sore throat Cardiovascular: Reports decreased exercise tolerance, Reports dyspnea on exertion, Reports leg edema, Denies chest pain, Denies shortness of breath Respiratory: Reports cough, Reports dyspnea Gastrointestinal: Denies abdominal pain, Denies diarrhea, Denies nausea, Denies vomiting Genitourinary: Denies dysuria, Denies hematuria Musculoskeletal: Denies myalgias Integumentary: Denies pruritus, Denies rash Neurological: Denies numbness, Denies weakness Psychiatric: Denies anxiety, Denies depression Endocrine: Denies fatigue, Denies weight change Past Medical History Past Medical History: Coronary Artery Disease (CAD), Cancer, Chest Pain / Angina, COPD, Diabetes Mellitus, Deep Vein Thrombosis (DVT), GERD/Reflux, Hyperlipidemia, Hypertension, Osteoarthritis (OA), Skin Disorder, Vascular Disorder Additional Past Medical History / Comment(s): colon cancer, hx migraine, irregular heartbeat, varicose veins, hx blood clot in rt arm after CABG surgery, psoriasis, diet control diabetic, anemia, hx bladder cancer x 3, PAD and disease of the ileo-aortic system, carotid artery stenosis History of Any Multi-Drug Resistant Organisms: None Reported Past Surgical History: Bladder Surgery, Bowel Resection, Coronary Bypass/CABG, Heart Catheterization Additional Past Surgical History / Comment(s): rt colectomy ,double CAGB 2005, bladder surgery x 3, aileen cataracts ,COLONOSCOPY Past Anesthesia/Blood Transfusion Reactions: Previous Problems w/ Anesthesia Additional Past Anesthesia/Blood Transfusion Reaction / Comment(s): had blood transfusion at [facility]- no problem with, "screaming and yelling from anesthesia after CAGB surgery" Past Psychological History: Anxiety Smoking Status: Current every day smoker Past Alcohol Use History: Occasional Past Drug Use History: None Reported - Past Family History Mother Family Medical History: Cancer, Coronary Artery Disease (CAD) Additional Family Medical History / Comment(s): cervical CA Father History Unknown: Yes Family Medical History: Unable to Obtain Brother(s) Family Medical History: Cancer Additional Family Medical History / Comment(s): leukemia Sister(s) Family Medical History: No Reported History Son(s) Family Medical History: Cancer Additional Family Medical History / Comment(s): leukemia Medications and Allergies Home Medications Medication Instructions Recorded Confirmed Type ALPRAZolam [Xanax] 1 mg PO BID PRN 03/10/17 04/17/22 History Zolpidem Tartrate [Ambien] 10 mg PO HS 03/10/17 04/17/22 History Atorvastatin [Lipitor] 80 mg PO DAILY 11/18/19 04/17/22 History Metoprolol Tartrate [Lopressor] 50 mg PO DAILY 11/18/19 04/17/22 History Nitroglycerin Sl Tabs [Nitrostat] 0.4 mg SUBLINGUAL Q5M PRN 11/18/19 04/17/22 History Isosorbide Mononitrate ER [Imdur] 30 mg PO BID #60 tab.er.24h 11/21/19 04/17/22 Rx Famotidine [Pepcid] 20 mg PO DAILY tab 01/13/20 04/17/22 Rx Clopidogrel [Plavix] 75 mg PO DAILY 04/17/22 04/17/22 History Losartan Potassium 100 mg PO DAILY 04/17/22 04/17/22 History Allergies Allergy/AdvReac Type Severity Reaction Status Date / Time No Known Allergies Allergy Verified 04/17/22 21:32 Physical Exam Vitals: Vital Signs Temp Pulse Pulse Resp BP BP Pulse Ox 04/18/22 07:58 98.0 F 78 16 145/80 97 04/18/22 01:15 22 04/18/22 00:54 97.9 F 92 15 158/77 95 04/17/22 21:15 80 158/74 04/17/22 20:10 75 20 199/104 94 L 04/17/22 20:07 76 04/17/22 19:59 72 04/17/22 18:38 97.8 F 80 20 191/88 89 L Intake and Output 04/17/22 04/18/22 04/18/22 22:59 06:59 14:59 Intake Total 350 Balance 350 Intake: Intake, IV Titration 350 Amount Azithromycin 500 mg In 250 Sodium Chloride 0.9% 250 ml @ 250 mls/hr IVPB ONCE STA Rx#:[id number] cefTRIAXone 2 gm In 100 Sodium Chloride 0.9% 50 ml @ 100 mls/hr IVPB ONCE STA Rx#:[id number] Other: Voiding Method Toilet Toilet Weight 70.307 kg 59.3 kg GENERAL EXAM: Alert, very pleasant, 68-year-old white female on 4 L of oxygen pulse ox of 97% comfortable in no apparent distress. HEAD: Normocephalic/atraumatic. EYES: Normal reaction of pupils, equal size. Conjunctiva pink, sclera white. NOSE: Clear with pink turbinates. THROAT: No erythema or exudates. NECK: No masses, no JVD, no thyroid enlargement, no adenopathy. CHEST: No chest wall deformity. Symmetrical expansion. LUNGS: Equal air entry with no crackles, wheeze, rhonchi or dullness. CVS: Regular rate and rhythm, normal S1 and S2, no gallops, no murmurs, no rubs ABDOMEN: Soft, nontender. No hepatosplenomegaly, normal bowel sounds, no guarding or rigidity. EXTREMITIES: No clubbing, mild to moderate lower extremity edema no cyanosis, 2+ pulses and upper and lower extremities. MUSCULOSKELETAL: Muscle strength and tone normal. SPINE: No scoliosis or deformity SKIN: No rashes CENTRAL NERVOUS SYSTEM: Alert and oriented -3. No focal deficits, tone is normal in all 4 extremities. PSYCHIATRIC: Alert and oriented -3. Appropriate affect. Intact judgment and insight. Results - Laboratory Findings CBC and BMP: 04/17/22 18:52 04/18/22 11:42 PT/INR, D-dimer PT 10.2 sec (9.0-12.0) 04/17/22 18:52 INR 0.9 (<1.2) 04/17/22 18:52 Abnormal lab findings: Abnormal Labs 04/17/22 04/17/22 04/17/22 18:52 18:52 18:52 Lymphocytes # 0.8 L Chloride 109 H Carbon Dioxide 18 L BUN 33 H Creatinine 2.31 H Glucose AST 43 H Alkaline Phosphatase 270 H Urine Protein Trace H Ur Leukocyte Esterase Moderate H Urine Mucus Rare H 04/18/22 11:42 Lymphocytes # Chloride 113 H Carbon Dioxide 18 L BUN 31 H Creatinine 2.21 H Glucose 133 H AST Alkaline Phosphatase Urine Protein Ur Leukocyte Esterase Urine Mucus - Diagnostic Findings Chest x-ray: report reviewed, image reviewed Assessment and Plan Plan: Assessment: #1. Acute hypoxic respiratory failure related to possible acute CHF, possibility of pneumonia seems to be less likely however not entirely excluded. Chest x-ray showing patchy nodular infiltrates greater in the right upper lung, nonspecific possibility of metastatic malignancy is also considered #2. History of COPD not oxygen dependent at baseline #3. Chronic and ongoing history of smoking #4. Acute kidney injury #5. Chronic diastolic CHF #6. Coronary artery disease with previous bypass surgery #7. Diabetes mellitus type 2 #8. History of DVT #9. Hypertension #10. Hyperlipidemia #11. History of colon cancer with history of right colectomy and chemotherapy in 2017 #12. Anxiety Plan: Continue current antibiotics We'll obtain serum pro calcitonin level We'll obtain sputum for culture Hold diuretics Patient will be started on gentle IV hydration Nephrology service recommendations We will consider CT of the chest with contrast once her kidney function recovers The chest x-ray findings are suspicious for metastatic malignancy For now continue current medical treatment I have personally seen and examined the patient, performed the documentation and the assessment and plan as written. Number of minutes spent on the visit: [15] Time with Patient: Greater than 30
--- NOTE | 2022-04-18 14:13 | CT ---
EXAMINATION TYPE: CT brain wo con DATE OF EXAM: 04/18/2022 COMPARISON: None INDICATION: Acute confusion DLP: 1099.4 mGycm, Automated exposure control for dose reduction was used. CONTRAST: None CT of the brain is performed utilizing 3 mm thick sections through the posterior fossa and 3 mm thick sections through the remaining calvarium. Study is performed within 24 hours of arrival to the hosp [facility]. No abnormal hyperdensity is present to suggest an acute intracranial hemorrhage. No mass lesion is evident. No acute infarcts are evident. Periventricular white matter hypodensity is present, likely the basis of chronic white matter ischemic changes. Ventricles and sulci are prominent for the patient age. Paranasal sinuses and mastoid air cells within the [id number] are clear. IMPRESSIONS: 1. Atrophy with chronic appearing periventricular white matter ischemic changes. Follow-up MRI can be performed as clinically indicated.
--- NOTE | 2022-04-18 15:37 | P.NPCON ---
History of Present Illness - Reason for Consult Consult date: 04/18/22 acute renal failure - Chief Complaint Shortness of breath - History of Present Illness Admitted to the hospital with shortness of breath. History of diastolic CHF on diuretics. Baseline creatinine 1.0-1.3 MG per DL(labs from 2019.). On admission serum creatinine 2.3 MG per DL, improved to 2.2 MG per DL today. Chest x-ray concern for pneumonia. Currently on IV fluids. No nausea vomiting diarrhea. No recent contrast studies. No documented hypotensive episodes. Currently on losartan. Review of Systems Constitutional: Reports as per HPI Past Medical History Past Medical History: Coronary Artery Disease (CAD), Cancer, Chest Pain / Angina, COPD, Diabetes Mellitus, Deep Vein Thrombosis (DVT), GERD/Reflux, Hyperlipidemia, Hypertension, Osteoarthritis (OA), Skin Disorder, Vascular Disorder Additional Past Medical History / Comment(s): colon cancer, hx migraine, irregular heartbeat, varicose veins, hx blood clot in rt arm after CABG surgery, psoriasis, diet control diabetic, anemia, hx bladder cancer x 3, PAD and disease of the ileo-aortic system, carotid artery stenosis History of Any Multi-Drug Resistant Organisms: None Reported Past Surgical History: Bladder Surgery, Bowel Resection, Coronary Bypass/CABG, Heart Catheterization Additional Past Surgical History / Comment(s): rt colectomy -2016,double CAGB 2005, bladder surgery x 3, aileen cataracts ,COLONOSCOPY Past Anesthesia/Blood Transfusion Reactions: Previous Problems w/ Anesthesia Additional Past Anesthesia/Blood Transfusion Reaction / Comment(s): had blood transfusion at [facility]- no problem with, "screaming and yelling from anesthesia after CAGB surgery" Past Psychological History: Anxiety Smoking Status: Current every day smoker Past Alcohol Use History: Occasional Past Drug Use History: None Reported - Past Family History Mother Family Medical History: Cancer, Coronary Artery Disease (CAD) Additional Family Medical History / Comment(s): cervical CA Father History Unknown: Yes Family Medical History: Unable to Obtain Brother(s) Family Medical History: Cancer Additional Family Medical History / Comment(s): leukemia Sister(s) Family Medical History: No Reported History Son(s) Family Medical History: Cancer Additional Family Medical History / Comment(s): leukemia Medications and Allergies Home Medications Medication Instructions Recorded Confirmed Type ALPRAZolam [Xanax] 1 mg PO BID PRN 03/10/17 04/17/22 History Zolpidem Tartrate [Ambien] 10 mg PO HS 03/10/17 04/17/22 History Atorvastatin [Lipitor] 80 mg PO DAILY 11/18/19 04/17/22 History Metoprolol Tartrate [Lopressor] 50 mg PO DAILY 11/18/19 04/17/22 History Nitroglycerin Sl Tabs [Nitrostat] 0.4 mg SUBLINGUAL Q5M PRN 11/18/19 04/17/22 History Isosorbide Mononitrate ER [Imdur] 30 mg PO BID #60 tab.er.24h 11/21/19 04/17/22 Rx Famotidine [Pepcid] 20 mg PO DAILY tab 01/13/20 04/17/22 Rx Clopidogrel [Plavix] 75 mg PO DAILY 04/17/22 04/17/22 History Losartan Potassium 100 mg PO DAILY 04/17/22 04/17/22 History Allergies Allergy/AdvReac Type Severity Reaction Status Date / Time No Known Allergies Allergy Verified 04/17/22 21:32 Physical Exam Vitals: Vital Signs Temp Pulse Pulse Resp BP BP Pulse Ox 04/18/22 14:00 98.3 F 69 18 155/81 98 04/18/22 07:58 98.0 F 78 16 145/80 97 04/18/22 01:15 22 04/18/22 00:54 97.9 F 92 15 158/77 95 04/17/22 21:15 80 158/74 04/17/22 20:10 75 20 199/104 94 L 04/17/22 20:07 76 04/17/22 19:59 72 04/17/22 18:38 97.8 F 80 20 191/88 89 L Intake and Output 04/18/22 04/18/22 04/18/22 06:59 14:59 22:59 Intake Total 350 Balance 350 Intake: Intake, IV Titration 350 Amount Azithromycin 500 mg In 250 Sodium Chloride 0.9% 250 ml @ 250 mls/hr IVPB ONCE STA Rx#:[id number] cefTRIAXone 2 gm In 100 Sodium Chloride 0.9% 50 ml @ 100 mls/hr IVPB ONCE STA Rx#:[id number] Other: Voiding Method Toilet Toilet Weight 59.3 kg No acute distress S1-S2 heard Decreased breath sounds No edema Results - Lab Results Most recent lab results Calcium 9.3 mg/dL (8.4-10.2) 04/18/22 11:42 Magnesium 2.0 mg/dL (1.6-2.3) 04/17/22 18:52 04/17/22 18:52 04/18/22 11:42 Assessment and Plan Assessment: #1 acute kidney injury suspect volume depletion from diuretic use. #2 shortness of breath, chest x-ray concern for pneumonia. #3 metabolic acidosis #4 CK D stage III with a baseline creatinine of 1.0-1.3 MG per DL. {Labs from 2020] #5 hypertension with chronic kidney disease. Plan: #1 renal function stable.? New baseline creatinine. #2 hold losartan for now. Add amlodipine for blood pressure control #3 daily renal labs.
[2022-04-18] MEDS: SODIUM CHLORIDE 0.9% 1,000 ML IV SCH (18:24)
--- NOTE | 2022-04-18 18:27 | P.HPIM ---
History of Present Illness H&P Date: 04/18/22 Chief Complaint: Shortness of breath This is a 76-year-old patient who follows with Dr. Yo Christianson. Chronic stable medical conditions include CAD with a prior history of bypass, diabetes, GERD, hypertension, hyperlipidemia, osteoarthritis, PAD, right colectomy,. Presented to ER with shortness of breath. Also lower extremity swelling. Some cough. Family called EMS. Oxygen saturation was 84%. Does not use oxygen at home. Patient seems to have underlying cognitive impairment. Somewhat limited and history giving. Review of systems: GEN.: Tired EYES: None HEENT: None NECK: None RESPIRATORY: As above CARDIOVASCULAR: No chest pain and GASTROINTESTINAL: None GENITOURINARY: None MUSCULOSKELETAL: Joint pains LYMPHATICS: None HEMATOLOGICAL: None PSYCHIATRY: Forgetful NEUROLOGICAL: None Past medical history to include: CAD, COPD, diabetes, DVT, GERD, hypertension, hyperlipidemia, osteoporosis, colon cancer, migraines, varicose veins, blood clot in the right thumb after CABG, sodium assess, bladder cancer 3, PAD, carotid artery stenosis, coronary bypass, right colectomy, anxiety, Social history: Patient smoked for 30 years 1 pack a day stopped in 2005. Alcohol occasionally. Lives with a friend to 15 years. Family history: CAD, cervical cancer Physical examination: VITAL SIGNS: 97.8, 80, 20, 1 58 x 74, 89% on room air upon presentation GENERAL: BMI 22.4, laying in bed awake currently comfortable. EYES: Pupils equal. Conjunctiva normal. HEENT: External appearance of nose and ears normal, oral cavity grossly normal. NECK: JVD not raised; masses not palpable. HEART: First and second heart sounds are normal; no edema. LUNGS: Respiratory rate normal; decreased breath sounds. ABDOMEN: Soft, nontender, liver spleen not palpable, no masses palpable. PSYCH: Patient able tonsil simple questionsl. MUSCULOSKELETAL:No Clubbing/cyanosis;muscles-grossly intact, evidence of OA NEUROLOGICAL: Cranial nerves grossly intact; no facial asymmetry, power and sensation grossly intact. LYMPHATICS: No lymph nodes palpable in the axilla and neck INVESTIGATIONS, reviewed in the clinical context: White count 8 hemoglobin 13.4 platelets 197 potassium 4.3 BUN 33 creatinine 2.31 bicarb 18 Troponin I 0.015. ProBNP 4010. UA: Negative for nitrite COVID 19/influenza type A type B: Not detected EKG tracing personally reviewed by me-poor R-wave progression. Nonspecific ST segment changes. Sinus rhythm. Chest x-ray film personally reviewed by me-some scattered infiltrates Computed tomography scan of the brain: Atrophy and chronic appearing pe riventricular white matter ischemic changes. Previous labs: Creatinine 1-1.3 in 2019 Assessment and plan: -Possible acute pneumonitis. Possible bacterial pneumonia. IV ceftriaxone. Check pro-calcitonin. -Chronic kidney disease suspect stage III. From nephrosclerosis Follow renal function. -Rule out acute kidney injury. Gentle hydration. Repeat labs -Moderate cognitive impairment from Alzheimer's dementia CT brain shows chronic changes. We will check TSH and B12. -Chronic insomnia Ambien 10 mg daily at bedtime -CAD with a prior history of bypass Plavix, Lopressor, Lipitor -Hyperlipidemia Lipitor Gentle hydration. IV ceftriaxone. Check TSH and B12. Repeat labs. - Past Medical History Past Medical History: Coronary Artery Disease (CAD), Cancer, Chest Pain / Angina, COPD, Diabetes Mellitus, Deep Vein Thrombosis (DVT), GERD/Reflux, H yperlipidemia, Hypertension, Osteoarthritis (OA), Skin Disorder, Vascular Disorder Additional Past Medical History / Comment(s): colon cancer, hx migraine, irregular heartbeat, varicose veins, hx blood clot in rt arm after CABG surgery, psoriasis, diet control diabetic, anemia, hx bladder cancer x 3, PAD and disease of the ileo-aortic system, carotid artery stenosis History of Any Multi-Drug Resistant Organisms: None Reported Past Surgical History: Bladder Surgery, Bowel Resection, Coronary Bypass/CABG, Heart Catheterization Additional Past Surgical History / Comment(s): rt colectomy -2016,double CAGB 2005, bladder surgery x 3, aileen cataracts ,COLONOSCOPY Past Anesthesia/Blood Transfusion Reactions: Previous Problems w/ Anesthesia Additional Past Anesthesia/Blood Transfusion Reaction / Comment(s): had blood transfusion at [facility]- no problem with, "screaming and yelling from anesthesia after CAGB surgery" Past Psychological History: Anxiety Smoking Status: Current every day smoker Past Alcohol Use History: Occasional Past Drug Use History: None Reported - Past Family History Mother Family Medical History: Cancer, Coronary Artery Disease (CAD) Additional Family Medical History / Comment(s): cervical CA Father History Unknown: Yes Family Medical History: Unable to Obtain Brother(s) Family Medical History: Cancer Additional Family Medical History / Comment(s): leukemia Sister(s) Family Medical History: No Reported History Son(s) Family Medical History: Cancer Additional Family Medical History / Comment(s): leukemia Medications and Allergies Home Medications Medication Instructions Recorded Confirmed Type ALPRAZolam [Xanax] 1 mg PO BID PRN 03/10/17 04/17/22 History Zolpidem Tartrate [Ambien] 10 mg PO HS 03/10/17 04/17/22 History Atorvastatin [Lipitor] 80 mg PO DAILY 11/18/19 04/17/22 History Metoprolol Tartrate [Lopressor] 50 mg PO DAILY 11/18/19 04/17/22 History Nitroglycerin Sl Tabs [Nitrostat] 0.4 mg SUBLINGUAL Q5M PRN 11/18/19 04/17/22 History Isosorbide Mononitrate ER [Imdur] 30 mg PO BID #60 tab.er.24h 11/21/19 04/17/22 Rx Famotidine [Pepcid] 20 mg PO DAILY tab 01/13/20 04/17/22 Rx Clopidogrel [Plavix] 75 mg PO DAILY 04/17/22 04/17/22 History Losartan Potassium 100 mg PO DAILY 04/17/22 04/17/22 History Allergies Allergy/AdvReac Type Severity Reaction Status Date / Time No Known Allergies Allergy Verified 04/17/22 21:32 Physical Exam Vitals: Vital Signs Temp Pulse Pulse Resp BP BP Pulse Ox 04/18/22 07:58 98.0 F 78 16 145/80 97 04/18/22 01:15 22 04/18/22 00:54 97.9 F 92 15 158/77 95 04/17/22 21:15 80 158/74 04/17/22 20:10 75 20 199/104 94 L 04/17/22 20:07 76 04/17/22 19:59 72 04/17/22 18:38 97.8 F 80 20 191/88 89 L Intake and Output 04/17/22 04/18/22 04/18/22 22:59 06:59 14:59 Intake Total 350 Balance 350 Intake: Intake, IV Titration 350 Amount Azithromycin 500 mg In 250 Sodium Chloride 0.9% 250 ml @ 250 mls/hr IVPB ONCE STA Rx#:[id number] cefTRIAXone 2 gm In 100 Sodium Chloride 0.9% 50 ml @ 100 mls/hr IVPB ONCE STA Rx#:[id number] Other: Voiding Method Toilet Weight 70.307 kg 59.3 kg Results CBC & Chem 7: 04/17/22 18:52 04/18/22 11:42 Labs: Abnormal Lab Results - Last 24 Hours (Table) 04/17/22 04/17/22 04/17/22 Range/Units 18:52 18:52 18:52 Lymphocytes # 0.8 L (1.0-4.8) k/uL Chloride 109 H (98-107) mmol/L Carbon Dioxide 18 L (22-30) mmol/L BUN 33 H (7-17) mg/dL Creatinine 2.31 H (0.52-1.04) mg/dL AST 43 H (14-36) U/L Alkaline Phosphatase 270 H (38-126) U/L Urine Protein Trace H (Negative) Ur Leukocyte Esterase Moderate H (Negative) Urine Mucus Rare H (None) /hpf Thrombosis Risk Factor Assmnt - Choose All That Apply Any of the Below Risk Factors Present?: No Other Risk Factors: Yes Each Risk Factor Represents 3 Points: Age 75 years or older Thrombosis Risk Factor Assessment Total Risk Factor Score: 3 Thrombosis Risk Factor Assessment Level: Moderate Risk
[2022-04-18] MEDS: ZOLPIDEM 5 MG TAB PO SCH (20:03)
[2022-04-18] MEDS: ENOXAPARIN 40 MG/0.4 ML SYRINGE SQ SCH (20:03)
[2022-04-19 07:02] LABS: African American GFR (CKD) 25 (>60 ml/min/1.73 sqM); Anion Gap 7 mmol/L; Blood Urea Nitrogen 34 mg/dL (7-17); Calcium 8.6 mg/dL (8.4-10.2); Carbon Dioxide 18 mmol/L (22-30); Chloride 114 mmol/L (98-107); Glucose 91 mg/dL (74-99); Non-African American GFR(CKD) 21 (>60 ml/min/1.73 sqM); Potassium 4.3 mmol/L (3.5-5.1); Sodium 139 mmol/L (137-145)
[2022-04-19] MEDS: ATORVASTATIN 80 MG TAB PO SCH (07:38)
[2022-04-19] MEDS: CLOPIDOGREL 75 MG TAB PO SCH (07:38)
[2022-04-19] MEDS: AZITHROMYCIN 500 MG TAB PO SCH (07:38)
[2022-04-19] MEDS: ISOSORBIDE MONONITRATE ER 30 MG TAB.ER.24H PO SCH ×2 (07:38→20:12)
[2022-04-19] MEDS: FAMOTIDINE 20 MG TAB PO SCH (07:39)
[2022-04-19] MEDS: SODIUM CHLORIDE 0.9% 1,000 ML IV SCH (07:39)
[2022-04-19] MEDS: METOPROLOL TARTRATE 50 MG TAB PO SCH (07:39)
[2022-04-19] MEDS: ENOXAPARIN 40 MG/0.4 ML SYRINGE SQ SCH (07:39)
[2022-04-19] MEDS ORDERED: amLODIPine 5 MG TAB PO SCH (09:00)
[2022-04-19] MEDS ORDERED: IPRATROPIUM-ALBUTEROL 3 ML NEB INHALATION PRN (12:02)
--- NOTE | 2022-04-19 12:09 | P.PN ---
Subjective Progress Note Date: 04/19/22 Principal diagnosis: Shortness of breath, cough, falls 76-year-old female patient with past medical history of COPD, coronary artery disease with previous bypass, hypertension, hyperlipidemia, diabetes mellitus type 2, osteoarthritis, chronic history of smoking, anxiety, previous history of DVT, colon cancer with history of colectomy and chemotherapy 5 years ago in 2017, came in to the emergency department on 04/17/2022 complaining of shortness of breath, cough, and falls at home. She states over the past week she has had an increase in lower extremity swelling, difficulty breathing and a cough. Her family called EMS to the house and patient's pulse ox was 84% on room air. She usually does not use oxygen at home. Denies any chest discomfort, no fever or chills. Chest x-ray showing subtle scattered opacities. BNP was elevated at 4010, troponin was 0.015 times one, white blood cell count was 8.0, hemoglobin is 13.4, platelet count is 197, Lopressor, 0.8, coordination profile was within normal limits, there was evidence of acute kidney injury with BUN of 33 and creatinine of 2.31, CO2 was 18, AST was 43, ALT is 14, alk phos was 270, troponin was 0.015, urinalysis showed moderate leuks, and trace protein, but no definite sign of infection, COVID-19 influenza A and B were negative. Patient was started on azithromycin and Rocephin in the emergency department, nebulized bronchodilators. Of note patient has not had any recent follow-up with her medical oncology doctor. Patient continues to smoke. Follow-up chest x-ray today showing patchy nodular infiltrates greater on the right upper lung field with the differential diagnosis of infectious etiology as well as solid lesions such as metastatic malignancy. On 04/19/2022 patient seen in follow-up on medical surgical floor. She is awake, oriented 3, answering questions appropriately, doesn't appear to be in any acute distress, remains on IV hydration with point tenderness and uterine 50 ML per hour, creatinine is slightly improved on today's labs and is down to 2.15, nephrology is following, brain CT was obtained showing atrophy with chronic-appearing. Ventricular white matter ischemic changes. There was no abnormal hyperdensity no mass lesions, no acute infarcts. No worsening dyspnea. No complaints of chest discomfort. Blood cultures have been negative. Patient remains on Rocephin for empiric antibiotic coverage. Her chest x-ray on admission showed patchy infiltrate bilaterally, greater in the right upper lung that were suspicious for infectious etiology or metastatic malignancy. Objective - Vital Signs Vital signs: Vital Signs Temp 97.8 F 04/19/22 08:00 Pulse 64 04/19/22 08:00 Resp 17 04/19/22 08:00 BP 181/89 04/19/22 08:53 Pulse Ox 99 04/19/22 08:00 FiO2 Intake & Output 04/18/22 04/19/22 04/19/22 18:59 06:59 18:59 Weight 58.5 kg Other: Voiding Method Toilet Toilet Toilet # Voids 2 1 # Bowel Movements 1 - Exam GENERAL EXAM: Alert, very pleasant, 68-year-old white female on 4 L of oxygen pulse ox of 97% comfortable in no apparent distress. HEAD: Normocephalic/atraumatic. EYES: Normal reaction of pupils, equal size. Conjunctiva pink, sclera white. NOSE: Clear with pink turbinates. THROAT: No erythema or exudates. NECK: No masses, no JVD, no thyroid enlargement, no adenopathy. CHEST: No chest wall deformity. Symmetrical expansion. LUNGS: Equal air entry with no crackles, wheeze, rhonchi or dullness. CVS: Regular rate and rhythm, normal S1 and S2, no gallops, no murmurs, no rubs ABDOMEN: Soft, nontender. No hepatosplenomegaly, normal bowel sounds, no guarding or rigidity. EXTREMITIES: No clubbing, mild to moderate lower extremity edema no cyanosis, 2+ pulses and upper and lower extremities. MUSCULOSKELETAL: Muscle strength and tone normal. SPINE: No scoliosis or deformity SKIN: No rashes CENTRAL NERVOUS SYSTEM: Alert and oriented -3. No focal deficits, tone is normal in all 4 extremities. PSYCHIATRIC: Alert and oriented -3. Appropriate affect. Intact judgment and insight. - Labs CBC & Chem 7: 04/17/22 18:52 04/19/22 06:03 Labs: Abnormal Lab Results - Last 24 Hours (Table) 04/18/22 04/19/22 04/19/22 Range/Units 11:42 06:03 06:03 Chloride 113 H 114 H (98-107) mmol/L Carbon Dioxide 18 L 18 L (22-30) mmol/L BUN 31 H 34 H (7-17) mg/dL Creatinine 2.21 H 2.15 H (0.52-1.04) mg/dL Glucose 133 H (74-99) mg/dL Procalcitonin 0.60 H (0.02-0.09) ng/mL Microbiology - Last 24 Hours (Table) 04/17/22 23:00 Blood Culture - Preliminary Blood No Growth after 24 hours 04/17/22 22:32 Blood Culture - Preliminary Blood No Growth after 24 hours Assessment and Plan Plan: Assessment: #1. Acute hypoxic respiratory failure related to possible acute CHF, possibility of pneumonia seems to be less likely however not entirely excluded. Chest x-ray showing patchy nodular infiltrates greater in the right upper lung, nonspecific, possibly related to infectious or inflammatory etiology, or possibly related to metastatic malignancy #2. History of COPD not oxygen dependent at baseline #3. Chronic and ongoing history of smoking #4. Acute kidney injury #5. Chronic diastolic CHF #6. Coronary artery disease with previous bypass surgery #7. Diabetes mellitus type 2 #8. History of DVT #9. Hypertension #10. Hyperlipidemia #11. History of colon cancer with history of right colectomy and chemotherapy in 2017 #12. Anxiety Plan: Continue with antibiotic coverage Serum pro calcitonin level has been noted Today's labs have been noted Renal function is improving Clinically patient does not appear to be any acute distress Will try to obtain a sputum for culture We'll consider computed tomography scan with contrast when her kidney function recovers Findings of her chest x-ray possibly related to infectious/inflammatory etiology or metastatic malignancy Follow-up chest x-ray tomorrow I have personally seen and examined the patient, performed the documentation and the assessment and plan as written. Number of minutes spent on the visit: [10] Time with Patient: Less than 30
--- NOTE | 2022-04-19 12:48 | P.PN ---
Subjective HISTORY OF PRESENTING ILLNESS This is a very pleasant 73-year-old female patient who follows with Dr. Perez in the office on regular basis with a past medical history significant for coronary artery disease and prior coronary artery bypass grafting as well as stenting, hypertension, and dyslipidemia. She is unsure why she came into the hospital and appears somewhat confused. Initially stating she came in because Dr. Perez is her doctor. Per ER note she was noted to be hypoxic with pulse ox at 86 as well as very hypertensive with systolics in the 190s. She states she has been taking her medications. She is however confused and unable to give clear history. She does believe she fell approximately 2-3 weeks ago. Was noted to have acute kidney injury with creatinine up to 2.3 last baseline 1.0 from 2 years ago. She denies any chest pain or pressure similar to her prior bypass and stenting. Prior catheterization shown occlusion of all her bypass grafts. EKG shows EKG shows sinus rhythm, left axis deviation, Q waves inferiorly, poor R-wave progression, somewhat low voltage. Chest x-ray shows possible infiltrate versus developing heart failure. She denies any orthopnea and no lower extremity edema. She states she has been eating and drinking recently. ProBNP noted to be 4000 however prior 7000 and has acute kidney injury. 04/19 Patient seen and examined. Creatinine mildly improving to 2.1. CT brain shows no acute process with chronic-appearing atrophy. Still somewhat confused saying "good luck with the game "and cannot tell me why she came in because it is "embarrassing". Denies any chest pain or pressure. Remains on antibiotics, Rocephin. Patchy infiltrates noted on prior chest x-ray, infectious versus m alignancy. PHYSICAL EXAMINATION Vital signs reviewed. CONSTITUTIONAL: No apparent distress, confused, poor historian, chronically ill appearing HEENT: Head is normocephalic. Pupils are equal, round. Sclerae anicteric. Mucous membranes of the mouth are moist. No JVD. No carotid bruit. CHEST EXAMINATION: Lungs are clear to auscultation. No chest wall tenderness is noted on palpation or with deep breathing. HEART EXAMINATION: Regular rate and rhythm. S1, S2 heard. No murmurs, gallops or rub. ABDOMEN: Soft, nontender. Positive bowel sounds. EXTREMITIES: 2+ peripheral pulses, no lower extremity edema and no calf tenderness. NEUROLOGIC EXAMINATION: Patient is awake, alert and oriented x3. ASSESSMENT 1. Chronic diastolic heart failure, previous echo 2019 EF 50-55% 2. Coronary artery disease with history of prior bypass and stenting with vein grafts all occluded only patent PERRY to LAD 3. Hypertension, elevated on presentation 4. Hyperlipidemia 5. Acute kidney injury 6. Altered mental status 7. Questionable history of fall a few weeks ago 8. Abnormal x-ray with infiltrates right upper lung possible infection versus other 9. Elevated proBNP however lower than previous. Do not suspect acute heart failure. 10. Moderate to severe mitral regurgitation by prior echo PLAN Await 2-D echo. Does not appear to be in heart failure currently with no significant JVD or lower extremity edema and appears to be slowly improving with gentle IV fluids. Monitor creatinine closely. Pulmonary undergoing workup for possible infiltrate versus malignancy. Check 2-D echo and tenuous supportive care. Monitor neuro status. Objective - Vital Signs Vital signs: Vital Signs Temp 97.8 F 04/19/22 08:00 Pulse 64 04/19/22 08:00 Resp 17 04/19/22 08:00 BP 181/89 04/19/22 08:53 Pulse Ox 99 04/19/22 08:00 FiO2 Intake & Output 04/18/22 04/19/22 04/19/22 18:59 06:59 18:59 Weight 58.5 kg Other: Voiding Method Toilet Toilet Toilet # Voids 2 1 # Bowel Movements 1 - Labs CBC & Chem 7: 04/17/22 18:52 04/19/22 06:03 Labs: Abnormal Lab Results - Last 24 Hours (Table) 04/18/22 04/19/22 04/19/22 Range/Units 11:42 06:03 06:03 Chloride 113 H 114 H (98-107) mmol/L Carbon Dioxide 18 L 18 L (22-30) mmol/L BUN 31 H 34 H (7-17) mg/dL Creatinine 2.21 H 2.15 H (0.52-1.04) mg/dL Glucose 133 H (74-99) mg/dL Procalcitonin 0.60 H (0.02-0.09) ng/mL Microbiology - Last 24 Hours (Table) 04/17/22 23:00 Blood Culture - Preliminary Blood No Growth after 24 hours 04/17/22 22:32 Blood Culture - Preliminary Blood No Growth after 24 hours
[2022-04-19] MEDS ORDERED: hydrALAZINE HCL 20 MG/ML 1 ML VIAL IVP PRN (12:50)
--- NOTE | 2022-04-19 13:08 | P.PN ---
Subjective Progress Note Date: 04/19/22 Follow-up for acute kidney injury. Objective - Vital Signs Vital signs: Vital Signs Temp 97.8 F 04/19/22 08:00 Pulse 64 04/19/22 08:00 Resp 17 04/19/22 08:00 BP 181/89 04/19/22 08:53 Pulse Ox 99 04/19/22 08:00 FiO2 Intake & Output 04/18/22 04/19/22 04/19/22 18:59 06:59 18:59 Weight 58.5 kg Other: Voiding Method Toilet Toilet Toilet # Voids 2 1 # Bowel Movements 1 - Exam No Acute distress S1-S2 heard Decreased breath sounds No edema - Labs CBC & Chem 7: 04/17/22 18:52 04/19/22 06:03 Labs: Abnormal Lab Results - Last 24 Hours (Table) 04/19/22 04/19/22 Range/Units 06:03 06:03 Chloride 114 H (98-107) mmol/L Carbon Dioxide 18 L (22-30) mmol/L BUN 34 H (7-17) mg/dL Creatinine 2.15 H (0.52-1.04) mg/dL Procalcitonin 0.60 H (0.02-0.09) ng/mL Microbiology - Last 24 Hours (Table) 04/17/22 23:00 Blood Culture - Preliminary Blood No Growth after 24 hours 04/17/22 22:32 Blood Culture - Preliminary Blood No Growth after 24 hours Assessment and Plan Assessment: #1 acute kidney injury suspect volume depletion from diuretic use. #2 shortness of breath, chest x-ray concern for pneumonia. #3 metabolic acidosis #4 CK D stage III with a baseline creatinine of 1.0-1.3 MG per DL. {Labs from 2020] #5 hypertension with chronic kidney disease. Plan: #1 renal function stable.? New baseline creatinine. #2 hold losartan for now. Add Procardia for better blood pressure control. #3 daily renal labs.
--- NOTE | 2022-04-19 14:05 | CT ---
"EXAMINATION TYPE: CT chest wo con DATE OF EXAM: 04/19/2022 COMPARISON: 01/12/2020 HISTORY: r/o Pulm fibrosis. Attempted to place pt on prone but pt unable to lay on stomach CT DLP: 250.3 mGycm, Automated exposure control for dose reduction was used. CONTRAST: None TECHNIQUE: Axial images were obtained at 1 mm thick sections at 10 mm intervals. This will limit po rtions of the examination which may not be visualized within the [id number]. Images were obtained in the supine position. The patient could not tolerate prone imaging FINDINGS: Portion of the thyroid visualized is normal. Multiple punctate peripheral nodules at the lung apices. There are somewhat larger nodules along the periphery and in the midportion right upper lobe measuring 0.7 cm at the apex, series 202 image 7 and 13 mm posterior lateral right apex, series 202 image 7. Additional nodules are in the periphery of t he posterior lateral right upper lobe, image 202 image 9. Largest measures 1.3 cm. There is a mass along the periphery of the right upper lung field measuring 3.3 cm x 1.5 cm. Series 2 02 image 12. Additional right lung nodules are present. A small lingular nodule is present series 202 image 15. Dependent left lung base infiltrate is present may be related atelectasis. Underlying masses are not excluded a small mass may be in the posterior lateral left lung measuring 2.4 cm. Series 201 image 18 No enlarged mediastinal or hilar adenopathy is evident. The ascending aorta diameter at the level o f the main pulmonary artery is 3.4 cm. The main pulmonary artery diameter at the bifurcation is 2.[address] sections are obtained through the upper abdomen. Abdomen is essentially unremarkable. IMPRESSIONS: 1. Interval development of multiple pulmonary nodules. Consider primary and metastatic disease. Addit ional workup with contrast standard CT chest is recommended. A Yellow level critical message alert has been initiated for Albin Clay MD via the [employer] App 36 0 | Critical Results System on 04/19/2022 2:03 PM. This message alert has been sent to Albin Clay MD via the preferences provided by the clinician for the receipt of Radiology Critical Findings. [facility] ID [id number]."
[2022-04-19] MEDS: IPRATROPIUM-ALBUTEROL 3 ML NEB INHALATION SCH ×2 (15:15→20:22)
[2022-04-19] MEDS: SODIUM BICARBONATE TAB 650 MG TAB PO SCH ×3 (16:43→20:12)
--- NOTE | 2022-04-19 17:49 | P.PN ---
Progress Note - Text Progress Note Date: 04/19/22 Chief Complaint: Shortness of breath This is a 76-year-old patient who follows with Dr. Yo Christianson. Chronic stable medical conditions include CAD with a prior history of bypass, diabetes, GERD, hypertension, hyperlipidemia, osteoarthritis, PAD, right colectomy,. Presented to ER with shortness of breath. Also lower extremity swelling. Some cough. Family called EMS. Oxygen saturation was 84%. Does not use oxygen at home. Patient seems to have underlying cognitive impairment. Somewhat limited and history giving. Admitted with pneumonitis/pneumonia, acute hypoxic respiratory failure. Started on ceftriaxone, oxygen gentle hydration April 19: Eating about 50%. Some shortness of breath. IV ceftriaxone. On nasal cannula. Active Medications Albuterol/Ipratropium (Ipratropium-Albuterol 3 Ml Neb) 3 ml INHALATION RT-QID [facility] Last Admin: 04/19/22 15:15 Dose: 3 ml Albuterol/Ipratropium (Ipratropium-Albuterol 3 Ml Neb) 3 ml INHALATION RT-Q2H PRN PRN Reason: Shortness Of Breath Or Wheezing Alprazolam (Alprazolam 1 Mg Tab) 1 mg PO BID PRN PRN Reason: Anxiety Atorvastatin Calcium (Atorvastatin 80 Mg Tab) 80 mg PO DAILY [facility] Last Admin: 04/19/22 07:38 Dose: 80 mg Clopidogrel Bisulfate (Clopidogrel 75 Mg Tab) 75 mg PO DAILY [facility] Last Admin: 04/19/22 07:38 Dose: 75 mg Enoxaparin Sodium (Enoxaparin 30 Mg/0.3 Ml Syringe) 30 mg SQ DAILY [facility] Famotidine (Famotidine 20 Mg Tab) 20 mg PO DAILY [facility] Last Admin: 04/19/22 07:39 Dose: 20 mg Hydralazine HCl (Hydralazine Hcl 20 Mg/Ml 1 Ml Vial) 10 mg IVP Q6HR PRN PRN Reason: Blood Pressure - High Last Admin: 04/19/22 16:51 Dose: 10 mg Ceftriaxone Sodium 2 gm/ (Sodium Chloride) 50 mls @ 100 mls/hr IVPB Q24H [facility]; Protocol Stop: 04/21/22 23:29 Last Admin: 04/18/22 23:35 Dose: 100 mls/hr Sodium Chloride (Saline 0.9%) 1,000 mls @ 50 mls/hr IV .Q20H [facility] Last Admin: 04/19/22 07:39 Dose: 50 mls/hr Isosorbide Mononitrate (Isosorbide Mononitrate Er 30 Mg Tab.Er.24h) 30 mg PO BID [facility] Last Admin: 04/19/22 07:38 Dose: 30 mg Metoprolol Tartrate (Metoprolol Tartrate 50 Mg Tab) 50 mg PO DAILY [facility] Last Admin: 04/19/22 07:39 Dose: 50 mg Miscellaneous Information (Pneumonia Protocol Utilized 1 Each Misc) 1 each PO ONCE PRN PRN Reason: Per Protocol Nifedipine (Nifedipine Xl 60 Mg Tab.Er.24) 60 mg PO Q12HR [facility] Last Admin: 04/19/22 16:45 Dose: Not Given Nitroglycerin (Nitroglycerin Sl Tabs 0.4 Mg Tab) 0.4 mg SUBLINGUAL Q5M PRN PRN Reason: Chest Pain Sodium Bicarbonate (Sodium Bicarbonate Tab 650 Mg Tab) 650 mg PO TID [facility] Last Admin: 04/19/22 16:50 Dose: Not Given Zolpidem Tartrate (Zolpidem 5 Mg Tab) 10 mg PO HS [facility] Last Admin: 04/18/22 20:03 Dose: 10 mg Past medical history to include: CAD, COPD, diabetes, DVT, GERD, hypertension, hyperlipidemia, osteoporosis, colon cancer, migraines, varicose veins, blood clot in the right thumb after CABG, sodium assess, bladder cancer 3, PAD, carotid artery stenosis, coronary bypass, right colectomy, anxiety, Social history: Patient smoked for 30 years 1 pack a day stopped in 2005. Alcohol occasionally. Lives with a friend to 15 years. Family history: CAD, cervical cancer Physical examination: VITAL SIGNS: 98.7, 80, 18, 1 40 x 37, 99% on 4 L GENERAL: Laying in bed, awake more comfortable. EYES: Pupils equal. Conjunctiva normal. HEENT: External appearance of nose and ears normal, oral cavity grossly normal. NECK: JVD not raised; masses not palpable. HEART: First and second heart sounds are normal; no edema. LUNGS: Respiratory rate normal; decreased breath sounds. ABDOMEN: Soft, nontender, liver spleen not palpable, no masses palpable. PSYCH: Answering simple questions MUSCULOSKELETAL:No Clubbing/cyanosis;muscles-grossly intact, evidence of OA INVESTIGATIONS, reviewed in the clinical context: April 19: Potassium 4.3 bicarb 18 BUN 34 creatinine 2.15 Pro-calcitonin 0.60 TSH 1.3 B12 605 White count 8 hemoglobin 13.4 platelets 197 potassium 4.3 BUN 33 creatinine 2.31 bicarb 18 Troponin I 0.015. ProBNP 4010. UA: Negative for nitrite COVID 19/influenza type A type B: Not detected EKG tracing personally reviewed by me-poor R-wave progression. Nonspecific ST segment changes. Sinus rhythm. Chest x-ray film personally reviewed by me-some scattered infiltrates Computed tomography scan of the brain: Atrophy and chronic appearing periventricular white matter ischemic changes. Previous labs: Creatinine 1-1.3 in 2019 Assessment and plan: -Possible acute pneumonitis. / bacterial pneumonia. IV ceftriaxone. -Acute hypoxic respiratory failure from pneumonia Currently on 4 L nasal cannula -Chronic kidney disease suspect stage III. From nephrosclerosis Follow renal function. -Rule out acute kidney injury. Gentle hydration. Repeat labs -Moderate cognitive impairment from Alzheimer's dementia CT brain shows chronic changes. We will check TSH and B12. -Chronic insomnia Ambien 10 mg daily at bedtime -CAD with a prior history of bypass Plavix, Lopressor, Lipitor -Hyperlipidemia Lipitor Gentle hydration. IV ceftriaxone. Encourage oral intake. Decrease FiO2.
[2022-04-19] MEDS: ZOLPIDEM 5 MG TAB PO SCH (20:12)
[2022-04-20] MEDS: SODIUM CHLORIDE 0.9% 1,000 ML IV SCH ×2 (05:48→22:32)
[2022-04-20 06:35] LABS: African American GFR (CKD) 30 (>60 ml/min/1.73 sqM); Anion Gap 9 mmol/L; Blood Urea Nitrogen 29 mg/dL (7-17); Calcium 8.7 mg/dL (8.4-10.2); Carbon Dioxide 20 mmol/L (22-30); Chloride 111 mmol/L (98-107); Glucose 88 mg/dL (74-99); Non-African American GFR(CKD) 26 (>60 ml/min/1.73 sqM); Sodium 140 mmol/L (137-145)
[2022-04-20] MEDS: IPRATROPIUM-ALBUTEROL 3 ML NEB INHALATION SCH ×4 (08:39→20:50)
[2022-04-20] MEDS: ATORVASTATIN 80 MG TAB PO SCH (09:03)
[2022-04-20] MEDS: ISOSORBIDE MONONITRATE ER 30 MG TAB.ER.24H PO SCH ×2 (09:03→21:02)
[2022-04-20] MEDS: CLOPIDOGREL 75 MG TAB PO SCH (09:03)
[2022-04-20] MEDS: METOPROLOL TARTRATE 50 MG TAB PO SCH (09:03)
[2022-04-20] MEDS: FAMOTIDINE 20 MG TAB PO SCH (09:03)
[2022-04-20] MEDS: SODIUM BICARBONATE TAB 650 MG TAB PO SCH ×3 (09:03→21:02)
[2022-04-20] MEDS: ENOXAPARIN 30 MG/0.3 ML SYRINGE SQ SCH (09:04)
--- NOTE | 2022-04-20 10:11 | P.PN ---
Subjective Progress Note Date: 04/20/22 HISTORY OF PRESENT ILLNESS: This is a very pleasant 73-year-old female patient who follows with Dr. Perez in the office on regular basis with a past medical history significant for coronary artery disease and prior coronary artery bypass grafting as well as stenting, hypertension, and dyslipidemia. She is unsure why she came into the hospital and appears somewhat confused. Initially stating she came in because Dr. Perez is her doctor. Per ER note she was noted to be hypoxic with pulse ox at 86 as well as very hypertensive with systolics in the 190s. She states she has been taking her medications. She is however confused and unable to give clear history. She does believe she fell approximately 2-3 weeks ago. Was noted to have acute kidney injury with creatinine up to 2.3 last baseline 1.0 from 2 years ago. She denies any chest pain or pressure similar to her prior bypass and stenting. Prior catheterization shown occlusion of all her bypass grafts. EKG shows EKG shows sinus rhythm, left axis deviation, Q waves inferiorly, poor R-wave progression, somewhat low voltage. Chest x-ray shows possible infiltrate versus developing heart failure. She denies any orthopnea and no lower extremity edema. She states she has been eating and drinking recently. ProBNP noted to be 4000 however prior 7000 and has acute kidney injury. 04/19 Patient seen and examined. Creatinine mildly improving to 2.1. CT brain shows no acute process with chronic-appearing atrophy. Still somewhat confused saying "good luck with the game "and cannot tell me why she came in because it is "embarrassing". Denies any chest pain or pressure. Remains on antibiotics, Rocephin. Patchy infiltrates noted on prior chest x-ray, infectious versus malignancy. 04/20/2022 Patient examined this morning at the bedside. Patient denies chest pain or pressure. She denies shortness of breath. Patient's blood pressure has improved. Blood pressure this morning 146/76. She was started on nifedipine yesterday. Her losartan remains on hold secondary to acute kidney injury. PHYSICAL EXAM: VITAL SIGNS: Reviewed. GENERAL: Well-developed in no acute distress. NECK: Supple. No JVD or thyromegaly LUNGS: Respirations even and unlabored. Lungs essentially clear to auscultation bilaterally. HEART: Regular rate and rhythm. S1 and S2 heard. EXTREMITIES: Normal range of motion. No clubbing or cyanosis. Peripheral pulses intact. No lower extremity edema ASSESSMENT: 1. Chronic diastolic heart failure, previous echo 2019 EF 50-55% 2. Coronary artery disease with history of prior bypass and stenting with vein grafts all occluded only patent PERRY to LAD 3. Hypertension, elevated on presentation 4. Hyperlipidemia 5. Acute kidney injury 6. Altered mental status 7. Questionable history of fall a few weeks ago 8. Abnormal x-ray with infiltrates right upper lung possible infection versus other 9. Elevated proBNP however lower than previous. Do not suspect acute heart failure. 10. Moderate to severe mitral regurgitation by prior echo PLAN: Continue to hold losartan secondary to acute kidney injury Continue current cardiac medications Continue to monitor blood pressure Patient is currently stable from a cardiac standpoint with no further inpatient recommendations from a cardiology perspective We will sign off. Please reconsult if needed. Nurse practitioner note has been reviewed by physician. Signing provider agrees with the documented findings, assessment, and plan of care. Objective - Vital Signs Vital signs: Vital Signs Temp 98.3 F 04/20/22 07:34 Pulse 94 04/20/22 07:34 Resp 20 04/20/22 07:34 BP 146/76 04/20/22 07:34 Pulse Ox 94 L 04/20/22 07:34 FiO2 Intake & Output 04/19/22 04/20/22 04/20/22 18:59 06:59 18:59 Other: Voiding Method Toilet Toilet # Voids 2 1 # Bowel Movements 1 - Labs CBC & Chem 7: 04/17/22 18:52 04/20/22 05:56 Labs: Abnormal Lab Results - Last 24 Hours (Table) 04/20/22 Range/Units 05:56 Chloride 111 H (98-107) mmol/L Carbon Dioxide 20 L (22-30) mmol/L BUN 29 H (7-17) mg/dL Creatinine 1.85 H (0.52-1.04) mg/dL Microbiology - Last 24 Hours (Table) 04/17/22 23:00 Blood Culture - Preliminary Blood No Growth after 48 hours 04/17/22 22:32 Blood Culture - Preliminary Blood No Growth after 48 hours
--- NOTE | 2022-04-20 10:17 | P.PN ---
Subjective Patient is seen in follow-up for acute kidney injury. Renal function improving with IV fluids. Diuretics were held. Still complaining of a productive cough. Denies chest pain or shortness of breath. No vomiting or diarrhea. Vital signs are stable. General: Awake. No acute distress. HEENT: Head exam is unremarkable. LUNGS: Breath sounds decreased. HEART: Rate and Rhythm are regular. ABDOMEN: Soft, no distention. EXTREMITITES: No edema. Objective - Vital Signs Vital signs: Vital Signs Temp 98.3 F 04/20/22 07:34 Pulse 94 04/20/22 07:34 Resp 20 04/20/22 07:34 BP 146/76 04/20/22 07:34 Pulse Ox 94 L 04/20/22 07:34 FiO2 Intake & Output 04/19/22 04/20/22 04/20/22 18:59 06:59 18:59 Other: Voiding Method Toilet Toilet # Voids 2 1 # Bowel Movements 1 - Labs CBC & Chem 7: 04/17/22 18:52 04/20/22 05:56 Labs: Abnormal Lab Results - Last 24 Hours (Table) 04/20/22 Range/Units 05:56 Chloride 111 H (98-107) mmol/L Carbon Dioxide 20 L (22-30) mmol/L BUN 29 H (7-17) mg/dL Creatinine 1.85 H (0.52-1.04) mg/dL Microbiology - Last 24 Hours (Table) 04/17/22 23:00 Blood Culture - Preliminary Blood No Growth after 48 hours 04/17/22 22:32 Blood Culture - Preliminary Blood No Growth after 48 hours Assessment and Plan Plan: Assessment: 1. Acute kidney injury mostly prerenal secondary to hypovolemia and diuretics. Improving with IV hydration. Creatinine 1.85 today. UA fairly benign. 2. Pneumonia on antibiotics. 3. Chronic kidney disease stage III with baseline creatinine in the range of 1- 1.3 in 2019. 4. Hypertension with chronic kidney disease. Stable. 5. Metabolic acidosis secondary to acute kidney injury and IV fluids. Better. On oral bicarbonate. Plan: Maintain IV fluids. Continue to hold diuretics. Check renal ultrasound. Avoid nephrotoxins. Continue to monitor renal function and urine output. Follow-up outpatient in 1 week post discharge
--- NOTE | 2022-04-20 12:51 | P.PN ---
Subjective Progress Note Date: 04/20/22 Principal diagnosis: Shortness of breath, cough, falls 76-year-old female patient with past medical history of COPD, coronary artery disease with previous bypass, hypertension, hyperlipidemia, diabetes mellitus type 2, osteoarthritis, chronic history of smoking, anxiety, previous history of DVT, colon cancer with history of colectomy and chemotherapy 5 years ago in 2017, came in to the emergency department on 04/17/2022 complaining of shortness of breath, cough, and falls at home. She states over the past week she has had an increase in lower extremity swelling, difficulty breathing and a cough. Her family called EMS to the house and patient's pulse ox was 84% on room air. She usually does not use oxygen at home. Denies any chest discomfort, no fever or chills. Chest x-ray showing subtle scattered opacities. BNP was elevated at 4010, troponin was 0.015 times one, white blood cell count was 8.0, hemoglobin is 13.4, platelet count is 197, Lopressor, 0.8, coordination profile was within normal limits, there was evidence of acute kidney injury with BUN of 33 and creatinine of 2.31, CO2 was 18, AST was 43, ALT is 14, alk phos was 270, troponin was 0.015, urinalysis showed moderate leuks, and trace protein, but no definite sign of infection, COVID-19 influenza A and B were negative. Patient was started on azithromycin and Rocephin in the emergency department, nebulized bronchodilators. Of note patient has not had any recent follow-up with her medical oncology doctor. Patient continues to smoke. Follow-up chest x-ray today showing patchy nodular infiltrates greater on the right upper lung field with the differential diagnosis of infectious etiology as well as solid lesions such as metastatic malignancy. On 04/19/2022 patient seen in follow-up on medical surgical floor. She is awake, oriented 3, answering questions appropriately, doesn't appear to be in any acute distress, remains on IV hydration with point tenderness and uterine 50 ML per hour, creatinine is slightly improved on today's labs and is down to 2.15, nephrology is following, brain CT was obtained showing atrophy with chronic-appearing. Ventricular white matter ischemic changes. There was no abnormal hyperdensity no mass lesions, no acute infarcts. No worsening dyspnea. No complaints of chest discomfort. Blood cultures have been negative. Patient remains on Rocephin for empiric antibiotic coverage. Her chest x-ray on admission showed patchy infiltrate bilaterally, greater in the right upper lung that were suspicious for infectious etiology or metastatic malignancy. On 04/20/2022 patient seen in follow-up on medical surgical floor. Patient is resting comfortably in bed, does not appear to be in any acute distress, has a congested cough however has not been able to bring up much phlegm. Lung sounds reveal diffuse rhonchi, patient has a weak cough. Her renal function is improving on today's labs. Overall she is feeling better. Denies any chest discomfort. She is satting 94% on 4 L, she's been afebrile. At times seems a bit confused. She remains on antibiotics, and IV fluids. Blood cultures have shown no growth thus far. Computed tomography scan of the chest was obtained last night without contrast showing multiple pulmonary nodules with c onsideration for primary and metastatic disease. Objective - Vital Signs Vital signs: Vital Signs Temp 98.3 F 04/20/22 07:34 Pulse 94 04/20/22 07:34 Resp 20 04/20/22 07:34 BP 146/76 04/20/22 07:34 Pulse Ox 94 L 04/20/22 07:34 FiO2 Intake & Output 04/19/22 04/20/22 04/20/22 18:59 06:59 18:59 Other: Voiding Method Toilet Toilet # Voids 2 1 # Bowel Movements 1 - Exam GENERAL EXAM: Alert, very pleasant, 68-year-old white female on 4 L of oxygen pulse ox of 97% comfortable in no apparent distress. HEAD: Normocephalic/atraumatic. EYES: Normal reaction of pupils, equal size. Conjunctiva pink, sclera white. NOSE: Clear with pink turbinates. THROAT: No erythema or exudates. NECK: No masses, no JVD, no thyroid enlargement, no adenopathy. CHEST: No chest wall deformity. Symmetrical expansion. LUNGS: Equal air entry with no crackles, wheeze, rhonchi or dullness. CVS: Regular rate and rhythm, normal S1 and S2, no gallops, no murmurs, no rubs ABDOMEN: Soft, nontender. No hepatosplenomegaly, normal bowel sounds, no guarding or rigidity. EXTREMITIES: No clubbing, mild to moderate lower extremity edema no cyanosis, 2+ pulses and upper and lower extremities. MUSCULOSKELETAL: Muscle strength and tone normal. SPINE: No scoliosis or deformity SKIN: No rashes CENTRAL NERVOUS SYSTEM: Alert and oriented -3. No focal deficits, tone is no rmal in all 4 extremities. PSYCHIATRIC: Alert and oriented -3. Appropriate affect. Intact judgment and insight. - Labs CBC & Chem 7: 04/17/22 18:52 04/20/22 05:56 Labs: Abnormal Lab Results - Last 24 Hours (Table) 04/20/22 Range/Units 05:56 Chloride 111 H (98-107) mmol/L Carbon Dioxide 20 L (22-30) mmol/L BUN 29 H (7-17) mg/dL Creatinine 1.85 H (0.52-1.04) mg/dL Microbiology - Last 24 Hours (Table) 04/17/22 23:00 Blood Culture - Preliminary Blood No Growth after 48 hours 04/17/22 22:32 Blood Culture - Preliminary Blood No Growth after 48 hours Assessment and Plan Plan: Assessment: #1. Acute hypoxic respiratory failure related to possible acute CHF, possibility of pneumonia seems to be less likely however not entirely excluded. Chest x-ray showing patchy nodular infiltrates greater in the right upper lung, nonspecific, possibly related to infectious or inflammatory etiology, or possibly related to metastatic malignancy #2. History of COPD not oxygen dependent at baseline #3. Chronic and ongoing history of smoking #4. Acute kidney injury #5. Chronic diastolic CHF #6. Coronary artery disease with previous bypass surgery #7. Diabetes mellitus type 2 #8. History of DVT #9. Hypertension #10. Hyperlipidemia #11. History of colon cancer with history of right colectomy and chemotherapy in 2017 #12. Anxiety Plan: Computed tomography scan without contrast has been completed and has been reviewed with Dr. Green Continue antibiotic treatment, continue bronchodilators Multiple nodules seen on the computed tomography scan of the chest are suspicious for metastasis Continue supportive medical treatment, she will need outpatient PET scan and outpatient bronchoscopy I have personally seen and examined the patient, performed the documentation and the assessment and plan as written. Number of minutes spent on the visit: [10] Time with Patient: Less than 30
--- NOTE | 2022-04-20 15:37 | US ---
EXAMINATION TYPE: US kidneys/renal and bladder DATE OF EXAM: 04/20/2022 COMPARISON: NONE CLINICAL HISTORY: jose m. JOSE M EXAM MEASUREMENTS: Right Kidney: 10.0 x 3.8 x 3.6 cm Left Kidney: 5.8 x 3.1 x 2.6 cm Right Kidney: Cortical thinning, no evidence of hydro Left Kidney: Appeared atrophic, cyst mid= 1.2x 1.2 x 1.3 cm Bladder: Not fully distended Bilateral Jets seen: No There is no evidence for hydronephrosis at this point in time. Cortical thinning in both kidneys is p resent. Diminished size to left kidney with increased cortical echogenicity. Incidental 1.2 cm simple appearing thin-walled cyst mid pole level left kidney The urinary bladder is poorly distended and th e suboptimally evaluated. Bilateral ureteral jets are not seen. IMPRESSION: No hydronephrosis is seen bilaterally. Evidence of chronic medical renal disease bilatera lly more severely involving the left kidney versus right kidney.
--- NOTE | 2022-04-20 18:02 | P.PN ---
Progress Note - Text Progress Note Date: 04/20/22 Chief Complaint: Shortness of breath This is a 76-year-old patient who follows with Dr. oY Christianson. Chronic stable medical conditions include CAD with a prior history of bypass, diabetes, GERD, hypertension, hyperlipidemia, osteoarthritis, PAD, right colectomy,. Presented to ER with shortness of breath. Also lower extremity swelling. Some cough. Family called EMS. Oxygen saturation was 84%. Does not use oxygen at home. Patient seems to have underlying cognitive impairment. Somewhat limited and history giving. Admitted with pneumonitis/pneumonia, acute hypoxic respiratory failure. Acute kidney injury Started on ceftriaxone, oxygen gentle hydration April 19: Eating about 50%. Some shortness of breath. IV ceftriaxone. On nasal cannula. April 20: Laying in bed. Eating some. Breathing a bit better. IV ceftriaxone. On 4 L nasal cannula. Some improvement in renal function Active Medications Albuterol/Ipratropium (Ipratropium-Albuterol 3 Ml Neb) 3 ml INHALATION RT-QID [facility] Last Admin: 04/20/22 16:07 Dose: Not Given Albuterol/Ipratropium (Ipratropium-Albuterol 3 Ml Neb) 3 ml INHALATION RT-Q2H PRN PRN Reason: Shortness Of Breath Or Wheezing Alprazolam (Alprazolam 1 Mg Tab) 1 mg PO BID PRN PRN Reason: Anxiety Atorvastatin Calcium (Atorvastatin 80 Mg Tab) 80 mg PO DAILY [facility] Last Admin: 04/20/22 09:03 Dose: 80 mg Clopidogrel Bisulfate (Clopidogrel 75 Mg Tab) 75 mg PO DAILY [facility] Last Admin: 04/20/22 09:03 Dose: 75 mg Enoxaparin Sodium (Enoxaparin 30 Mg/0.3 Ml Syringe) 30 mg SQ DAILY [facility] Last Admin: 04/20/22 09:04 Dose: 30 mg Famotidine (Famotidine 20 Mg Tab) 20 mg PO DAILY [facility] Last Admin: 04/20/22 09:03 Dose: 20 mg Hydralazine HCl (Hydralazine Hcl 20 Mg/Ml 1 Ml Vial) 10 mg IVP Q6HR PRN PRN Reason: Blood Pressure - High Last Admin: 04/19/22 16:51 Dose: 10 mg Ceftriaxone Sodium 2 gm/ (Sodium Chloride) 50 mls @ 100 mls/hr IVPB Q24H [facility]; Protocol Stop: 04/21/22 23:29 Last Admin: 04/19/22 22:34 Dose: 100 mls/hr Sodium Chloride (Saline 0.9%) 1,000 mls @ 50 mls/hr IV .Q20H [facility] Last Admin: 04/20/22 05:48 Dose: Not Given Isosorbide Mononitrate (Isosorbide Mononitrate Er 30 Mg Tab.Er.24h) 30 mg PO BID [facility] Last Admin: 04/20/22 09:03 Dose: 30 mg Metoprolol Tartrate (Metoprolol Tartrate 50 Mg Tab) 50 mg PO DAILY [facility] Last Admin: 04/20/22 09:03 Dose: 50 mg Miscellaneous Information (Pneumonia Protocol Utilized 1 Each Misc) 1 each PO ONCE PRN PRN Reason: Per Protocol Nifedipine (Nifedipine Xl 60 Mg Tab.Er.24) 60 mg PO Q12HR [facility] Last Admin: 04/20/22 09:04 Dose: 60 mg Nitroglycerin (Nitroglycerin Sl Tabs 0.4 Mg Tab) 0.4 mg SUBLINGUAL Q5M PRN PRN Reason: Chest Pain Sodium Bicarbonate (Sodium Bicarbonate Tab 650 Mg Tab) 650 mg PO TID [facility] Last Admin: 04/20/22 09:03 Dose: 650 mg Zolpidem Tartrate (Zolpidem 5 Mg Tab) 10 mg PO HS [facility] Last Admin: 04/19/22 20:12 Dose: 10 mg Past medical history to include: CAD, COPD, diabetes, DVT, GERD, hypertension, hyperlipidemia, osteoporosis, colon cancer, migraines, varicose veins, blood clot in the right thumb after CABG, sodium assess, bladder cancer 3, PAD, carotid artery stenosis, coronary bypass, right colectomy, anxiety, Social history: Patient smoked for 30 years 1 pack a day stopped in 2005. Alcohol occasionally. Lives with a friend to 15 years. Family history: CAD, cervical cancer Physical examination: VITAL SIGNS: 98.6, 77, 23, 111/71, 95% on 4 L GENERAL: Laying in bed, awake, not in distress EYES: Pupils equal. Conjunctiva normal. HEENT: External appearance of nose and ears normal, oral cavity grossly normal. NECK: JVD not raised; masses not palpable. HEART: First and second heart sounds are normal; no edema. LUNGS: Respiratory rate normal; decreased breath sounds. ABDOMEN: Soft, nontender, liver spleen not palpable, no masses palpable. PSYCH: Answering simple questions MUSCULOSKELETAL:No Clubbing/cyanosis;muscles-grossly intact, evidence of OA INVESTIGATIONS, reviewed in the clinical context: Renal ultrasound: Cortical thinning in both kidneys. Given the size of left kidney. April 20: Potassium 4 BUN 29 creatinine 1.85 bicarb 20. Vitamin B12 605 TSH 1.3 procalcitonin 0.6 April 19: Potassium 4.3 bicarb 18 BUN 34 creatinine 2.15 Pro-calcitonin 0.60 TSH 1.3 B12 605 White count 8 hemoglobin 13.4 platelets 197 potassium 4.3 BUN 33 creatinine 2.31 bicarb 18 Troponin I 0.015. ProBNP 4010. UA: Negative for nitrite COVID 19/influenza type A type B: Not detected EKG tracing personally reviewed by me-poor R-wave progression. Nonspecific ST segment changes. Sinus rhythm. Chest x-ray film personally reviewed by me-some scattered infiltrates Computed tomography scan of the brain: Atrophy and chronic appearing periventricular white matter ischemic changes. Previous labs: Creatinine 1-1.3 in 2019 Assessment and plan: -Possible acute pneumonitis. / bacterial pneumonia. IV ceftriaxone. -Acute hypoxic respiratory failure from pneumonia Currently on 4 L nasal cannula -Chronic kidney disease suspect stage III. From nephrosclerosis Follow renal function. -Acute kidney injury, prerenal. Improving Admission creatinine 2.31. Today 1.85 -Moderate cognitive impairment from Alzheimer's dementia CT brain shows chronic changes. B12 and TSH both normal -Chronic insomnia Ambien 10 mg daily at bedtime -CAD with a prior history of bypass Plavix, Lopressor, Lipitor -Hyperlipidemia Lipitor Gentle hydration. IV ceftriaxone. Encourage oral intake. Up in chair. Incentive spirometry.
[2022-04-20] MEDS: ZOLPIDEM 5 MG TAB PO SCH (21:02)
[2022-04-21] MEDS: ATORVASTATIN 80 MG TAB PO SCH ×2 (09:23→11:49)
[2022-04-21] MEDS: CLOPIDOGREL 75 MG TAB PO SCH ×2 (09:23→11:49)
[2022-04-21] MEDS: ENOXAPARIN 30 MG/0.3 ML SYRINGE SQ SCH ×2 (09:23→11:48)
[2022-04-21] MEDS: FAMOTIDINE 20 MG TAB PO SCH ×2 (09:24→11:49)
[2022-04-21] MEDS: METOPROLOL TARTRATE 50 MG TAB PO SCH ×2 (09:24→11:49)
[2022-04-21] MEDS: SODIUM BICARBONATE TAB 650 MG TAB PO SCH ×4 (09:24→21:19)
[2022-04-21] MEDS: ISOSORBIDE MONONITRATE ER 30 MG TAB.ER.24H PO SCH ×3 (09:24→20:06)
[2022-04-21] MEDS: IPRATROPIUM-ALBUTEROL 3 ML NEB INHALATION SCH ×4 (09:28→19:25)
--- NOTE | 2022-04-21 09:56 | P.PN ---
Subjective Patient is seen in follow-up for acute kidney injury. Renal function improved with IV fluids. Diuretics held. Patient has been more confused. She is also refusing her medications. She states she wants to go. Vital signs are stable. General: Awake. No acute distress. HEENT: Head exam is unremarkable. LUNGS: Breath sounds decreased. HEART: Rate and Rhythm are regular. ABDOMEN: Soft, no distention. EXTREMITITES: No edema. Objective - Vital Signs Vital signs: Vital Signs Temp 98.6 F 04/21/22 07:48 Pulse 92 04/21/22 07:48 Resp 18 04/21/22 01:36 BP 124/78 04/21/22 07:48 Pulse Ox 98 04/21/22 07:48 FiO2 Intake & Output 04/20/22 04/21/22 04/21/22 18:59 06:59 18:59 Intake Total 550 Balance 550 Intake: Oral 550 Other: Voiding Method Toilet # Voids 2 1 # Bowel Movements 1 - Labs CBC & Chem 7: 04/17/22 18:52 04/20/22 05:56 Labs: Microbiology - Last 24 Hours (Table) 04/17/22 23:00 Blood Culture - Preliminary Blood No Growth after 72 hours 04/17/22 22:32 Blood Culture - Preliminary Blood No Growth after 72 hours Assessment and Plan Plan: Assessment: 1. Acute kidney injury mostly prerenal secondary to hypovolemia and diuretics. Improving with IV hydration. Creatinine 1.85 yesterday. UA fairly benign. No hydronephrosis noted on kidney ultrasound. Left kidney atrophic. 2. Pneumonia on antibiotics. 3. Chronic kidney disease stage III with baseline creatinine in the range of 1- 1.3 in 2019. 4. Hypertension with chronic kidney disease. Stable. 5. Metabolic acidosis secondary to acute kidney injury and IV fluids. Improved. On oral bicarbonate. Plan: Maintain IV fluids - currently not receiving as patient refusing. Continue to hold diuretics. Avoid nephrotoxins. Continue to monitor renal function and urine output. Follow-up outpatient in 1 week post discharge
--- NOTE | 2022-04-21 10:20 | XR ---
EXAMINATION TYPE: XR chest 1V portable DATE OF EXAM: 04/21/2022 9:56 AM COMPARISON: CT chest 04/19/2022 TECHNIQUE: XR chest 1V portable Portable AP radiograph of the chest. CLINICAL INDICATION:Female, 76 years old with history of PNA SOB; FINDINGS: Lungs/Pleura: Left lower lobe consolidation with multifocal ovoid opacities consistent with known met astatic disease.. No evidence of pneumothorax or pleural effusion. Pulmonary vascularity: Unremarkable. Heart/mediastinum: Cardiomediastinal silhouette is unremarkable. Musculoskeletal: No acute osseous pathology. Midline sternotomy wires are noted and stable. IMPRESSION: 1. Multifocal airspace opacities consistent with metastatic disease as seen on CT chest from 04/19/20 22. 2. Left lower lobe airspace consolidation as seen on prior CT.
[2022-04-21 11:27] LABS: African American GFR (CKD) 33 (>60 ml/min/1.73 sqM); Anion Gap 9 mmol/L; Blood Urea Nitrogen 25 mg/dL (7-17); Calcium 8.9 mg/dL (8.4-10.2); Carbon Dioxide 19 mmol/L (22-30); Chloride 110 mmol/L (98-107); Glucose 113 mg/dL (74-99); Magnesium 1.7 mg/dL (1.6-2.3); Non-African American GFR(CKD) 28 (>60 ml/min/1.73 sqM); Potassium 3.9 mmol/L (3.5-5.1); Sodium 138 mmol/L (137-145)
[2022-04-21] MEDS ORDERED: QUEtiapine 25 MG TAB PO PRN (13:31)
--- NOTE | 2022-04-21 13:39 | P.CN ---
Psychiatric Consult - . Consult date: 04/21/22 Consult:: 04/21/22 13:06 IDENTIFYING DATA: This patient is a 76-year-old female who currently lives at home with her son who is her surgery aid. REASON FOR REFERRAL: Psychiatry was consulted for refusing treatment. HISTORY OF PRESENT ILLNESS: The patient presented to the hospital initially on 04/17 for shortness of breath. Patient has history of COPD, CHF and CAD. Patient apparently also was having coughing and also swelling of her feet. She was brought in by EMS. Apparently patient was refusing treatment and care from the nurses today and the consult was placed for psychiatry. Patient also was telling nurse that she saw a rat and was saying bizarre things at times. She also has a history of underlying dementia. Patient spoke with her son earlier today and was agreeable to start taking medication. 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 She was initially suspicious of typewriter ribbon winder however was fairly cooperative and attempted to answer questions as best she could. She believed that she was in [place] and the [facility] and thought that she was in a temple. She did not know today's date. She knew her age and name. She did not fully understand the reason why she came to the hospital and states that "I want to try something different". She had significantly poor insight into her illness and need for treatment. She was unable to speak about her visual hallucinations. She is denying any paranoia at this time. Denying any depression or anxiety. She states her sleep is fair. Claims that her appetite is poor. At this time patient denies any suicidal or homical ideations, intent or plan. Patient denies any auditory, visual hallucinations and denies any paranoia or delusions. Patients admits to using cigarettes in the past and quit 4 years ago. Denies any other recreational drug use. Rest of the history was fairly limited due to patient's cognitive abilities. PAST PSYCHIATRIC HISTORY: Patient has a a history of underlying dementia and anxiety. Patient is currently on Xanax when necessary. Patient denies any previous psychiatric hospitalizations. Patient denies any psychiatric outpatient follow-up. Patient denies any history of suicide attempts in the past. Past Medical History: Coronary Artery Disease (CAD), Cancer, Chest Pain / Angina, COPD, Diabetes Mellitus, Deep Vein Thrombosis (DVT), GERD/Reflux, Hyperlipidemia, Hypertension, Osteoarthritis (OA), Skin Disorder, Vascular Disorder Additional Past Medical History / Comment(s): colon cancer, hx migraine, irregular heartbeat, varicose veins, hx blood clot in rt arm after CABG surgery, psoriasis, diet control diabetic, anemia, hx bladder cancer x 3, PAD and disease of the ileo-aortic system, carotid artery stenosis ALLERGIES: as per EMR. CHEMICAL DEPENDENCY HISTORY: as per HPI. FAMILY PSYCHIATRIC/SUBSTANCE USE HISTORY: Things that her daughter has some form of mental illness. SOCIAL HISTORY: Patient was born and raised in she states that she was raised in [place]. She claims that she completed up to 11th grade in school. 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 Currently living with her son who is her surgery aid. MENTAL STATUS EXAM: General Appearance: Patient appears to be sitting in the chair, watching television, stated age is alert, initially suspicious, and cooperative. Patient appears to have fair hygiene and grooming wearing hospital gown with fair eye contact. Behavior: Patient is calmly lying in bed without any agitated behavior. Initially suspicious. Attempts to cooperate as best as she could. Speech: Patient's speech is fluent and nonpressured. [place]. Mood/Affect: Patient reports their mood is "ok", affect is congruent Suicidality/Homicidality: Patient denies having any suicidal or homicidal ideation intent or plan. Perceptions: Patient denies any visual hallucinations and denies any auditory hallucinations Though content/process: There is no evidence of any delusional thought content. Poverty of content. [place]. Memory and concentration: AOX1, does not know today's date and does not know the location. Follows commands. Cannot spell "WORLD" backwards Judgment and insight: Chronically limited IMPRESSIONS: Major neurocognitive disorder History of anxiety disorder PLAN: -At this time patient DOES NOT meet criteria for inpatient psychiatric admission. -Patient DOES NOT have decision making capacity at this time and is unable to reason through and communicate/appreciate the risks, benefits and alternatives to treatment. -Delirium precautions recommended with patient including - avoiding use of narcotics and DRAWBRIDGE TENDER sedatives, limit anticholinergic medications when possible, frequent re-orientation, minimize use of restraints, open window shades during the day and close them at night -Would recommend the following medication changes/additions: Discontinued Ambien at this time and will replace with Seroquel 25 mg daily at bedtime for insomnia/psychosis. I added Seroquel 25 mg twice a day when necessary for agitation. Added melatonin 3 mg daily at bedtime when necessary for insomnia. -pan tank worker to provide patient with outpatient mental health/psychiatry resources for appropriate follow up upon discharge -Communicated plan to patient's nurse -Psychiatry will sign off at this time -Please contact with any questions. 04/21/22 13:32
--- NOTE | 2022-04-21 14:19 | P.PN ---
Subjective Progress Note Date: 04/21/22 Principal diagnosis: Shortness of breath. 76-year-old female patient with past medical history of COPD, coronary artery disease with previous bypass, hypertension, hyperlipidemia, diabetes mellitus type 2, osteoarthritis, chronic history of smoking, anxiety, previous history of DVT, colon cancer with history of colectomy and chemotherapy 5 years ago in 2017, came in to the emergency department on 04/17/2022 complaining of shortness of breath, cough, and falls at home. She states over the past week she has had an increase in lower extremity swelling, difficulty breathing and a cough. Her family called EMS to the house and patient's pulse ox was 84% on room air. She usually does not use oxygen at home. Denies any chest discomfort, no fever or chills. Chest x-ray showing subtle scattered opacities. BNP was elevated at 4010, troponin was 0.015 times one, white blood cell count was 8.0, hemoglobin is 13.4, platelet count is 197, Lopressor, 0.8, coordination profile was within normal limits, there was evidence of acute kidney injury with BUN of 33 and creatinine of 2.31, CO2 was 18, AST was 43, ALT is 14, alk phos was 270, troponin was 0.015, urinalysis showed moderate leuks, and trace protein, but no definite sign of infection, COVID-19 influenza A and B were negative. Patient was started on azithromycin and Rocephin in the emergency department, nebulized bronchodilators. Of note patient has not had any recent follow-up with her medical oncology doctor. Patient continues to smoke. Follow-up chest x-ray today showing patchy nodular infiltrates greater on the right upper lung field with the differential diagnosis of infectious etiology as well as solid lesions such as metastatic malignancy. On 04/19/2022 patient seen in follow-up on medical surgical floor. She is awake, oriented 3, answering questions appropriately, doesn't appear to be in a ny acute distress, remains on IV hydration with point tenderness and uterine 50 ML per hour, creatinine is slightly improved on today's labs and is down to 2.15, nephrology is following, brain CT was obtained showing atrophy with chronic-appearing. Ventricular white matter ischemic changes. There was no abnormal hyperdensity no mass lesions, no acute infarcts. No worsening dyspnea. No complaints of chest discomfort. Blood cultures have been negative. Patient remains on Rocephin for empiric antibiotic coverage. Her chest x-ray on admission showed patchy infiltrate bilaterally, greater in the right upper lung that were suspicious for infectious etiology or metastatic malignancy. On 04/20/2022 patient seen in follow-up on medical surgical floor. Patient is resting comfortably in bed, does not appear to be in any acute distress, has a congested cough however has not been able to bring up much phlegm. Lung sounds reveal diffuse rhonchi, patient has a weak cough. Her renal function is improving on today's labs. Overall she is feeling better. Denies any chest discomfort. She is satting 94% on 4 L, she's been afebrile. At times seems a bit confused. She remains on antibiotics, and IV fluids. Blood cultures have shown no growth thus far. Computed tomography scan of the chest was obtained last night without contrast showing multiple pulmonary nodules with consideration for primary and metastatic disease. Progress note dated the 2021. This is a 76-year-old female seen today 455. She's very confused today according to the nurse. The patient is not receiving any supplemental fluids, but this use oxygen at 4 L. She appears not to be in any respiratory distress. Yesterday, we saw the patient, we recommended eventual discharge, outpatient PET scan, and possibly a lung biopsy. The lesions in her long may in fact be infectious, inflammatory or neoplastic. Sodium 138, potassium 3.9, chlorides 110, CO2 19, BUN 25, creatinine 1.71. Pro-calcitonin is 0.6. Chest x-ray today shows multifocal airspace opacities consistent with possible metastatic disease, which was consistent with a CAT scan done without contrast on April 19, with left lower lobe airspace consolidation. Blood cultures are currently negative. Objective - Vital Signs Vital signs: Vital Signs Temp 98.6 F 04/21/22 07:48 Pulse 92 04/21/22 07:48 Resp 18 04/21/22 01:36 BP 124/78 04/21/22 07:48 Pulse Ox 98 04/21/22 07:48 FiO2 Intake & Output 04/20/22 04/21/22 04/21/22 18:59 06:59 18:59 Intake Total 550 Balance 550 Intake: Oral 550 Other: Voiding Method Toilet # Voids 2 1 # Bowel Movements 1 - Exam No acute distress, confused, currently on 4 L. Saturations are 98%. HEENT examination is grossly unremarkable. Neck supple. Full range of motion. No adenopathy thyromegaly or neck vein distention. Cardiovascular examination reveals regular rhythm rate. S1-S2 normal. No S3 or S4. No discernible murmur noted. Heart rate 92 bpm. Lungs reveal mild scattered rhonchi. No wheezes or crackles. Breath sounds equal bilaterally. Saturations are excellent on 4 L. Abdomen soft bowel sounds are heard. No masses or tenderness. Extremities are intact. No cyanosis clubbing or edema. Skin is without rash or lesion. Neurologic examination reveals a very confused but not agitated patient. - Labs CBC & Chem 7: 04/17/22 18:52 04/21/22 10:21 Labs: Abnormal Lab Results - Last 24 Hours (Table) 04/21/22 Range/Units 10:21 Chloride 110 H (98-107) mmol/L Carbon Dioxide 19 L (22-30) mmol/L BUN 25 H (7-17) mg/dL Creatinine 1.71 H (0.52-1.04) mg/dL Glucose 113 H (74-99) mg/dL Microbiology - Last 24 Hours (Table) 04/17/22 23:00 Blood Culture - Preliminary Blood No Growth after 72 hours 04/17/22 22:32 Blood Culture - Preliminary Blood No Growth after 72 hours Assessment and Plan Assessment: Acute hypoxemic respiratory failure possibly related to CHF, or pneumonia. Nodular infiltrates on chest x-ray and CAT scan could represent metastatic disease. History of COPD, not oxygen dependent. Ongoing tobacco use/nicotine addiction. Acute kidney injury. Chronic diastolic CHF. CAD with previous bypass grafting. Type 2 diabetes mellitus. History of DVT. History of hypertension. Hyperlipidemia. History of colon cancer with right colectomy and chemotherapy, 2017. Anxiety Plan: Plan dated 04/21/2022. Chest x-ray and CAT scans were reviewed. The plan is for a outpatient PET scan, and possible biopsy. Blood cultures are currently negative. Labs, x-rays, and medications are reviewed. The patient remains on Rocephin. In addition she's getting updraft treatments. We will continue to follow and make recommendations. Prognosis is guarded. Her confusion is currently being evaluated by the primary service, and psychiatry. Time with Patient: Less than 30
[2022-04-21] MEDS ORDERED: HEPARIN SODIUM 1,000 UN/ML (10ML VL) IV PRN (15:22)
[2022-04-21] MEDS ORDERED: HEPARIN SODIUM 1,000 UN/ML (10ML VL) IV ONE (15:22)
[2022-04-21] MEDS ORDERED: ASPIRIN 325 MG TAB PO STA (15:24)
[2022-04-21] MEDS: METOPROLOL TARTRATE 25 MG TAB PO SCH ×2 (15:30→21:19)
[2022-04-21] MEDS ORDERED: HEPARIN SOD,PORK IN 0.45% NACL 25,000 UNIT in 0.45% NACL 1 250ML.BAG IV SCH (15:30)
[2022-04-21] MEDS: NITROGLYCERIN OINT 1 INCH/GM PACKET TOPICAL SCH ×2 (15:39→23:38)
[2022-04-21 15:46] LABS: Basophils # (A) 0.1 k/uL (0-0.2); Basophils % (A) 1 %; Eosinophils # (A) 0.2 k/uL (0-0.7); Eosinophils % (A) 2 %; HCT 43.6 % (34.0-46.0); HGB 13.4 gm/dL (11.4-16.0); Hypochromasia Slight; Lymphocytes # (A) 0.4 k/uL (1.0-4.8); Lymphocytes % (A) 4 %; MCH 28.7 pg (25.0-35.0); MCHC 30.7 g/dL (31.0-37.0); MCV 93.5 fL (80.0-100.0); Mean Platelet Volume 8.4; Monocytes # (A) 0.5 k/uL (0-1.0); Monocytes % (A) 5 %; Neutrophils % (A) 89 %; Platelet Count 235 k/uL (150-450); RBC 4.66 m/uL (3.80-5.40); RDW 13.9 % (11.5-15.5); WBC 10.1 k/uL (3.8-10.6)
[2022-04-21 15:57] LABS: INR 0.9 (<1.2); Partial Thromboplastin Time 27.6 sec (22.0-30.0); Prothrombin Time 10.3 sec (9.0-12.0)
--- NOTE | 2022-04-21 18:29 | P.PN ---
Progress Note - Text Progress Note Date: 04/21/22 Chief Complaint: Shortness of breath This is a 76-year-old patient who follows with Dr. Yo Christianson. Chronic stable medical conditions include CAD with a prior history of bypass, diabetes, GERD, hypertension, hyperlipidemia, osteoarthritis, PAD, right colectomy,. Presented to ER with shortness of breath. Also lower extremity swelling. Some cough. Family called EMS. Oxygen saturation was 84%. Does not use oxygen at home. Patient seems to have underlying cognitive impairment. Somewhat limited and history giving. Admitted with pneumonitis/pneumonia, acute hypoxic respiratory failure. Acute kidney injury Started on ceftriaxone, oxygen gentle hydration April 19: Eating about 50%. Some shortness of breath. IV ceftriaxone. On nasal cannula. April 20: Laying in bed. Eating some. Breathing a bit better. IV ceftriaxone. On 4 L nasal cannula. Some improvement in renal function April 21: Patient this morning was refusing the treatment in terms of taking medications. I reassured the patient. She did take her medications. Later this afternoon patient started complaining of chest pain. Serial cardiac enzymes, EKG, and IV heparin was ordered. Patient moved to the telemetry 4. Cardiology consulted. Patient seen by psychiatry. Diagnosed with major neuro cognitive disorder. Active Medications Albuterol/Ipratropium (Ipratropium-Albuterol 3 Ml Neb) 3 ml INHALATION RT-QID [facility] Last Admin: 04/21/22 16:00 Dose: 3 ml Albuterol/Ipratropium (Ipratropium-Albuterol 3 Ml Neb) 3 ml INHALATION RT-Q2H PRN PRN Reason: Shortness Of Breath Or Wheezing Alprazolam (Alprazolam 1 Mg Tab) 1 mg PO BID PRN PRN Reason: Anxiety Aspirin (Aspirin 81 Mg) 81 mg PO DAILY [facility] Atorvastatin Calcium (Atorvastatin 80 Mg Tab) 80 mg PO DAILY [facility] Last Admin: 04/21/22 11:49 Dose: 80 mg Clopidogrel Bisulfate (Clopidogrel 75 Mg Tab) 75 mg PO DAILY [facility] Last Admin: 04/21/22 11:49 Dose: 75 mg Famotidine (Famotidine 20 Mg Tab) 20 mg PO DAILY [facility] Last Admin: 04/21/22 11:49 Dose: 20 mg Heparin Sodium (Porcine) (Heparin Sodium 1,000 Un/Ml (10ml Vl)) 0 unit IV PER PROTOCOL PRN; Protocol PRN Reason: Low PTT Hydralazine HCl (Hydralazine Hcl 20 Mg/Ml 1 Ml Vial) 10 mg IVP Q6HR PRN PRN Reason: Blood Pressure - High Last Admin: 04/19/22 16:51 Dose: 10 mg Ceftriaxone Sodium 2 gm/ (Sodium Chloride) 50 mls @ 100 mls/hr IVPB Q24H [facility]; Protocol Stop: 04/21/22 23:29 Last Admin: 04/20/22 22:31 Dose: 100 mls/hr Sodium Chloride (Saline 0.9%) 1,000 mls @ 50 mls/hr IV .Q20H [facility] Last Admin: 04/20/22 22:32 Dose: 50 mls/hr Heparin Sodium/Sodium Chloride (25,000 unit/ Sodium Chloride) 250 mls @ 7.02 mls/hr IV .Q24H [facility]; Protocol Last Admin: 04/21/22 15:50 Dose: 12 units/kg/hr, 7.02 mls/hr Isosorbide Mononitrate (Isosorbide Mononitrate Er 30 Mg Tab.Er.24h) 30 mg PO BID [facility] Last Admin: 04/21/22 11:49 Dose: 30 mg Melatonin (Melatonin 3 Mg Tablet) 3 mg PO HS PRN PRN Reason: Insomnia Metoprolol Tartrate (Metoprolol Tartrate 25 Mg Tab) 25 mg PO TID [facility] Last Admin: 04/21/22 15:30 Dose: 25 mg Miscellaneous Information (Pneumonia Protocol Utilized 1 Each Misc) 1 each PO ONCE PRN PRN Reason: Per Protocol Nifedipine (Nifedipine Xl 60 Mg Tab.Er.24) 60 mg PO Q12HR [facility] Last Admin: 04/21/22 11:49 Dose: 60 mg Nitroglycerin (Nitroglycerin Sl Tabs 0.4 Mg Tab) 0.4 mg SUBLINGUAL Q5M PRN PRN Reason: Chest Pain Nitroglycerin (Nitroglycerin Oint 1 Inch/Gm Packet) 0.5 inch TOPICAL Q8HR [facility] Last Admin: 04/21/22 15:39 Dose: 0.5 inch Quetiapine Fumarate (Quetiapine 25 Mg Tab) 25 mg PO HS [facility] Quetiapine Fumarate (Quetiapine 25 Mg Tab) 25 mg PO BID PRN PRN Reason: Agitation Sodium Bicarbonate (Sodium Bicarbonate Tab 650 Mg Tab) 650 mg PO TID [facility] Last Admin: 04/21/22 17:05 Dose: 650 mg Past medical history to include: CAD, COPD, diabetes, DVT, GERD, hypertension, hyperlipidemia, osteoporosis, colon cancer, migraines, varicose veins, blood clot in the right thumb after CABG, sodium assess, bladder cancer 3, PAD, carotid artery stenosis, coronary bypass, right colectomy, anxiety, Social history: Patient smoked for 30 years 1 pack a day stopped in 2005. Alcohol occasionally. Lives with a friend to 15 years. Family history: CAD, cervical cancer Physical examination: VITAL SIGNS: 97.8, 75, 16, 158/72, 95% on 4 L GENERAL: Sitting up in a chair, awake, a bit anxious EYES: Pupils equal. Conjunctiva normal. HEENT: External appearance of nose and ears normal, oral cavity grossly normal. NECK: JVD not raised; masses not palpable. HEART: First and second heart sounds are normal; no edema. LUNGS: Respiratory rate normal; decreased breath sounds. ABDOMEN: Soft, nontender, liver spleen not palpable, no masses palpable. PSYCH: Answering simple questions MUSCULOSKELETAL:No Clubbing/cyanosis;muscles-grossly intact, evidence of OA INVESTIGATIONS, reviewed in the clinical context: April 21: White count 10.1 hemoglobin 13.4 platelets 235 progression 3.9 BUN 25 creatinine 1.71. Troponin 0.042 Renal ultrasound: Cortical thinning in both kidneys. Given the size of left kidney. April 20: Potassium 4 BUN 29 creatinine 1.85 bicarb 20. Vitamin B12 605 TSH 1.3 procalcitonin 0.6 April 19: Potassium 4.3 bicarb 18 BUN 34 creatinine 2.15 Pro-calcitonin 0.60 TSH 1.3 B12 605 White count 8 hemoglobin 13.4 platelets 197 potassium 4.3 BUN 33 creatinine 2.31 bicarb 18 Troponin I 0.015. ProBNP 4010. UA: Negative for nitrite COVID 19/influenza type A type B: Not detected EKG tracing personally reviewed by me-poor R-wave progression. Nonspecific ST segment changes. Sinus rhythm. Chest x-ray film personally reviewed by me-some scattered infiltrates Computed tomography scan of the brain: Atrophy and chronic appearing periventricular white matter ischemic changes. Previous labs: Creatinine 1-1.3 in 2019 Assessment and plan: -Possible acute pneumonitis. / bacterial pneumonia. IV ceftriaxone. -Acute hypoxic respiratory failure from pneumonia Currently on 4 L nasal cannula -Chronic kidney disease suspect stage III. From nephrosclerosis Follow renal function. -Acute kidney injury, prerenal. Improving Admission creatinine 2.31. Today 1.85 -Moderate cognitive impairment from Alzheimer's dementia CT brain shows chronic changes. B12 and TSH both normal -Chronic insomnia Ambien 10 mg daily at bedtime -CAD with a prior history of bypass Plavix, Lopressor, Lipitor -Hyperlipidemia Lipitor -Unstable angina with new chest pain today.: New diagnosis Troponin, telemetry, IV heparin ordered. Cardiology consulted. IV heparin. Serial troponin. Telemetry. Cardiac consultation. Changed to by mouth Keflex
[2022-04-21] MEDS: CEPHALEXIN 500 MG CAP PO SCH (20:06)
[2022-04-21] MEDS: MELATONIN 3 MG TABLET PO PRN (20:06)
[2022-04-21] MEDS: QUEtiapine 25 MG TAB PO SCH (20:06)
[2022-04-21] MEDS ORDERED: QUEtiapine 25 MG TAB PO SCH (21:00)
[2022-04-21] MEDS: SODIUM CHLORIDE 0.9% 1,000 ML IV SCH (21:19)
[2022-04-22] MEDS: IPRATROPIUM-ALBUTEROL 3 ML NEB INHALATION SCH ×4 (07:17→19:47)
--- NOTE | 2022-04-22 08:52 | P.PN ---
Subjective Patient is seen in follow-up for acute kidney injury. Renal function improved with IV fluids. Diuretics held. Blood pressure stable. States she wants to go home. Developed chest pain yesterday and is currently maintained on heparin drip. No chest pain now. Vital signs are stable. General: Awake. No acute distress. HEENT: Head exam is unremarkable. LUNGS: Breath sounds decreased. HEART: Rate and Rhythm are regular. ABDOMEN: Soft, no distention. EXTREMITITES: No edema. Objective - Vital Signs Vital signs: Vital Signs Temp 97.9 F 04/22/22 03:39 Pulse 84 04/22/22 03:39 Resp 16 04/22/22 03:39 BP 121/67 04/22/22 03:39 Pulse Ox 94 L 04/22/22 03:39 FiO2 Intake & Output 04/21/22 04/22/22 04/22/22 18:59 06:59 18:59 Intake Total 240 Balance 240 Intake: Oral 240 Other: Voiding Method Toilet - Labs CBC & Chem 7: 04/21/22 15:32 04/21/22 10:21 Labs: Abnormal Lab Results - Last 24 Hours (Table) 04/21/22 04/21/22 04/21/22 Range/Units 10:21 15:32 15:36 MCHC 30.7 L (31.0-37.0) g/dL Neutrophils # 9.0 H (1.3-7.7) k/uL Lymphocytes # 0.4 L (1.0-4.8) k/uL APTT (22.0-30.0) sec Chloride 110 H (98-107) mmol/L Carbon Dioxide 19 L (22-30) mmol/L BUN 25 H (7-17) mg/dL Creatinine 1.71 H (0.52-1.04) mg/dL Glucose 113 H (74-99) mg/dL Troponin I 0.042 H* (0.000-0.034) ng/mL 04/21/22 Range/Units 21:08 MCHC (31.0-37.0) g/dL Neutrophils # (1.3-7.7) k/uL Lymphocytes # (1.0-4.8) k/uL APTT 49.0 H (22.0-30.0) sec Chloride (98-107) mmol/L Carbon Dioxide (22-30) mmol/L BUN (7-17) mg/dL Creatinine (0.52-1.04) mg/dL Glucose (74-99) mg/dL Troponin I (0.000-0.034) ng/mL Microbiology - Last 24 Hours (Table) 04/17/22 23:00 Blood Culture - Preliminary Blood No Growth after 96 hours 04/17/22 22:32 Blood Culture - Preliminary Blood No Growth after 96 hours Assessment and Plan Plan: Assessment: 1. Acute kidney injury mostly prerenal secondary to hypovolemia and diuretics. Improving with IV hydration. Creatinine 1.71 yesterday. UA fairly benign. No hydronephrosis noted on kidney ultrasound. Left kidney atrophic. 2. Pneumonia on antibiotics. 3. Chronic kidney disease stage IIIa with baseline creatinine in the range of 1-1.3 in 2019. 4. Hypertension with chronic kidney disease. Stable. 5. Metabolic acidosis secondary to acute kidney injury and IV fluids. On oral bicarbonate. 6. Chest pain. Maintain on heparin drip. Cardiology following. 7. Lung nodules. Pulmonology following. PET scan and possible biopsy outpatient. Plan: Maintain IV fluids. Continue to hold diuretics. Avoid nephrotoxins. Continue to monitor renal function and urine output. Follow-up echocardiogram. Follow-up morning labs. Follow-up outpatient in 1 week post discharge.
[2022-04-22] MEDS: ATORVASTATIN 80 MG TAB PO SCH (10:06)
[2022-04-22] MEDS: NITROGLYCERIN OINT 1 INCH/GM PACKET TOPICAL SCH ×3 (10:06→23:17)
[2022-04-22] MEDS: ASPIRIN 81 MG PO SCH (10:06)
[2022-04-22] MEDS: CEPHALEXIN 500 MG CAP PO SCH (10:06)
[2022-04-22] MEDS: SODIUM BICARBONATE TAB 650 MG TAB PO SCH ×3 (10:07→21:51)
[2022-04-22] MEDS: CLOPIDOGREL 75 MG TAB PO SCH (10:07)
[2022-04-22] MEDS: ISOSORBIDE MONONITRATE ER 30 MG TAB.ER.24H PO SCH ×2 (10:07→21:50)
[2022-04-22] MEDS: METOPROLOL TARTRATE 25 MG TAB PO SCH ×3 (10:08→21:51)
[2022-04-22] MEDS: FAMOTIDINE 20 MG TAB PO SCH (10:08)
--- NOTE | 2022-04-22 11:30 | P.PN ---
Subjective This is a very pleasant 73-year-old female patient who follows with Dr. Perez in the office on regular basis with a past medical history significant for coronary artery disease and prior coronary artery bypass grafting as well as stenting, hypertension, and dyslipidemia. She is unsure why she came into the hospital and appears somewhat confused. Initially stating she came in because Dr. Perez is her doctor. Per ER note she was noted to be hypoxic with pulse ox at 86 as well as very hypertensive with systolics in the 190s. She states she has been taking her medications. She is however confused and unable to give clear history. She does believe she fell approximately 2-3 weeks ago. Was noted to have acute kidney injury with creatinine up to 2.3 last baseline 1.0 from 2 years ago. Prior catheterization shown occlusion of all her bypass grafts. EKG shows EKG shows sinus rhythm, left axis deviation, Q waves inferiorly, poor R- wave progression, somewhat low voltage. 04/22/2022 Patient examined this morning at the bedside. She is confused, unable to state why she is in the hospital or current symptoms/medical condition. She had chest pain yesterday on 4S and was transferred to 3S secondary to a troponin of 0.04 and was started on IV heparin. She currently denies any chest pain. She denies shortness of breath. Patient's blood pressure has improved. Blood pressure this morning 128/67. She was started on nifedipine this admission. Her losartan remains on hold secondary to acute kidney injury. Her renal function continues to improve with IV fluids. EKGs reviewed and EKG this morning with no acute changes from EKG on admission. Meds: IV heparin drip, aspirin 81 mg daily, atorvastatin 80 mg daily, Plavix 75 mg daily, Imdur 30 mg twice a day, metoprolol titrate 25 mg 3 times a day, nifedipine 60 mg twice a day, Nitropaste PHYSICAL EXAM: VITAL SIGNS: Reviewed. GENERAL: Confused. In no acute distress. NECK: Supple. No JVD or thyromegaly LUNGS: Respirations even and unlabored. Lungs essentially clear to auscultation bilaterally. HEART: Regular rate and rhythm. S1 and S2 heard. EXTREMITIES: Normal range of motion. No clubbing or cyanosis. Peripheral pulses intact. No lower extremity edema ASSESSMENT: Chest pain with mildly elevated troponin, ST changes anteriorly, Q waves i nferiorly. Patient refusing repeat Troponin and Echo Chronic diastolic heart failure, previous echo 2019 EF 50-55% Coronary artery disease with history of prior bypass and stenting with vein grafts all occluded only patent PERRY to LAD Hypertension, elevated on presentation Hyperlipidemia Acute kidney injury, improved with IV Fluids Altered mental status Questionable history of fall a few weeks ago Abnormal x-ray with infiltrates right upper lung possible infection versus other Elevated proBNP however lower than previous. Do not suspect acute heart failure. Moderate to severe mitral regurgitation by prior echo PLAN: Patient is refusing troponin draws and Echo, continues to have acute kidney injury with improved, recommend treating patient medically at this time Continue IV heparin for 24 hours Continue dual antiplatelet therapy with aspirin and Plavix Continue high intensity statin, Imdur, beta obey. Continue to hold losartan secondary to acute kidney injury Further recommendations based on clinical course Nurse practitioner note has been reviewed by physician. Signing provider agrees with the documented findings, assessment, and plan of care. Objective - Vital Signs Vital signs: Vital Signs Temp 97.9 F 04/22/22 08:30 Pulse 90 04/22/22 08:30 Resp 18 04/22/22 08:30 BP 128/67 04/22/22 08:30 Pulse Ox 96 04/22/22 08:30 FiO2 Intake & Output 04/21/22 04/22/22 04/22/22 18:59 06:59 18:59 Intake Total 240 Balance 240 Intake: Oral 240 Other: Voiding Method Toilet Bedside Commode - Labs CBC & Chem 7: 04/21/22 15:32 04/21/22 10:21 Labs: Abnormal Lab Results - Last 24 Hours (Table) 04/21/22 04/21/22 04/21/22 Range/Units 10:21 15:32 15:36 MCHC 30.7 L (31.0-37.0) g/dL Neutrophils # 9.0 H (1.3-7.7) k/uL Lymphocytes # 0.4 L (1.0-4.8) k/uL APTT (22.0-30.0) sec Chloride 110 H (98-107) mmol/L Carbon Dioxide 19 L (22-30) mmol/L BUN 25 H (7-17) mg/dL Creatinine 1.71 H (0.52-1.04) mg/dL Glucose 113 H (74-99) mg/dL Troponin I 0.042 H* (0.000-0.034) ng/mL 04/21/22 Range/Units 21:08 MCHC (31.0-37.0) g/dL Neutrophils # (1.3-7.7) k/uL Lymphocytes # (1.0-4.8) k/uL APTT 49.0 H (22.0-30.0) sec Chloride (98-107) mmol/L Carbon Dioxide (22-30) mmol/L BUN (7-17) mg/dL Creatinine (0.52-1.04) mg/dL Glucose (74-99) mg/dL Troponin I (0.000-0.034) ng/mL Microbiology - Last 24 Hours (Table) 04/17/22 23:00 Blood Culture - Preliminary Blood No Growth after 96 hours 04/17/22 22:32 Blood Culture - Preliminary Blood No Growth after 96 hours
--- NOTE | 2022-04-22 12:34 | P.PN ---
Subjective Progress Note Date: 04/22/22 Principal diagnosis: Shortness of breath. 76-year-old female patient with past medical history of COPD, coronary artery disease with previous bypass, hypertension, hyperlipidemia, diabetes mellitus type 2, osteoarthritis, chronic history of smoking, anxiety, previous history of DVT, colon cancer with history of colectomy and chemotherapy 5 years ago in 2017, came in to the emergency department on 04/17/2022 complaining of shortness of breath, cough, and falls at home. She states over the past week she has had an increase in lower extremity swelling, difficulty breathing and a cough. Her family called EMS to the house and patient's pulse ox was 84% on room air. She usually does not use oxygen at home. Denies any chest discomfort, no fever or chills. Chest x-ray showing subtle scattered opacities. BNP was elevated at 4010, troponin was 0.015 times one, white blood cell count was 8.0, hemoglobin is 13.4, platelet count is 197, Lopressor, 0.8, coordination profile was within normal limits, there was evidence of acute kidney injury with BUN of 33 and creatinine of 2.31, CO2 was 18, AST was 43, ALT is 14, alk phos was 270, troponin was 0.015, urinalysis showed moderate leuks, and trace protein, but no definite sign of infection, COVID-19 influenza A and B were negative. Patient was started on azithromycin and Rocephin in the emergency department, nebulized bronchodilators. Of note patient has not had any recent follow-up with her medical oncology doctor. Patient continues to smoke. Follow-up chest x-ray today showing patchy nodular infiltrates greater on the right upper lung field with the differential diagnosis of infectious etiology as well as solid lesions such as metastatic malignancy. On 04/19/2022 patient seen in follow-up on medical surgical floor. She is awake, oriented 3, answering questions appropriately, doesn't appear to be in a ny acute distress, remains on IV hydration with point tenderness and uterine 50 ML per hour, creatinine is slightly improved on today's labs and is down to 2.15, nephrology is following, brain CT was obtained showing atrophy with chronic-appearing. Ventricular white matter ischemic changes. There was no abnormal hyperdensity no mass lesions, no acute infarcts. No worsening dyspnea. No complaints of chest discomfort. Blood cultures have been negative. Patient remains on Rocephin for empiric antibiotic coverage. Her chest x-ray on admission showed patchy infiltrate bilaterally, greater in the right upper lung that were suspicious for infectious etiology or metastatic malignancy. On 04/20/2022 patient seen in follow-up on medical surgical floor. Patient is resting comfortably in bed, does not appear to be in any acute distress, has a congested cough however has not been able to bring up much phlegm. Lung sounds reveal diffuse rhonchi, patient has a weak cough. Her renal function is improving on today's labs. Overall she is feeling better. Denies any chest discomfort. She is satting 94% on 4 L, she's been afebrile. At times seems a bit confused. She remains on antibiotics, and IV fluids. Blood cultures have shown no growth thus far. Computed tomography scan of the chest was obtained last night without contrast showing multiple pulmonary nodules with consideration for primary and metastatic disease. Progress note dated the second 2021. This is a 76-year-old female seen today 455. She's very confused today according to the nurse. The patient is not receiving any supplemental fluids, but this use oxygen at 4 L. She appears not to be in any respiratory distress. Yesterday, we saw the patient, we recommended eventual discharge, outpatient PET scan, and possibly a lung biopsy. The lesions in her long may in fact be infectious, inflammatory or neoplastic. Sodium 138, potassium 3.9, chlorides 110, CO2 19, BUN 25, creatinine 1.71. Pro-calcitonin is 0.6. Chest x-ray today shows multifocal airspace opacities consistent with possible metastatic disease, which was consistent with a CAT scan done without contrast on April 19, with left lower lobe airspace consolidation. Blood cultures are currently negative. Progress note dated 04/22/2022. 76-year-old female seen today in room 377. Yesterday, she was in room 455. She was confused yesterday, and not likely why she was moved. Currently, she is on 3 L nasal cannula. She is also receiving IV heparin, and saline at 50 mL an hour. She seems a bit more with it today. She's not manifesting any signs or symptoms of respiratory distress. She'll need an outpatient PET scan, and possibly a lung biopsy. Lesions on chest x-ray, and computed tomography scan could be infectious, inflammatory, or neoplastic. No new laboratory data today. A troponin was drawn, and was elevated at 0.042. The chest x-ray from yesterday showed multifocal airspace opacities potentially consistent with metastatic disease, along with left lower lobe airspace consolidation. Objective - Vital Signs Vital signs: Vital Signs Temp 97.9 F 04/22/22 08:30 Pulse 90 04/22/22 08:30 Resp 18 04/22/22 08:30 BP 128/67 04/22/22 08:30 Pulse Ox 96 04/22/22 08:30 FiO2 Intake & Output 04/21/22 04/22/22 04/22/22 18:59 06:59 18:59 Intake Total 240 Balance 240 Intake: Oral 240 Other: Voiding Method Toilet Bedside Commode - Exam No acute distress, confused, currently on 3 L. Saturations are 96 %. HEENT examination is grossly unremarkable. Neck supple. Full range of motion. No adenopathy thyromegaly or neck vein distention. Cardiovascular examination reveals regular rhythm rate. S1-S2 normal. No S3 or S4. No discernible murmur noted. Heart rate 90 bpm. Lungs reveal mild scattered rhonchi. No wheezes or crackles. Breath sounds equal bilaterally. Saturations are excellent on 3L. Abdomen soft bowel sounds are heard. No masses or tenderness. Extremities are intact. No cyanosis clubbing or edema. Skin is without rash or lesion. Neurologic examination is brief but nonfocal. - Labs CBC & Chem 7: 04/21/22 15:32 04/21/22 10:21 Labs: Abnormal Lab Results - Last 24 Hours (Table) 04/21/22 04/21/22 04/21/22 Range/Units 15:32 15:36 21:08 MCHC 30.7 L (31.0-37.0) g/dL Neutrophils # 9.0 H (1.3-7.7) k/uL Lymphocytes # 0.4 L (1.0-4.8) k/uL APTT 49.0 H (22.0-30.0) sec Troponin I 0.042 H* (0.000-0.034) ng/mL Microbiology - Last 24 Hours (Table) 04/17/22 23:00 Blood Culture - Preliminary Blood No Growth after 96 hours 04/17/22 22:32 Blood Culture - Preliminary Blood No Growth after 96 hours Assessment and Plan Assessment: Acute hypoxemic respiratory failure possibly related to CHF, or pneumonia. Nodular infiltrates on chest x-ray and CAT scan could represent metastatic disease. History of COPD, not oxygen dependent. Ongoing tobacco use/nicotine addiction. Acute kidney injury. Chronic diastolic CHF. CAD with previous bypass grafting. Type 2 diabetes mellitus. History of DVT. History of hypertension. Hyperlipidemia. History of colon cancer with right colectomy and chemotherapy, 2017. Anxiety Plan: Plan dated 04/21/2022. Chest x-ray and CAT scans were reviewed. The plan is for a outpatient PET scan, and possible biopsy. Blood cultures are currently negative. Labs, x-rays, and medications are reviewed. The patient remains on Rocephin. In addition she's getting updraft treatments. We will continue to follow and make recommendations. Prognosis is guarded. Her confusion is currently being evaluated by the primary service, and psychiatry. Plan dated 04/22/2022. Blood cultures, from April 17, are negative. Labs, x-rays, and medications are all reviewed. Clinically, she appears relatively stable today. She has been switched to cephalexin. She remains on updrafts. Additional recommendations and suggestions are forthcoming. Prognosis is guarded. As mentioned above, and outpatient PET scan, and lung biopsy, can be done once she is discharged. Time with Patient: Less than 30
--- NOTE | 2022-04-22 13:26 | P.PN ---
Progress Note - Text Progress Note Date: 04/22/22 Chief Complaint: Shortness of breath This is a 76-year-old patient who follows with Dr. Yo Christianson. Chronic stable medical conditions include CAD with a prior history of bypass, diabetes, GERD, hypertension, hyperlipidemia, osteoarthritis, PAD, right colectomy,. Presented to ER with shortness of breath. Also lower extremity swelling. Some cough. Family called EMS. Oxygen saturation was 84%. Does not use oxygen at home. Patient seems to have underlying cognitive impairment. Somewhat limited and history giving. Admitted with pneumonitis/pneumonia, acute hypoxic respiratory failure. Acute kidney injury Started on ceftriaxone, oxygen gentle hydration April 19: Eating about 50%. Some shortness of breath. IV ceftriaxone. On nasal cannula. April 20: Laying in bed. Eating some. Breathing a bit better. IV ceftriaxone. On 4 L nasal cannula. Some improvement in renal function April 21: Patient this morning was refusing the treatment in terms of taking medications. I reassured the patient. She did take her medications. Later this afternoon patient started complaining of chest pain. Serial cardiac enzymes, EKG, and IV heparin was ordered. Patient moved to the telemetry 4. Cardiology consulted. Patient seen by psychiatry. Diagnosed with major neuro cognitive disorder. April 22: Patient this morning again used to medications and refused 2-D echocardiogram. When I talked to her she is agreeable for the same. Getting IV heparin. Refused PTT draw. I'm changing the patient over to subcu Lovenox. No further chest pain. Troponin 0.042. Active Medications Albuterol/Ipratropium (Ipratropium-Albuterol 3 Ml Neb) 3 ml INHALATION RT-QID [facility] Last Admin: 04/22/22 11:20 Dose: Not Given Albuterol/Ipratropium (Ipratropium-Albuterol 3 Ml Neb) 3 ml INHALATION RT-Q2H PRN PRN Reason: Shortness Of Breath Or Wheezing Alprazolam (Alprazolam 1 Mg Tab) 1 mg PO BID PRN PRN Reason: Anxiety Aspirin (Aspirin 81 Mg) 81 mg PO DAILY [facility] Last Admin: 04/22/22 10:06 Dose: 81 mg Atorvastatin Calcium (Atorvastatin 80 Mg Tab) 80 mg PO DAILY [facility] Last Admin: 04/22/22 10:06 Dose: 80 mg Cephalexin (Cephalexin 500 Mg Cap) 500 mg PO TID [facility]; Protocol Last Admin: 04/22/22 10:06 Dose: 500 mg Clopidogrel Bisulfate (Clopidogrel 75 Mg Tab) 75 mg PO DAILY [facility] Last Admin: 04/22/22 10:07 Dose: 75 mg Enoxaparin Sodium (Enoxaparin 60 Mg/0.6 Ml Syringe) 60 mg SQ DAILY [facility] Famotidine (Famotidine 20 Mg Tab) 20 mg PO DAILY [facility] Last Admin: 04/22/22 10:08 Dose: 20 mg Hydralazine HCl (Hydralazine Hcl 20 Mg/Ml 1 Ml Vial) 10 mg IVP Q6HR PRN PRN Reason: Blood Pressure - High Last Admin: 04/19/22 16:51 Dose: 10 mg Sodium Chloride (Saline 0.9%) 1,000 mls @ 50 mls/hr IV .Q20H [facility] Last Admin: 04/21/22 21:19 Dose: 50 mls/hr Isosorbide Mononitrate (Isosorbide Mononitrate Er 30 Mg Tab.Er.24h) 30 mg PO BID [facility] Last Admin: 04/22/22 10:07 Dose: 30 mg Melatonin (Melatonin 3 Mg Tablet) 3 mg PO HS PRN PRN Reason: Insomnia Last Admin: 04/21/22 20:06 Dose: 3 mg Metoprolol Tartrate (Metoprolol Tartrate 25 Mg Tab) 25 mg PO TID [facility] Last Admin: 04/22/22 10:08 Dose: 25 mg Miscellaneous Information (Pneumonia Protocol Utilized 1 Each Misc) 1 each PO ONCE PRN PRN Reason: Per Protocol Nifedipine (Nifedipine Xl 60 Mg Tab.Er.24) 60 mg PO Q12HR [facility] Last Admin: 04/22/22 10:07 Dose: 60 mg Nitroglycerin (Nitroglycerin Sl Tabs 0.4 Mg Tab) 0.4 mg SUBLINGUAL Q5M PRN PRN Reason: Chest Pain Nitroglycerin (Nitroglycerin Oint 1 Inch/Gm Packet) 0.5 inch TOPICAL Q8HR [facility] Last Admin: 04/22/22 10:06 Dose: 0.5 inch Quetiapine Fumarate (Quetiapine 25 Mg Tab) 25 mg PO HS [facility] Last Admin: 04/21/22 20:06 Dose: 25 mg Quetiapine Fumarate (Quetiapine 25 Mg Tab) 25 mg PO BID PRN PRN Reason: Agitation Sodium Bicarbonate (Sodium Bicarbonate Tab 650 Mg Tab) 650 mg PO TID [facility] Last Admin: 04/22/22 10:07 Dose: 650 mg Past medical history to include: CAD, COPD, diabetes, DVT, GERD, hypertension, hyperlipidemia, osteoporosis, colon cancer, migraines, varicose veins, blood clot in the right thumb after CABG, sodium assess, bladder cancer 3, PAD, carotid artery stenosis, coronary bypass, right colectomy, anxiety, Social history: Patient smoked for 30 years 1 pack a day stopped in 2005. Alcohol occasionally. Lives with a friend to 15 years. Family history: CAD, cervical cancer Physical examination: VITAL SIGNS: 97.9, 75, 18, 121/58, 95% on 3 L GENERAL: Sitting up in a chair, awake, comfortable EYES: Pupils equal. Conjunctiva normal. HEENT: External appearance of nose and ears normal, oral cavity grossly normal. NECK: JVD not raised; masses not palpable. HEART: First and second heart sounds are normal; no edema. LUNGS: Respiratory rate normal; decreased breath sounds. ABDOMEN: Soft, nontender, liver spleen not palpable, no masses palpable. PSYCH: Answering simple questions MUSCULOSKELETAL:No Clubbing/cyanosis;muscles-grossly intact, evidence of OA INVESTIGATIONS, reviewed in the clinical context: April 21: White count 10.1 hemoglobin 13.4 platelets 235 progression 3.9 BUN 25 creatinine 1.71. Troponin 0.042 Renal ultrasound: Cortical thinning in both kidneys. Given the size of left kidney. April 20: Potassium 4 BUN 29 creatinine 1.85 bicarb 20. Vitamin B12 605 TSH 1.3 procalcitonin 0.6 April 19: Potassium 4.3 bicarb 18 BUN 34 creatinine 2.15 Pro-calcitonin 0.60 TSH 1.3 B12 605 White count 8 hemoglobin 13.4 platelets 197 potassium 4.3 BUN 33 creatinine 2.31 bicarb 18 Troponin I 0.015. ProBNP 4010. UA: Negative for nitrite COVID 19/influenza type A type B: Not detected EKG tracing personally reviewed by me-poor R-wave progression. Nonspecific ST segment changes. Sinus rhythm. Chest x-ray film personally reviewed by me-some scattered infiltrates Computed tomography scan of the brain: Atrophy and chronic appearing periventricular white matter ischemic changes. Previous labs: Creatinine 1-1.3 in 2019 Assessment and plan: -Possible acute pneumonitis. / bacterial pneumonia. IV ceftriaxone. -Acute hypoxic respiratory failure from pneumonia Currently on 4 L nasal cannula -IV heparin monitoring Follow PTT -Chronic kidney disease suspect stage III. From nephrosclerosis Follow renal function. -Acute kidney injury, prerenal. Improving Admission creatinine 2.31. Today 1.85 -Moderate cognitive impairment from Alzheimer's dementia CT brain shows chronic changes. B12 and TSH both normal -Chronic insomnia Ambien 10 mg daily at bedtime -CAD with a prior history of bypass Plavix, Lopressor, Lipitor -Hyperlipidemia Lipitor -Questionable Unstable angina Troponin, telemetry, change IV heparin to subcu Lovenox. Cardiology consulted. Patient is refusing oral medications and blood draw this morning. I did reassure the patient's. She is agreeable to same. We will change the IV heparin to subcu Lovenox.
[2022-04-22] MEDS: ENOXAPARIN 60 MG/0.6 ML SYRINGE SQ SCH (14:10)
[2022-04-22] MEDS: SODIUM CHLORIDE 0.9% 1,000 ML IV SCH (14:11)
[2022-04-22] MEDS: CEPHALEXIN 250 MG CAP PO SCH ×2 (17:37→21:50)
[2022-04-22] MEDS: MELATONIN 3 MG TABLET PO PRN (21:50)
[2022-04-22] MEDS: QUEtiapine 25 MG TAB PO SCH (21:50)
[2022-04-23] MEDS: SODIUM CHLORIDE 0.9% 1,000 ML IV SCH (03:45)
[2022-04-23] MEDS: IPRATROPIUM-ALBUTEROL 3 ML NEB INHALATION SCH ×4 (07:13→20:44)
[2022-04-23] MEDS: CEPHALEXIN 250 MG CAP PO SCH ×3 (09:06→21:03)
[2022-04-23] MEDS: ISOSORBIDE MONONITRATE ER 30 MG TAB.ER.24H PO SCH ×2 (09:06→21:02)
[2022-04-23] MEDS: NITROGLYCERIN OINT 1 INCH/GM PACKET TOPICAL SCH ×2 (09:06→16:47)
[2022-04-23] MEDS: ATORVASTATIN 80 MG TAB PO SCH (09:06)
[2022-04-23] MEDS: CLOPIDOGREL 75 MG TAB PO SCH (09:06)
[2022-04-23] MEDS: FAMOTIDINE 20 MG TAB PO SCH (09:06)
[2022-04-23] MEDS: ASPIRIN 81 MG PO SCH (09:06)
[2022-04-23] MEDS: SODIUM BICARBONATE TAB 650 MG TAB PO SCH ×3 (09:06→21:02)
[2022-04-23] MEDS: METOPROLOL TARTRATE 25 MG TAB PO SCH (09:06)
[2022-04-23] MEDS: ENOXAPARIN 60 MG/0.6 ML SYRINGE SQ SCH (09:07)
--- NOTE | 2022-04-23 09:13 | P.PN ---
Subjective Patient is seen in follow-up for acute kidney injury. Renal function improved with IV fluids. Diuretics held. Blood pressure stable. Has been voiding. Denies chest pain or shortness of breath. Vital signs are stable. General: Awake. No acute distress. HEENT: Head exam is unremarkable. LUNGS: Breath sounds decreased. HEART: Rate and Rhythm are regular. ABDOMEN: Soft, no distention. EXTREMITITES: No edema. Objective - Vital Signs Vital signs: Vital Signs Temp 98.8 F 04/23/22 08:55 Pulse 93 04/23/22 08:55 Resp 18 04/23/22 08:55 BP 130/65 04/23/22 08:55 Pulse Ox 93 L 04/23/22 08:55 FiO2 Intake & Output 04/22/22 04/23/22 04/23/22 18:59 06:59 18:59 Intake Total 118 Balance 118 Intake: Oral 118 Other: Voiding Method Bedside Commode Bedside Commode # Voids 1 0 # Bowel Movements 1 - Labs CBC & Chem 7: 04/21/22 15:32 04/21/22 10:21 Labs: Microbiology - Last 24 Hours (Table) 04/17/22 23:00 Blood Culture - Preliminary Blood No Growth after 120 hours 04/17/22 22:32 Blood Culture - Preliminary Blood No Growth after 120 hours Assessment and Plan Plan: Assessment: 1. Acute kidney injury mostly prerenal secondary to hypovolemia and diuretics. Improving with IV hydration. Creatinine 1.71 on 04/21/2022. UA fairly benign. No hydronephrosis noted on kidney ultrasound. Left kidney atrophic. 2. Pneumonia on antibiotics. 3. Chronic kidney disease stage IIIa with baseline creatinine in the range of 1-1.3 in 2019. 4. Hypertension with chronic kidney disease. Stable. 5. Metabolic acidosis secondary to acute kidney injury and IV fluids. On oral bicarbonate. 6. Chest pain. s/p heparin drip. Cardiology following. 7. Lung nodules. Pulmonology following. PET scan and possible biopsy outpatient. Plan: Maintain IV fluids. Continue to hold diuretics. Avoid nephrotoxins. Continue to monitor renal function and urine output. Refused echocardiogram. Follow-up morning labs. Follow-up outpatient in 1 week post discharge.
[2022-04-23] MEDS ORDERED: METOPROLOL TARTRATE 25 MG TAB PO ONE (09:30)
[2022-04-23 10:43] LABS: Calcium 8.4 mg/dL (8.4-10.2); Magnesium 1.8 mg/dL (1.6-2.3); Potassium 3.8 mmol/L (3.5-5.1)
[2022-04-23 13:23] VITALS: BMI 22.1
--- NOTE | 2022-04-23 14:02 | P.PN ---
Subjective This is a very pleasant 73-year-old female patient who follows with Dr. Perez in the office on regular basis with a past medical history significant for coronary artery disease and prior coronary artery bypass grafting as well as stenting, hypertension, and dyslipidemia. She is unsure why she came into the hospital and appears somewhat confused. Initially stating she came in because Dr. Perez is her doctor. Per ER note she was noted to be hypoxic with pulse ox at 86 as well as very hypertensive with systolics in the 190s. She states she has been taking her medications. She is however confused and unable to give clear history. She does believe she fell approximately 2-3 weeks ago. Was noted to have acute kidney injury with creatinine up to 2.3 last baseline 1.0 from 2 years ago. Prior catheterization shown occlusion of all her bypass grafts. EKG shows EKG shows sinus rhythm, left axis deviation, Q waves inferiorly, poor R- wave progression, somewhat low voltage. 04/22/2022 Patient was transferred to secondary to a troponin of 0.04 and was started on IV heparin. She was confused, however, endorsed chest pain. EKGs reviewed and EKG this morning with no acute changes from EKG on admission. 04/23/2022 Patient examined this morning at the bedside. She appears to be more alert this morning. She denies every having chest pain. She denies shortness of breath. She is overall feeling better. She currently denies any chest pain. Patient's blood pressure has improved. Blood pressure this morning 130/65. She was started on nifedipine this admission. Her losartan remains on hold secondary to acute kidney injury. Her renal function have improved since admission. Meds: aspirin 81 mg daily, atorvastatin 80 mg daily, Plavix 75 mg daily, Imdur 30 mg twice a day, metoprolol titrate 25 mg 3 times a day, nifedipine 60 mg twice a day, Nitropaste PHYSICAL EXAM: VITAL SIGNS: Reviewed. GENERAL: Confused. In no acute distress. NECK: Supple. No JVD or thyromegaly LUNGS: Respirations even and unlabored. Lungs essentially clear to auscultation bilaterally. HEART: Regular rate and rhythm. S1 and S2 heard. EXTREMITIES: Normal range of motion. No clubbing or cyanosis. Peripheral pulses intact. No lower extremity edema ASSESSMENT: Chest pain with mildly elevated troponin, ST changes anteriorly, Q waves inferiorly. Patient refusing repeat Troponin and Echo Chronic diastolic heart failure, previous echo 2019 EF 50-55% Coronary artery disease with history of prior bypass and stenting with vein grafts all occluded only patent PERRY to LAD Hypertension, elevated on presentation Hyperlipidemia Acute kidney injury, improved with IV Fluids Altered mental status Questionable history of fall a few weeks ago Abnormal x-ray with infiltrates right upper lung possible infection versus other Elevated proBNP however lower than previous. Do not suspect acute heart failure. Moderate to severe mitral regurgitation by prior echo PLAN: Patient is refusing troponin draws and Echo, continues to have acute kidney injury with improved, recommend treating patient medically at this time. She denies any further chest discomfort. Continue dual antiplatelet therapy with aspirin and Plavix Continue high intensity statin, Imdur, beta obey. Continue to hold losartan secondary to acute kidney injury Continue nifedipine From cardiology perspective, no further inpatient workup at this time. Recomme nd follow up outpatient with Dr. Perez. We will follow the patient as needed. Please reconsult if needed. Nurse practitioner note has been reviewed by physician. Signing provider agrees with the documented findings, assessment, and plan of care. Objective - Vital Signs Vital signs: Vital Signs Temp 98.0 F 04/23/22 11:34 Pulse 73 04/23/22 11:34 Resp 16 04/23/22 11:34 BP 118/68 04/23/22 11:34 Pulse Ox 95 04/23/22 11:34 FiO2 Intake & Output 04/22/22 04/23/22 04/23/22 18:59 06:59 18:59 Intake Total 118 Balance 118 Weight 58.5 kg Intake: Oral 118 Other: Voiding Method Bedside Commode Bedside Commode Bedside Commode # Voids 1 0 # Bowel Movements 1 - Labs CBC & Chem 7: 04/21/22 15:32 04/23/22 09:41 Labs: Abnormal Lab Results - Last 24 Hours (Table) 04/23/22 Range/Units 09:41 Chloride 111 H (98-107) mmol/L Carbon Dioxide 21 L (22-30) mmol/L BUN 28 H (7-17) mg/dL Creatinine 1.90 H (0.52-1.04) mg/dL Glucose 119 H (74-99) mg/dL Microbiology - Last 24 Hours (Table) 04/17/22 23:00 Blood Culture - Preliminary Blood No Growth after 120 hours 04/17/22 22:32 Blood Culture - Preliminary Blood No Growth after 120 hours
--- NOTE | 2022-04-23 15:00 | P.PN ---
Subjective Progress Note Date: 04/23/22 Principal diagnosis: Shortness of breath. 76-year-old female patient with past medical history of COPD, coronary artery disease with previous bypass, hypertension, hyperlipidemia, diabetes mellitus type 2, osteoarthritis, chronic history of smoking, anxiety, previous history of DVT, colon cancer with history of colectomy and chemotherapy 5 years ago in 2017, came in to the emergency department on 04/17/2022 complaining of shortness of breath, cough, and falls at home. She states over the past week she has had an increase in lower extremity swelling, difficulty breathing and a cough. Her family called EMS to the house and patient's pulse ox was 84% on room air. She usually does not use oxygen at home. Denies any chest discomfort, no fever or chills. Chest x-ray showing subtle scattered opacities. BNP was elevated at 4010, troponin was 0.015 times one, white blood cell count was 8.0, hemoglobin is 13.4, platelet count is 197, Lopressor, 0.8, coordination profile was within normal limits, there was evidence of acute kidney injury with BUN of 33 and creatinine of 2.31, CO2 was 18, AST was 43, ALT is 14, alk phos was 270, troponin was 0.015, urinalysis showed moderate leuks, and trace protein, but no definite sign of infection, COVID-19 influenza A and B were negative. Patient was started on azithromycin and Rocephin in the emergency department, nebulized bronchodilators. Of note patient has not had any recent follow-up with her medical oncology doctor. Patient continues to smoke. Follow-up chest x-ray today showing patchy nodular infiltrates greater on the right upper lung field with the differential diagnosis of infectious etiology as well as solid lesions such as metastatic malignancy. On 04/19/2022 patient seen in follow-up on medical surgical floor. She is awake, oriented 3, answering questions appropriately, doesn't appear to be in a ny acute distress, remains on IV hydration with point tenderness and uterine 50 ML per hour, creatinine is slightly improved on today's labs and is down to 2.15, nephrology is following, brain CT was obtained showing atrophy with chronic-appearing. Ventricular white matter ischemic changes. There was no abnormal hyperdensity no mass lesions, no acute infarcts. No worsening dyspnea. No complaints of chest discomfort. Blood cultures have been negative. Patient remains on Rocephin for empiric antibiotic coverage. Her chest x-ray on admission showed patchy infiltrate bilaterally, greater in the right upper lung that were suspicious for infectious etiology or metastatic malignancy. On 04/20/2022 patient seen in follow-up on medical surgical floor. Patient is resting comfortably in bed, does not appear to be in any acute distress, has a congested cough however has not been able to bring up much phlegm. Lung sounds reveal diffuse rhonchi, patient has a weak cough. Her renal function is improving on today's labs. Overall she is feeling better. Denies any chest discomfort. She is satting 94% on 4 L, she's been afebrile. At times seems a bit confused. She remains on antibiotics, and IV fluids. Blood cultures have shown no growth thus far. Computed tomography scan of the chest was obtained last night without contrast showing multiple pulmonary nodules with consideration for primary and metastatic disease. Progress note dated the second 2021. This is a 76-year-old female seen today 455. She's very confused today according to the nurse. The patient is not receiving any supplemental fluids, but this use oxygen at 4 L. She appears not to be in any respiratory distress. Yesterday, we saw the patient, we recommended eventual discharge, outpatient PET scan, and possibly a lung biopsy. The lesions in her long may in fact be infectious, inflammatory or neoplastic. Sodium 138, potassium 3.9, chlorides 110, CO2 19, BUN 25, creatinine 1.71. Pro-calcitonin is 0.6. Chest x-ray today shows multifocal airspace opacities consistent with possible metastatic disease, which was consistent with a CAT scan done without contrast on April 19, with left lower lobe airspace consolidation. Blood cultures are currently negative. Progress note dated 04/22/2022. 76-year-old female seen today in room 377. Yesterday, she was in room 455. She was confused yesterday, and not likely why she was moved. Currently, she is on 3 L nasal cannula. She is also receiving IV heparin, and saline at 50 mL an hour. She seems a bit more with it today. She's not manifesting any signs or symptoms of respiratory distress. She'll need an outpatient PET scan, and possibly a lung biopsy. Lesions on chest x-ray, and computed tomography scan could be infectious, inflammatory, or neoplastic. No new laboratory data today. A troponin was drawn, and was elevated at 0.042. The chest x-ray from yesterday showed multifocal airspace opacities potentially consistent with metastatic disease, along with left lower lobe airspace consolidation. Progress note dated 04/23/2022. 76-year-old female again seen in room 377. The patient is currently on 3 L nasal cannula. She is getting saline at 50 mL an hour. Clinically, the patient appears to be doing relatively well. She denies any respiratory issues. She appears much more awake and alert. Labs today include a sodium 139, potassium 3.8, chlorides 111, CO2 21, BUN 28, and creatinine 1.90. Blood cultures are negative. No recent chest x-ray to report. Objective - Vital Signs Vital signs: Vital Signs Temp 98.0 F 04/23/22 11:34 Pulse 73 04/23/22 11:34 Resp 16 04/23/22 11:34 BP 118/68 04/23/22 11:34 Pulse Ox 95 04/23/22 11:34 FiO2 Intake & Output 04/22/22 04/23/22 04/23/22 18:59 06:59 18:59 Intake Total 118 Balance 118 Weight 58.5 kg Intake: Oral 118 Other: Voiding Method Bedside Commode Bedside Commode Bedside Commode # Voids 1 0 # Bowel Movements 1 - Exam No acute distress, confused, currently on 3 L. Saturations are 95 %. HEENT examination is grossly unremarkable. Neck supple. Full range of motion. No adenopathy thyromegaly or neck vein distention. Cardiovascular examination reveals regular rhythm rate. S1-S2 normal. No S3 or S4. No discernible murmur noted. Heart rate 73 bpm. Lungs reveal mild scattered rhonchi. No wheezes or crackles. Breath sounds equal bilaterally. Saturations are excellent on 3L. Abdomen soft bowel sounds are heard. No masses or tenderness. Extremities are intact. No cyanosis clubbing or edema. Skin is without rash or lesion. Neurologic examination is brief but nonfocal. - Labs CBC & Chem 7: 04/21/22 15:32 04/23/22 09:41 Labs: Abnormal Lab Results - Last 24 Hours (Table) 04/23/22 Range/Units 09:41 Chloride 111 H (98-107) mmol/L Carbon Dioxide 21 L (22-30) mmol/L BUN 28 H (7-17) mg/dL Creatinine 1.90 H (0.52-1.04) mg/dL Glucose 119 H (74-99) mg/dL Microbiology - Last 24 Hours (Table) 04/17/22 23:00 Blood Culture - Preliminary Blood No Growth after 120 hours 04/17/22 22:32 Blood Culture - Preliminary Blood No Growth after 120 hours Assessment and Plan Assessment: Acute hypoxemic respiratory failure possibly related to CHF, or pneumonia. Nodular infiltrates on chest x-ray and CAT scan could represent metastatic disease. History of COPD, not oxygen dependent. Ongoing tobacco use/nicotine addiction. Acute kidney injury. Chronic diastolic CHF. CAD with previous bypass grafting. Type 2 diabetes mellitus. History of DVT. History of hypertension. Hyperlipidemia. History of colon cancer with right colectomy and chemotherapy, 2017. Anxiety Plan: Plan dated 04/21/2022. Chest x-ray and CAT scans were reviewed. The plan is for a outpatient PET scan, and possible biopsy. Blood cultures are currently negative. Labs, x-rays, and medications are reviewed. The patient remains on Rocephin. In addition she's getting updraft treatments. We will continue to follow and make recommendations. Prognosis is guarded. Her confusion is currently being evaluated by the primary service, and psychiatry. Plan dated 04/22/2022. Blood cultures, from April 17, are negative. Labs, x-rays, and medications are all reviewed. Clinically, she appears relatively stable today. She has been switched to cephalexin. She remains on updrafts. Additional recommendations and suggestions are forthcoming. Prognosis is guarded. As mentioned above, and outpatient PET scan, and lung biopsy, can be done once she is discharged. Plan dated 04/23/2022. The patient appears to be doing better. The patient will need an outpatient PET scan. At that point, if positive, a lung biopsy can be entertained. She's on oral antibiotic at this time. She is getting breathing treatments. Clinically, she is stable. She could be considered for possible discharge. Labs, x-rays, and medications are all reviewed. Patient's overall prognosis is guarded. Time with Patient: Less than 30
[2022-04-23 16:00] VITALS: RESP 18
--- NOTE | 2022-04-23 18:29 | P.PN ---
Progress Note - Text Progress Note Date: 04/23/22 Chief Complaint: Shortness of breath This is a 76-year-old patient who follows with Dr. Yo Christianson. Chronic stable medical conditions include CAD with a prior history of bypass, diabetes, GERD, hypertension, hyperlipidemia, osteoarthritis, PAD, right colectomy,. Presented to ER with shortness of breath. Also lower extremity swelling. Some cough. Family called EMS. Oxygen saturation was 84%. Does not use oxygen at home. Patient seems to have underlying cognitive impairment. Somewhat limited and history giving. Admitted with pneumonitis/pneumonia, acute hypoxic respiratory failure. Acute kidney injury Started on ceftriaxone, oxygen gentle hydration April 19: Eating about 50%. Some shortness of breath. IV ceftriaxone. On nasal cannula. April 20: Laying in bed. Eating some. Breathing a bit better. IV ceftriaxone. On 4 L nasal cannula. Some improvement in renal function April 21: Patient this morning was refusing the treatment in terms of taking medications. I reassured the patient. She did take her medications. Later this afternoon patient started complaining of chest pain. Serial cardiac enzymes, EKG, and IV heparin was ordered. Patient moved to the telemetry 4. Cardiology consulted. Patient seen by psychiatry. Diagnosed with major neuro cognitive disorder. April 22: Patient this morning again used to medications and refused 2-D echocardiogram. When I talked to her she is agreeable for the same. Getting IV heparin. Refused PTT draw. I'm changing the patient over to subcu Lovenox. No further chest pain. Troponin 0.042. April 23: Eating some. Breathing better. took her medications. Family looking to go to rehab. Active Medications Albuterol/Ipratropium (Ipratropium-Albuterol 3 Ml Neb) 3 ml INHALATION RT-QID [facility] Last Admin: 04/23/22 15:51 Dose: Not Given Albuterol/Ipratropium (Ipratropium-Albuterol 3 Ml Neb) 3 ml INHALATION RT-Q2H PRN PRN Reason: Shortness Of Breath Or Wheezing Alprazolam (Alprazolam 1 Mg Tab) 1 mg PO BID PRN PRN Reason: Anxiety Aspirin (Aspirin 81 Mg) 81 mg PO DAILY [facility] Last Admin: 04/23/22 09:06 Dose: 81 mg Atorvastatin Calcium (Atorvastatin 80 Mg Tab) 80 mg PO DAILY [facility] Last Admin: 04/23/22 09:06 Dose: 80 mg Cephalexin (Cephalexin 250 Mg Cap) 250 mg PO TID [facility]; Protocol Last Admin: 04/23/22 16:49 Dose: 250 mg Clopidogrel Bisulfate (Clopidogrel 75 Mg Tab) 75 mg PO DAILY [facility] Last Admin: 04/23/22 09:06 Dose: 75 mg Enoxaparin Sodium (Enoxaparin 60 Mg/0.6 Ml Syringe) 60 mg SQ DAILY [facility] Last Admin: 04/23/22 09:07 Dose: 60 mg Famotidine (Famotidine 20 Mg Tab) 20 mg PO DAILY [facility] Last Admin: 04/23/22 09:06 Dose: 20 mg Hydralazine HCl (Hydralazine Hcl 20 Mg/Ml 1 Ml Vial) 10 mg IVP Q6HR PRN PRN Reason: Blood Pressure - High Last Admin: 04/19/22 16:51 Dose: 10 mg Sodium Chloride (Saline 0.9%) 1,000 mls @ 50 mls/hr IV .Q20H [facility] Last Admin: 04/23/22 03:45 Dose: 50 mls/hr Isosorbide Mononitrate (Isosorbide Mononitrate Er 30 Mg Tab.Er.24h) 30 mg PO BID [facility] Last Admin: 04/23/22 09:06 Dose: 30 mg Melatonin (Melatonin 3 Mg Tablet) 3 mg PO HS PRN PRN Reason: Insomnia Last Admin: 04/22/22 21:50 Dose: 3 mg Metoprolol Tartrate (Metoprolol Tartrate 50 Mg Tab) 50 mg PO BID [facility] Miscellaneous Information (Pneumonia Protocol Utilized 1 Each Misc) 1 each PO ONCE PRN PRN Reason: Per Protocol Nifedipine (Nifedipine Xl 60 Mg Tab.Er.24) 60 mg PO Q12HR [facility] Last Admin: 04/23/22 09:07 Dose: 60 mg Nitroglycerin (Nitroglycerin Sl Tabs 0.4 Mg Tab) 0.4 mg SUBLINGUAL Q5M PRN PRN Reason: Chest Pain Nitroglycerin (Nitroglycerin Oint 1 Inch/Gm Packet) 0.5 inch TOPICAL Q8HR [facility] Last Admin: 04/23/22 16:47 Dose: 0.5 inch Quetiapine Fumarate (Quetiapine 25 Mg Tab) 25 mg PO HS [facility] Last Admin: 04/22/22 21:50 Dose: 25 mg Quetiapine Fumarate (Quetiapine 25 Mg Tab) 25 mg PO BID PRN PRN Reason: Agitation Sodium Bicarbonate (Sodium Bicarbonate Tab 650 Mg Tab) 650 mg PO TID [facility] Last Admin: 04/23/22 16:47 Dose: 650 mg Past medical history to include: CAD, COPD, diabetes, DVT, GERD, hypertension, hyperlipidemia, osteoporosis, colon cancer, migraines, varicose veins, blood clot in the right thumb after CABG, sodium assess, bladder cancer 3, PAD, carotid artery stenosis, coronary b ypass, right colectomy, anxiety, Social history: Patient smoked for 30 years 1 pack a day stopped in 2005. Alcohol occasionally. Lives with a friend to 15 years. Family history: CAD, cervical cancer Physical examination: VITAL SIGNS: 98, 73, 16, 118/68, 95% on 3 L GENERAL: Sitting up in a chair, awake, comfortable EYES: Pupils equal. Conjunctiva normal. HEENT: External appearance of nose and ears normal, oral cavity grossly normal. NECK: JVD not raised; masses not palpable. HEART: First and second heart sounds are normal; no edema. LUNGS: Respiratory rate normal; decreased breath sounds. ABDOMEN: Soft, nontender, liver spleen not palpable, no masses palpable. PSYCH: Answering simple questions MUSCULOSKELETAL:No Clubbing/cyanosis;muscles-grossly intact, evidence of OA INVESTIGATIONS, reviewed in the clinical context: April 21: White count 10.1 hemoglobin 13.4 platelets 235 progression 3.9 BUN 25 creatinine 1.71. Troponin 0.042 Computed tomography scan chest: Multiple pulmonary nodules. Renal ultrasound: Cortical thinning in both kidneys. Given the size of left kidney. April 20: Potassium 4 BUN 29 creatinine 1.85 bicarb 20. Vitamin B12 605 TSH 1.3 procalcitonin 0.6 April 19: Potassium 4.3 bicarb 18 BUN 34 creatinine 2.15 Pro-calcitonin 0.60 TSH 1.3 B12 605 White count 8 hemoglobin 13.4 platelets 197 potassium 4.3 BUN 33 creatinine 2.31 bicarb 18 Troponin I 0.015. ProBNP 4010. UA: Negative for nitrite COVID 19/influenza type A type B: Not detected EKG tracing personally reviewed by me-poor R-wave progression. Nonspecific ST segment changes. Sinus rhythm. Chest x-ray film personally reviewed by me-some scattered infiltrates Computed tomography scan of the brain: Atrophy and chronic appearing periventricular white matter ischemic changes. Previous labs: Creatinine 1-1.3 in 2019 Assessment and plan: -Possible acute pneumonitis. / bacterial pneumonia. IV ceftriaxone. -Multiple pulmonary nodules questionable metastatic disease. Being followed by pulmonary -Acute hypoxic respiratory failure from pneumonia Currently on 3 L nasal cannula -IV heparin monitoring Follow PTT -Chronic kidney disease suspect stage III. From nephrosclerosis Follow renal function. -Acute kidney injury, prerenal. Improving Admission creatinine 2.31. Today 1.85 -Moderate cognitive impairment from Alzheimer's dementia CT brain shows chronic changes. B12 and TSH both normal -Chronic insomnia Ambien 10 mg daily at bedtime -CAD with a prior history of bypass Plavix, Lopressor, Lipitor -Hyperlipidemia Lipitor -Questionable Unstable angina Troponin, telemetry, change IV heparin to subcu Lovenox. Cardiology consulted. Patient off Lovenox. No chest pain. Tolerating some diet. Looking to going to rehab.
[2022-04-23] MEDS: QUEtiapine 25 MG TAB PO SCH (21:02)
[2022-04-24] MEDS: IPRATROPIUM-ALBUTEROL 3 ML NEB INHALATION SCH ×2 (07:22→10:58)
[2022-04-24] MEDS: ISOSORBIDE MONONITRATE ER 30 MG TAB.ER.24H PO SCH (08:55)
[2022-04-24] MEDS: FAMOTIDINE 20 MG TAB PO SCH (08:55)
[2022-04-24] MEDS: ENOXAPARIN 60 MG/0.6 ML SYRINGE SQ SCH (08:55)
[2022-04-24] MEDS: CEPHALEXIN 250 MG CAP PO SCH (08:55)
[2022-04-24] MEDS: ASPIRIN 81 MG PO SCH (08:55)
[2022-04-24] MEDS: CLOPIDOGREL 75 MG TAB PO SCH (08:56)
[2022-04-24] MEDS: SODIUM BICARBONATE TAB 650 MG TAB PO SCH (08:56)
[2022-04-24] MEDS: ATORVASTATIN 80 MG TAB PO SCH (08:56)
--- NOTE | 2022-04-24 09:01 | P.PN ---
Subjective Patient is seen in follow-up for acute kidney injury. Renal function fairly stable the last few days. Diuretics held. Blood pressure stable. Has been voiding. Denies chest pain or shortness of breath. Patient is not a very reliable historian. Vital signs are stable. General: Awake. No acute distress. HEENT: Head exam is unremarkable. LUNGS: Breath sounds decreased. HEART: Rate and Rhythm are regular. ABDOMEN: Soft, no distention. EXTREMITITES: No edema. Objective - Vital Signs Vital signs: Vital Signs Temp 97.9 F 04/24/22 04:00 Pulse 113 H 04/24/22 04:00 Resp 18 04/24/22 04:00 BP 149/76 04/24/22 04:00 Pulse Ox 93 L 04/24/22 04:00 FiO2 Intake & Output 04/23/22 04/24/22 04/24/22 18:59 06:59 18:59 Intake Total 118 620 Balance 118 620 Weight 58.5 kg Intake: Intake, IV Titration 500 Amount Sodium Chloride 0.9% 1, 500 000 ml @ 50 mls/hr IV . Q20H [facility] Rx#:[id number] Oral 118 120 Other: Voiding Method Bedside Commode # Voids 1 1 # Bowel Movements 1 - Labs CBC & Chem 7: 04/21/22 15:32 04/23/22 09:41 Labs: Abnormal Lab Results - Last 24 Hours (Table) 04/23/22 Range/Units 09:41 Chloride 111 H (98-107) mmol/L Carbon Dioxide 21 L (22-30) mmol/L BUN 28 H (7-17) mg/dL Creatinine 1.90 H (0.52-1.04) mg/dL Glucose 119 H (74-99) mg/dL Microbiology - Last 24 Hours (Table) 04/17/22 23:00 Blood Culture - Final Blood No Growth after 144 hours 04/17/22 22:32 Blood Culture - Final Blood No Growth after 144 hours Assessment and Plan Plan: Assessment: 1. Acute kidney injury mostly prerenal secondary to hypovolemia and diuretics. Improved with IV hydration. Creatinine 1.71 on 04/21/2022. UA fairly benign. No hydronephrosis noted on kidney ultrasound. Left kidney atrophic. 2. Pneumonia on antibiotics. 3. Chronic kidney disease stage IIIa with baseline creatinine in the range of 1-1.3 in 2020. 4. Hypertension with chronic kidney disease. Stable. 5. Metabolic acidosis secondary to acute kidney injury and IV fluids. On oral bicarbonate. 6. Chest pain. s/p heparin drip. Cardiology following. 7. Lung nodules. Pulmonology following. PET scan and possible biopsy outpatient. Plan: Encourage oral intake. Continue to hold diuretics. Avoid nephrotoxins. Continue to monitor renal function and urine output. Refused echocardiogram. Follow-up morning labs. Follow-up outpatient in 1 week post discharge. Plan for rehab upon discharge.
[2022-04-24 09:15] VITALS: TEMP 97.7
[2022-04-24 11:08] LABS: Calcium 8.2 mg/dL (8.4-10.2); Magnesium 1.8 mg/dL (1.6-2.3); Potassium 3.8 mmol/L (3.5-5.1)
[2022-04-24 12:02] VITALS: BP 135/65; PULSE 101
--- NOTE | 2022-04-24 12:55 | P.PN ---
Subjective Progress Note Date: 04/24/22 Principal diagnosis: Shortness of breath, cough, falls 76-year-old female patient with past medical history of COPD, coronary artery disease with previous bypass, hypertension, hyperlipidemia, diabetes mellitus type 2, osteoarthritis, chronic history of smoking, anxiety, previous history of DVT, colon cancer with history of colectomy and chemotherapy 5 years ago in 2017, came in to the emergency department on 04/17/2022 complaining of shortness of breath, cough, and falls at home. She states over the past week she has had an increase in lower extremity swelling, difficulty breathing and a cough. Her family called EMS to the house and patient's pulse ox was 84% on room air. She usually does not use oxygen at home. Denies any chest discomfort, no fever or chills. Chest x-ray showing subtle scattered opacities. BNP was elevated at 4010, troponin was 0.015 times one, white blood cell count was 8.0, hemoglobin is 13.4, platelet count is 197, Lopressor, 0.8, coordination profile was within normal limits, there was evidence of acute kidney injury with BUN of 33 and creatinine of 2.31, CO2 was 18, AST was 43, ALT is 14, alk phos was 270, troponin was 0.015, urinalysis showed moderate leuks, and trace protein, but no definite sign of infection, COVID-19 influenza A and B were negative. Patient was started on azithromycin and Rocephin in the emergency department, nebulized bronchodilators. Of note patient has not had any recent follow-up with her medical oncology doctor. Patient continues to smoke. Follow-up chest x-ray today showing patchy nodular infiltrates greater on the right upper lung field with the differential diagnosis of infectious etiology as well as solid lesions such as metastatic malignancy. On 04/19/2022 patient seen in follow-up on medical surgical floor. She is awake, oriented 3, answering questions appropriately, doesn't appear to be in any acute distress, remains on IV hydration with point tenderness and uterine 50 ML per hour, creatinine is slightly improved on today's labs and is down to 2.15, nephrology is following, brain CT was obtained showing atrophy with chronic-appearing. Ventricular white matter ischemic changes. There was no abnormal hyperdensity no mass lesions, no acute infarcts. No worsening dyspnea. No complaints of chest discomfort. Blood cultures have been negative. Patient remains on Rocephin for empiric antibiotic coverage. Her chest x-ray on admission showed patchy infiltrate bilaterally, greater in the right upper lung that were suspicious for infectious etiology or metastatic malignancy. On 04/20/2022 patient seen in follow-up on medical surgical floor. Patient is resting comfortably in bed, does not appear to be in any acute distress, has a congested cough however has not been able to bring up much phlegm. Lung sounds reveal diffuse rhonchi, patient has a weak cough. Her renal function is improving on today's labs. Overall she is feeling better. Denies any chest discomfort. She is satting 94% on 4 L, she's been afebrile. At times seems a bit confused. She remains on antibiotics, and IV fluids. Blood cultures have shown no growth thus far. Computed tomography scan of the chest was obtained last night without contrast showing multiple pulmonary nodules with c onsideration for primary and metastatic disease. On 04/24/2022 patient seen in follow-up. Patient is feeling better today, she is resting in bed, breathing comfortably, she is employed is of oxygen pulse ox is 92%, she's been afebrile, vital signs have been stable. Antibiotics been converted to oral Keflex. Cultures have been negative. Renal function slightly improved on today's labs, B1 is 27 creatinine is 1.85. No complaints of chest discomfort, no hemoptysis. Generally weak, and currently arrangements are in progress for ECF placement after discharge. Today's labs have been reviewed, sodium is 139, potassium is 3.8, chloride is 113, CO2 is 20, B1 is 27 creatinine is 1.85. Objective - Vital Signs Vital signs: Vital Signs Temp 97.7 F 04/24/22 09:10 Pulse 101 H 04/24/22 12:00 Resp 18 04/24/22 12:00 BP 135/65 04/24/22 12:00 Pulse Ox 92 L 04/24/22 12:00 FiO2 Intake & Output 04/23/22 04/24/22 04/24/22 18:59 06:59 18:59 Intake Total 118 620 Balance 118 620 Weight 58.5 kg Intake: Intake, IV Titration 500 Amount Sodium Chloride 0.9% 1, 500 000 ml @ 50 mls/hr IV . Q20H [facility] Rx#:[id number] Oral 118 120 Other: Voiding Method Bedside Commode Bedside Commode # Voids 1 1 # Bowel Movements 1 - Exam GENERAL EXAM: Alert, very pleasant, 68-year-old white female on 4 L of oxygen pulse ox of 97% comfortable in no apparent distress. HEAD: Normocephalic/atraumatic. EYES: Normal reaction of pupils, equal size. Conjunctiva pink, sclera white. NOSE: Clear with pink turbinates. THROAT: No erythema or exudates. NECK: No masses, no JVD, no thyroid enlargement, no adenopathy. CHEST: No chest wall deformity. Symmetrical expansion. LUNGS: Equal air entry with no crackles, wheeze, rhonchi or dullness. CVS: Regular rate and rhythm, normal S1 and S2, no gallops, no murmurs, no rubs ABDOMEN: Soft, nontender. No hepatosplenomegaly, normal bowel sounds, no guarding or rigidity. EXTREMITIES: No clubbing, mild to moderate lower extremity edema no cyanosis, 2+ pulses and upper and lower extremities. MUSCULOSKELETAL: Muscle strength and tone normal. SPINE: No scoliosis or deformity SKIN: No rashes CENTRAL NERVOUS SYSTEM: Alert and oriented -3. No focal deficits, tone is nor mal in all 4 extremities. PSYCHIATRIC: Alert and oriented -3. Appropriate affect. Intact judgment and insight. - Labs CBC & Chem 7: 04/21/22 15:32 04/24/22 10:30 Labs: Abnormal Lab Results - Last 24 Hours (Table) 04/24/22 Range/Units 10:30 Chloride 113 H (98-107) mmol/L Carbon Dioxide 20 L (22-30) mmol/L BUN 27 H (7-17) mg/dL Creatinine 1.85 H (0.52-1.04) mg/dL Glucose 105 H (74-99) mg/dL Calcium 8.2 L (8.4-10.2) mg/dL Microbiology - Last 24 Hours (Table) 04/17/22 23:00 Blood Culture - Final Blood No Growth after 144 hours 04/17/22 22:32 Blood Culture - Final Blood No Growth after 144 hours Assessment and Plan Plan: Assessment: #1. Acute hypoxic respiratory failure related to possible acute CHF, possibility of pneumonia seems to be less likely however not entirely excluded. Chest x-ray showing patchy nodular infiltrates greater in the right upper lung, nonspecific, possibly related to infectious or inflammatory etiology, or possibly related to metastatic malignancy #2. History of COPD not oxygen dependent at baseline #3. Chronic and ongoing history of smoking #4. Acute kidney injury #5. Chronic diastolic CHF #6. Coronary artery disease with previous bypass surgery #7. Diabetes mellitus type 2 #8. History of DVT #9. Hypertension #10. Hyperlipidemia #11. History of colon cancer with history of right colectomy and chemotherapy in 2017 #12. Anxiety Plan: Patient is stable from pulmonary perspective No fever or chills, vital signs have been stable Clinically improved feeling better She could be considered for discharge to ECF today Outpatient follow-up with Dr. Galloway in the office in 7-10 days We'll discuss the timing of outpatient PET scan when she seen in the office I have personally seen and examined the patient, performed the documentation and the assessment and plan as written. Number of minutes spent on the visit: [10] Time with Patient: Less than 30
--- NOTE | 2022-04-24 14:43 | P.DS ---
Providers Date of admission: 04/17/22 20:04 Expected date of discharge: 04/24/22 Attending physician: Albin Clay Consults: 04/17/22 21:37 Consult Physician Urgent Consulting Provider: Nellie Roberts Consult Reason/Comments: Hypoxia, pneumonia, COPD Do you want consulting provider notified?: Yes 04/17/22 21:38 Consult Physician Urgent Consulting Provider: Missy Schneider Consult Reason/Comments: JOSE M Do you want consulting provider notified?: Yes 04/21/22 09:53 Consult Physician Urgent Consulting Provider: Luis Antonio Shepherd Consult Reason/Comments: refusing treatment consutl fabian clay Do you want consulting provider notified?: Yes 04/21/22 14:37 Consult Physician Urgent Consulting Provider: Jose Daniel Jasso Consult Reason/Comments: chest pain Do you want consulting provider notified?: Yes Primary care physician: [facility] Course: Chief Complaint: Shortness of breath This is a 76-year-old patient who follows with Dr. Yo Christianson. Chronic stable medical conditions include CAD with a prior history of bypass, diabetes, GERD, hypertension, hyperlipidemia, osteoarthritis, PAD, right colectomy,. Presented to ER with shortness of breath. Also lower extremity swelling. Some cough. Family called EMS. Oxygen saturation was 84%. Does not use oxygen at home. Patient seems to have underlying cognitive impairment. Somewhat limited and history giving. Admitted with pneumonitis/pneumonia, acute hypoxic respiratory failure. Acute kidney injury Started on ceftriaxone, oxygen gentle hydration April 19: Eating about 50%. Some shortness of breath. IV ceftriaxone. On nasal cannula. April 20: Laying in bed. Eating some. Breathing a bit better. IV ceftriaxone. On 4 L nasal cannula. Some improvement in renal function April 21: Patient this morning was refusing the treatment in terms of taking medications. I reassured the patient. She did take her medications. Later this afternoon patient started complaining of chest pain. Serial cardiac enzymes, EKG, and IV heparin was ordered. Patient moved to the telemetry 4. Cardiology consulted. Patient seen by psychiatry. Diagnosed with major neuro cognitive disorder. April 22: Patient this morning again used to medications and refused 2-D echocardiogram. When I talked to her she is agreeable for the same. Getting IV heparin. Refused PTT draw. I'm changing the patient over to subcu Lovenox. No further chest pain. Troponin 0.042. April 23: Eating some. Breathing better. took her medications. Family looking to go to rehab. April 24: Breathing stable. Sitting up in a chair. Cleared by consultants for discharge. According to rehab. waters about oral intake. Pulmonary nodules will be followed by pulmonary outpatient. Discussion and discharge planning more than 35 minutes Past medical history to include: CAD, COPD, diabetes, DVT, GERD, hypertension, hyperlipidemia, osteoporosis, colon cancer, migraines, varicose veins, blood clot in the right thumb after CABG, sodium assess, bladder cancer 3, PAD, carotid artery stenosis, coronary bypass, right colectomy, anxiety, Social history: Patient smoked for 30 years 1 pack a day stopped in 2005. Alcohol occasionally. Lives with a friend to 15 years. Family history: CAD, cervical cancer Physical examination: VITAL SIGNS: 97.7, 101, 18, 135-65, 92% on 4 L GENERAL: Sitting up in a chair, awake, comfortable EYES: Pupils equal. Conjunctiva normal. HEENT: External appearance of nose and ears normal, oral cavity grossly normal. NECK: JVD not raised; masses not palpable. HEART: First and second heart sounds are normal; no edema. LUNGS: Respiratory rate normal; decreased breath sounds. ABDOMEN: Soft, nontender, liver spleen not palpable, no masses palpable. PSYCH: Answering simple questions MUSCULOSKELETAL:No Clubbing/cyanosis;muscles-grossly intact, evidence of OA INVESTIGATIONS, reviewed in the clinical context: April 21: White count 10.1 hemoglobin 13.4 platelets 235 progression 3.9 BUN 25 creatinine 1.71. Troponin 0.042 Computed tomography scan chest: Multiple pulmonary nodules. Renal ultrasound: Cortical thinning in both kidneys. Given the size of left kidney. April 20: Potassium 4 BUN 29 creatinine 1.85 bicarb 20. Vitamin B12 605 TSH 1.3 procalcitonin 0.6 Pro-calcitonin 0.60 TSH 1.3 B12 605 White count 8 hemoglobin 13.4 platelets 197 potassium 4.3 BUN 33 creatinine 2.31 bicarb 18 Troponin I 0.015. ProBNP 4010. UA: Negative for nitrite COVID 19/influenza type A type B: Not detected EKG tracing personally reviewed by me-poor R-wave progression. Nonspecific ST segment changes. Sinus rhythm. Chest x-ray film personally reviewed by me-some scattered infiltrates Computed tomography scan of the brain: Atrophy and chronic appearing periventricular white matter ischemic changes. Previous labs: Creatinine 1-1.3 in 2019 Assessment and plan: -Possible acute pneumonitis. / bacterial pneumonia. IV ceftriaxone. -Multiple pulmonary nodules questionable metastatic disease. Outpatient follow-up with Dr. Roberts -Acute hypoxic respiratory failure from pneumonia Currently on 3 L nasal cannula -IV heparin monitoring Follow PTT -Chronic kidney disease suspect stage III. From nephrosclerosis Follow renal function. -Acute kidney injury, prerenal. Improving Admission creatinine 2.31. Down to 1.85 -Moderate cognitive impairment from Alzheimer's dementia CT brain shows chronic changes. B12 and TSH both normal -Chronic insomnia Seroquel at night -CAD with a prior history of bypass Plavix, Lopressor, Lipitor -Hyperlipidemia Lipitor -Questionable Unstable angina : Stable Troponin, telemetry, change IV heparin to subcu Lovenox. Was seen by cardiology Disposition: F [facility] Plan - Discharge Summary Discharge Rx Participant: No New Discharge Prescriptions: New Aspirin 81 mg PO DAILY tab Ipratropium-Albuterol Nebulize [Duoneb 0.5 mg-3 mg/3 ml Soln] 3 ml INHALATION TID each Ipratropium-Albuterol Nebulize [Duoneb 0.5 mg-3 mg/3 ml Soln] 3 ml INHALATION RT-Q2H PRN each PRN Reason: Shortness Of Breath Or Wheezing Cephalexin [Keflex] 250 mg PO TID #9 cap NIFEdipine XL [Procardia XL] 60 mg PO Q12HR tab Sodium Bicarbonate Tab 650 mg PO DAILY tab QUEtiapine [SEROquel] 25 mg PO HS tab Continue ALPRAZolam [Xanax] 1 mg PO BID PRN PRN Reason: Anxiety Nitroglycerin Sl Tabs [Nitrostat] 0.4 mg SUBLINGUAL Q5M PRN PRN Reason: Chest Pain Atorvastatin [Lipitor] 80 mg PO DAILY Isosorbide Mononitrate ER [Imdur] 30 mg PO BID #60 tab.er.24h Famotidine [Pepcid] 20 mg PO DAILY tab Losartan Potassium 100 mg PO DAILY Clopidogrel [Plavix] 75 mg PO DAILY Changed Metoprolol Tartrate [Lopressor] 50 mg PO BID #0 Discontinued Zolpidem Tartrate [Ambien] 10 mg PO HS Discharge Medication List ALPRAZolam [Xanax] 1 mg PO BID PRN 03/10/17 [History] Atorvastatin [Lipitor] 80 mg PO DAILY 11/18/19 [History] Nitroglycerin Sl Tabs [Nitrostat] 0.4 mg SUBLINGUAL Q5M PRN 11/18/19 [History] Isosorbide Mononitrate ER [Imdur] 30 mg PO BID #60 tab.er.24h 11/21/19 [Rx] Famotidine [Pepcid] 20 mg PO DAILY tab 01/13/20 [Rx] Clopidogrel [Plavix] 75 mg PO DAILY 04/17/22 [History] Losartan Potassium 100 mg PO DAILY 04/17/22 [History] Aspirin 81 mg PO DAILY tab 04/24/22 [Rx] Cephalexin [Keflex] 250 mg PO TID #9 cap 04/24/22 [Rx] Ipratropium-Albuterol Nebulize [Duoneb 0.5 mg-3 mg/3 ml Soln] 3 ml INHALATION RT-Q2H PRN each 04/24/22 [Rx] Ipratropium-Albuterol Nebulize [Duoneb 0.5 mg-3 mg/3 ml Soln] 3 ml INHALATION TID each 04/24/22 [Rx] Metoprolol Tartrate [Lopressor] 50 mg PO BID #0 04/24/22 [Rx] NIFEdipine XL [Procardia XL] 60 mg PO Q12HR tab 04/24/22 [Rx] QUEtiapine [SEROquel] 25 mg PO HS tab 04/24/22 [Rx] Sodium Bicarbonate Tab 650 mg PO DAILY tab 04/24/22 [Rx] Follow up Appointment(s)/Referral(s): [facility] [NON-STAFF] - Nellie Roberts MD [STAFF PHYSICIAN] - 1 Week Pretty Perez MD [STAFF PHYSICIAN] - 1 Week Guille Cantor DO [STAFF PHYSICIAN] - 1 Week Wilfred Christianson MD [Primary Care Provider] - 1-2 days Activity/Diet/Wound Care/Special Instructions: f/u Dr Yulia Larson at [facility]
[2022-04-24] MEDS ORDERED: METOPROLOL TARTRATE 50 MG TAB PO SCH (21:00)
== END 2022-04-24 16:21 | DRG 193 ==
LOC: EC 18:33 → 4SSUR 20:04 → 3SCARD 04-21 16:24
PROVIDERS: ADMIT Hospitalist; ATTEND Hospitalist
DX: J15.9 Unspecified bacterial pneumonia (principal); J96.01 Acute respiratory failure with hypoxia; N17.9 Acute kidney failure, unspecified; I13.0 Hypertensive heart and chronic kidney disease with heart failure and stage 1 through stage 4 chronic kidney disease, or unspecified chronic kidney disease; E87.2 Acidosis; J44.0 Chronic obstructive pulmonary disease with (acute) lower respiratory infection; I25.110 Atherosclerotic heart disease of native coronary artery with unstable angina pectoris; I50.32 Chronic diastolic (congestive) heart failure; C78.01 Secondary malignant neoplasm of right lung; E11.22 Type 2 diabetes mellitus with diabetic chronic kidney disease; E11.51 Type 2 diabetes mellitus with diabetic peripheral angiopathy without gangrene; G30.9 Alzheimer's disease, unspecified; F02.80 Dementia in other diseases classified elsewhere, unspecified severity, without behavioral disturbance, psychotic disturbance, mood disturbance, and anxiety; N18.31 Chronic kidney disease, stage 3a; I34.0 Nonrheumatic mitral (valve) insufficiency; I65.29 Occlusion and stenosis of unspecified carotid artery; E86.1 Hypovolemia; L40.9 Psoriasis, unspecified; F17.210 Nicotine dependence, cigarettes, uncomplicated; F41.9 Anxiety disorder, unspecified; Z20.822 Contact with and (suspected) exposure to COVID-19; I49.8 Other specified cardiac arrhythmias; E78.5 Hyperlipidemia, unspecified; K21.9 Gastro-esophageal reflux disease without esophagitis; M19.90 Unspecified osteoarthritis, unspecified site; M79.89 Other specified soft tissue disorders; M81.0 Age-related osteoporosis without current pathological fracture; I83.90 Asymptomatic varicose veins of unspecified lower extremity; T50.2X5A Adverse effect of carbonic-anhydrase inhibitors, benzothiadiazides and other diuretics, initial encounter; F51.04 Psychophysiologic insomnia; M79.606 Pain in leg, unspecified; Z79.899 Other long term (current) drug therapy; Z79.02 Long term (current) use of antithrombotics/antiplatelets; Z95.1 Presence of aortocoronary bypass graft; Z85.51 Personal history of malignant neoplasm of bladder; Z86.718 Personal history of other venous thrombosis and embolism; Z80.49 Family history of malignant neoplasm of other genital organs; Z82.49 Family history of ischemic heart disease and other diseases of the circulatory system; Z91.81 History of falling; Z95.5 Presence of coronary angioplasty implant and graft; Z92.21 Personal history of antineoplastic chemotherapy; Z79.82 Long term (current) use of aspirin; Z80.6 Family history of leukemia; Z98.41 Cataract extraction status, right eye; Z98.42 Cataract extraction status, left eye; Z90.49 Acquired absence of other specified parts of digestive tract; Z85.038 Personal history of other malignant neoplasm of large intestine
CPT/HCPCS: 36415; 70450; 71045; 71046; 71250; 76770; 80048; 80053; 81001; 82607; 83605; 83735; 83880; 84145; 84443; 84484; 85025; 85610; 85730; 87040; 87502; 87635; 93005; 94640; 94760; 96374; 99285

== ENCOUNTER 2022-05-13 16:35 | Inpatient (IN) | payer BC, MEDICAID, MEDICARE ==
[2022-05-13] MEDS ORDERED: GLYCOPYRROLATE 0.2 MG/ML 2 ML VIAL IVP PRN (16:38)
[2022-05-13] MEDS ORDERED: LORazepam 2 MG/ML INJ IV PRN (16:38)
[2022-05-13] MEDS ORDERED: ATROPINE OPHTH SOLN 1% 5ML BTL SUBLINGUAL PRN (16:38)
[2022-05-13] MEDS ORDERED: ONDANSETRON 4 MG/2 ML VIAL IVP PRN (16:38)
[2022-05-13] MEDS ORDERED: ACETAMINOPHEN SUPPOSITORY 650 MG SUPP RECTAL PRN (16:38)
[2022-05-13] MEDS ORDERED: MORPHINE SULFATE 2 MG/ML SYRINGE IV PRN (16:38)
[2022-05-13] MEDS ORDERED: MORPHINE SULFATE (100 MG/2 ML) 100 MG in SODIUM CHLORIDE 0.9% 100 ML IV SCH (16:45)
[2022-05-13] MEDS ORDERED: SCOPOLAMINE 1 MG/72 HR PATCH TRANSDERM SCH (17:00)
[2022-05-14 09:04] VITALS: PULSE 96; RESP 8
[2022-05-14 09:05] VITALS: BP 122/72; TEMP 98.5
--- NOTE | 2022-05-15 14:56 | P.DS ---
Providers Date of admission: 05/13/22 16:49 Expected date of discharge: 05/14/22 Attending physician: Gerardo Mckee Primary care physician: Wilfred Christianson [facility] Course: Preliminary cause of Multifocal pneumonia Final diagnosis Acute hypoxic respiratory failure secondary to multifocal pneumonia and CHF Multifocal confluent left lung opacification due to pneumonia and suspicious for underlying neoplastic disease Acute kidney injury, acute tubular necrosis requiring hemodialysis Metabolic acidosis secondary to above Chronic CHF with preserved EF Coronary artery disease with history of CABG and stent placement Hypertension Altered mental status possibly secondary to metabolic encephalopathy Underlying dementia Moderate to severe mitral regurgitation No code Discharge disposition Patient has . According to nursing documentation time of was 1635. please refer to previous documentations for further HPI. Hospital course This is a 76-year-old female who was recently admitted with CHF and end-stage renal disease placed on hemodialysis and had a catheter placed and continued to have increasing shortness of breath and continued bleeding and was being closely monitored by multiple medical consultations. Patient also with some confusion although had improved prior to being placed on hospice. Patient requesting hospice services with family at the bedside as she reported she did not want to do this anymore. Patient has been increased respirations and difficulty in breathing requiring 15 L nonrebreather and continuing to complain of shortness of breath. Per son Magdiel patient was no code and this was again addressed as patient did not want to be on a ventilator or CPR to be performed. Patient was requesting hospice and [facility] hospice was consulted. She was placed on inpatient status GIP with comfort measures only per family and patient request. Time of was 1635 on 05/14/2022. Please refer to previous dictations and further consultation notes for further HPI. The impression and plan of care has been dictated by Ambika Espinoza, Nurse Practitioner as directed. Dr. Jorge MD I have performed a history and examination and MDM of this patient, discussed the same with the dictator, and agree with the dictator's assessment and plan as written ,documented as a scribe. Based on total visit time, I have performed more than 50% of the visit. Patient Condition at Discharge: Poor Plan - Discharge Summary New Discharge Prescriptions: No Action Nitroglycerin Sl Tabs [Nitrostat] 0.4 mg SUBLINGUAL Q5M PRN PRN Reason: Chest Pain Atorvastatin [Lipitor] 80 mg PO DAILY@0700 Ipratropium-Albuterol Nebulize [Duoneb 0.5 mg-3 mg/3 ml Soln] 3 ml INHALATION RT-Q2H PRN each PRN Reason: Shortness Of Breath Or Wheezing ALPRAZolam [Xanax] 0.5 mg PO Q12H PRN PRN Reason: Anxiety Nystatin 100,000 Unit/ml Susp [Mycostatin Oral Susp] 5 ml PO TID@0700,1300,1900 Melatonin 3 mg PO HS@2000 Sodium Bicarbonate Tab 650 mg PO DAILY@0700 Metoprolol Tartrate [Lopressor] 50 mg PO BID@0700,1600 Ipratropium-Albuterol Nebulize [Duoneb 0.5 mg-3 mg/3 ml Soln] 3 ml INHALATION RT-QID Healthshake 1 can PO DAILY Losartan Potassium 100 mg PO DAILY@0700 Clopidogrel [Plavix] 75 mg PO DAILY@0700 Acetaminophen Tab [Tylenol] 650 mg PO Q4H PRN PRN Reason: Pain NIFEdipine XL [Procardia XL] 60 mg PO BID@0700,1900 Isosorbide Mononitrate ER [Imdur] 30 mg PO BID@0700,1900 Famotidine [Pepcid] 20 mg PO DAILY@0700 Aspirin 81 mg PO DAILY@0700 Discharge Medication List Atorvastatin [Lipitor] 80 mg PO DAILY@0711/18/19 [History] Nitroglycerin Sl Tabs [Nitrostat] 0.4 mg SUBLINGUAL Q5M PRN 11/18/19 [History] Clopidogrel [Plavix] 75 mg PO DAILY@0704/17/22 [History] Losartan Potassium 100 mg PO DAILY@0704/17/22 [History] Ipratropium-Albuterol Nebulize [Duoneb 0.5 mg-3 mg/3 ml Soln] 3 ml INHALATION RT-Q2H PRN each 04/24/22 [Rx] ALPRAZolam [Xanax] 0.5 mg PO Q12H PRN 05/07/22 [History] Acetaminophen Tab [Tylenol] 650 mg PO Q4H PRN 05/07/22 [History] Aspirin 81 mg PO DAILY@0700 05/07/22 [History] Famotidine [Pepcid] 20 mg PO DAILY@0700 05/07/22 [History] Healthshake 1 can PO DAILY 05/07/22 [History] Ipratropium-Albuterol Nebulize [Duoneb 0.5 mg-3 mg/3 ml Soln] 3 ml INHALATION RT-QID 05/07/22 [History] Isosorbide Mononitrate ER [Imdur] 30 mg PO BID@0700,1900 05/07/22 [History] Melatonin 3 mg PO HS@199905/07/22 [History] Metoprolol Tartrate [Lopressor] 50 mg PO BID@0700,1600 05/07/22 [History] NIFEdipine XL [Procardia XL] 60 mg PO BID@0700,1900 05/07/22 [History] Nystatin 100,000 Unit/ml Susp [Mycostatin Oral Susp] 5 ml PO TID@0700,1300,1900 05/07/22 [History] Sodium Bicarbonate Tab 650 mg PO DAILY@0700 05/07/22 [History] Discharge Disposition: - Preliminary Cause of Preliminary Cause of : Multifocal pneumonia
== END 2022-05-14 18:30 | disposition expired | DRG 951 ==
LOC: 3SCARD 16:49
PROVIDERS: ADMIT Internal Medicine; ATTEND Internal Medicine
DX: Z51.5 Encounter for palliative care (principal); G93.41 Metabolic encephalopathy; N18.6 End stage renal disease; J96.01 Acute respiratory failure with hypoxia; J18.9 Pneumonia, unspecified organism; N17.0 Acute kidney failure with tubular necrosis; I13.2 Hypertensive heart and chronic kidney disease with heart failure and with stage 5 chronic kidney disease, or end stage renal disease; E87.2 Acidosis; C34.92 Malignant neoplasm of unspecified part of left bronchus or lung; I50.32 Chronic diastolic (congestive) heart failure; I34.0 Nonrheumatic mitral (valve) insufficiency; R58 Hemorrhage, not elsewhere classified; Z95.1 Presence of aortocoronary bypass graft; Z66 Do not resuscitate; I25.10 Atherosclerotic heart disease of native coronary artery without angina pectoris; Z95.5 Presence of coronary angioplasty implant and graft; Z99.2 Dependence on renal dialysis